=== PATIENT | male | born 1970 | race Caucasian/White ===

== ENCOUNTER → 2018-10-16 16:37 | Outpatient (CLI) | payer BC, SELFPAY ==
--- NOTE | 2018-10-16 16:47 | XR_ITS ---
PROCEDURE: XR FOOT WT BEARING LT 3V CLINICAL INDICATION: pain COMPARISON: No exams were available for comparison FINDINGS: No fracture or dislocation. No lytic or blastic change. There is normal mineralization. There is mild pes planus. Mild degenerative changes are present involving the talonavicular joint with bony hypertrophic change of the dorsal aspect of the navicular. There is a prominent os trigonum. There is a prominent calcaneal spur with a separate area of calcification along the anterior aspect of the spur and some calcification along the plantar surface of the calcaneus raising the question of plantar fasciitis. Other findings:None. IMPRESSION: Pes planus with degenerative change of the midfoot Prominent os trigonum Nonspecific calcifications along the the calcaneal spur and plantar surface of the calcaneus Dictated by: Lemuel Faustin MD 10/16/2018 18:43 Signed by: <Electronically signed by Lemuel Faustin MD in [place]> 10/16/2018 18:43
--- NOTE | 2018-10-16 16:47 | XR_ITS ---
PROCEDURE: XR FOOT WT BEARING RT 3V CLINICAL INDICATION: pain COMPARISON: No exams were available for comparison FINDINGS: No fracture or dislocation. No lytic or blastic change. There is normal mineralization. Osteoarthritic changes involve the 1st metatarsophalangeal joint. Mild osteoarthritic changes involve the tarsal bones. There is pes planus. There is a prominent calcaneal spur. No fracture or dislocation. Other findings:None. IMPRESSION: Pes planus with mild osteoarthritic change Dictated by: Lemuel Faustin MD 10/16/2018 18:41 Signed by: <Electronically signed by Lemuel Faustin MD in [place]> 10/16/2018 18:41
== END ==
PROVIDERS: PCP Nurse Practitioner; Visit Provider Podiatrist
DX: M21.6X1 Other acquired deformities of right foot (principal); M21.6X2 Other acquired deformities of left foot; M72.2 Plantar fascial fibromatosis
CPT/HCPCS: 73630

== ENCOUNTER 2020-03-04 12:19 | Emergency (ER) | payer BC, SELFPAY ==
[2020-03-04 12:20] VITALS: BP 134/75; PULSE 80; RESP 14; TEMP 36.6; O2SAT 97; BMI 35.9
--- NOTE | 2020-03-04 12:45 | HMH.EDUTC ---
[facility] Disposition Clinical Impression: Exposure to COVID-19 virus Disposition: Home, Self-Care Condition on Discharge: Good Instructions: Preventing the Spread of Coronavirus Discharge Instructions Additional Instructions: Drink plenty of fluids. Take tylenol for pain or fever. Return if you begin to have difficulty breathing. Follow up with your regular doctor. GO TO THE ER FOR ANY WORSENING SYMPTOMS Referrals: Alisson Cho APRN [Primary Care Provider] - Forms: Work/School Release Time of Disposition: 12:49 Medical Decision Making - Medical Records Medical records reviewed: No: I reviewed the patient's medical records. - Damon Inquiry Pt receiving controlled substance: No Vital Signs: 03/04/20 12:20 03/04/20 12:51 Temperature 97.9 F 97.9 F Temperature Source Oral Oral Pulse Rate 80 Pulse Rate [Right] 80 Respiratory Rate 14 14 Blood Pressure 134/75 Blood Pressure [Right Arm] 134/75 Blood Pressure Mean [Right Arm] 94 02 Sat by Pulse Oximetry 97 Orders (Tests/Meds): ORDERS Category Date Time Status Covid-19 Nasal PCR Sendout P&C Routine Lab 03/04/20 12:38 Received [facility] [place] HPI - General Stated complaint: covid exposure,symtoms Time Seen by Provider: 03/04/20 12:45 Mode of Arrival: Ambulatory Description of Symptoms (Recalled from Triage Doc. by RN): pt request covid test pt c/o sore throat, KRAUSE, and tired HEENT Symptoms (Recalled from RN notes): No Resp Symptoms (Recalled from RN notes): Yes Skin Symptoms (Recalled from RN notes): No MS Symptoms (Recalled from RN notes): No Functional Status (Recalled from RN notes): wnl - History of Present Illness Provider Complaint: He states that he has been exposed to covid-19 by his son having it. He denies any symptoms at this time other than he has had fatigue for the past couple of days. - Related Data Home Medications Medication Instructions Recorded Confirmed pantoprazole 20 mg tablet,delayed 20 mg PO DAILY 10/16/18 10/16/18 release Previous Rx's Medication Instructions Recorded Bisoprolol Fumarate [Bisoprolol 5 mg PO DAILY #30 tab 10/12/18 5mg Tablet] Allergies Allergy/AdvReac Type Severity Reaction Status Date / Time No Known Allergies Allergy Verified 10/16/18 14:58 - Worker's Comp Is this a Worker's Comp case?: No Is this an H Worker's Comp?: No Is this a Rosalva Worker's Comp?: No H History - Hepatitis A Screen Drug use history?: No High risk sexual behaviors?: No History of sexually transmitted infection?: No Currently employed?: No Childcare worker?: No Do you have indoor plumbing?: Yes Do you have electricity?: Yes Attestation statement:: This patient has been screened for Hepatitis A risk factors. I have reviewed the patient's past medical history: Yes Medical History: Reports:: Gastroesophageal Reflux Disease(GERD), Hypertension Other Surgeries: Yes: Hernia Repair Amputation: No Fractures: Yes (2nd finger on the right hand ) Comment: Gastric Sleeve- 2013. Spermatocele removed - Social History Smoking Status: Never smoker Alcohol Intake: never Alcohol Intake Frequency:: other Occupational Status: other Family Hx:: Diabetes ROS Obtained: Yes All systems reviewed & no additional complaints - Constitutional Constitutional: Reports system reviewed and no additional complaints, except as docu - Eyes Eyes: Reports system reviewed and no additional complaints, except as docu - ENT Ears, Nose, Mouth, and Throat: Reports system reviewed and no additional complaints, except as docu - Cardiovascular Cardiovascular: Reports system reviewed and no additional complaints, except as docu - Respiratory Respiratory: Reports system reviewed and no additional complaints, except as docu Physical Exam - General General appearance: alert, in no apparent distress - Head Head exam: atraumatic, normocephalic, normal inspection - Eye Eye exam: Present: normal ap
[2020-03-04 12:51] VITALS: BP 134/75; PULSE 80; RESP 14; TEMP 36.6
[2020-03-05 09:20] LABS: Covid-19 Nasal PCR Sendout P&C NEGATIVE
== END 2020-03-04 12:54 | disposition home or self-care (01) ==
PROVIDERS: Emergency Provider Nurse Practitioner Family; PCP Nurse Practitioner
DX: Z20.822 Contact with and (suspected) exposure to COVID-19 (principal); I10 Essential (primary) hypertension; K21.9 Gastro-esophageal reflux disease without esophagitis; Z79.899 Other long term (current) drug therapy
CPT/HCPCS: 99202; G0463; U0004

== ENCOUNTER → 2020-03-27 14:31 | Outpatient (CLI) | payer BC, SELFPAY ==
[2020-03-27 14:42] LABS: Basophils % 0.8 % (0.1-2.0); Eosinophils # 0.1 K/mm3 (0.0-0.4); Eosinophils % 1.2 % (0.1-12.0); Hematocrit 45.5 % (42.0-52.0); Hemoglobin 14.4 g/dL (14.1-18.0); Lymphocytes # 2.1 K/mm3 (0.7-4.5); Lymphocytes % 46.7 % (10-50); Mean Corpuscular HGB Conc 31.7 g/dL (31.8-35.4); Mean Corpuscular Hemoglobin 27.6 pg (27.0-31.2); Mean Corpuscular Volume 87.1 fl (80-94); Mean Platelet Volume 7.6 fl (7.4-10.4); Monocytes # 0.3 K/mm3 (0.1-1.0); Monocytes % 7.4 % (1.7-9.3); Neutrophils % 43.9 % (37.0-80.0); Platelet Count 273 K/mm3 (142-424); Red Blood Count 5.23 M/mm3 (4.60-6.20); White Blood Count 4.6 K/mm3 (4.8-10.8)
[2020-03-27 14:51] LABS: Chloride 107 mmol/L (98-107); Potassium 4.1 mmoL/L (3.5-5.1); Sodium 142 mmol/L (136-145)
[2020-03-27 14:54] LABS: Alanine Aminotransferase 26 U/L (12-78); Albumin Level 4.2 g/dl (3.5-5.0); Albumin/Globulin Ratio 1.4 (1.1-1.8); Alkaline Phosphatase 71 U/L (38-126); Anion Gap 10.1 mEq/L (5-15); Aspartate Amino Transferase 27 U/L (17-59); Bilirubin,Total 0.7 mg/dl (0.2-1.3); Blood Urea Nitrogen 15 mg/dl (9-20); Carbon Dioxide 29 mmol/L (22.0-30.0); Cholesterol 181 mg/dl (140-200); Estimated Glomerular Filt Rate 71 ml/min (>60); GFR (African American) 86 ML/MIN (>60); Globulin 3.1 g/dL (1.3-3.2); Total Protein,Serum 7.3 g/dl (6.3-8.2); Triglycerides 153 mg/dl (30-150); VLDL Cholesterol 31 mg/dL (0-40)
[2020-03-27 14:55] LABS: Calcium 9.7 mg/dl (8.4-10.2); Chol/HDL Ratio 3.6 (1-3.5); Glucose 95 mg/dl (74-100); HDL Cholesterol 50 mg/dl (40-60)
[2020-03-27 15:07] LABS: Direct LDL Cholesterol 96.84 mg/dL (100-129)
[2020-03-27 15:13] LABS: T4 (Thyroxine) 8.3 ug/dl (5.53-11.0)
[2020-03-27 18:44] LABS: 25-OH Vitamin D, Total 34.7 ng/mL (30-100)
[2020-03-27 18:58] LABS: Prostate Specific Ag Screen 0.3 ng/ml (0.0-4.0)
== END ==
PROVIDERS: Visit Provider Nurse Practitioner Family
DX: Z00.00 Encounter for general adult medical examination without abnormal findings (principal); Z12.5 Encounter for screening for malignant neoplasm of prostate
CPT/HCPCS: 80053; 80061; 82306; 84436; 84443; 85025; G0103

== ENCOUNTER → 2020-05-14 12:31 | Outpatient (CLI) | payer BC, SELFPAY ==
[2020-05-14 15:10] LABS: Coronavirus 19 IgG Antibody Negative (Negative); Coronavirus 19 IgM Antibody Negative (Negative)
== END ==
PROVIDERS: Visit Provider Internal Medicine Gastroenterology
DX: Z01.818 Encounter for other preprocedural examination (principal); Z20.822 Contact with and (suspected) exposure to COVID-19; Z13.810 Encounter for screening for upper gastrointestinal disorder; Z12.11 Encounter for screening for malignant neoplasm of colon
CPT/HCPCS: 36415; 86328

== ENCOUNTER 2020-05-16 07:32 | Day surgery (SDC) | payer BC, SELFPAY ==
[2020-05-13 11:37] VITALS: BMI 46.5
[2020-05-16] VITALS (9 sets, daily range): BP systolic 88–122; BP diastolic 54–82; PULSE 70–84; RESP 16–18; TEMP 36.3–36.8; O2SAT 95–100
--- NOTE | 2020-05-16 08:30 | HMH.PROC ---
[facility] Procedure Note Procedure Note:: Upper Endoscopy Procedure Report: Esophagogastroduodenoscopy with cold biopsies and TTS balloon dilation Endoscopost: Rishi Andrew II, MD Referring Physician: BENJAMIN Mejia Date of Procedure: May 16, 2020 Equipment: Olympus GIF 190 standard upper endoscope Sedation: MAC sedation Indications: Mr. Enriquez is a 50-year-old gentleman with chronic heartburn and reflux. This occurs especially when lying down. He does report some regurgitation and belching. He reports some early satiety but no bloating. He did have a gastric sleeve (Dr. Shaggy San) 6 or 7 years ago). The patient reports intermittent dysphagia. He reports no weight loss or melena. He reports no abdominal pain, indigestion or dyspepsia. Procedure: Prior to the procedure, a history and physical exam was performed, and patient's medications and allergies were reviewed. The risks, benefits and alternatives of the sedation and procedure were discussed with the patient. All questions were answered and informed consent was obtained. The patient was brought to the procedure room. Patient identification and proposed procedure were verified by the physician and the nurse. The patient was placed in a left lateral decubitus position and the scope was passed under direct vision. Throughout the procedure, the patient's blood pressure, pulse, and oxygen saturations were monitored continuously. The upper GI endoscopy was accomplished without difficulty. The patient tolerated the procedure well. Findings: The scope was passed directly into the upper esophagus and advanced to the third portion of the duodenum. The post bulbar duodenum and duodenal bulb were normal with normal mucosa and conniventes. The scope was withdrawn through a normal duodenal bulb and pylorus into the stomach. There was evidence of linear reactive gastropathy of the antrum. There was evidence of prior gastric sleeve surgery with removal of most of the fundus. The remainder of the body and cardia of the stomach were normal. Upon retroflexion there was a small 2 cm hiatal hernia. 2 biopsies were taken in the antrum and along the lesser curvature for histology to rule out gastritis and/or H pylori. The scope was then withdrawn into the esophagus. There was a serrated Z-line. Cold biopsies were obtained at the squamocolumnar junction. There were strong tertiary contractions and evidence of mild to moderate esophageal dysmotility. The entire esophagus was dilated to 60 [place]/20 mm with a TTS hydrostatic balloon. There was some resistance at the cricopharyngeus. The remainder of the esophageal mucosa was normal. Impression: 1. Nonerosive GERD with moderate esophageal dysmotility and small 2 cm hiatal hernia 2. Mild linear reactive gastropathy of antrum 3. Prior gastric sleeve surgery Plan: I will follow-up the biopsies. I do feel the patient has some functional GERD driven by gas pressure gradients. We will discuss dietary measures and treatment options. I will proceed with screening colonoscopy.
--- NOTE | 2020-05-16 08:31 | HMH.ANESCL ---
[facility] Anesthesia Checklist - Patient Identification Patient Identification: Arm Band - Structural Data Admitted From: Home Planned Operative Procedure/s: EGD Consent for Planned Operative Procedure(s) Verified: Yes - NPO Status Verified Time NPO: 00:00 - Airway Assessment Dentition: Good Dentition - Neurological Assessment Level of Consciousness: Awake Hx Seizures: No Numbness or tingling in extremities: No - Anesthesia Plan Anesthesia Risk discussed: Yes Anesthesia Plan: Verified ASA Class: III Anesthesia Type: MAC [facility] History I have reviewed the patient's past medical history: Yes Medical History: Reports:: Gastroesophageal Reflux Disease(GERD), Hypertension Denies:: Cancer, Diabetes Mellitus Type 1, Diabetes Mellitus Type 2, Internal Pacemaker, MRSA, Seizures *Have you ever received a pneumonia vaccine?: No *Have you received a flu vaccine this season?: Yes Anesthesia experience/problems:: None Other Surgeries: Yes: Bariatric Surgery (Gastric Sleeve 2012), Hernia Repair (Umbilical ). No: Pacemaker Amputation: No Fractures: Yes (2nd finger on the right hand ) - *Social History Last grade of school completed: Advanced degree Smoking Status: Never smoker Alcohol Intake: never Alcohol Intake Frequency:: other Substance Use Type: denies use *Occupational Status:: employed Housing: house Household Members: spouse, family *Travel in the last 8 weeks: None Family Hx:: Diabetes
--- NOTE | 2020-05-16 08:57 | P.PCN_ITS ---
[facility] Procedure Note Procedure Note:: Colonoscopy Procedure Report: Colonoscopy with cold snare polypectomy Endoscopist: Rishi Andrew II, MD Referring physician: BENJAMIN Mejia Date of Procedure: May 16, 2020 Equipment: Olympus 190 variable stiffness pediatric colonoscope Sedation: MAC sedation Indication: Mr. Enriquez is a 50-year-old gentleman who is here for high risk screening colonoscopy. His mother had colon cancer in her early 70s (age 71 or 72) and his maternal first cousin had colon cancer at the age of 52. He reports some chronic constipation and has a bowel movement every 3 to 4 days. He reports no abdominal pain, weight loss, rectal bleeding or abdominal bloating. This is his first colonoscopy. Procedure: Prior to the procedure, a history and physical exam was performed, and patient's medications and allergies were reviewed. The risks, benefits and alternatives of the sedation and procedure were discussed with the patient. All questions were answered and informed consent was obtained. The patient was brought to the procedure room. Patient identification and proposed procedure were verified by the physician and the nurse. The patient was placed in a left lateral decubitus position and the scope was passed under direct vision. Throughout the procedure, the patient's blood pressure, pulse, and oxygen saturations were monitored continuously. The colonoscopy was accomplished without difficulty. The patient tolerated the procedure well. Findings: On digital rectal examination there was normal rectal tone. There were no external hemorrhoids. The prostate was 2+, smooth, soft, symmetric without nodules. The colonoscope was introduced through the anal canal to the rectum and advanced to the cecum. The ileocecal valve and appendiceal orifice were identified. The scope was advanced a short distance into the ileum which appeared grossly normal. The scope was then withdrawn into the colon. The cecum, ascending and transverse colon and mucosa were grossly normal. There were 2 colon polyps (transverse x1 (4 mm) and rectum x1 (3 mm)) which were both removed via cold snare polypectomy. There were scattered diverticuli throughout the descending and sigmoid colon (LEFT colon). The rectum itself was normal. Upon retroflexion within the rectum there were grade 1-2 internal hemorrhoids. The preparation was excellent throughout with [place] Preparation Score of 9. The cecal time was 12 minutes. Impression: 1. Diminutive colonic polyps x2 2. Left-sided diverticulosis 3. Grade 1-2 internal hemorrhoids Plan: Based upon the patient's family history, I would recommend repeat surveillance colonoscopy again in 5 years. I will follow up the polyp histology. I would encourage a fiber bowel regimen on a long-term daily maintenance basis.
--- NOTE | 2020-05-16 09:02 | HMH.ANESI ---
[facility] Anesthesia Record Part I Intake, IV Amount: 200 Estimated blood loss (mL): 0 Urine output (mL): 0 Blood Pressure: 88/54 SaO2: 95 Pulse Rate: 84 Respiratory Rate: 16 Temperature: 98.2 F Patient is:: Awake Stable to PACU at:: 08:59
--- NOTE | 2020-05-16 10:24 | P.PN_ITS ---
[facility] Anesthesia Record Part II Discharge Time: 09:50 Destination: Surgical Day Care (OP Surgery) PACU nurse assessment reviewed?: Yes Patient Condition:: Good Anesthesia Complications:: None Swallowing reflex intact?: Yes Cyanosis?: No Blood Pressure: 117/82 Pulse Rate: 79 Temperature: 98.2 F Mental Status: Alert & Oriented Pain level:: 0 Nausea and/or vomitting:: None Intake, IV Amount: 200
== END 2020-05-16 10:00 | disposition home or self-care (01) ==
LOC: OUTP 07:33
PROVIDERS: PCP Nurse Practitioner Family; Visit Provider Internal Medicine Gastroenterology
PROC: 0DJ08ZZ Inspection of Upper Intestinal Tract, Via Natural or Artificial Opening Endoscopic (ICD-10-PCS; CPT 43235; principal; 2020-05-16 09:00)
DX: Z12.11 Encounter for screening for malignant neoplasm of colon (principal); Z80.0 Family history of malignant neoplasm of digestive organs; K63.5 Polyp of colon; K57.30 Diverticulosis of large intestine without perforation or abscess without bleeding; K64.0 First degree hemorrhoids; K21.9 Gastro-esophageal reflux disease without esophagitis; K22.4 Dyskinesia of esophagus; K31.9 Disease of stomach and duodenum, unspecified; K44.9 Diaphragmatic hernia without obstruction or gangrene; Z98.84 Bariatric surgery status; Z79.899 Other long term (current) drug therapy
CPT/HCPCS: 45385; 43239; 43249; C1726

== ENCOUNTER 2020-06-17 14:55 | Emergency (ER) | payer BC, SELFPAY ==
[2020-06-17 15:38] VITALS: BP 126/98; PULSE 85; RESP 18; TEMP 36.8; O2SAT 98; BMI 31.3
--- NOTE | 2020-06-17 15:49 | HMH.EDUTC ---
[facility] [place] Disposition Clinical Impression: Encounter for laboratory testing for COVID-19 virus Disposition: Home, Self-Care Condition on Discharge: Good Instructions: Fluticasone Nasal [place], DI for COVID-19 (Suspected or Confirmed ), Coronavirus Disease 2019 Additional Instructions: *Monitor Temp, Over the counter Motrin or Tylenol as directed/as needed Tylenol every 4 hours and Motrin every 6 hours (as long as your family doctor has told you that you can take it) for fever or pain. and straight to ER if unable to lower temp less than 101.0 after medication given *Throat Lozenges *Warm fluids like tea with honey may help to soothe the throat and help with nasal congestion *Sleep elevated *Humidifier/Vaporizer *Flonase 2 sprays in each nostril daily but be aware that it may take 2-3 days before you notice improvement Follow up IMMEDIATELY for new or worsening symptoms or no Noticeable improvement over the next 48-72 hours. 911 for difficulty breathing or swallowing You were tested for today for COVID19 your test result should be back in the next 24-48 hours, you may call to the [facility] to see if your test results are back in the next 48 hours [phone] [facility] hours are 9am-9pm You was given a handout with instructions for Self Quarantine and Self isolation for while you wait on test results and what to do if they are positive If you are positive the Health Dept will be contacting you also Prescriptions: Fluticasone Propionate [Flonase 50mcg nasal spray 16gm] 1 spr NS DAILY #1 bottle Transmission Status: Received by [facility]/pharmacy #[id number] Referrals: Elisabet Mills APRN [Primary Care Provider] - As needed Forms: Work/School Release Time of Disposition: 15:58 Medical Decision Making - Damon Inquiry Pt receiving controlled substance: No Damon was queried for this patient: No Vital Signs: 06/17/20 15:38 Temperature 98.2 F Temperature Source Oral Pulse Rate [Right Brachial] 85 Respiratory Rate 18 Blood Pressure [Right Arm] 126/98 H Blood Pressure Mean [Right Arm] 107 Blood Pressure Source [Right Arm] Automatic Cuff Blood Pressure Position [Right Arm] Sitting 02 Sat by Pulse Oximetry 98 Oxygen Delivery Method Room Air Orders (Tests/Meds): ORDERS Category Date Time Status Covid-19 Nasal PCR ([facility]) Routine Lab 06/17/20 15:20 Received [facility] HPI - General Stated complaint: covid Test Time Seen by Provider: 06/17/20 15:49 Mode of Arrival: Ambulatory Source of Information: Patient Limitations: No Limitations Description of Symptoms (Recalled from Triage Doc. by RN): COVID TEST HEENT Symptoms (Recalled from RN notes): Yes Resp Symptoms (Recalled from RN notes): Yes Skin Symptoms (Recalled from RN notes): No MS Symptoms (Recalled from RN notes): No Functional Status (Recalled from RN notes): WNL - History of Present Illness Provider Complaint: Patient states that he has been having body aches, chills and feeling fatigued for the last couple of days States that he has not had any sore throat or sinus congestion States that he was concerned with COVID and wanted to get tested - Related Data Home Medications Medication Instructions Recorded Confirmed omeprazole 40 mg capsule,delayed 40 mg PO DAILY 03/27/20 05/22/20 release Previous Rx's Medication Instructions Recorded phentermine 37.5 mg tablet 37.5 mg PO DAILY #30 tab 05/22/20 Fluticasone Propionate [Flonase 1 spr NS DAILY #1 bottle 06/17/20 50mcg nasal spray 16gm] Allergies Allergy/AdvReac Type Severity Reaction Status Date / Time No Known Allergies Allergy Verified 05/22/20 13:02 - Worker's Comp Is this a Worker's Comp case?: No [facility] History - Hepatitis A Screen Drug use history?: No High risk sexual behaviors?: No History of sexually transmitted infection?: No Currently employed?: No Childcare worker?: No Do you have indoor plumbing?: Yes Do you have electricity?: Yes Attestation statement:: This patient has been
[2020-06-17 16:12] VITALS: BP 126/98; PULSE 85; RESP 18; TEMP 36.8
--- NOTE | 2020-06-18 10:19 | PC.NURSE ---
patient notified of positive covid results
== END 2020-06-17 16:12 | disposition home or self-care (01) ==
PROVIDERS: Emergency Provider Nurse Practitioner; PCP Nurse Practitioner Family
DX: U07.1 COVID-19 (principal); I10 Essential (primary) hypertension; K21.9 Gastro-esophageal reflux disease without esophagitis; Z79.899 Other long term (current) drug therapy
CPT/HCPCS: 99202; G0463; U0003

== ENCOUNTER → 2020-10-09 16:12 | Outpatient (CLI) | payer BC, SELFPAY ==
--- NOTE | 2020-10-09 16:13 | MR_ITS ---
PROCEDURE: MR SHOULDER RT WO CON CLINICAL INDICATION: fall shoulder pain COMPARISON: No exams were available for comparison TECHNIQUE: Routine multiplanar multi echo sequences are performed without gadolinium enhancement. FINDINGS: The infraspinatus tendon, and teres minor tendons have an unremarkable. Tendinopathy/tendinosis involves the subscapularis and supraspinatus tendon. There is a small area of discontinuity of the anterior aspect of the supraspinatus tendon distally consistent with a least a partial and possibly full-thickness tear. A complete tear is not present. There is mild acromioclavicular hypertrophy with subacromial narrowing. Small osteophyte is present along the inferior aspect of the distal clavicle causing some impingement upon the musculotendinous junction of the supraspinatus. There does appear to be a SLAP tear of the glenoid labrum best seen on the coronal images from the 2 to 10 o'clock position. The bicipital tendon is in place. No obvious fracture. There are mild osteoarthritic changes of the glenohumeral joint IMPRESSION: Acromioclavicular hypertrophy with subacromial stenosis and small spur along the inferior aspect of the distal clavicle at the musculotendinous junction of the supraspinatus with mild impingement. Tendinopathy/tendinosis of the supraspinatus tendon and subscapularis tendons with at least a partial and possibly full-thickness tear of the supraspinatus tendon distally and anteriorly. No evidence of complete tear or musculotendinous retraction. Slap tear of the glenoid labrum Mild osteoarthritic change of the glenohumeral joint Dictated by: Lemuel Faustin MD 10/10/2020 08:29 Lemuel Faustin MD in [place] 10/10/2020 08:29
== END ==
PROVIDERS: PCP Nurse Practitioner Family; Visit Provider Nurse Practitioner Family
DX: M25.511 Pain in right shoulder (principal)
CPT/HCPCS: 73221

== ENCOUNTER → 2020-11-05 08:40 | Outpatient (CLI) | payer BC, SELFPAY ==
--- NOTE | 2020-11-05 08:45 | XR_ITS ---
PROCEDURE: XR SHOULDER RT MIN 2V CLINICAL INDICATION: internal, external and y views Pain COMPARISON: No exams were available for comparison FINDINGS: No fracture or dislocation. No lytic or blastic change. There is normal mineralization. There are osteoarthritic changes at the acromioclavicular joint and glenohumeral joint. There is a small linear calcific density along the neck of the humerus medially etiology indeterminate. Other findings:There is mild subacromial stenosis. IMPRESSION: Mild osteoarthritic change. Dictated by: Lemuel Faustin MD 11/05/2020 09:36 Lemuel Faustin MD in [place] 11/05/2020 09:36
== END ==
PROVIDERS: PCP Nurse Practitioner Family; Visit Provider Orthopaedic Surgery
DX: M25.511 Pain in right shoulder (principal)
CPT/HCPCS: 73030

== ENCOUNTER 2021-03-25 15:53 | Emergency (ER) | payer BC, SELFPAY ==
[2021-03-25 16:20] VITALS: BP 130/98; PULSE 97; RESP 18; TEMP 36.9; O2SAT 97; BMI 43.6
--- NOTE | 2021-03-25 16:20 | HMH.EDUTC ---
[facility] Disposition Clinical Impression: Encounter for laboratory testing for COVID-19 virus Disposition: Home, Self-Care Condition on Discharge: Good Instructions: Preventing the Spread of Coronavirus Discharge Instructions, DI for COVID-19 (Suspected or Confirmed ) Additional Instructions: Drink plenty of fluids. Follow up with your regular doctor. GO TO THE ER FOR ANY WORSENING SYMPTOMS Quarantine until you know the results of your covid-19 test. Notify your school or workplace of your results and follow their instructions regarding return to work/school. Referrals: Elisabet Mills APRN [Primary Care Provider] - Time of Disposition: 16:22 Medical Decision Making - Medical Records Medical records reviewed: No: I reviewed the patient's medical records. - Damon Inquiry Pt receiving controlled substance: No Orders (Tests/Meds): ORDERS Category Date Time Status Covid-19 Nasal PCR ([facility]) Routine Lab 03/25/21 16:19 Ordered [facility] HPI - General Stated complaint: covid tests Time Seen by Provider: 03/25/21 16:20 - History of Present Illness Provider Complaint: He is here to have a covid-19 test in preparation for shoulder surgery that he is scheduled to have done at early next week. He denies any symptoms or complaints. - Related Data Previous Rx's Medication Instructions Recorded omeprazole 40 mg capsule,delayed 40 mg PO DAILY #90 cap 12/23/20 release phentermine 37.5 mg tablet 37.5 mg PO DAILY #30 tab 03/25/21 tramadol 50 mg tablet 50 mg PO BID PRN #60 tab 03/25/21 Allergies Allergy/AdvReac Type Severity Reaction Status Date / Time No Known Allergies Allergy Verified 03/25/21 15:07 [facility] History - Hepatitis A Screen Attestation statement:: This patient has been screened for Hepatitis A risk factors. I have reviewed the patient's past medical history: Yes Medical History: Reports:: Gastroesophageal Reflux Disease(GERD), Hypertension, MRSA Denies:: Cancer, Diabetes Mellitus Type 1, Diabetes Mellitus Type 2, Internal Pacemaker, Seizures Other Medical History: Reports: Arthritis Other Surgeries: Yes: Bariatric Surgery, Colonoscopy, Hernia Repair (Umbilical ), Other (Back surgery late 2020 and shoulder surgery mar 2021). No: Pacemaker Amputation: No Fractures: Yes (2nd finger on the right hand ) Comment: Gastric Sleeve- 2014. Spermatocele removed - Social History Smoking Status: Never smoker Alcohol Intake: never Alcohol Intake Frequency:: other Substance Use Type: denies use Occupational Status: employed Housing: house Household Members: spouse, family Family Hx:: Diabetes ROS Obtained: Yes All systems reviewed & no additional complaints - Constitutional Constitutional: Reports system reviewed and no additional complaints, except as docu - Eyes Eyes: Reports system reviewed and no additional complaints, except as docu - ENT Ears, Nose, Mouth, and Throat: Reports system reviewed and no additional complaints, except as docu - Cardiovascular Cardiovascular: Reports system reviewed and no additional complaints, except as docu - Respiratory Respiratory: Reports system reviewed and no additional complaints, except as docu - Gastrointestinal Gastrointestingal: Reports: system reviewed and no additional complaints, except as docu - Musculoskeletal Musculoskeletal: Reports system reviewed and no additional complaints, except as docu - Integumentary/Breasts Skin/Breast: Reports system reviewed and no additional complaints, except as docu - Neurologic Neurologic: Reports system reviewed and no additional complaints, except as docu Physical Exam - General General appearance: alert, in no apparent distress - Head Head exam: atraumatic, normocephalic, normal inspection - Eye Eye exam: Present: normal appearance, PERRL, EOMI - ENT ENT exam: Present: normal exam, normal oropharynx, mucous membranes moist, TM's normal bilaterally, normal external
[2021-03-25 16:25] VITALS: BP 130/98; PULSE 97; RESP 18; TEMP 36.9
== END 2021-03-25 16:26 | disposition home or self-care (01) ==
PROVIDERS: Emergency Provider Nurse Practitioner Family; PCP Nurse Practitioner Family
DX: U07.1 COVID-19 (principal)
CPT/HCPCS: 99202; C9803; G0463; U0003; U0005

== ENCOUNTER → 2021-12-15 14:33 | Outpatient (CLI) | payer BC, SELFPAY ==
--- NOTE | 2021-12-15 14:37 | MR_ITS ---
FINAL REPORT CLINICAL HISTORY: PAIN OF RIGHT KNEE right knee pain pain since [place] pain when walking FINDINGS: Multiplanar MR imaging of the right knee was performed without contrast. There is motion on many of the images which decreases sensitivity of the exam. There is a tear of the posterior horn extending to the posterior root of the medial meniscus. There is possible small tear of the anterior horn of the lateral meniscus. The anterior and posterior cruciate ligaments are intact. The medial collateral ligament and lateral ligamentous complex are intact. There is a foci of patellar tendinitis. The quadriceps tendon is intact. There are mild degenerative changes. There is a nondisplaced fracture of the medial tibial plateau and 10 mm osteochondral lesion versus osteochondral fracture at the medial tibial plateau with bone marrow edema in this region. There is moderate chondromalacia. A large joint effusion is seen. The musculature is intact. No soft tissue mass or cyst is identified. IMPRESSION: Tear of the posterior horn of the medial meniscus extending to the posterior root. Possible small tear of the anterior horn of the lateral meniscus. Nondisplaced fracture of the medial tibial plateau and a 10 mm osteochondral lesion versus osteochondral fracture at the medial tibial plateau with bone marrow edema. Large joint effusion. Reviewed, Interpreted and Dictated by Kenny Cha III, MD Transcribed by Wen Barrett Authenticated and [facility]
== END ==
PROVIDERS: PCP Nurse Practitioner Family; Visit Provider Nurse Practitioner Family
DX: M25.561 Pain in right knee (principal)
CPT/HCPCS: 73721

== ENCOUNTER 2023-05-18 13:39 | Outpatient (CLI) | payer BC, SELFPAY ==
--- NOTE | 2023-05-18 13:49 | US_ITS ---
FINAL REPORT CLINICAL HISTORY: history of thyroid nodules COMPARISON: None FINDINGS: THYROID ULTRASOUND: The right lobe of the thyroid gland measures 6.1 x 3.4 x 4.4 cm in size. The left lobe of the thyroid gland measures 6.5 x 3.7 x 2.7 cm in size. The isthmus of the thyroid gland measures 5.4 mm in thickness. The entire thyroid gland is enlarged, with numerous heterogeneous predominantly hypoechoic solid nodules, measuring up to 3.3 cm on the right side and up to 4.2 cm on the left side. These nodules are TI-RADS category 4 nodules, and which suggest sampling of the dominant nodule in each lobe. IMPRESSION: Enlarged thyroid gland with numerous heterogeneous TI-RADS category 4 nodules as described. Would suggest sampling of the dominant nodule in each lobe of the thyroid gland. Reviewed, Interpreted and Dictated by Chilo Arias MD Transcribed by Janet Bazzi Authenticated and [facility]
[2023-05-18 14:45] LABS: Free T4 (Free Thyroxine) 1.16 ng/dl (0.78-2.19)
[2023-05-18 14:59] LABS: Thyroid Stimulating Hormone 0.66 uIU/mL (0.465-4.68)
== END 2023-05-18 23:59 ==
LOC: RAD 13:39
PROVIDERS: PCP Nurse Practitioner Family; Visit Provider Nurse Practitioner
DX: E03.9 Hypothyroidism, unspecified (principal); Z86.39 Personal history of other endocrine, nutritional and metabolic disease
CPT/HCPCS: 36415; 76536; 84439; 84443

== ENCOUNTER 2023-05-27 07:59 | Outpatient (CLI) | payer BC, SELFPAY ==
--- NOTE | 2023-05-27 08:00 | US_ITS ---
FINAL REPORT CLINICAL HISTORY: .GILMAR [place] -- RT AND LT LOBE NODULES - [facility] FINDINGS: Ultrasound guided thyroid biopsy. HISTORY: Nodules within the right and left lobe of the thyroid. Attending radiologist: Dr. 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 Utilizing local anesthesia and sterile technique with a 25-gauge needle, access to nodule within the right lobe of the thyroid was obtained. A total of 5 passes were performed with a 25-gauge needle under direct ultrasound guidance. In addition, access to nodule within the left lobe of the thyroid was obtained. A total of 5 passes were performed with a 25-gauge needle under direct ultrasound guidance. The patient received no conscious sedation. The patient tolerated procedure well and left the department in good condition. IMPRESSION: Status post ultrasound guided biopsy of the right and left lobe of the thyroid without immediate complication. Films reviewed , interpreted and dictated by Dr. Cha. Transcribed by Gilmar Ambrose PA-C. Reviewed, Interpreted and Dictated by Kenny Cha III, MD Transcribed by ELIN Harding Authenticated and [facility]
== END 2023-05-27 23:59 ==
LOC: RAD 08:00
PROVIDERS: PCP Nurse Practitioner Family; Visit Provider Nurse Practitioner
DX: Z86.39 Personal history of other endocrine, nutritional and metabolic disease (principal); E04.1 Nontoxic single thyroid nodule
CPT/HCPCS: 10005; 76536

== ENCOUNTER 2023-08-14 13:36 | Outpatient (CLI) | payer BC, SELFPAY ==
--- NOTE | 2023-08-14 13:49 | ECG_ITS ---
APPROVED REPORT Exam: Resting ECG HR:90 bpm ECG Measurements Heart Rate 90 AXES SD 177 P 18 QRSd 97 QRS -1 QT 347 T 64 QTc 394 Conclusion SINUS RHYTHM POSSIBLE LEFT ATRIAL ENLARGEMENT [-0.1mV P-WAVE IN V1/V2] POSSIBLE LEFT VENTRICULAR HYPERTROPHY [VOLTAGE CRITERIA PLUS LAE OR QRS WIDENING] POSSIBLE SEPTAL MYOCARDIAL INFARCTION , PROBABLY OLD [30 ms Q WAVE IN V1/V2] ABNORMAL ECG Electronically signed by : BRANDIE SANTIAGO, 08/14/2023 15:39:29
== END 2023-08-14 23:59 | disposition home or self-care (01) ==
PROVIDERS: PCP Nurse Practitioner Family; Visit Provider Student in an Organized Health Care Education/Training Program
DX: E89.0 Postprocedural hypothyroidism (principal)
CPT/HCPCS: 93005

== ENCOUNTER 2023-08-16 11:26 | Observation (INO) | payer BC, SELFPAY ==
[2023-08-14 14:10] LABS: Basophils # 0.1 K/mm3 (0-0.2); Basophils % 1.2 % (0.1-2.0); Eosinophils # 0.1 K/mm3 (0.0-0.4); Eosinophils % 1.7 % (0.1-12.0); Hematocrit 47.5 % (42.0-52.0); Hemoglobin 15.5 g/dL (14.1-18.0); Lymphocytes # 1.8 K/mm3 (0.7-4.5); Lymphocytes % 32.5 % (10-50); Mean Corpuscular HGB Conc 32.6 g/dL (31.8-35.4); Mean Corpuscular Hemoglobin 29.2 pg (27.0-31.2); Mean Corpuscular Volume 89.7 fl (80-94); Mean Platelet Volume 7.7 fl (7.4-10.4); Monocytes # 0.4 K/mm3 (0.1-1.0); Monocytes % 7.7 % (1.7-9.3); Neutrophils # 3.2 K/mm3 (1.8-7.8); Neutrophils % 56.9 % (37.0-80.0); Platelet Count 266 K/mm3 (142-424); White Blood Count 5.6 K/mm3 (4.8-10.8)
[2023-08-14 14:31] LABS: Chloride 110 mmol/L (98-107)
[2023-08-14 14:32] LABS: Potassium 3.8 mmoL/L (3.5-5.1); Sodium 141 mmol/L (136-145)
[2023-08-14 14:34] LABS: Alanine Aminotransferase 28 U/L (12-78); Albumin Level 4.3 g/dl (3.5-5.0); Alkaline Phosphatase 76 U/L (38-126); Aspartate Amino Transferase 26 U/L (17-59); Bilirubin,Total 0.5 mg/dl (0.2-1.3); Blood Urea Nitrogen 19 mg/dl (9-20); Estimated Glomerular Filt Rate 70 ml/min (>60); GFR (African American) 85 ML/MIN (>60)
[2023-08-14 14:35] LABS: Albumin/Globulin Ratio 1.5 (1.1-1.8); Anion Gap 10.8 mEq/L (5-15); Calcium 9.6 mg/dl (8.4-10.2); Carbon Dioxide 24 mmol/L (22.0-30.0); Globulin 2.9 g/dL (1.3-3.2); Glucose 104 mg/dl (74-100); Total Protein,Serum 7.2 g/dl (6.3-8.2)
[2023-08-15 10:30] VITALS: BMI 43.6
[2023-08-16] VITALS (20 sets, daily range): BP systolic 113–152; BP diastolic 58–88; PULSE 75–106; RESP 14–18; TEMP 35.9–36.8; O2SAT 90–100; BMI 43.6
[2023-08-16] MEDS: LACTATED RINGERS 1000ML 1,000 ML 25 ML IV (09:49)
--- NOTE | 2023-08-16 10:28 | EXP.ANES.CKL ---
[facility] Disclaimer: The information contained in this section may have been updated after the patient was seen, as this information can be updated by other users. Medical History Hydrocele Kidney stone Sleep apnea History of COVID-19 History of gastroesophageal reflux (GERD) Multinodular goiter History of thyroid nodule Hypothyroidism Tinnitus of both ears Fracture of lumbar spine Cervical spine fracture Thyroid nodule Obesity Surgical History H/O gastric sleeve Hx of rotator cuff surgery History of hernia surgery Family History Mother Colon cancer Sister Diabetes Social History Smoking Status: Never smoker alcohol intake: never substance use type: denies use current occupational status: employed Travel in the last 8 weeks: Inside the [place] household members: spouse and family housing: house 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 [facility] Anesthesia Checklist Patient Identification Patient Identification: Arm Band and Verbal (Name & ) Structural Data Admitted From: Home Planned Operative Procedure/s: Total thyroidectomy Consent for Planned Operative Procedure(s) Verified: Yes Verified Documents: Surgical Consent and History and Physical NPO Status Verified Time NPO: 00:00 Chart Verification Results Verified: CBC, BMP and ECG Additional verifications Anesthesia Reactions: No Hx Blood Transfusions: No Blood Transfusion Reaction: No Airway Assessment Mallampati Score:: Class III C-Spine Mobility Assessed: Yes TMJ Mobility Assessed: Yes Dentition: Good Dentition Neurological Assessment Level of Consciousness: Awake Hx Seizures: No Numbness or tingling in extremities: No Anesthesia Plan Anesthesia Risk discussed: Yes Anesthesia Plan: Verified ASA Class: III Anesthesia Type: General
[2023-08-16] MEDS: CEFAZOLIN SODIUM 3 GM in 0.9 % SODIUM CHLORIDE 100 ML IV (12:00)
--- NOTE | 2023-08-16 12:05 | HMH.PHAINT1 ---
Pharmacy Intervention Comments: MEDICATION RECONCILIATION COMPLETED ON PATIENT USING EXTERNAL FILL HISTORY FROM PHARMACY. -JUAN MIGUEL HENRY, MALCOLMD
[2023-08-16] MEDS: LIDOCAINE 1% W/EPI 1:100,000 20ML VIAL 20 ML (12:13)
--- NOTE | 2023-08-16 15:04 | EXP.OP.NOTE ---
Date of procedure: 08/16/23 Pre-op Diagnosis:: thyroid goiter Post-op Diagnosis:: same Procedure performed:: total thyroidectomy Surgeon:: Ac Venegas MD Anesthesia: GETA Estimated blood loss (mL): 25 Operative findings:: enlarged multinodular goiter Operative note:: The patient was brought to the OR, laid in supine position, and general anesthesia was induced. The Nims nerve monitoring endotracheal tube was utilized and set up and confirmed to be working appropriately. Patient was prepped and draped in the usual fashion. Lidocaine with epinephrine 1-100,000 was injected into a transverse neck incision. I dissected through the skin, subcutaneous tissue, and platysma. Identified the midline raphae of the strap muscles. The strap muscles were divided. This revealed an enlarged multinodular goiter. First starting on the left I dissected the strap muscles off the lateral edge of the thyroid. I then isolated the superior pedicle from the surrounding tissue and it was taken down with the harmonic. I then began to roll the thyroid lobe in a lateral to medial fashion up onto the patient's trachea. I was readily able to identify the recurrent laryngeal nerve and it was protected. I then dissected the remainder of the tissue off of Dumont's ligament and brought the left lobe of the thyroid up onto the trachea. I was able to identify both a superior and inferior parathyroid gland on the side which were preserved. I then went to the right where again I dissected the strap muscles off the lateral lobe of the thyroid. The superior pedicle was identified and taken down with the harmonic. I again rolled the right lobe in a lateral to medial fashion up onto the trachea. I was again able to readily identify the recurrent laryngeal nerve and it was protected. I dissected the remainder of the thyroid off Dumont's ligament and then ultimately off the trachea and it was sent for permanent pathology. I was able to identify at least a superior parathyroid gland on the right during this process. Patient's neck was then irrigated and suctioned out. Hemostasis was achieved with bipolar cautery. Both recurrent laryngeal nerves stimulated appropriately at the end of the case. 2x 15 [place] drains were inserted into his neck, one on each side. The strap muscles were reapproximated and then the platysma layer and skin were closed. He was then turned over to anesthesia to be awoken and extubated. Condition: stable Disposition: PACU Complications:: none
--- NOTE | 2023-08-16 15:14 | P.PNANES_ITS ---
[facility] Anesthesia Record Part I Anesthesia Record I Intake, IV Amount: 850 Hydration: Adequate Estimated blood loss (mL): 75 Urine output (mL): 0 Blood Products used (#): none Blood Pressure: 137/88 SaO2: 93 Pulse Rate: 87 Airway Patency: Patent Respiratory Rate: 16 Temperature: 96.6 F Patient is:: Drowsy, Nasal O2 (4L/min) and Stable Stable to PACU at:: 15:10
[2023-08-16] MEDS: MORPHINE 2MG/ML SYRINGE 2 MG IV (16:51)
[2023-08-16] MEDS: 0.9 % SODIUM CHLORIDE 1000ML 1,000 ML 50 ML IV (16:51)
[2023-08-16] MEDS: HEPARIN SODIUM 5,000 UNIT/ML VIAL 5000 UNIT SQ (16:51)
[2023-08-16] MEDS: ONDANSETRON 4MG/2ML VIAL 4 MG IV (16:53)
--- NOTE | 2023-08-16 18:09 | EXP.HP ---
History of Present Illness *Admission Date: 08/16/23 *Reason for visit:: thyroid surgery *History of present illness: Patient is a 59-year-old male who presented to hospital for elective goiter surgery. Patient underwent thyroidectomy by ENT, patient was admitted to the hospital for observation post surgery. At time of my evaluation patient denied chest pain shortness of breath nausea vomiting fever patient complains of stabbing at the site. [facility] Disclaimer: The information contained in this section may have been updated after the patient was seen, as this information can be updated by other users. Medical History Hydrocele Kidney stone Sleep apnea History of COVID-19 History of gastroesophageal reflux (GERD) Multinodular goiter History of thyroid nodule Hypothyroidism Tinnitus of both ears Fracture of lumbar spine Cervical spine fracture Thyroid nodule Obesity Surgical History H/O gastric sleeve Hx of rotator cuff surgery History of hernia surgery Family History Mother Colon cancer Sister Diabetes Social History Smoking Status: Never smoker alcohol intake: never substance use type: denies use current occupational status: employed Travel in the last 8 weeks: Inside the [place] household members: spouse and family housing: house 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 Review of Systems Review of Systems Review of systems:: pertinent systems reviewed and negative unless documented below Meds Home Medications and Allergies Home Medications Medication Instructions Recorded Confirmed Type semaglutide 2 mg/dose (8 mg/3 mL) 2 mg SQ WEEKLY 05/18/23 08/16/23 History subcutaneous pen injector (Ozempic) hydroxyzine pamoate 25 mg capsule 25 mg PO HS 08/16/23 08/16/23 History omeprazole 40 mg capsule,delayed 40 mg PO DAILY 08/16/23 08/16/23 History release New Prescriptions to Start Prescriptions: Allergies Allergy/AdvReac Type Severity Reaction Status Date / Time No Known Allergies Allergy Verified 08/16/23 09:16 Exam Data for Last 24 hours Vital signs and Labs for Last 24 Hours: Temp Pulse Resp BP Pulse Ox O2 Del Method O2 Flow Rate 97.9 F 90 16 133/69 91 L Room Air 4 08/16/23 16:25 08/16/23 16:40 08/16/23 16:40 08/16/23 16:40 08/16/23 16:40 08/16/23 16:40 08/16/23 15:05 I & O for Last 24 hours: Intake & Output 08/13/23 08/14/23 08/15/23 08/16/23 23:59 23:59 23:59 23:59 Intake Total 850 / 850 Output Total 0 / 0 Balance 850 / 850 Weight 154.221 kg 154.221 kg Constitutional Constitutional: no acute distress *Routine HEENT Exam Head: Present normocephalic Eye: Present EOMI and PERRL ENT: Present mucous membranes moist Comments: anterior neck is covered with dressing and has drain *Routine Neck Exam Neck: Present supple; Absent lymphadenopathy *Routine Respiratory Exam Respiratory: Present CTA bilaterally *Routine Cardiovascular Exam Cardiovascular: Present RRR *Routine Abdominal Exam Abdominal: Present soft and normoactive bowel sounds; Absent tenderness *Routine Rectal Exam Rectal:: deferred *Routine Genitalia Exam Genitalia:: deferred *Routine Extremities Exam Extremities: Absent cyanosis, clubbing or edema *Routine Skin Exam Skin: Present warm; Absent rash *Routine Neurological Exam Neurological: Present alert and oriented X3 Assessment and Plan *Assessment and plan (1) Multinodular goiter: Status: Acute Category: Medical Code(s): E04.2 - Nontoxic multinodular goiter (2) Thyroid nodule: Status: Chronic Category: Medical Code(s): E04.1 - Nontoxic single thyroid nodule Plan Patient is a 59-year-old male who presented to hospital for elective goiter surgery. Patient underwent thyroidectomy by ENT, patient was admitted to the hospital for observation post surgery. At time of my evaluation patient denied chest pain shortness of breath nausea vomiting fever patient complains of stabbing at the site. Assessment and plan Goiter Status post thyroidectomy ENT following Pain control start levothyroxine 150 mg daily Avoid NSAIDs due to bleeding risks check CBC, BMP DVT prophylaxis-heparin
--- NOTE | 2023-08-16 19:01 | PC.NURSE ---
Patient new admit this shift from PACU s/p Thyroidectomy. Patient being monitored for pain control and bleeding.
[2023-08-16] MEDS: PANTOPRAZOLE 40MG TABLET 40 MG PO (20:53)
[2023-08-16] MEDS: hydrOXYzine pamoate 25MG CAPSULE 25 MG PO (20:53)
[2023-08-16] MEDS: HYDROMORPHONE 2MG/ML SYRINGE 1 MG IV (20:53)
[2023-08-17] VITALS: BP 141/77; PULSE 104; RESP 16; TEMP 37; O2SAT 95
[2023-08-17] MEDS: HYDROMORPHONE 2MG/ML SYRINGE 1 MG IV (00:06)
[2023-08-17] MEDS: HEPARIN SODIUM 5,000 UNIT/ML VIAL 5000 UNIT SQ ×2 (00:07→08:27)
[2023-08-17 04:00] VITALS: BP 124/72; PULSE 91; RESP 16; TEMP 36.8; O2SAT 95; BMI 45.1
--- NOTE | 2023-08-17 05:33 | PC.NURSE ---
20 ml of bloody draiange from leah garcia, hr 100-104, a.febrile, pain treated per mar
[2023-08-17 06:43] LABS: Basophils % 0.1 % (0.1-2.0); Hematocrit 42.8 % (42.0-52.0); Lymphocytes # 0.9 K/mm3 (0.7-4.5); Lymphocytes % 8.4 % (10-50); Mean Corpuscular HGB Conc 32.7 g/dL (31.8-35.4); Mean Corpuscular Hemoglobin 29.4 pg (27.0-31.2); Mean Corpuscular Volume 89.9 fl (80-94); Mean Platelet Volume 7.5 fl (7.4-10.4); Monocytes # 0.7 K/mm3 (0.1-1.0); Monocytes % 6.4 % (1.7-9.3); Neutrophils # 8.8 K/mm3 (1.8-7.8); Neutrophils % 85.1 % (37.0-80.0); Platelet Count 281 K/mm3 (142-424); Red Blood Count 4.75 M/mm3 (4.60-6.20); Red Cell Distribution Width 14.8 % (11.5-17.5); White Blood Count 10.4 K/mm3 (4.8-10.8)
[2023-08-17] MEDS: ACETAMINOPHEN 325MG TAB 650 MG PO (06:46)
[2023-08-17] MEDS: LEVOTHYROXINE 50MCG (0.05MG) TAB 150 MCG PO (06:46)
[2023-08-17 06:49] LABS: Chloride 108 mmol/L (98-107); Potassium 4.3 mmoL/L (3.5-5.1); Sodium 139 mmol/L (136-145)
[2023-08-17 06:52] LABS: Blood Urea Nitrogen 22 mg/dl (9-20); Creatinine Clearance Estimated 99 mL/min (50-200); Estimated Glomerular Filt Rate 78 ml/min (>60); GFR (African American) 95 ML/MIN (>60)
[2023-08-17 06:53] LABS: Anion Gap 11.3 mEq/L (5-15); Calcium 8.3 mg/dl (8.4-10.2); Carbon Dioxide 24 mmol/L (22.0-30.0); Glucose 116 mg/dl (74-100)
[2023-08-17 07:03] LABS: POC Glucose,Bedside 90 (70-110)
[2023-08-17 07:05] LABS: MANUAL DIFFERENTIAL MANUAL DIFFERENTIAL (MANUAL DIFF)
[2023-08-17 07:15] VITALS: BP 130/66; PULSE 81; RESP 18; TEMP 37.1; O2SAT 98
[2023-08-17] MEDS: LEVOTHYROXINE 150MCG (0.15MG)TAB 150 MCG PO (08:27)
--- NOTE | 2023-08-17 11:02 | EXP.DC.SUM ---
General Admission date:: 08/16/23 Discharge date: 08/17/23 HPI HPI HPI: Patient is a 59-year-old male who presented to hospital for elective goiter surgery. Patient underwent thyroidectomy by ENT, patient was admitted to the hospital for observation post surgery. At time of my evaluation patient denied chest pain shortness of breath nausea vomiting fever patient complains of stabbing at the site. Hospital Course Hospital Course Hospital Course: Patient is a 59-year-old male who presented to hospital for elective goiter surgery. Patient underwent thyroidectomy by ENT, patient was admitted to the hospital for observation post surgery. At time of my evaluation patient denied chest pain shortness of breath nausea vomiting fever patient complains of stabbing at the site. Goiter - Status post thyroidectomy start levothyroxine 150 mg daily, continue patient was evaluated by ENT and stable for discharge On the date of discharge, the patient reported feeling stable. The patient was found not to be in any acute distress, and no new abnormalities on physical examination. Further, the patient expressed appropriate understanding of, and agreement with, the discharge recommendations, medications, and plan. Time spent 37 mins Exam Data for Last 24 hours Vital signs and Labs for Last 24 Hours: Temp Pulse Resp BP Pulse Ox O2 Del Method O2 Flow Rate 98.7 F 81 18 130/66 98 Room Air 4 08/17/23 07:15 08/17/23 07:15 08/17/23 07:15 08/17/23 07:15 08/17/23 07:15 08/17/23 09:00 08/16/23 15:05 Laboratory Results - last 24 hr 08/16/23 09:46: POC Glucose 90 08/17/23 06:07: WBC 10.4 D, RBC 4.75, Hgb 14.0 L, Hct 42.8, MCV 89.9, MCH 29.4, MCHC 32.7, RDW 14.8, Plt Count 281, MPV 7.5, Neut % (Auto) 85.1 H, Lymph % (Auto) 8.4 L, [place] % (Auto) 6.4, Eos % (Auto) 0.0 L, Baso % (Auto) 0.1, Neut # (Auto) 8.8 H, Lymph # (Auto) 0.9, [place] # (Auto) 0.7, Eos # (Auto) 0.0, Baso # (Auto) 0.0, Sodium 139, Potassium 4.3, Chloride 108 H, Carbon Dioxide 24, Anion Gap 11.3, BUN 22 H, Creatinine 1.00, Estimated Creat Clear 99, Estimated GFR 78, Est GFR ( Amer) 95, Glucose 116 H, Calcium 8.3 L, PTH Intact 66.0 H I & O for Last 24 hours: Intake & Output 08/14/23 08/15/23 08/16/23 08/17/23 23:59 23:59 23:59 23:59 Intake Total 850 / 850 1019 / 1019 Output Total 0 / 0 70 / 70 Balance 850 / 850 949 / 949 Weight 154.221 kg 154.221 kg 159.268 kg Constitutional Constitutional: no acute distress *Routine HEENT Exam Head: Present normocephalic Eye: Present EOMI and PERRL ENT: Present mucous membranes moist *Routine Neck Exam Neck: Present supple; Absent lymphadenopathy *Routine Respiratory Exam Respiratory: Present CTA bilaterally *Routine Cardiovascular Exam Cardiovascular: Present RRR *Routine Abdominal Exam Abdominal: Present soft and normoactive bowel sounds; Absent tenderness *Routine Extremities Exam Extremities: Absent cyanosis, clubbing or edema *Routine Skin Exam Skin: Present warm; Absent rash *Routine Neurological Exam Neurological: Present alert and oriented X3 Results Data Completed and Pending Labs on day of discharge: Labs from last 24 hours 08/17/23 08/16/23 06:07 09:46 WBC 10.4 D RBC 4.75 Hgb 14.0 L Hct 42.8 MCV 89.9 MCH 29.4 MCHC 32.7 RDW 14.8 Plt Count 281 MPV 7.5 Neut % (Auto) 85.1 H Lymph % (Auto) 8.4 L [place] % (Auto) 6.4 Eos % (Auto) 0.0 L Baso % (Auto) 0.1 Neut # (Auto) 8.8 H Lymph # (Auto) 0.9 [place] # (Auto) 0.7 Eos # (Auto) 0.0 Baso # (Auto) 0.0 Sodium 139 Potassium 4.3 Chloride 108 H Carbon Dioxide 24 Anion Gap 11.3 BUN 22 H Creatinine 1.00 Estimated Creat Clear 99 Estimated GFR 78 Est GFR ( Amer) 95 Glucose 116 H POC Glucose 90 Calcium 8.3 L PTH Intact 66.0 H DS: Diagnosis Discharge Diagnosis (1) Multinodular goiter: Status: Acute Code(s): E04.2 - Nontoxic multinodular goiter (2) Thyroid nodule: Status: Chronic Code(s): E04.1 - Nontoxic single thyroid nodule Meds Home Medications and Allergies Home Medications Medication Instructions Recorded Confirmed Type semaglutide 2 mg/dose (8 mg/3 mL) 2 mg SQ WEEKLY 05/18/23 08/16/23 History subcutaneous pen injector (Ozempic) hydroxyzine pamoate 25 mg capsule 25 mg PO HS 08/16/23 08/16/23 History omeprazole 40 mg capsule,delayed 40 mg PO DAILY 08/16/23 08/16/23 History release calcium carbonate 500 mg PO BID #60 tabs 08/17/23 Rx hydrocodone 5 mg-acetaminophen 325 1 tab PO Q8H PRN pain 3 days #9 08/17/23 Rx mg tablet tabs levothyroxine 150 mcg tablet 150 mcg PO DAILYDM 21 days #21 tabs 08/17/23 Rx (Synthroid) New Prescriptions to Start Prescriptions: calcium carbonate Wojciech,Irfan hydrocodone-acetaminophen Wojciech,Irfan levothyroxine [Synthroid] Wojciech,Irfan Allergies Allergy/AdvReac Type Severity Reaction Status Date / Time No Known Allergies Allergy Verified 08/16/23 09:16 Discharge Plan Disposition Patient Disposition: Home, Self-Care Condition: Good Follow up Plan Follow up with: Hugo Davies MD [Physician] - 08/23/23 4:00 pm Ac Venegas MD [Physician] - 09/07/23 2:20 pm Elisabet Mills APRN [Primary Care Provider] - 08/26/23 3:00 pm Prescriptions/Medication Reconciliation: New levothyroxine [Synthroid] 150 mcg Tablet 150 mcg PO DAILYDM 21 Days Qty: 21 0RF hydrocodone-acetaminophen 5-325 mg tablet 1 tab PO Q8H PRN (Reason: pain) 3 Days Qty: 9 0RF calcium carbonate 500 mg calcium (1,250 mg) tablet,chewable 500 mg PO BID Qty: 60 0RF Continued Ozempic 2 mg/dose (8 mg/3 mL) pen injector 2 mg SQ WEEKLY Patient Comments: INJECT 2 MG UNDER THE SKIN ONCE A WEEK omeprazole 40 mg capsule,delayed release(DR/EC) 40 mg PO DAILY hydroxyzine pamoate 25 mg capsule 25 mg PO HS Problem Reconciliation Problems Reviewed?: Yes Patient Discharge Instructions ACTIVITY: Ambulate as tolerated DIET: continue same diet Patient Instructions: DI for Thyroidectomy, DI for Surgical Site Infection Providers Primary Care Provider: Elisabet Mills Admit Provider: Ramila Jeffrey Attending Provider: Ramila Jeffrey
--- NOTE | 2023-08-17 11:05 | EXP.ENTCONS ---
History of Present Illness *Admission Date: 08/16/23 *History of present illness: Patient is a 59-year-old male who presented to hospital for elective goiter surgery. Patient underwent thyroidectomy by ENT, patient was admitted to the hospital for observation post surgery. At time of my evaluation patient denied chest pain shortness of breath nausea vomiting fever patient complains of stabbing at the site. He is doing well 1 day status post total thyroidectomy and has no complaints of pain, hoarseness, dysphagia, or airway difficulties. [facility] Disclaimer: The information contained in this section may have been updated after the patient was seen, as this information can be updated by other users. Medical History Hydrocele Kidney stone Sleep apnea History of COVID-19 History of gastroesophageal reflux (GERD) Multinodular goiter History of thyroid nodule Hypothyroidism Tinnitus of both ears Fracture of lumbar spine Cervical spine fracture Thyroid nodule Obesity Surgical History (Updated 08/23/23 @ 13:56 by Vivi Escobar CMA) H/O thyroidectomy H/O gastric sleeve Hx of rotator cuff surgery History of hernia surgery Family History Mother Colon cancer Sister Diabetes Social History Smoking Status: Never smoker alcohol intake: never substance use type: denies use current occupational status: employed Travel in the last 8 weeks: Inside the [place] household members: spouse and family housing: house 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 Meds Home Medications and Allergies Home Medications Medication Instructions Recorded Confirmed Type semaglutide 2 mg/dose (8 mg/3 mL) 2 mg SQ WEEKLY 05/18/23 08/23/23 History subcutaneous pen injector (Ozempic) hydroxyzine pamoate 25 mg capsule 25 mg PO HS 08/16/23 08/23/23 History omeprazole 40 mg capsule,delayed 40 mg PO DAILY 08/16/23 08/23/23 History release calcium carbonate 500 mg PO BID #60 tabs 08/17/23 08/23/23 Rx levothyroxine 150 mcg tablet 150 mcg PO DAILYDM 21 days #21 tabs 08/17/23 08/23/23 Rx (Synthroid) New Prescriptions to Start Prescriptions: calcium carbonate Ramila Jeffrey levothyroxine [Synthroid] Ramila Jeffrey Allergies Allergy/AdvReac Type Severity Reaction Status Date / Time No Known Allergies Allergy Verified 08/23/23 13:55 Results Labs 08/17/23 06:07 08/17/23 06:07 Labs: Abnormal lab results 08/17/23 Range/Units 06:07 Hgb 14.0 L (14.1-18.0) g/dL Neut % (Auto) 85.1 H (37.0-80.0) % Lymph % (Auto) 8.4 L (10-50) % Eos % (Auto) 0.0 L (0.1-12.0) % Neut # (Auto) 8.8 H (1.8-7.8) K/mm3 Chloride 108 H (98-107) mmol/L BUN 22 H (9-20) mg/dl Glucose 116 H (74-100) mg/dl Calcium 8.3 L (8.4-10.2) mg/dl PTH Intact 66.0 H (7.5-53.5) pg/mL H & H 08/14/23 08/17/23 Range/Units 13:56 06:07 Hgb 15.5 14.0 L (14.1-18.0) g/dL Hct 47.5 42.8 (42.0-52.0) % All other labs normal. Assessment and Plan *Assessment and plan (1) Multinodular goiter: Status: Acute Category: Medical Code(s): E04.2 - Nontoxic multinodular goiter Plan He is doing well after total thyroidectomy. He is mildly hypocalcemic but his PTH is 66 and his hypocalcemia should recover. His wound is healing nicely and he has no evidence of hematoma or seroma. He can be discharged and we will see him in 1 week for suture removal. He can continue his current Synthroid and in a few weeks, we will check his TSH and adjust his dosing accordingly.
[2023-08-17 12:49] LABS: Eosinophils % 1 % (0-3); Lymphocytes % 10 % (10-50); Monocytes % 4 % (2-9); Neutrophils % 85 % (42-76); Total Cells Counted 100
[2023-08-17 12:50] LABS: Platelet Estimate Normal; RBC Morphology Normal
--- NOTE | 2023-08-17 15:09 | EXP.ANES.II ---
[facility] Anesthesia Record Part II Anesthesia Record Part II Discharge Time: 15:35 Destination: Medical Surgical Department PACU nurse assessment reviewed?: Yes Patient Condition:: Good Anesthesia Complications:: None Swallowing reflex intact?: Yes Airway Patency: Patent Cyanosis?: No Blood Pressure: 129/59 SaO2: 93 Respiratory Rate: 18 Pulse Rate: 82 Temperature: 97.0 F Mental Status: Alert & Oriented Pain level:: 0 Nausea and/or vomitting:: None Intake, IV Amount: 850 Hydration: Adequate
[2023-08-17 15:11] VITALS: BP 129/59; PULSE 82; RESP 18; TEMP 36.1; O2SAT 93
--- NOTE | 2023-08-18 13:22 | CARE MANAGER ---
Contacted patient related to hospital discharge. He states he is doing well. He is aware of follow up appointments and is taking new medications. Denies questions or concerns. STEPHANIE Raymond
== END 2023-08-17 11:38 | disposition home or self-care (01) ==
LOC: 2ND 11:26
PROVIDERS: Nurse Practitioner; Student in an Organized Health Care Education/Training Program; Admitting Provider Internal Medicine; PCP Nurse Practitioner Family; Visit Provider Internal Medicine
PROC: (CPT 60240; principal; 2023-08-16 10:30)
DX: Z79.899 Other long term (current) drug therapy; Z79.85 Long-term (current) use of injectable non-insulin antidiabetic drugs; E04.2 Nontoxic multinodular goiter; Z68.42 Body mass index [BMI] 45.0-49.9, adult; E66.8 Other obesity; Z86.16 Personal history of COVID-19
CPT/HCPCS: 60240; 36415; 80048; 80053; 82962; 83970; 85007; 85025; 85027; G0378; J0690; J1100; J1170; J1644; J1885; J2250; J2270; J2405; J3010; J7120

== ENCOUNTER 2023-09-07 14:58 | Outpatient (CLI) | payer BC, SELFPAY ==
[2023-09-07 15:59] LABS: Thyroid Stimulating Hormone 3.28 uIU/mL (0.465-4.68)
[2023-09-07 16:06] LABS: Free T4 (Free Thyroxine) 1.02 ng/dl (0.78-2.19)
== END 2023-09-07 23:59 | disposition home or self-care (01) ==
LOC: LAB 14:58
PROVIDERS: PCP Nurse Practitioner Family; Visit Provider Student in an Organized Health Care Education/Training Program
DX: E89.0 Postprocedural hypothyroidism (principal)
CPT/HCPCS: 36415; 84439; 84443

== ENCOUNTER 2023-09-09 09:36 | Outpatient (CLI) | payer BC, SELFPAY ==
--- NOTE | 2023-09-09 | CA_ITS ---
APPROVED REPORT EXAM: Comprehensive 2D, Doppler, and color-flow Echocardiogram Temporary Office Assistant: Elena Mancuso RVT Ht: 6 ft 2 in Wt: 353lbs BSA: 2.77 BP: 124/68 mmHg Indications: ABN EKG,S/P THYROIDECTOMY,OBESITY,HX GASTRIC SLEEVE VERY TDS-PT BODY HABITUS 2D Dimensions IVSd 1.70 cm M: 0.6-1.2 LVEF (Visual) 58.50 % PWd 0.81 cm M: 0.6 - 1.2 LA Volume 67.50 mL LVDd 4.70 cm M: 4.2 - 5.9 LA Volume Index 24.37 mL/m2 (M/F) 16-34 LVDs 3.25 cm M: 2.5 - 4.0 M-Mode Dimensions LA Diam 4.19 cm (1.9-4.0) TAPSE 2.26 (<1.7) LV Diastology E Decel Time 150 (160-240 msec) E/A Ratio 1.1 Aortic Valve KENYETTA Index 1.46 cm2/m2 AoV Peak Dwight. 100.0 (50-130 cm/s) AO Peak GR. 4.00 mmHg AO Mean GR. 2.30 (<5 mmHg) AO VTI 21.9 (18-25 cm) KENYETTA (VTI) 4.13 (2.5-4.5 cm2) Mitral Valve MV E Max Dwight. 79.0 (40-130 cm/s) MV A Velocity 70.0 (40-130 cm/s) E/A Ratio 1.14 MV PHT 44.0 ms Pulmonary Valve PV Peak Velocity 82.0 (50-150 cm/s) Tricuspid Valve TR P. Velocity 235.00 cm/s RAP Estimate 10.00 mmHg RVSP 32.00 mmHg Left Ventricle The left ventricle is normal size. The left ventricular systolic function is normal. The left ventricular ejection fraction is within the normal range. There is normal left ventricular wall thickness. There is normal LV segmental wall motion. The left ventricular diastolic function is normal. LVEF is 55%. Right Ventricle Right ventricle is mildly dilated. The right ventricular systolic function is normal. Atria The left atrium size is normal. The right atrium size is normal. There is no Doppler evidence of interatrial shunt. Aortic Valve The aortic valve opens well. There is no aortic valvular stenosis. No aortic regurgitation is present. Mitral Valve The mitral valve is normal in structure. No evidence of mitral valve stenosis. There is no mitral valve regurgitation noted. Tricuspid Valve The tricuspid valve leaflets are thin and pliable. Trace tricuspid regurgitation. There is insufficient TR jet to estimate RVSP. Pulmonic Valve The pulmonary valve is normal in structure. Trace pulmonic regurgitation. Great Vessels The aortic root is normal in size. The ascending aorta is not well-visualized. IVC is normal in size and collapses >50% with inspiration. Pericardium There is no pericardial effusion. Other Information Study Quality: Technically Difficult Conclusion Technically difficult study due to poor acoustic windows. Normal biventricular systolic function. Mild RV dilation. No significant valvular stenosis or regurgitation. Electronically signed by : Gayle Belle MD 09/12/2023 14:28:37
== END 2023-09-09 23:59 | disposition home or self-care (01) ==
LOC: RT 09:36
PROVIDERS: PCP Nurse Practitioner Family; Visit Provider Nurse Practitioner Family
DX: R94.31 Abnormal electrocardiogram [ECG] [EKG] (principal)
CPT/HCPCS: 93306

== ENCOUNTER 2024-03-06 17:18 | Outpatient (CLI) | payer BC, SELFPAY ==
[2024-03-06 19:16] LABS: Free T4 (Free Thyroxine) 1.53 ng/dl (0.78-2.19)
[2024-03-06 19:24] LABS: Thyroid Stimulating Hormone 1.34 uIU/mL (0.465-4.68)
== END 2024-03-06 23:59 | disposition home or self-care (01) ==
LOC: LAB 17:19
PROVIDERS: PCP Nurse Practitioner Family; Visit Provider Nurse Practitioner
DX: E89.0 Postprocedural hypothyroidism (principal)
CPT/HCPCS: 36415; 84439; 84443

== ENCOUNTER 2024-05-08 16:23 | Outpatient (CLI) | payer BC, SELFPAY ==
--- NOTE | 2024-05-08 17:23 | XR_ITS ---
PROCEDURE INFORMATION: Exam: XR Cervical Spine Exam date and time: 05/08/2024 5:25 PM Age: 54 years old Clinical indication: Neck pain TECHNIQUE: Imaging protocol: Radiologic exam of the cervical spine. Views: 2 or 3 views. COMPARISON: CR XR CHEST 2V 10/12/2018 4:03 PM FINDINGS: Bones/joints: Osteopenia. Craniocervical alignment normal. Cervical alignment is normal. No fractures are evident radiographically. Minor anterior spurring C4-C5. Thoracic spinal fusion hardware partially visualized without gross complication. Soft tissues: Prevertebral soft tissues are unremarkable. IMPRESSION: 1. No acute findings. 2. Minor osteoarthritic changes.
--- NOTE | 2024-05-08 17:23 | XR_ITS ---
PROCEDURE INFORMATION: Exam: XR Lumbosacral Spine Exam date and time: 05/08/2024 5:25 PM Age: 54 years old Clinical indication: Low back pain TECHNIQUE: Imaging protocol: Radiologic exam of the lumbosacral spine. Views: 2 or 3 views. COMPARISON: COMPARISON MORE: CR XR CHEST 2V 10/12/2018 4:03 PM FINDINGS: Bones/joints: Slight leftward convexity mid lumbar scoliotic curvature. Lumbar alignment otherwise unremarkable. No acute fractures are evident. Moderate chronic appearing anterior wedge compression deformity of T12 with moderate anterior marginal spurring. Slight chronic appearing superior endplate compression of L1 with mild anterior spurring. These are new since 10/12/2018 but appear chronic at this point radiographically. Mild-moderate osteoarthritic facet hypertrophy L2-L3 through L5-S1. Mild disc space narrowing L5-S1 and slight posterior disc space narrowing L3-L4 and L2-L3. Soft tissues: Unremarkable. Vasculature: Mild calcific atherosclerosis. IMPRESSION: 1. No radiographic evidence of acute fracture or traumatic subluxation. 2. Osteoarthritic changes detailed above. 3. Chronic appearing superior endplate compression deformities of T12 and L1.
== END 2024-05-08 23:59 | disposition home or self-care (01) ==
LOC: RAD 16:26
PROVIDERS: PCP Nurse Practitioner Family; Visit Provider Nurse Practitioner Family
DX: M54.2 Cervicalgia (principal); M54.50 Low back pain, unspecified
CPT/HCPCS: 72040; 72100

== ENCOUNTER 2024-05-18 14:07 | Outpatient (POV) | payer BC, SELFPAY ==
[2024-05-18 14:50] VITALS: BP 136/83; PULSE 74; RESP 18; O2SAT 98; BMI 46.8
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
== END 2024-05-18 23:59 | disposition home or self-care (01) ==
LOC: SC.PAIN 14:08
PROVIDERS: PCP Nurse Practitioner Family; Visit Provider Nurse Practitioner Family
DX: M47.816 Spondylosis without myelopathy or radiculopathy, lumbar region (principal); Z98.1 Arthrodesis status
CPT/HCPCS: 99202; G0463

== ENCOUNTER 2024-06-19 11:26 | Day surgery (SDC) | payer BC, SELFPAY ==
[2024-06-19 11:42] VITALS: BP 150/96; PULSE 66; RESP 18; O2SAT 96
[2024-06-19] MEDS: DEXAMETHASONE 10MG/ML 1ML VIAL 10 MG (11:43)
[2024-06-19] MEDS: LIDOCAINE 1% 5ML PF VIAL 5 ML (11:43)
[2024-06-19] MEDS: BUPIVACAINE 0.25% 10ML INJ 25 MG IJ (11:43)
[2024-06-19 11:52] VITALS: BP 148/80; PULSE 68; RESP 18; O2SAT 99; BMI 47.1
[2024-06-19 11:55] VITALS: BP 134/81; PULSE 70; RESP 16; O2SAT 99
--- NOTE | 2024-06-19 12:18 | P.PCN_ITS ---
Procedure Date: 06/19/24 Time: 11:45 Anesthesiologist:: Graham Pickering CRNA Complications:: None Pre-procedure Diagnosis:: Degenerative disc lumbar spine multilevels. Lumbar radiculopathy. Lumbar spondylosis. Multilevel lumbar facet arthropathy. Post-procedure Diagnosis:: Same Indications for Procedure:: Patient is a pleasant 54-year-old male who comes our clinic today for ROUND ONE of lumbar medial branch blocks/facet injections at the bilateral L4-5, L5-S1 level. Patient describes low lumbar back pain is constant, dull, aching. Patient reports pain intensifies with standing. He reports having difficulty with lumbar flexion, extension, left and right rotation. He rates his pain 7/10. Procedure Details:: Informed consent was obtained and the risk and benefits of the procedure was explained to the patient. Patient was taken to the procedure room where noninvasive monitors were placed, including noninvasive blood pressure cuff as well as pulse oximeter. The area over the lumbar spine was cleansed using chlorhexidine as a cleansing solution. I anesthetized the skin and subcutaneous tissues with 1% Lidocaine. I placed 22-gauge spinal needles into the facet joint/ medial branches of L4-L5, and L5-S1] bilaterally. Needle placement was confirmed with fluoroscopy. After confirmation of needle placement, each site was injected with 1 mL of 1% lidocaine and 0.25 % Marcaine and 10 mg of Depo- Medrol. A total of 80 mg of depo medrol was used for bilateral medial branch blocks of L4-L5, and L5-S1] bilaterally. Patient tolerated the procedure without difficulty. There were no complications. Plan and Disposition:: Patient was discharged without incident.
== END 2024-06-19 11:55 | disposition home or self-care (01) ==
LOC: SC.PAINP 11:27
PROVIDERS: PCP Nurse Practitioner Family; Visit Provider Nurse Anesthetist, Certified Registered
DX: M47.816 Spondylosis without myelopathy or radiculopathy, lumbar region (principal); M51.369 Other intervertebral disc degeneration, lumbar region without mention of lumbar back pain or lower extremity pain
CPT/HCPCS: 64493; 64494; J1100

== ENCOUNTER 2024-06-26 17:12 | Outpatient (CLI) | payer BC, SELFPAY ==
--- NOTE | 2024-06-26 | XR_ITS ---
PROCEDURE INFORMATION: Exam: XR Left Knee Exam date and time: 06/26/2024 5:21 PM Age: 54 years old Clinical indication: Pain; Knee; Left; Additional info: Pain in left knee TECHNIQUE: Imaging protocol: Radiologic exam of the left knee. Views: 3 views. COMPARISON: CR XR FOOT WT BEARING LT 3V 10/16/2018 4:51 PM FINDINGS: Bones/joints: No acute fracture or malalignment. Corticated ossicle versus bony excrescence at the lateral femoral condyle, which may related to remote trauma. Osteoarthritis. No significant joint effusion. Soft tissues: Unremarkable. IMPRESSION: No acute osseous findings.
--- OUTSIDE RECORDS SUMMARY | 2024-06-26 17:15 | XMS_ITS | Continuity of Care Document ---
Author Organization [facility] Adv Surg Address [address] [place] [address] Care Team Providers Care Emergency Care Attendant Name Role Phone DELMIS ROLAND Primary Care Provider Assessment No assessment recorded. Plan of Treatment Reminders Order Date Submit Date Provider Last Modified By Organization Details Last Modified Time Details Appointments OV EST 20 2024 11:20A M ELIN Maria Not available Not available Not available Lab None recorded. Referral None recorded. Procedures None recorded. Surgeries None recorded. Imaging None recorded. Medication Orders Wegovy 0.5 mg/0.5 mL subcutane ous pen injector 2024 025 [id number], [address] [place], [address], 04/27/2024 12:03:01 Patient TargetsNo targets recorded. Patient InstructionsNo instructions recorded. Reason for Referral None Reported. Problems Name Problem SNOMED Code Status Onset Date Resolution Date Notes Provider Name and Address Organization Details Recorded Time Gastroesophag eal reflux disease without esophagitis 049229971 Active 2023 ELIN Maria [address], [place], [address] , [facility] & [place] 13:33:47 Chronic low back pain 619147039 Active 2023 ELIN Maria [address], [place], [address] , [facility] & [place] 4 13:34:02 Intentional weight loss 375038319 Active 2023 ELIN Maria [address], [place], [address] , [place] [facility] - [place] & [place] 4 13:34:18 Obesity 736678085 Active 2023 ELIN Maria [address], [place], [address] , [place] [facility] [place] & [place] 4 13:46:35 Problem Notes None recorded. Procedures Surgical History Date Name Laterality Status Provider Name and Address Organization Details Recorded Time 2020 Back Surgery completed Layla KOO - [facility] & [place] 3 12:17:39 2015 Colonoscopy completed Laylajuan Hilton HAYES - [facility] & [place] 3 14:14:11 Back Surgery completed Layla KOO - [facility] & [place] 3 14:14:11 laparoscopic sleeve gastrectomy completed Marleni Guerra HAYES - [facility] & [place] 4 13:13:26 repair of hydrocele completed Rebmirela ca Guerra HAYES [facility] & [place] 4 13:13:39 procedure on shoulder completed Ade ecca Guerra HAYES - [facility] & [place] 4 13:13:54 esophagogastroduodenoscopy completed Marleni Guerra HAYES - [facility] & [place] 4 13:14:27 thyroidectomy completed Marleni Guerra HAYES - [facility] & [place] 4 13:14:42 Imaging Results None recorded. Procedure Notes None recorded. Medical Equipment None Reported. Allergies No known drug allergies Medications Name Sig Start Date Stop Date Status Note LastModified by Organization Details LastModified Time cyclobenzap rine 10 mg tablet TAKE 1 TABLET BY MOUTH TWICE A DAY 04/19 completed Not Available Not Available Not Available amoxicillin 500 mg capsule TAKE 1 CAPSULE BY MOUTH TWICE A DAY FOR 10 DAYS 12/22 completed Not Available Not Available Not Available metformin 500 mg tablet TAKE 1 TABLET BY MOUTH EVERY DAY 12/22 completed Not Available Not Available Not Available levothyroxi ne 175 mcg tablet TAKE ONE TABLET BY MOUTH EVERY DAY active Not Available Not Available No t Available doxycycline hyclate 100 mg capsule TAKE 1 CAPSULE BY MOUTH TWICE A DAY 12/22 completed Not Available Not Available Not Available azithromyci n 250 mg tablet TAKE 2 TABLETS BY MOUTH TODAY, THEN TAKE 1 TABLET DAILY FOR 4 DAYS 04/19 completed Not Available Not Available Not Available ibuprofen 800 mg tablet TAKE 1 TABLET BY MOUTH EVERY 8 HOURS NEEDED 01/11 completed Not Available Not Available Not Available hydrocodone 5 mg-acetamin ophen 325 mg tablet TAKE ONE TABLET BY MOUTH EVERY 8 HOURS NEEDED FOR PAIN MAY CAUSE DROWSINES S 12/22 completed Not Available Not Available Not Available Oracio-Gest Antacid 200 mg (as calcium carbonate 500 mg) chewable tablet chew 1 tablet BY MOUTH TWICE DAILY active Not Available Not Available No t Available prednisone 20 mg tablet TAKE 1 TABLET TWICE DAILY 12/22 completed Not Available Not Available Not Available phentermine 37.5 mg tablet TAKE 1 TABLET BY MOUTH EVERY DAY 04/27 completed Not Available Not Available Not Available ciprofloxac in 500 mg tablet TAKE 1 TABLET BY MOUTH EVERY 12 HOURS FOR 10 DAYS 04/19 completed Not Available Not Available Not Available sulfamethox azole 800 mg-trimetho prim 160 mg tablet TAKE 1 TABLET BY MOUTH TWICE A DAY FOR 14 DAYS 04/19 completed Not Available Not Available Not Available omeprazole 40 mg capsule,del ayed release TAKE 1 CAPSULE BY MOUTH EVERY DAY active Not Available Not Available No t Available tramadol 50 mg tablet 05/30 completed Not Available Not Available Not Available oxycodone-a cetaminophe n 5 mg-325 mg tablet TAKE 1 TABLET BY MOUTH EVERY 4 HOURS NEEDED FOR PAIN 12/22 completed Not Available Not Available Not Available amoxicillin 875 mg tablet TAKE ONE TABLET BY MOUTH TWICE DAILY FOR FOURTEEN DAYS -- FINISH ALL MEDICINE -- 12/22 completed Not Available Not Available Not Available levothyroxi ne 150 mcg tablet TAKE ONE TABLET BY MOUTH EVERY DAY AT 700am FOR hypothyro id 04/27 completed Not Available Not Available Not Available mupirocin 2 % topical ointment APPLY TO AFFECTED AREA EVERY 8 HOURS FOR 14 DAYS 12/22 completed Not Available Not Available Not Available cefdinir 300 mg capsule TAKE 1 CAPSULE 3 TIMES A DAY 04/27 completed Not Available Not Available Not Available hydroxyzine pamoate 25 mg capsule TAKE 1 CAPSULE BY MOUTH EVERYDAY AT BEDTIME active Not Available Not Available No t Available B Complex active Not Available Not Pat ilable Not Available NyQuil active Not Available Not Availa ble Not Available multivitami n active Not Available Not Available Not Available Ozempic 0.25 mg or 0.5 mg (2 mg/1.5 mL) subcutaneou s pen injector 04/16 completed Not Available Not Available Not Available Ozempic 1 mg/dose (4 mg/3 mL) subcutaneou s pen injector INJECT 1 MG SUBCUTANE OUSLY EVERY WEEK 12/22 completed Not Available Not Available Not Available Wegovy 0.5 mg/0.5 mL subcutaneou s pen injector Inject 0.5 mL every week by subcutane ous route. 2024 active Not Available Not Available Not Avai lable Ozempic 2 mg/dose (8 mg/3 mL) subcutaneou s pen injector INJECT 2 MG EVERY WEEK BY SUBCUTANE OUS ROUTE 12/22 completed Not Available Not Available Not Available Ozempic 0.25 mg or 0.5 mg (2 mg/3 mL) subcutaneou s pen injector INJECT 1 MG SUBCUTANE OUSLY EVERY WEEK 12/22 completed Not Available Not Available Not Available Vitals Date Recorded Body height Body temperature Heart rate Body mass index (BMI) Body weight Systolic blood pressure Diastolic blood pressure Provider Name and Address Organization Details Last Updated DateTime 5 187.96 cm 97.3 [degF] 96 /min 48 kg/m2 172833. 11 g 148 mm[Hg] 88 mm[Hg] Marleni Roman AIMEE [facility] & [place] 11:26:48 Social History Question Answer Notes LastModified by Organizat ion Details LastModified Time Tobacco Smoking Status Never Smoker HAYES Dobbins [facility] & [place] 04/19/2022 15:05:10 Do You Have An Advance Directive? No Information not available 06/16/2022 What Is Your Level Of Alcohol Consumption? None Information not available 04/19/2022 Are You Blind Or Do You Have Difficulty Seeing? No Information not available 06/16/2022 What Is Your Level Of Caffeine Consumption? 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 Yes Information not available 06/16/2022 Do You Feel Stressed (tense, Restless, Nervous, Or Anxious, Or Unable To Sleep At Night)? [id number] Information not available 06/16/2022 Do You Use Any Illicit Or Recreational Drugs? No Information not available 04/19/2022 Sex: Male Functional Status Question Answer Note LastModified by Organization D etails LastModified Time What is your exercise level? Moderate Information not available 06/16/2022 Mental Status None recorded. Family History Nothing Reported Notes:Mother- colon cancer Medical History Condition Response Kidney Stones Y Kidney or Bladder Problems Y GI Problems Y Hypothyroidism Y Spine Problems Y Deep Vein Thrombosis N Obstructive Sleep Apnea Y Bleeding Disorder N Obesity Y Arthritis Y Back Problems Y Reflux/GERD Y Sleep Apnea Y Pulmonary Embolism N Kidney Disease N Immunizations Vaccine Type Date Status Note Provider Nam e and Address Organization Details Recorded Time influenza, unspecified formulation 11/08/2023 completed HAYES Cummings - [facility] - [place] & [place] 01/12/2024 13:16:21 Past Encounters Encounter ID Performer Location Encounter Start Date Encounter Closed Date Diagnosis/Indication Diagnosis SNOMED-CT Code Diagnosis ICD10 Code Diagnosis Note [id number] ELIN Maria [facility] s and Adv Surg [address] [place] [address] 04/27/2024 11:12:39 04/27/2024 12:01:54 Gastroesophageal reflux disease without esophagitis 373421094 K21.9 Upper GI and upper endoscopy results were reviewed with patient again today.Taty ent is to continue daily omeprazole 40mg daily. He is to report any worsening reflux symptoms.D iscussed possible EGD Gómez if reflux disease is worsening. Ultimately patient may need revision to Warren-en-Y gastric bypass in order to resolve reflux disease. We discussed this at length today. Insurance is currently working to obtain approval for revisional surgery. Chronic low back pain 27 [id number] M54.50 Patient reports worsening back pain with weight gain. He has been advised to focus on additional weight loss Obesity 051383739 E66.9 Discussed medical weight loss options with patient. We will start patient on GLP 1 agonist Wegovy Discussed medication mechanism of action to include decreased hunger and increased satiety. Discussed ramping schedule this medication . Discussed side effect profile of this medication . Patient was given samples of 0.25 mg Wegovy today. He was instructed on single dose pending use in office today Dietary changes discussed at length today. Encouraged patient track carbs calories and protein Advised patient focus on 1600 calories less than 100carbs and 90 g of protein daily. Patient is to see dietitian todayPatie nt is to follow up in 2 months for weight loss medication management . We have discussed revisional surgery options. I do feel like this is the best course of action for patient given his history of reflux and struggles to continue to manage obesity. He would ultimately benefit best with revision to Warren-en-Y gastric bypass. This is currently being pursued with our insurance department . Body mass index 40+ - severely obese 808538115 Z68.42 Current BMI is 47.9. Patient has seen a 10.3 lb gain since December 2023 History of gastrectomy 738203554 Z90.3 Patient is to continue bariatric vitamin supplement ation. December labs were reviewed with patient again today. Recommend repeat vitamin panel at next office visit 2 months. Health Concerns Section Related Observation LastModified by Organization Detai ls LastModified Time None Recorded Concern Status LastModified by Organization Details LastModified Time None Recorded Payers Encounter Date Sequence Insurance Name Policy Number Policy Tovar Covered Member ID Tovar Member ID Guarantor Name 04/27/2024 1 [id number]: SERGIO SCHULZ [facility] BLUE ACCESS (PPO) [id number] Asif Enriquez [id number] Asif Enriquez Notes Date Note Type Note Provider Name and Address Organization Details Recorded Time 5 text/html Patient returns to clinic today to discuss continued reflux disease status post sleeve gastrectomy. Patient is still having significant issues with heartburn despite omeprazole 40 mg daily. He is concerned regarding chronic reflux disease and risk to develop Barretts esophagus. He is in pursuit to have revisional surgery in order to correct reflux disease.He is also seeing ongoing weight gain. Since last office visit patient has gained. Review of in body shows Current BMI is 47.9 47.4% body fat. Patient is trying to focus on a healthy high protein diet. He would like to start medical weight loss options if possible in order to see additional weight loss as he is having significant worsening of back pain with weight gain.Patient has had previous back fusion and weight gain is exacerbating chronic back pain issues. He is currently seeing increased mobility issues with weight gain and increased back pain.Patient continues to take vitamin supplementation. December labs reviewed with again patient today. Recommend repeat labs in 2-3 months. 01/05/24 EGD Findings: Moderate amount of retained gastric fundus. Mild irritation of the gastric mucosa in the pre antral space. H pylori biopsies neg 01/03/24 UGI FINDINGSScout: Preliminary dairy farmer view of the abdomen demonstrates a nonobstructivebowel gas pattern. The visualized lung bases are clear.Esophagus: Normally distensible, without stricture. No definite mucosalabnormalities. No persistent intraluminal filling defects. No areas ofabnormal extrinsic mass effect. No definite diverticulum. Normal motility.Gastroesophagea l junction: No evidence of hiatal hernia. No significant refluxduring the examination.Stomach Duodenum: Reduced volume of the gastric lumen, consistent withsurgical history. Contrast visualized to flow freely through the postsurgicalstomach without difficulty. No definite abnormality of the duodenal bulb andsweep. Visualized proximal small bowel normal.IMPRESSION:No acute findings. No significant gastroesophageal reflux visualized. @01/12/24 OVPatient returns to clinic today to discuss recent upper GI and upper endoscopy findings.Patient does report reflux symptoms. He is taking omeprazole 40 mg daily. He states this controls symptoms well but if he misses a dose he would have heartburn. He voices that he requires anti-inflammatories and steroids for chronic back pain and is concerned about revision to Warren-en-Y gastric bypass. He would prefer to pursue revision to BPD/duodenal switch.Recent labs show elevated TSH. Patient states he has discussed this with his PCP and adjustment to his thyroid medication have been made.Patient has already gotten cardiac clearance for revisional surgery. @12/23/23 OV - 53-year-old male presents today as a transfer of care patient. His is a patient of [facility]. He is new to our practice status post sleeve gastrectomy [address] San. He states preoperative weight was 478 lb. Patient lost to 280 lb after surgery but has seen weight recurrence. Current weight 363. With weight recurrence he is having worsening back pain. He wishes to discuss revisional surgery. He specifically would like to discuss BPD/duodenal switch but he does have history of reflux issues. He is currently taking omeprazole daily.Patient does take vitamin supplementation. Reports no previous vitamin deficiencies.Patient admits he does not track carbs calories or protein. He does not do any type of protein supplementation at this time.In body today shows BMI 46.6 with 46.1% body fat basal metabolic rate [id number] ELIN Maria [address], [place], [address], [facility] - [facility] - [place] & [place] 04/27/2024 12:17:33
--- OUTSIDE RECORDS SUMMARY | 2024-06-26 17:16 | XMS_ITS | Data Portability ---
Author Organization [place] - [facility] [place] [facility] ADMIN Address [address] [place] [id number] Care Team Providers Care Economics Analyst Name Role Phone DELMIS JOSE Primary Care Provider Assessment Encounter Date Assessment Date Assessment LastModified by Organization Details LastModified Time 12/23/2023 12/23/2023 RD Recommendation s: 1. Follow 2-4 hr rule for meal timing 2. 64 oz noncarbonated, noncaffeinated , sugar-free fluids/day - recommended cutting back on diet soda 3. Increase physical activity to 30+ minutes 3-4x/week 4. Begin using tracking nazario to assess avg diet intake, track daily intake 4+ times/week - recommended baritastic A total of 15 minutes was spent with the pt today. [email or web address] Not available 12/23/2023 14:31:27 Plan of Treatment Reminders Order Date Submit Date Provider Last Modified By Organization Details Last Modified Time Details Appointments OV EST 20 2024 11:20A M ELIN Maria Not available Not available Not available Lab CBC w/ auto diff 2023 024 ROMAIN [facility], [address], [address], [place], [address], 01/01/2024 03:35:43 folate, serum 2023 024 ROMAIN [facility], [address], [address], [place], [address], 01/01/2024 03:35:46 prealbumi n, serum 2023 024 ROMAIN [facility], [address], [address], [place], [address], 01/01/2024 03:35:51 thiamine, QN, blood 2023 024 ROMAIN [facility], [address], [address], [place], [address], 01/01/2024 03:35:49 methylmal lashay, QN, serum or plasma 2023 024 ROMAIN [facility], [address], [address], [place], [address], 01/01/2024 03:35:50 CMP, serum or plasma 2023 024 ROMAIN [facility], [address], [address], [place], [address], 01/01/2024 03:35:44 iron + TIBC + ferritin, serum 2023 024 ROMAIN [facility], [address], [address], [place], [address], 01/01/2024 03:35:41 vitamin D, 25-hydrox y, total, serum 2023 024 ROMAIN [facility], [address], [address], [place], [address], 01/01/2024 03:35:48 vitamin E, serum 2023 024 ROMAIN [facility], [address], [address], [place], [address], 01/01/2024 03:35:45 vitamin A (retinol) , serum 2023 024 ROMAIN [facility], [address], [address], [place], [address], 01/01/2024 03:35:47 TSH + free T4, serum 2023 024 G[facility]TT [facility], [address], [address], [place], [address], 01/01/2024 03:35:43 Referral None recorded. Procedures None recorded. Surgeries esophagog astroduod enoscopy (SURG) 2023 024 [email or web address] Cyndi Dunn MD, [address], [address], [place], [address], 02/10/2024 14:47:10 Imaging RF, upper gastroint estinal tract, w/ contrast PO 2023 024 [email or web address] [facility] (Centralized Scheduling), [address], [place], [address], 02/10/2024 14:47:53 US, thyroid 2022 024 [email or web address] Not available 08/11/2023 07:55:42 Medication Orders Wegovy 0.5 mg/0.5 mL subcutane ous pen injector 2024 025 GARRETT [id number], [address] [facility], [place], [address], 04/27/2024 12:03:01 Patient TargetsNo targets recorded. Patient InstructionsNo instructions recorded. Reason for Referral None Reported. Results Created Date Observation Date Name Description Value Unit Range Abnormal Flag Note LastModifiedBy Organization Detail LastModifiedTime 12/23/19 24 12/24/2023 FE+TI BC+FE R iron bind.cap.(TI BC) 269 ug/dL 250-45 0 normal Not Available [facility] ([facility]) [address] [facility], [place], [address], 01/01/2024 03:35:41 12/23/19 24 12/24/2023 FE+TI BC+FE R UIBC 143 ug/dL 111-34 3 normal Not Available [facility] ([facility]) [address] [place], [address], 01/01/2024 03:35:41 12/23/19 24 12/24/2023 FE+TI BC+FE R iron 126 ug/dL 38-169 normal Not Available [facility] ([facility]) [address] [place], [address], 01/01/2024 03:35:41 12/23/19 24 12/24/2023 FE+TI BC+FE R iron saturation 47 % 15-55 normal Not Available [facility] ([facility]) [address] [place], [address], 01/01/2024 03:35:41 12/23/19 24 12/24/2023 FE+TI BC+FE R ferritin 61 NG/mL 30-400 normal Not Available [facility] ([facility]) [address] [place], [address], 01/01/2024 03:35:41 12/23/19 24 12/24/2023 TSH+F REE T4 TSH 12.900 uIU/m L 0.450- 4.500 above high normal Not Available [facility] ([facility]) [address] [place], [address], 01/01/2024 03:35:42 12/23/19 24 12/24/2023 TSH+F REE T4 T4,free(dire ct) 1.40 NG/dL 0.82-1 .77 normal Not Available [facility] ([facility]) [address] [place], [address], 01/01/2024 03:35:42 12/23/19 24 12/24/2023 CBC WITH DIFFE RENTI AL/PL ATELE T WBC 4.7 x10e3 /uL 3.4-10 .8 normal Not Available [facility] ([facility]) [address] [place], [address], 01/01/2024 03:35:43 12/23/19 24 12/24/2023 CBC WITH DIFFE RENTI AL/PL ATELE T RBC 5.47 x10e6 /uL 4.14-5 .80 normal Not Available [facility] ([facility]) [address] [place], [address], 01/01/2024 03:35:43 12/23/19 24 12/24/2023 CBC WITH DIFFE RENTI AL/PL ATELE T hemoglobin 15.5 g/dL 13.0-1 7.7 normal Not Available [facility] ([facility]) [address] [place], [address], 01/01/2024 03:35:43 12/23/19 24 12/24/2023 CBC WITH DIFFE RENTI AL/PL ATELE T hematocrit 48.3 % 37.5-5 1.0 normal Not Available [facility] ([facility]) [address] [place], [address], 01/01/2024 03:35:43 12/23/19 24 12/24/2023 CBC WITH DIFFE RENTI AL/PL ATELE T MCV 88 fL 79-97 normal Not Available [facility] ([facility]) [address] [place], [address], 01/01/2024 03:35:43 12/23/19 24 12/24/2023 CBC WITH DIFFE RENTI AL/PL ATELE T MCH 28.3 pg 26.6-3 3.0 normal Not Available [facility] ([facility]) [address] [place], [address], 01/01/2024 03:35:43 12/23/19 24 12/24/2023 CBC WITH DIFFE RENTI AL/PL ATELE T MCHC 32.1 g/dL 31.5-3 5.7 normal Not Available [facility] ([facility]) [address] [place], [address], 01/01/2024 03:35:43 12/23/19 24 12/24/2023 CBC WITH DIFFE RENTI AL/PL ATELE T RDW 13.4 % 11.6-1 5.4 Not Available [facility] ([facility]) [address] [facility], [place], [address], 01/01/2024 03:35:43 12/23/19 24 12/24/2023 CBC WITH DIFFE RENTI AL/PL ATELE T platelets 291 x10e3 /uL 150-45 0 normal Not Available [facility] ([facility]) [address] [facility], [place], [address], 01/01/2024 03:35:43 12/23/19 24 12/24/2023 CBC WITH DIFFE RENTI AL/PL ATELE T neutrophils 54 % not estab. normal Not Available [facility] ([facility]) [address] [facility], [place], [address], 01/01/2024 03:35:43 12/23/19 24 12/24/2023 CBC WITH DIFFE RENTI AL/PL ATELE T lymphs 33 % not estab. normal Not Available [facility] ([facility]) [address] [facility], [place], [address], 01/01/2024 03:35:43 12/23/19 24 12/24/2023 CBC WITH DIFFE RENTI AL/PL ATELE T monocytes 10 % not estab. normal Not Available [facility] ([facility]) [address] [facility], [place], [address], 01/01/2024 03:35:43 12/23/19 24 12/24/2023 CBC WITH DIFFE RENTI AL/PL ATELE T eos 2 % not estab. normal Not Available [facility] ([facility]) [address] [facility], [place], [address], 01/01/2024 03:35:43 12/23/19 24 12/24/2023 CBC WITH DIFFE RENTI AL/PL ATELE T basos 1 % not estab. normal Not Available [facility] ([facility]) [address] [place], [address], 01/01/2024 03:35:43 12/23/19 24 12/24/2023 CBC WITH DIFFE RENTI AL/PL ATELE T immature cells ON CAR SUPERVISOR Not Available [facility] ([facility]) [address] [place], [address], 01/01/2024 03:35:43 12/23/19 24 12/24/2023 CBC WITH DIFFE RENTI AL/PL ATELE T neutrophils (absolute) 2.6 x10e3 /uL 1.4-7. 0 normal Not Available [facility] ([facility]) [address] [place], [address], 01/01/2024 03:35:43 12/23/19 24 12/24/2023 CBC WITH DIFFE RENTI AL/PL ATELE T lymphs (absolute) 1.5 x10e3 /uL 0.7-3. 1 normal Not Available [facility] ([facility]) [address] [place], [address], 01/01/2024 03:35:43 12/23/19 24 12/24/2023 CBC WITH DIFFE RENTI AL/PL ATELE T monocytes(ab solute) 0.5 x10e3 /uL 0.1-0. 9 normal Not Available [facility] ([facility]) [address] [place], [address], 01/01/2024 03:35:43 12/23/19 24 12/24/2023 CBC WITH DIFFE RENTI AL/PL ATELE T eos (absolute) 0.1 x10e3 /uL 0.0-0. 4 normal Not Available [facility] ([facility]) [address] [place], [address], 01/01/2024 03:35:43 12/23/19 24 12/24/2023 CBC WITH DIFFE RENTI AL/PL ATELE T baso (absolute) 0.0 x10e3 /uL 0.0-0. 2 normal Not Available [facility] ([facility]) [address] [facility], [place], [address], 01/01/2024 03:35:43 12/23/19 24 12/24/2023 CBC WITH DIFFE RENTI AL/PL ATELE T immature granulocytes 0 % not estab. Not Available [facility] ([facility]) [address] [facility], [place], [address], 01/01/2024 03:35:43 12/23/19 24 12/24/2023 CBC WITH DIFFE RENTI AL/PL ATELE T immature grans (abs) 0.0 x10e3 /uL 0.0-0. 1 Not Available [facility] ([facility]) [address] [facility], [place], [address], 01/01/2024 03:35:43 12/23/19 24 12/24/2023 CBC WITH DIFFE RENTI AL/PL ATELE T NRBC ON CAR SUPERVISOR Not Available [facility] ([facility]) [address] [facility], [place], [address], 01/01/2024 03:35:43 12/23/19 24 12/24/2023 CBC WITH DIFFE RENTI AL/PL ATELE T hematology comments: ON CAR SUPERVISOR Not Available [facility] ([facility]) [address] [facility], [place], [address], 01/01/2024 03:35:43 12/23/19 24 12/24/2023 COMP. METAB OLIC PANEL (14) glucose 94 mg/dL 70-99 normal Not Available [facility] ([facility]) [address] [facility], [place], [address], 01/01/2024 03:35:44 12/23/19 24 12/24/2023 COMP. METAB OLIC PANEL (14) BUN 17 mg/dL 6-24 normal Not Available [facility] ([facility]) [address] [facility], [place], [address], 01/01/2024 03:35:44 12/23/19 24 12/24/2023 COMP. METAB OLIC PANEL (14) creatinine 1.20 mg/dL 0.76-1 .27 normal Not Available [facility] ([facility]) [address] [facility], [place], [address], 01/01/2024 03:35:44 12/23/19 24 12/24/2023 COMP. METAB OLIC PANEL (14) eGFR 72 mL/mi n/1.7 3 >59 normal Not Available [facility] ([facility]) [address] [facility], [place], [address], 01/01/2024 03:35:44 12/23/19 24 12/24/2023 COMP. METAB OLIC PANEL (14) BUN/creatini ne ratio 14 9-20 normal Not Available [facility] ([facility]) [address] [facility], [place], [address], 01/01/2024 03:35:44 12/23/19 24 12/24/2023 COMP. METAB OLIC PANEL (14) sodium 139 mmol/ L 134-14 4 normal Not Available [facility] ([facility]) [address] [facility], [place], [address], 01/01/2024 03:35:44 12/23/19 24 12/24/2023 COMP. METAB OLIC PANEL (14) potassium 4.9 mmol/ L 3.5-5. 2 normal Not Available [facility] ([facility]) [address] [facility], [place], [address], 01/01/2024 03:35:44 12/23/19 24 12/24/2023 COMP. METAB OLIC PANEL (14) chloride 102 mmol/ L 96-106 normal Not Available [facility] ([facility]) [address] [facility] [place], [address], 01/01/2024 03:35:44 12/23/19 24 12/24/2023 COMP. METAB OLIC PANEL (14) carbon dioxide, total 24 mmol/ L 20-29 normal Not Available [facility] ([facility]) [address] [facility], [place], [address], 01/01/2024 03:35:44 12/23/19 24 12/24/2023 COMP. METAB OLIC PANEL (14) calcium 9.8 mg/dL 8.7-10 .2 normal Not Available [facility] ([facility]) [address] [facility] [place], [address], 01/01/2024 03:35:44 12/23/19 24 12/24/2023 COMP. METAB OLIC PANEL (14) protein, total 6.8 g/dL 6.0-8. 5 normal Not Available [facility] ([facility]) [address] [facility] [place], [address], 01/01/2024 03:35:44 12/23/19 24 12/24/2023 COMP. METAB OLIC PANEL (14) albumin 4.3 g/dL 3.8-4. 9 normal Not Available [facility] ([facility]) [address] [facility] [place], [address], 01/01/2024 03:35:44 12/23/19 24 12/24/2023 COMP. METAB OLIC PANEL (14) globulin, total 2.5 g/dL 1.5-4. 5 Not Available [facility] ([facility]) [address] [facility] [place], [address], 01/01/2024 03:35:44 12/23/19 24 12/24/2023 COMP. METAB OLIC PANEL (14) bilirubin, total 0.6 mg/dL 0.0-1. 2 normal Not Available [facility] ([facility]) [address] [facility] [place], [address], 01/01/2024 03:35:44 12/23/19 24 12/24/2023 COMP. METAB OLIC PANEL (14) alkaline phosphatase 73 IU/L 44-121 normal Not Available [facility]) [address] [facility] [place], [address], 01/01/2024 03:35:44 12/23/19 24 12/24/2023 COMP. METAB OLIC PANEL (14) AST (SGOT) 19 IU/L 0-40 normal Not Available [facility] ([facility]) [address] [facility] [place], [address], 01/01/2024 03:35:44 12/23/19 24 12/24/2023 COMP. METAB OLIC PANEL (14) ALT (SGPT) 20 IU/L 0-44 normal Not Available [facility] ([facility]) [address] [facility], [place], [address], 01/01/2024 03:35:44 12/23/19 24 12/31/2023 VITAM IN E vitamin E(alpha tocopherol) 11.9 mg/L 7.0-25 .1 Not Available [facility] ([facility]) [address] [facility] [place], [address], 01/01/2024 03:35:45 12/23/19 24 12/31/2023 VITAM IN E vitamin E(gamma tocopherol) 2.0 mg/L 0.5-5. 5 Refer ence inter vals for alpha and gamma -toco phero l deter mined from [facility] and Nutri tion Exami natio n Surve y, 2004- 2005. Indiv idual s with alpha -toco phero l level s less than 5.0 mg/L are consi dered vitam in E defic ient. Not Available [facility] ([facility]) [address] [place], [address], 01/01/2024 03:35:45 12/23/19 24 12/24/2023 FOLAT E (FOLI C ACID) , SERUM folate (folic acid), serum >20.0 NG/mL >3.0 A serum folat e jose ntrat ion of less than 3.1 ng/mL is consi dered to repre sent clini kirsten defic iency . Not Available [facility] ([facility]) [address] [facility], [place], [address], 01/01/2024 03:35:46 12/23/19 24 12/31/2023 VITAM IN A, SERUM vitamin A 53.8 ug/dL 20.1-6 2.0 Refer ence inter vals for vitam in A deter mined from [facility] inter nal studi es. Indiv idual s with vitam in A less than 20 ug/dL are consi dered vitam in A defic ient and those with serum jose ntrat ions less than 10 ug/dL are consi dered sever jennifer defic ient. This test was devel oped and its perfo rmanc e francesca cteri stics deter mined by [facility]. It has not been clear ed or appro rocky by the Food and Drug Admin istra tion. Not Available [facility] ([facility]) [address] [facility], [place], [address], 01/01/2024 03:35:47 12/23/19 24 12/24/2023 VITAM IN D, 25-HY DROXY vitamin D, 25-hydroxy 35.0 NG/mL 30.0-1 00.0 Vitam in D defic iency has been defin ed by the Insti tute of Medic ine and an Endoc rine Socie ty pract ice guide line as a level of serum 25-OH vitam in D less than 20 ng/mL (1,2) . The Endoc rine Socie ty went on to fur er defin e vitam in D insuf ficie ncy as a level betwe en 21 and 29 ng/mL (2). 1. IOM (Inst itute of Medic ine). 2010. Dieta ry refer ence intak es for calci um and D. Lesa bobby DC: The [facility] . 2. Noreen jorgensen MF, Gypsy tovar NC, Tosin off-F errar i KRAUSE, et al. Evalu ation , treat ment, and preve ntion of vitam in D defic iency : an Endoc rine Socie ty clini kirsten pract ice guide line. JCEM. 2010; 96(7) :1911 -30. Not Available [facility] ([facility]) [address] [facility], [place], [address], 01/01/2024 03:35:48 12/23/19 24 12/27/2023 VITAM IN B1 (THIA MINE) , BLOOD vit. B1, whole blood 143.2 nmol/ L 66.5-2 00.0 Not Available [facility] ([facility]) [address] [place], [address], 01/01/2024 03:35:49 12/23/19 24 12/28/2023 METHY LMALO MAG ACID, SERUM methylmaloni c acid, serum 201 nmol/ L 0-378 Not Available [facility] ([facility]) [address] [place], [address], 01/01/2024 03:35:50 12/23/19 24 12/24/2023 PREAL BUMIN prealbumin 26 mg/dL 10- Not Available [facility] ([facility]) [address] [place], [address], 01/01/2024 03:35:51 01/05/2001/06/[address] (H PYLOR I AB QUAL) tracy test 20 min NEGATI VE negati ve Not Available [facility] ([facility]) [address], [place], [address], 01/06/2024 11:20:36 01/05/2001/06/[address] (H PYLOR I AB QUAL) tracy test 1HR NEGATI VE negati ve Not Available [facility] ([facility]) [address], [place], [address], 01/06/2024 11:20:36 01/05/20 24 01/06/[address] (H PYLOR I AB QUAL) tracy test 3 HR NEGATI VE negati ve Not Available [facility] ([facility]) [address] [facility], [place], [address], 01/06/2024 11:20:36 01/05/2001/06/[address] (H PYLOR I AB QUAL) tracy test 24 HR NEGATI VE negati ve Not Available [facility] ([facility]) [address] [facility], [place], [address], 01/06/2024 11:20:36 01/05/2001/06/[address] (H PYLOR I AB QUAL) trayc test kit lot# [id number] 0 Not Available [facility] ([facility]) [address] [facility], [place], [address], 01/06/2024 11:20:36 01/05/20 24 01/06/[address] (H PYLOR I AB QUAL) tracy test kit exp date Not Available [facility] ([facility]) [address] [facility], [place], [address], 01/06/2024 11:20:36 05/29/19 23 05/28/2022 US, thyro id No observ ation record ed. [facility] [address] [place], [address], 05/28/2022 13:14:50 06/17/19 23 US, thyro id No observ ation record ed. [email or web address] Not Available 2022 12:15:22 06/17/19 23 fine needl e aspir ation , thyro id (PROC ) No observ ation record ed. [email or web address] Not Available 2022 12:16:51 01/03/20 24 01/03/2024 ugi with KUB [facility] [address] [place] [address] Phone: Fax: Name: LARISSA ENRIQUEZ Exam Date: 2023 : 971 Age 53 years Gender : M Access ion: [id number] Physic payton: JOSE DEAL R Facili ty: [place] Facili ty HSV: Outpat ient Exam: UGI WITH KUB PROCED URE: FL UPPER GI SINGLE CONTRA ST CLINIC AL INDICA TION:G ERD. COMPAR SCOT: CT from 023 and prior upper GI from 07/26/19 23. TECHNI QUE: A prelim inary body artist radiog raph of the abdome n was obtain ed. The esopha anabela, stomac h, and proxim al small bowel are evalua haven with single contra st techni que using real-t pablo fluoro scopy and acquis ition of multip le spot digita l radiog raphs. FINDIN GS: Central Office Frame Wirer: Prelim inary body artist view of the abdome n demons trates a nonobs tructi ve bowel gas patter n. The visual ized lung bases are clear. Esopha anabela: Normal ly disten sible, withou t strict ure. No defini te mucosa l abnorm alitie s. No persis tent intral uminal fillin g defect s. No areas of abnorm al extrin sic mass effect . No defini te divert iculum . Normal motili ty. Gastro esopha geal juncti on: No eviden ce of hiatal hernia . No signif icant reflux during the examin ation. Stomac h ^ Duoden um: Reduce d volume of the gastri c lumen, consis tent with surgic al histor y. Contra st visual ized to flow freely throug h the postsu rgical stomac h withou t diffic ulty. No defini te abnorm ality of the duoden al bulb and sweep. Visual ized proxim al small bowel normal . IMPRES ERWIN: No acute findin gs. No signif icant gastro esopha geal reflux visual ized. Fluoro scopy radiat ion dose/D AP: 135.72 mGy Fluoro scopy time: 1.5 minute s Electr onical ly signed by:Clarence Weller i, MD12/22 11:25 AM EST RP Workst ation: [id number] Dictat ed By: Will Weller i Transc ribed By: Transc ribed On: 2023 8:19 AM Electr onical ly signed by: Will Weller i 2023 Thank you for referr LARISSA Maynard to [facility]. Legall y authen ticate d by NINA HARMON 2023-02 08:19: 09 CC'ed Logic: Orderi ng Provid er: PILE HEATHE R Attend ing Provid er: PILE HEATHE R Referr ing Provid er: PILE HEATHE R Admitt ing Provid er: PILE HEATHE R hpile [facility] [address] , [place], [address], 01/12/2024 13:24:07 Result Notes None recorded. Problems Name Problem SNOMED Code Status Onset Date Resolution Date Notes Provider Name and Address Organization Details Recorded Time Gastroesophag eal reflux disease without esophagitis 190379629 Active 2023 ELIN Maria [address] , [place], [address] , [facility] & [place] 4 13:33:47 Chronic low back pain 505587512 Active 2023 ELIN Maria [address], [place], [address] , [facility] & [place] 4 13:34:02 Intentional weight loss 406282298 Active 2023 ELIN Maria [address], [place], [address] , [facility] & [place] 4 13:34:18 Obesity 335996503 Active 2023 ELIN Maria [address], [place], [address] , [place] - [facility] [place] & [place] 4 13:46:35 Problem Notes None recorded. Procedures Surgical History Date Name Laterality Status Provider Name and Address Organization Details Recorded Time 2020 Back Surgery completed Laylajuan KOO - [facility] - [place] & [place] 3 12:17:39 2015 Colonoscopy completed Laylajuan KOO - [facility] - [place] [facility] [place] 3 14:14:11 Back Surgery completed Layla KOO - [facility] - [place] & [place] 3 14:14:11 laparoscopic sleeve gastrectomy completed Marleni Guerra HAYES - [facility] - [place] & [place] 4 13:13:26 repair of hydrocele completed Rebec ca Guerra HAYES - [facility] - [place] & [place] 4 13:13:39 procedure on shoulder completed Ade ecca Guerra HAYES - [facility] - [place] & [place] 4 13:13:54 esophagogastroduodenoscopy completed Marleni Guerra HAYES - [facility] - [place] & [place] 4 13:14:27 thyroidectomy completed Marleni Guerra HAYES - [facility] - [place] & [place] 4 13:14:42 Imaging Results Imaging Date Name Status LastModified by Organiz ation Details LastModified Time 05/28/2022 US, thyroid completed [email or web address] [address] [place], [address], 05/28/2022 13:14:50 06/16/2022 US, thyroid completed Information n ot available 06/16/2022 12:15:22 06/16/2022 fine needle aspiration, thyroid (PROC) completed Information not available 06/16/2022 12:16:51 01/03/2024 ugi with KUB completed [facility] - [facility] Therapy [address], [place], [address], 01/12/2024 13:24:07 Procedure Notes None recorded. Medical Equipment None [...] completed Not Available Not Available Not Available Kirsten-Gest Antacid 200 mg (as calcium carbonate 500 [...] Available Vitals Date Recorded Body height Body mass index (BMI) Body weight Body temperature Systolic blood pressure Diastolic blood pressure Provider Name and Address Organization Details Last Updated DateTime 3 182.88 cm 49.6 kg/m2 740783. 09 g 98.2 [degF] 158 mm[Hg] 85 mm[Hg] Layla Hilton [facility] & [place] 3 14:13:24 Date Recorded Body height Body mass index (BMI) Body weight Heart rate Body temperature Heart rate Systolic blood pressure Diastolic blood pressure Provider Name and Address Organization Details Last Updated DateTime 4 187.96 cm 46.6 kg/m2 275228. 11 g 90 /min 97.1 [degF] 90 /min 127 mm[Hg] 81 mm[Hg] Marleni Guerra [facility] & [place] 4 13:20:49 Date Recorded Body height Body mass index (BMI) Body weight Provider Name and Address Organization Details Last Updated DateTime 01/12/2024 187.96 cm 46.1 kg/m2 590534.66 g Yisel Rudolph [facility] & [place] 01/12/2024 13:15:02 Date Recorded Body height Body temperature Heart rate Body mass index (BMI) Body weight Systolic blood pressure Diastolic blood pressure Provider Name and Address Organization Details Last Updated DateTime 5 187.96 cm 97.3 [degF] 96 /min 48 kg/m2 977380. 11 g 148 mm[Hg] 88 mm[Hg] Marleni Guerra [facility] & [place] 5 11:26:48 Social History Question Answer Notes LastModified by Organizat ion Details LastModified Time Tobacco Smoking Status Never Smoker [facility] [place] 04/19/2022 15:05:10 Do You Have An Advance Directive? No Information not available 06/16/2022 What Is Your Level Of Alcohol Consumption? None Information not available 04/19/2022 Are You Blind Or Do You Have Difficulty Seeing? No Information not available 06/16/2022 What Is Your Level Of Caffeine Consumption? 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 Yes Information not available 06/16/2022 Do You Feel Stressed (tense, Restless, Nervous, Or Anxious, Or Unable To Sleep At Night)? [id number] Information not available 06/16/2022 Do You Use Any Illicit Or Recreational Drugs? No Information not available 04/19/2022 Sex: Male Functional Status Question Answer Note LastModified by Organization D etails LastModified Time What is your exercise level? Moderate Information not available 06/16/2022 Mental Status None recorded. Family History Nothing Reported Notes:Mother- colon cancer Medical History Condition Response Kidney Stones Y Spine Problems Y Obstructive Sleep Apnea Y Obesity Y Arthritis Y Kidney Disease N Kidney or Bladder Problems Y Bleeding Disorder N Back Problems Y Pulmonary Embolism N Hypothyroidism Y Deep Vein Thrombosis N GI Problems Y Reflux/GERD Y Sleep Apnea Y Immunizations Vaccine Type Date Status Note Provider Nam e and Address Organization Details Recorded Time influenza, unspecified formulation 11/08/[address] [facility] & [place] 01/12/2024 13:16:21 Past Encounters Encounter ID Performer Location Encounter Start Date Encounter Closed Date Diagnosis/Indication Diagnosis SNOMED-CT Code Diagnosis ICD10 Code Diagnosis Note [id number] Abebe Pratt MD [facility] [address] [place] [address],[facility] [address] [place] [address] 04/19/2022 14:48:38 04/19/2022 15:41:26 History of calculus of kidney 002853016 Z87.442 History of urinary tract infection 0065468653 107 Z87.440 Microscopic hematuria 19 6991329 R31.29 [id number] Elena Ferguson NP, [facility] [address] [place] [address],[facility] [address] [place] [address] 06/01/2022 15:16:24 06/01/2022 15:33:47 History of calculus of kidney 156420218 Z87.442 Cyst of kidney 449286021 N28.1 Microscopic hematuria [address] scan results reviewed and discussed with patient clinic today. Will schedule follow-up renal ultrasound in 6 months related to renal cyst. Return to clinic in 6 months for follow-up of renal ultrasound results. [id number] Aleyda Soler MD [facility] [address] [place] [address] 06/18/2022 13:58:27 06/18/2022 14:31:04 Thyroid nodule 093064045 E04.1 Went over the patients most recent thyroid ultrasound and several of his previous ultrasound s. Compared them. Went over them in detail with the patient. Explained there hasn't been much growth in the larger nodules. Would not recommend repeat FNA at this time. We will continue to monitor with repeat ultrasound in 12 months. He would like to have this done at [facility] in [place] as this is drasticall y less expensive for him. [id number] ELIN Maria [facility] [address] [facility] [address] [place] [address] 12/23/2023 13:06:13 12/23/2023 14:12:02 Gastroesophageal reflux disease without esophagitis 359362120 K21.9 We discussed concerns of worsening gastroesop hageal reflux status post sleeve gastrectom y. Discussed Warren-en-Y gastric bypass may be advised over BPD/DS.We will check upper GI as well as upper endoscopy to further evaluate reflux disease.Fu rther advisement pending EGD results.Di scussed Warren-en-Y gastric bypass in depth including postoperat reva vitamin concerns. The importance of daily vitamin supplement ation was discussed specifical ly common deficienci es with Warren-en-Y of iron B12 and B1/thiamin . We discussed lifelong contraindi cated medication including NSAIDs and steroids and specifical ly the risk for poor healing/le ak/anastom otic ulcer. Also discussed lifelong contraindi cation to tobacco/ni cotine use Chronic low back pain 27 3441572 M54.50 History of gastrectomy 726401432 Z90.3 Advised qid intake 50% protein 16-1700 calories/d y less than 100 carbs/dyLo ng discussion today of [employer] results including PBF(percen t body fat) SMM (skeletal muscle mass) Visceral fat level level BMR Segmental Fat Analysis and Segmental Lean Analysis.E ncouraged pt to take minimal calories as per BMR and to anticipate changes in SMM and PBF values not just total weight.Fol low-up with Repeat DELMAR in 3mth suggested Patient is status post bariatric surgery and at increased risk for vitamin deficienci es and malnutriti on. Bariatric vitamin panel ordered today. Patient will be contacted to correct any vitamin deficienci es. At [facility] risk of nutritional deficit 266832658 Z91.89 Obesity 387750916 E66.9 Discuss revisional surgery with patient today. Optimal procedure to be determined after upper GI and upper endoscopy. Patient advised he will need cardiac clearance prior to revisional surgery. [id number] GRIFFIN RAMOS RD [facility] [address] [facility] [address] [place] [address] 12/23/2023 13:44:43 12/23/2023 14:37:19 Dietary management surveillance 359938323 Z71.3 [id number] ELIN [facility] [address] [facility] [address] [place] [address] 01/12/2024 13:08:29 01/13/2024 11:38:08 Gastroesophageal reflux disease without esophagitis 647247215 K21.9 Upper GI and upper endoscopy results were reviewed with patient today. Obesity 758090043 E66.9 Discussed BPD/duoden al switch versus Warren-en-Y gastric bypass. Patient wishes to pursue BPD/duoden al switch as he may need NSAIDs and steroids in the future for chronic back pain. We will have our insurance department reach out to patient to discuss insurance approval for revisional surgery. History of gastrectomy 431346910 Z90.3 Advised patient continue focus on healthy high-prote in low-fat diet. [id number] ELIN [facility] [address] [place] [address] 04/27/2024 11:12:39 04/27/2024 12:01:54 Gastroesophageal reflux disease without esophagitis 104792710 K21.9 Upper GI and upper endoscopy results [...] revisional surgery. Chronic low back pain 27 7370128 M54.50 Patient reports worsening back pain with weight gain. He has been advised to focus on additional weight loss Obesity 127271999 E66.9 Discussed medical weight loss options with [...] Body mass index 40+ - severely obese 654493934 Z68.42 Current BMI is 47.9. Patient has seen a 10.3 lb gain since December 2023 History of gastrectomy 678684827 Z90.3 Patient is to continue bariatric vitamin supplement ation. December labs were reviewed with patient again today. Recommend repeat vitamin panel at next office visit 2 months. Health Concerns Section Related Observation LastModified by Organization Detai ls LastModified Time None Recorded Concern Status LastModified by Organization Details LastModified Time None Recorded Advance Directives Directive N: Payers Encounter Date Sequence Insurance Name Policy Number Policy Tovar Covered Member ID Tovar Member ID Guarantor Name 06/18/2022 1 [place] [id number] Larissa Enriquez [id number] Larissa Enriquez 12/23/2023 1 [place] [id number] Larissa Enriquez [id number] Larissa Enriquez 12/23/2023 1 [place] [id number] Larissa Enriquez [id number] Larissa Cooke 01/12/2024 1 [place] [id number] Larissa Enriquez [id number] Larissa Cooke 04/27/2024 1 [place] [id number] Larissa Enriquez [id number] Larissa Enriquez Notes Date Note Type Note Provider Name and Address Organization Details Recorded Time 3 text/html 52yo male in the office today to discuss thyroid concerns. Has had a few thyroid ultrasounds in the past. He had an FNA in 2019 that was benign. His pcp had him repeat recently and he was told there were some new nodules. Has had thyroid labs recently and those were within normal range. Aleyda Soler MD [address], [place], [address], [facility] 06/18/2022 16:17:21 4 text/html 53-year-old male presents today as a transfer of care patient. His is a patient of [facility]. He is new to our practice status post sleeve gastrectomy [address] San. He states preoperative weight was 478 lb. Patient lost to 280 lb after surgery but has seen weight recurrence. For weight 363. With weight recurrence he is [...] any type of protein supplementation at this time. In body today shows BMI 46.6 with 46.1% body fat basal metabolic rate [id number] ELIN Maria [address], [place], [address], [facility] 12/23/2023 13:48:03 4 text/html RDN met with patient for transfer of care and to complete initial nutrition assessment. He is new to our practice status post sleeve gastrectomy [address] San. 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 Height = 74 Weight =363.3#BMI = 46.6preop wt = 478# Weight hx: Has seen some weight recurrence. Did get down to 290# and weight gain since 220. Was taking ozempic and insurance stopped it. Now taking phentermine In body today shows BMI 46.6 with 46.1% body fat basal metabolic rate 2289???PMHX and meds list reviewed. See full encounter summary.Additional vitamins/supplements: b-complex, MVI with iron, calcium?Food Allergies: NKFA Meal pattern: 3 meals per day, 1-2 snacks in between, sometimes will snack after dinner in the evening???B - piece of sausage, 2 pieces of toast, hash brown - diet sodaS -L -PB and honey sandwich on wheat bread - diet sodaS - oatmeal cream pieD - [facility] - chicken critters, 2 baked potatoes, 2 rolls - diet sodaS - Beverages: diet soda (16 oz bottles 5-6), water 4-5 glasses???Frequency of eating out: 4-5 days per week History tracking meals with an nazario or journal: does not track - not consistent Calories: UnsureProtein: UnsureFluids: 64+???Social Hx reviewed.Tobacco use/smoking: deniesAlcohol use: deniesRecreational drug use: denies Current physical activity: Broke back in 2019. Walking around 8-10K steps a day Additional notes/comments: GRIFFIN RAMOS, RD [address] [facility], [place], [address], [facility] - [place] - [place] & [place] 12/23/2023 14:31:42 4 text/html Patient returns to clinic today to discuss recent upper GI and upper endoscopy findings. 01/05/24 EGD Findings: Moderate amount of retained gastric fundus. Mild irritation of the gastric mucosa in the pre antral space. H pylori biopsies neg 01/03/24 UGI FINDINGSScout: Preliminary body artist view of the abdomen demonstrates a nonobstructivebowel [...] acute findings. No significant gastroesophageal reflux visualized. Patient does report reflux symptoms. He is taking [...] already gotten cardiac clearance for revisional surgery. 12/23/23 OV - 53-year-old male presents today as a transfer of care patient. His is a patient of [facility]. He is new to our practice status [...] with 46.1% body fat basal metabolic rate [id number] ELIN Maria [address] , [place], [address], [place] [facility] [place] 01/12/2024 13:32:30 5 text/html Patient returns to clinic today [...] pylori biopsies neg 01/03/24 UGI FINDINGSScout: Preliminary body artist view of the abdomen demonstrates a nonobstructivebowel [...] with 46.1% body fat basal metabolic rate 4208 ELIN Maria [address], [place], [address], [facility] - [facility] - [place] 04/27/2024 12:17:33
== END 2024-06-26 23:59 | disposition home or self-care (01) ==
LOC: RAD 17:14
PROVIDERS: PCP Nurse Practitioner Family; Visit Provider Nurse Practitioner Family
DX: M25.562 Pain in left knee (principal)
CPT/HCPCS: 73562

== ENCOUNTER 2024-07-04 14:24 | Outpatient (POV) | payer BC, SELFPAY ==
--- OUTSIDE RECORDS SUMMARY | 2024-07-04 14:27 | XMS_ITS | Data Portability ---
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 [email or web address] Not available 12/23/2023 14:31:27 Plan of Treatment Reminders Order Date Submit Date Provider Last Modified By Organization Details Last Modified Time Details Appointments OV EST 20 2024 11:20A M ELIN Maria Not available Not available Not available Lab CBC w/ auto diff 2023 024 ROMAIN [facility], [address], [address], [place], [address], 01/01/2024 03:35:43 folate, serum 2023 024 ROMAIN [facility], [address], [address], [place], [address], 01/01/2024 03:35:46 prealbumi n, serum 2023 024 ROMAIN [facility], [address], [address], [place], [address], 01/01/2024 03:35:51 thiamine, QN, blood 2023 024 ROMAIN [facility], [address], [address], [place], [address], 01/01/2024 03:35:49 methylmal lashay, QN, serum or plasma 2023 024 ROMAIN [facility], [address], [address], [place], [address], 01/01/2024 03:35:50 CMP, serum or plasma 2023 024 ROMAIN [facility], [address], [address], [place], [address], 01/01/2024 03:35:44 iron + TIBC + ferritin, serum 2023 024 ROMAIN [facility], [address], [address], [place], [address], 01/01/2024 03:35:41 vitamin D, 25-hydrox y, total, serum 2023 024 ROMAIN [facility], [address], [address], [place], [address], 01/01/2024 03:35:48 vitamin E, serum 2023 024 ROMAIN [facility], [address], [address], [place], [address], 01/01/2024 03:35:45 vitamin A (retinol) , serum 2023 024 ROMAIN [facility], [address], [address], [place], [address], 01/01/2024 03:35:47 TSH + free T4, serum 2023 024 PAGUATE [facility], [address], [address], [place], [address], 01/01/2024 03:35:43 Referral None recorded. Procedures None recorded. Surgeries esophagog astroduod enoscopy (SURG) 2023 024 Cyndi Dunn MD, [address], [address], [place], [address], 02/10/2024 14:47:10 Imaging RF, upper gastroint estinal tract, w/ contrast PO 2023 024 [email or web address] [facility] (Centralized Scheduling), [address], [place], [address], 02/10/2024 14:47:53 US, thyroid 2022 024 [email or web address] Not available 08/11/2023 07:55:42 Medication Orders Wegovy 0.5 mg/0.5 mL subcutane ous pen injector 2024 025 PAGUATE [id number], [address] [facility], [place], [address], 04/27/2024 12:03:01 Patient TargetsNo targets recorded. Patient InstructionsNo instructions recorded. Reason for Referral None Reported. Results Created Date Observation Date Name Description Value Unit Range Abnormal Flag Note LastModifiedBy Organization Detail LastModifiedTime 12/23/19 24 12/24/2023 FE+TI BC+FE R iron bind.cap.(TI BC) 269 ug/dL 250-45 0 normal Not Available [facility] ([facility]) [address] [facility], [place], [address], 01/01/2024 03:35:41 12/23/19 24 12/24/2023 FE+TI BC+FE R UIBC 143 ug/dL 111-34 3 normal Not Available [facility] ([facility]) [address] [place], [address], 01/01/2024 03:35:41 12/23/19 24 12/24/2023 FE+TI BC+FE R iron 126 ug/dL 38-169 normal Not Available [facility] ([facility]) [address] [place], [address], 01/01/2024 03:35:41 12/23/19 24 12/24/2023 FE+TI BC+FE R iron saturation 47 % 15-55 normal Not Available [facility] ([facility]) [address] [place], [address], 01/01/2024 03:35:41 12/23/19 24 12/24/2023 FE+TI BC+FE R ferritin 61 NG/mL 30-400 normal Not Available [facility] ([facility]) [address] [place], [address], 01/01/2024 03:35:41 12/23/19 24 12/24/2023 TSH+F REE T4 TSH 12.900 uIU/m L 0.450- 4.500 above high normal Not Available [facility] ([facility]) [address] [place], [address], 01/01/2024 03:35:42 12/23/19 24 12/24/2023 TSH+F REE T4 T4,free(dire ct) 1.40 NG/dL 0.82-1 .77 normal Not Available [facility] ([facility]) [address] [place], [address], 01/01/2024 03:35:42 12/23/19 24 12/24/2023 CBC WITH DIFFE RENTI AL/PL ATELE T WBC 4.7 x10e3 /uL 3.4-10 .8 normal Not Available [facility] ([facility]) [address] [place], [address], 01/01/2024 03:35:43 12/23/19 24 12/24/2023 CBC WITH DIFFE RENTI AL/PL ATELE T RBC 5.47 x10e6 /uL 4.14-5 .80 normal Not Available [facility] ([facility]) [address] [place], [address], 01/01/2024 03:35:43 12/23/19 24 12/24/2023 CBC WITH DIFFE RENTI AL/PL ATELE T hemoglobin 15.5 g/dL 13.0-1 7.7 normal Not Available [facility] ([facility]) [address] [place], [address], 01/01/2024 03:35:43 12/23/19 24 12/24/2023 CBC WITH DIFFE RENTI AL/PL ATELE T hematocrit 48.3 % 37.5-5 1.0 normal Not Available [facility] ([facility]) [address] [place], [address], 01/01/2024 03:35:43 12/23/19 24 12/24/2023 CBC WITH DIFFE RENTI AL/PL ATELE T MCV 88 fL 79-97 normal Not Available [facility] ([facility]) [address] [place], [address], 01/01/2024 03:35:43 12/23/19 24 12/24/2023 CBC WITH DIFFE RENTI AL/PL ATELE T MCH 28.3 pg 26.6-3 3.0 normal Not Available [facility] ([facility]) [address] [place], [address], 01/01/2024 03:35:43 12/23/19 24 12/24/2023 CBC WITH DIFFE RENTI AL/PL ATELE T MCHC 32.1 g/dL 31.5-3 5.7 normal Not Available [facility] ([facility]) [address] [facility] [place], [address], 01/01/2024 03:35:43 12/23/19 24 12/24/2023 CBC WITH DIFFE RENTI AL/PL ATELE T RDW 13.4 % 11.6-1 5.4 Not Available [facility] ([facility]) [address] [facility], [place], [address], 01/01/2024 03:35:43 12/23/19 24 12/24/2023 CBC WITH DIFFE RENTI AL/PL ATELE T platelets 291 x10e3 /uL 150-45 0 normal Not Available [facility] ([facility]) [address] [facility], [place], [address], 01/01/2024 03:35:43 12/23/19 24 12/24/2023 CBC WITH DIFFE RENTI AL/PL ATELE T neutrophils 54 % not estab. normal Not Available [facility] ([facility]) [address] [facility], [place], [address], 01/01/2024 03:35:43 12/23/19 24 12/24/2023 CBC WITH DIFFE RENTI AL/PL ATELE T lymphs 33 % not estab. normal Not Available [facility] ([facility]) [address] [facility], [place], [address], 01/01/2024 03:35:43 12/23/19 24 12/24/2023 CBC WITH DIFFE RENTI AL/PL ATELE T monocytes 10 % not estab. normal Not Available [facility] ([facility]) [address] [facility], [place], [address], 01/01/2024 03:35:43 12/23/19 24 12/24/2023 CBC WITH DIFFE RENTI AL/PL ATELE T eos 2 % not estab. normal Not Available [facility] ([facility]) [address] [facility], [place], [address], 01/01/2024 03:35:43 12/23/19 24 12/24/2023 CBC WITH DIFFE RENTI AL/PL ATELE T basos 1 % not estab. normal Not Available [facility] ([facility]) [address] [place], [address], 01/01/2024 03:35:43 12/23/19 24 12/24/2023 CBC WITH DIFFE RENTI AL/PL ATELE T immature cells ENDOSCOPY REGISTERED NURSE Not Available [facility] ([facility]) [address] [place], [address], 01/01/2024 03:35:43 12/23/19 24 12/24/2023 CBC WITH DIFFE RENTI AL/PL ATELE T neutrophils (absolute) 2.6 x10e3 /uL 1.4-7. 0 normal Not Available [facility] ([facility]) [address] [place], [address], 01/01/2024 03:35:43 12/23/19 24 12/24/2023 CBC WITH DIFFE RENTI AL/PL ATELE T lymphs (absolute) 1.5 x10e3 /uL 0.7-3. 1 normal Not Available [facility] ([facility]) [address] [place], [address], 01/01/2024 03:35:43 12/23/19 24 12/24/2023 CBC WITH DIFFE RENTI AL/PL ATELE T monocytes(ab solute) 0.5 x10e3 /uL 0.1-0. 9 normal Not Available [facility] ([facility]) [address] [place], [address], 01/01/2024 03:35:43 12/23/19 24 12/24/2023 CBC WITH DIFFE RENTI AL/PL ATELE T eos (absolute) 0.1 x10e3 /uL 0.0-0. 4 normal Not Available [facility] ([facility]) [address] [place], [address], 01/01/2024 03:35:43 12/23/19 24 12/24/2023 CBC WITH DIFFE RENTI AL/PL ATELE T baso (absolute) 0.0 x10e3 /uL 0.0-0. 2 normal Not Available [facility] ([facility]) [address] [facility], [place], [address], 01/01/2024 03:35:43 12/23/19 24 12/24/2023 CBC WITH DIFFE RENTI AL/PL ATELE T immature granulocytes 0 % not estab. Not Available [facility] ([facility]) [address] [facility], [place], [address], 01/01/2024 03:35:43 12/23/19 24 12/24/2023 CBC WITH DIFFE RENTI AL/PL ATELE T immature grans (abs) 0.0 x10e3 /uL 0.0-0. 1 Not Available [facility] ([facility]) [address] [facility], [place], [address], 01/01/2024 03:35:43 12/23/19 24 12/24/2023 CBC WITH DIFFE RENTI AL/PL ATELE T NRBC ENDOSCOPY REGISTERED NURSE Not Available [facility] ([facility]) [address] [facility], [place], [address], 01/01/2024 03:35:43 12/23/19 24 12/24/2023 CBC WITH DIFFE RENTI AL/PL ATELE T hematology comments: ENDOSCOPY REGISTERED NURSE Not Available [facility] ([facility]) [address] [facility], [place], [address], 01/01/2024 03:35:43 12/23/19 24 12/24/2023 COMP. METAB OLIC PANEL (14) glucose 94 mg/dL 70-99 normal Not Available [facility] ([facility]) [address] [facility], [place], [address], 01/01/2024 03:35:44 12/23/19 24 12/24/2023 COMP. METAB OLIC PANEL (14) BUN 17 mg/dL 6-24 normal Not Available [facility] ([facility]) [address] [facility], [place], [address], 01/01/2024 03:35:44 12/23/19 24 12/24/2023 COMP. METAB OLIC PANEL (14) creatinine 1.20 mg/dL 0.76-1 .27 normal Not Available [facility] ([facility]) [address] [facility], [place], [address], 01/01/2024 03:35:44 12/23/19 24 12/24/2023 COMP. METAB OLIC PANEL (14) eGFR 72 mL/mi n/1.7 3 >59 normal Not Available [facility] ([facility]) [address] [facility], [place], [address], 01/01/2024 03:35:44 12/23/19 24 12/24/2023 COMP. METAB OLIC PANEL (14) BUN/creatini ne ratio 14 9-20 normal Not Available [facility] ([facility]) [address] [facility], [place], [address], 01/01/2024 03:35:44 12/23/19 24 12/24/2023 COMP. METAB OLIC PANEL (14) sodium 139 mmol/ L 134-14 4 normal Not Available [facility] ([facility]) [address] [facility], [place], [address], 01/01/2024 03:35:44 12/23/19 24 12/24/2023 COMP. METAB OLIC PANEL (14) potassium 4.9 mmol/ L 3.5-5. 2 normal Not Available [facility] ([facility]) [address] [facility], [place], [address], 01/01/2024 03:35:44 12/23/19 24 12/24/2023 COMP. METAB OLIC PANEL (14) chloride 102 mmol/ L 96-106 normal Not Available [facility] ([facility]) [address] [facility] [place], [address], 01/01/2024 03:35:44 12/23/19 24 12/24/2023 COMP. METAB OLIC PANEL (14) carbon dioxide, total 24 mmol/ L 20-29 normal Not Available [facility] ([facility]) [address] [facility], [place], [address], 01/01/2024 03:35:44 12/23/19 24 12/24/2023 COMP. METAB OLIC PANEL (14) calcium 9.8 mg/dL 8.7-10 .2 normal Not Available [facility] ([facility]) [address] [place] [place], [address], 01/01/2024 03:35:44 12/23/19 24 12/24/2023 COMP. METAB OLIC PANEL (14) protein, total 6.8 g/dL 6.0-8. 5 normal Not Available [facility] ([facility]) [address] [place] [place], [address], 01/01/2024 03:35:44 12/23/19 24 12/24/2023 COMP. METAB OLIC PANEL (14) albumin 4.3 g/dL 3.8-4. 9 normal Not Available [facility] ([facility]) [address] [place], [address], 01/01/2024 03:35:44 12/23/19 24 12/24/2023 COMP. METAB OLIC PANEL (14) globulin, total 2.5 g/dL 1.5-4. 5 Not Available [facility] ([facility]) [address] [place] [place], [address], 01/01/2024 03:35:44 12/23/19 24 12/24/2023 COMP. METAB OLIC PANEL (14) bilirubin, total 0.6 mg/dL 0.0-1. 2 normal Not Available [facility] ([facility]) [address] [place] [place], [address], 01/01/2024 03:35:44 12/23/19 24 12/24/2023 COMP. METAB OLIC PANEL (14) alkaline phosphatase 73 IU/L 44-121 normal Not Available [facility]) [address] [place] [place], [address], 01/01/2024 03:35:44 12/23/19 24 12/24/2023 COMP. METAB OLIC PANEL (14) AST (SGOT) 19 IU/L 0-40 normal Not Available [facility] ([facility]) [address] [place], [address], 01/01/2024 03:35:44 12/23/19 24 12/24/2023 COMP. METAB OLIC PANEL (14) ALT (SGPT) 20 IU/L 0-44 normal Not Available [facility] ([facility]) [address] [facility], [place], [address], 01/01/2024 03:35:44 12/23/19 24 12/31/2023 VITAM IN E vitamin E(alpha tocopherol) 11.9 mg/L 7.0-25 .1 Not Available [facility] ([facility]) [address] [place] [place], [address], 01/01/2024 03:35:45 12/23/19 24 12/31/2023 VITAM IN [...] in E defic ient. Not Available [facility] ([facility]) [address] [place], [address], 01/01/2024 03:35:45 12/23/19 24 12/24/2023 FOLAT E (FOLI C ACID) , SERUM folate (folic acid), serum >20.0 NG/mL >3.0 A serum folat e jose ntrat ion of less than 3.1 ng/mL is consi dered to repre sent clini kirsten defic iency . Not Available [facility] ([facility]) [address] [facility], [place], [address], 01/01/2024 03:35:46 12/23/19 24 12/31/2023 VITAM IN [...] Drug Admin istra tion. Not Available [facility] ([facility]) [address] [facility], [place], [address], 01/01/2024 03:35:47 12/23/19 24 12/24/2023 VITAM IN [...] um and D. Lesa bobby [place]: [facility] . 2. Noreen jorgensen MF, Gypsy tovar [place], Tosin off-F errar i KRAUSE, et al. Evalu ation , treat ment, and preve ntion of vitam in D defic iency : an Endoc rine Socie ty clini kirsten pract ice guide line. JCEM. 2010; 96(7) :1911 -30. Not Available [facility] ([facility]) [address] [facility], [place], [address], 01/01/2024 03:35:48 12/23/19 24 12/27/2023 VITAM IN B1 (THIA MINE) , BLOOD vit. B1, whole blood 143.2 nmol/ L 66.5-2 00.0 Not Available [facility] ([facility]) [address] [place], [address], 01/01/2024 03:35:49 12/23/19 24 12/28/2023 METHY LMALO MAG ACID, SERUM methylmaloni c acid, serum 201 nmol/ L 0-378 Not Available [facility] ([facility]) [address] [place], [address], 01/01/2024 03:35:50 12/23/19 24 12/24/2023 PREAL BUMIN prealbumin 26 mg/dL 10- Not Available [facility] ([facility]) [address] [place], [address], 01/01/2024 03:35:51 01/05/2001/06/[address] (H PYLOR I AB QUAL) tracy test 20 min NEGATI VE negati ve Not Available [facility] ([facility]) [address], [place], [address], 01/06/2024 11:20:36 01/05/2001/06/[address] (H PYLOR I AB QUAL) tracy test 1HR NEGATI VE negati ve Not Available [facility] ([facility]) [address], [place], [address], 01/06/2024 11:20:36 01/05/20 24 01/06/[address] (H PYLOR I AB QUAL) tracy test 3 HR NEGATI VE negati ve Not Available [facility] ([facility]) [address] [facility], [place], [address], 01/06/2024 11:20:36 01/05/2001/06/[address] (H PYLOR I AB QUAL) tracy test 24 HR NEGATI VE negati ve Not Available [facility] ([facility]) [address] [facility], [place], [address], 01/06/2024 11:20:36 01/05/2001/06/[address] (H PYLOR I AB QUAL) tracy test kit lot# [id number] Not Available [facility] ([facility]) [address] [facility], [place], [address], 01/06/2024 11:20:36 01/05/20 24 01/06/[address] (H PYLOR I AB QUAL) tracy test kit exp date Not Available [facility] ([facility]) [address] [facility], [place], [address], 01/06/2024 11:20:36 05/29/19 23 05/28/2022 US, thyro id No observ ation record ed. [facility] [address] [place], [address], 05/28/2022 13:14:50 06/17/19 23 US, thyro id No observ ation record ed. [email or web address] Not Available 2022 12:15:22 06/17/19 23 fine needl e aspir ation , thyro id (PROC ) No observ ation record ed. [email or web address] Not Available 2022 12:16:51 01/03/20 24 01/03/2024 ugi with KUB [facility] [address] [place] [address] Phone: Fax: Name: LARISSA ENRIQUEZ Exam Date: 2023 : 971 Age 53 years Gender : M Access ion: [id number] Physic payton: JOSE DEAL R Facili ty: [place] Facili ty HSV: Outpat ient Exam: UGI WITH KUB PROCED URE: [place] UPPER GI SINGLE CONTRA ST CLINIC AL INDICA TION:G ERD. COMPAR SCOT: CT from 023 and prior upper GI from 07/26/19 23. TECHNI QUE: A prelim inary insurance collector radiog raph of the abdome n was obtain ed. The esopha anabela, stomac h, and proxim al small bowel are evalua haven with single contra st techni que using real-t pablo fluoro scopy and acquis ition of multip le spot digita l radiog raphs. FINDIN GS: Agency Appointments Supervisor: Prelim inary insurance collector view of the abdome n demons trates [...] Thank you for referr LARISSA Maynard to [facility]. Legall y authen ticate d by NINA HARMON 2023-02 08:19: 09 CC'ed Logic: Orderi ng Provid er: PILE HEATHE R Attend ing Provid er: PILE HEATHE R Referr ing Provid er: PILE HEATHE R Admitt ing Provid er: PILE HEATHE R hpile [facility] [address] , [place], [address], 01/12/2024 13:24:07 Result Notes None recorded. Problems Name Problem SNOMED Code Status Onset Date Resolution Date Notes Provider Name and Address Organization Details Recorded Time Gastroesophag eal reflux disease without esophagitis 487139399 Active 2023 ELIN Maria [address] , [place], [address] , [facility] [place] 4 13:33:47 Chronic low back pain 638690450 Active 2023 ELIN Maria [address], [place], [address] , [facility] & [place] 4 13:34:02 Intentional weight loss 900540060 Active 2023 ELIN Maria [address], [place], [address] , [facility] & [place] 4 13:34:18 Obesity 732684813 Active 2023 ELIN Maria [address], [place], [address] , [place] - [facility] [place] & [place] 4 13:46:35 Problem Notes None recorded. Procedures Surgical History Date Name Laterality Status Provider Name and Address Organization Details Recorded Time 2020 Back Surgery completed Laylajuan KOO - [facility] - [place] & [place] 3 12:17:39 2015 Colonoscopy completed Laylajuan KOO - [facility] - [place] [facility] [place] 3 14:14:11 Back Surgery completed Layla KOO - [facility] - [place] & [place] 3 14:14:11 laparoscopic sleeve gastrectomy completed Marleni Guerra HAYES - [facility] - [place] & [place] 4 13:13:26 repair of hydrocele completed Rebec ca Guerra HAYES - [facility] - [place] & [place] 4 13:13:39 procedure on shoulder completed Ade ecca Guerra HAYES - [facility] - [place] & [place] 4 13:13:54 esophagogastroduodenoscopy completed Marleni Guerra HAYES - [facility] - [place] & [place] 4 13:14:27 thyroidectomy completed Marleni Guerra HAYES - [facility] - [place] & [place] 4 13:14:42 Imaging Results Imaging Date Name Status LastModified by Organiz ation Details LastModified Time 05/28/2022 US, thyroid completed [email or web address] [address] [place], [address], 05/28/2022 13:14:50 06/16/2022 US, thyroid completed Information n ot available 06/16/2022 12:15:22 06/16/2022 fine needle aspiration, thyroid (PROC) completed Information not available 06/16/2022 12:16:51 01/03/2024 ugi with KUB completed [facility] [address], [place], [address], 01/12/2024 13:24:07 Procedure Notes None recorded. Medical [...] Updated DateTime 3 182.88 cm 49.6 kg/m2 240793. 09 g 98.2 [degF] 158 mm[Hg] 85 mm[Hg] Layla Hilton [facility] & [place] 3 14:13:24 Date Recorded Body height Body mass index (BMI) Body weight Heart rate Body temperature Heart rate Systolic blood pressure Diastolic blood pressure Provider Name and Address Organization Details Last Updated DateTime 4 187.96 cm 46.6 kg/m2 758793. 11 g 90 /min 97.1 [degF] 90 /min 127 mm[Hg] 81 mm[Hg] Marleni Guerra [facility] & [place] 4 13:20:49 Date Recorded Body height Body mass index (BMI) Body weight Provider Name and Address Organization Details Last Updated DateTime 01/12/2024 187.96 cm 46.1 kg/m2 031729.66 g Yisel Rudolph [facility] & [place] 01/12/2024 13:15:02 Date Recorded Body height Body temperature Heart rate Body mass index (BMI) Body weight Systolic blood pressure Diastolic blood pressure Provider Name and Address Organization Details Last Updated DateTime 5 187.96 cm 97.3 [degF] 96 /min 48 kg/m2 400294. 11 g 148 mm[Hg] 88 mm[Hg] Marleni Guerra [facility] & [place] 5 11:26:48 Social History Question Answer Notes LastModified by [employer] Details LastModified Time Tobacco Smoking Status Never Smoker [facility] [place] 04/19/2022 15:05:10 Do You Have An Advance Directive? No Information not available 06/16/2022 Are You Blind Or Do You Have Difficulty Seeing? No Information not available 06/16/2022 What Is Your Level Of Caffeine Consumption? Moderate [email or web address] Information not available 01/12/2024 Are You Passively Exposed To Smoke? Yes Information not available 06/16/2022 Sex: Male Functional Status Question Answer Note LastModified by Mochila ion Details LastModified Time Do you use any illicit or recreational drugs? No Information not available 04/19/2022 What is your level of alcohol consumption? 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 Moderate Information not available 06/16/2022 Mental Status Question Answer Note LastModified by Organization D etails LastModified Time Do you feel stressed (tense, restless, nervous, or anxious, or unable to sleep at night)? [id number] Information not available 06/16/2022 Family History Nothing Reported Notes:Mother- colon cancer Medical History Condition Response Bleeding Disorder N Obesity Y Arthritis Y Kidney Stones Y Back Problems Y Kidney or Bladder Problems Y Hypothyroidism Y GI Problems Y Reflux/GERD Y Sleep Apnea Y Spine Problems Y Pulmonary Embolism N Deep Vein Thrombosis N Obstructive Sleep Apnea Y Kidney Disease N Immunizations Vaccine Type Date Status Note Provider Nam e and Address Organization Details Recorded Time influenza, unspecified formulation 11/08/2023 completed Yisel [facility] 01/12/2024 13:16:21 Past Encounters Encounter ID Performer Location Encounter Start Date Encounter Closed Date Diagnosis/Indication Diagnosis SNOMED-CT Code Diagnosis ICD10 Code Diagnosis Note [id number] Abebe Pratt MD [facility] [address] [place] [address],[facility] [address] [place] [address] 04/19/2022 14:48:38 04/19/2022 15:41:26 History of calculus of kidney 805674941 Z87.442 History of urinary tract infection [id number] 107 Z87.440 Microscopic hematuria 19 9506484 R31.29 [id number] Elena Ferguson NP, S [facility] [address] [place] [address],[facility] [address] [place] [address] 06/01/2022 15:16:24 06/01/2022 15:33:47 History of calculus of kidney [id number] Z87.442 Cyst of kidney 287661060 N28.1 Microscopic hematuria [address] scan results reviewed and discussed with patient clinic today. Will schedule follow-up renal ultrasound in 6 months related to renal cyst. Return to clinic in 6 months for follow-up of renal ultrasound results. [id number] Aleyda Soler MD [facility] G [phone] [place] [address] 06/18/2022 13:58:27 06/18/2022 14:31:04 Thyroid nodule 666400331 E04.1 Went over the patients most recent thyroid ultrasound and several of his previous ultrasound s. Compared them. Went over them in detail with the patient. Explained there hasn't been much growth in the larger nodules. Would not recommend repeat FNA at this time. We will continue to monitor with repeat ultrasound in 12 months. He would like to have this done at [facility] in [place] as this is drasticall y less expensive for him. [id number] ELIN Maria [facility] [address] [facility] [address] [place] [address] 12/23/2023 13:06:13 12/23/2023 14:12:02 Gastroesophageal reflux disease without esophagitis 627524302 K21.9 We discussed concerns of worsening gastroesop [...] cotine use Chronic low back pain 27 7540180 M54.50 History of gastrectomy 702536698 Z90.3 Advised qid intake 50% protein 16-1700 [...] to correct any vitamin deficienci es. At [facility] risk of nutritional deficit 869922229 Z91.89 Obesity 597930573 E66.9 Discuss revisional surgery with patient today. Optimal procedure to be determined after upper GI and upper endoscopy. Patient advised he will need cardiac clearance prior to revisional surgery. [id number] GRIFFIN RAMOS RD [facility] [address] [place] [facility] [address] 12/23/2023 13:44:43 12/23/2023 14:37:19 Dietary management surveillance 937284664 Z71.3 [id number] ELIN [facility] [address] [place] [address] 01/12/2024 13:08:29 01/13/2024 11:38:08 Gastroesophageal reflux disease without esophagitis 532291634 K21.9 Upper GI and upper endoscopy results were reviewed with patient today. Obesity 088365342 E66.9 Discussed BPD/duoden al switch versus Warren-en-Y gastric bypass. Patient wishes to pursue BPD/duoden al switch as he may need NSAIDs and steroids in the future for chronic back pain. We will have our insurance department reach out to patient to discuss insurance approval for revisional surgery. History of gastrectomy 088517344 Z90.3 Advised patient continue focus on healthy high-prote in low-fat diet. [id number] ELIN Maria [facility] [address] [place] [address] 04/27/2024 11:12:39 04/27/2024 12:01:54 Gastroesophageal reflux disease without esophagitis 463302034 K21.9 Upper GI and upper endoscopy results [...] revisional surgery. Chronic low back pain 27 1059658 M54.50 Patient reports worsening back pain with weight gain. He has been advised to focus on additional weight loss Obesity 468329281 E66.9 Discussed medical weight loss options with [...] Body mass index 40+ - severely obese 876718303 Z68.42 Current BMI is 47.9. Patient has seen a 10.3 lb gain since December 2023 History of gastrectomy 436178220 Z90.3 Patient is to continue bariatric vitamin supplement ation. December labs were reviewed with patient again today. Recommend repeat vitamin panel at next office visit 2 months. Health Concerns Section Related Observation LastModified by Organization Detai ls LastModified Time None Recorded Concern Status LastModified by Organization Details LastModified Time None Recorded Advance Directives Directive N: Payers Insurance Date Sequence Insurance Name Policy Number Policy Tovar Covered Member ID Tovar Member ID Guarantor Name 04/25/2024 1 ZEUS-HAYES: SERGIO SCHULZ OF [place] (PPO) [id number] Larissa Enriquez [id number] Larissa Enriquez Notes Date Note Type Note [...] range. Aleyda Soler MD [address], [place], [address], [facility] 06/18/2022 16:17:21 4 text/html 53-year-old male presents today as a transfer of care patient. His is a patient of [facility]. He is new to our practice status post sleeve gastrectomy [address] San. He states preoperative weight [...] rate 2289 ELIN Maria [address], [place], [address], [facility] & [place] 12/23/2023 13:48:03 4 text/html RDN met with patient for transfer of care and to complete initial nutrition assessment. He is new to our practice status post sleeve gastrectomy [address] San. 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 Interested in a revision but depends on [...] diet sodaS - oatmeal cream pieD - [facility] - chicken critters, 2 baked potatoes, 2 [...] day Additional notes/comments: GRIFFIN RAMOS, RD [address] [facility], [place], [address], [facility] - [place] & [place] 12/23/2023 14:31:42 4 text/html Patient returns to clinic today to discuss recent upper GI and upper endoscopy findings. 01/05/24 EGD Findings: Moderate amount of retained gastric fundus. Mild irritation of the gastric mucosa in the pre antral space. H pylori biopsies neg 01/03/24 UGI FINDINGSScout: Preliminary insurance collector view of the abdomen demonstrates a nonobstructivebowel [...] care patient. His is a patient of [facility]. He is new to our practice status [...] metabolic rate 2289 ELIN Maria [address] , [place], [address], [facility] - [place] & [place] 01/12/2024 13:32:30 5 text/html Patient returns to [...] pylori biopsies neg 01/03/24 UGI FINDINGSScout: Preliminary insurance collector view of the abdomen demonstrates a nonobstructivebowel [...] care patient. His is a patient of [employer]. He is new to our practice status [...] with 46.1% body fat basal metabolic rate [id number] ELIN Maria [address], [place], [address], [facility] - [place] & [place] 04/27/2024 12:17:33
--- NOTE | 2024-07-04 15:11 | EXP.PAIN.SOA ---
[facility] Disclaimer: The information contained in this section may have been updated after the patient was seen, as this information can be updated by other users. Medical History Lumbar compression fracture Hydrocele Kidney stone Sleep apnea History of COVID-19 History of gastroesophageal reflux (GERD) Multinodular goiter History of thyroid nodule Hypothyroidism Tinnitus of both ears Fracture of lumbar spine Cervical spine fracture Thyroid nodule Obesity Surgical History History of total thyroidectomy H/O thyroidectomy H/O gastric sleeve Hx of rotator cuff surgery right History of hernia surgery Family History Mother Colon cancer Sister Diabetes Social History Smoking Status: Never smoker alcohol intake: never substance use type: denies use current occupational status: employed Travel in the last 8 weeks?: None household members: spouse and family housing: house 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 Patient rates his pain today a 2 out of 10. He denies any new falls or injuries. He does state that he has had at least 85% improvement following this injection and feels like it is still working well. Patient does state that overall it did seem that it kicked in fairly immediately and that the pain is definitely been not as severe. He states even getting in and out of his truck has been a huge difference. Patient was prescribed compounded cream at our last visit and states this did help as well. Patient is still having some right knee pain and is scheduled for an MRI coming up to rule out possible tears. Patient is also scheduled to start physical therapy on Tuesday. His Damon has been reviewed and is appropriate. Review of Systems: General: No recent weight changes, no fever, no sleep disturbances Respiratory: No cough, no shortness of air, no recurring pulmonary infections Cardiovascular/peripheral vascular: No chest pain, no palpitations, no edema, no shortness of breath Gastrointestinal: No new onset incontinence, normal bowel movements reported Genitourinary: No new onset incontinence Musculoskeletal: Low back pain Psychiatric: [Normal mood/affect] Neurological: [Denies weakness in extremities], [denies balance issues] Pain at rest (0-10 scale): 2 Objective Objective:: Physical Exam: General: Alert and oriented x3, no acute distress, pleasant and cooperative Lungs: Respirations even and unlabored, symmetrical chest expansion Eyes: PERRL Musculoskeletal: Flexion and extension of lumbar [spine] within normal limits Neurological: Speech clear, no gross sensory deficit Has patient had previous pain injection?: Yes Percent improvement in pain since last injection: Percent 85% Conservative treatment options previously tried: Home exercise plan Length of treatment: Longer than 12 weeks Meds Home Medications and Allergies Home Medications ?Medication ?Instructions ?Recorded ?Confirmed ?Type hydroxyzine pamoate 25 mg capsule 25 mg PO HS 08/16/23 06/28/24 History omeprazole 40 mg capsule,delayed 40 mg PO DAILY 08/16/23 06/28/24 History release calcium carbonate 500 mg PO BID #60 tabs 08/17/23 06/28/24 Rx phentermine 37.5 mg tablet 37.5 mg PO DAILY Weight loss 09/15/23 06/28/24 History levothyroxine 175 mcg tablet 175 mcg PO DAILY #60 tabs 01/09/24 06/28/24 Rx (Synthroid) methylprednisolone 4 mg tablets in See Rx Instructions PO PER PKG DIR 06/28/24 06/28/24 Rx a dose pack (Medrol (Balaji)) #21 tabs New Prescriptions to Start Prescriptions: Allergies Allergy/AdvReac Type Severity Reaction Status Date / Time No Known Allergies Allergy Verified 06/28/24 13:23 Assessment and Plan *Assessment and plan (1) Lumbar facet arthropathy: Status: Acute Category: Medical Code(s): M47.816 - Spondylosis without myelopathy or radiculopathy, lumbar region (2) Degenerative disc disease: Status: Acute Category: Medical Plan Patient has had significant improvement following his first lumbar medial branch block and does not require any additional injection therapy at this time. Patient will return to clinic in 1 month for reevaluation of symptoms and plan of care. I did discuss with the patient in future when his pain does return and that we will plan on repeating his prior injection with the plan to proceed forward with a lumbar RFA at a later date. Patient agrees with this plan of care. Patient has been instructed to contact the clinic with any concerns before the next appointment. Dr. Miranda has reviewed this note and agrees with this plan of care. This note was dictated using voice recognition software and make contain errors or omissions. All injections are used with Lidocaine, Bupivacaine and dexamethasone. Occasionally urine drug screen is needed to verify patient's compliance with our office pain contract. This is ordered based off specific treatments related to chronic pain with the potential to abuse certain medications.
[2024-07-04 15:32] VITALS: BP 125/84; PULSE 84; RESP 18; O2SAT 96; BMI 47.0
== END 2024-07-04 23:59 | disposition home or self-care (01) ==
LOC: SC.PAIN 14:25
PROVIDERS: PCP Nurse Practitioner Family; Visit Provider Nurse Practitioner Family
DX: M47.816 Spondylosis without myelopathy or radiculopathy, lumbar region (principal)
CPT/HCPCS: 99212; G0463

== ENCOUNTER 2024-07-09 14:52 | Outpatient (RCR) | payer BC, SELFPAY | END 2024-07-18 23:59 | disposition home or self-care (01) | LOC: PT 14:52 | PROVIDERS: PCP Nurse Practitioner Family; Visit Provider Physician Assistant Medical | DX: M54.50 Low back pain, unspecified (principal); M41.30 Thoracogenic scoliosis, site unspecified; Z98.1 Arthrodesis status | CPT/HCPCS: 97014; 97110; 97163; G0283 ==

== ENCOUNTER 2024-07-10 15:47 | Outpatient (CLI) | payer BC, SELFPAY ==
--- OUTSIDE RECORDS SUMMARY | 2024-07-10 15:49 | XMS_ITS | Data Portability ---
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 [email or web address] Not available 12/23/2023 14:31:27 Plan of Treatment Reminders Order Date Submit Date Provider Last Modified By Organization Details Last Modified Time Details Appointments OV EST 20 2024 11:20A M ELIN Maria Not available Not available Not available Lab CBC w/ auto diff 2023 024 ROMAIN [facility], [address], [address], [place], [address], 01/01/2024 03:35:43 folate, serum 2023 024 ROMAIN [facility], [address], [address], [place], [address], 01/01/2024 03:35:46 prealbumi n, serum 2023 024 ROMAIN [facility], [address], [address], [place], [address], 01/01/2024 03:35:51 thiamine, QN, blood 2023 024 ROMAIN [facility], [address], [address], [place], [address], 01/01/2024 03:35:49 methylmal lashay, QN, serum or plasma 2023 024 ROMAIN [facility], [address], [address], [place], [address], 01/01/2024 03:35:50 CMP, serum or plasma 2023 024 ROMAIN [facility], [address], [address], [place], [address], 01/01/2024 03:35:44 iron + TIBC + ferritin, serum 2023 024 ROMAIN [facility], [address], [address], [place], [address], 01/01/2024 03:35:41 vitamin D, 25-hydrox y, total, serum 2023 024 ROMAIN [facility], [address], [address], [place], [address], 01/01/2024 03:35:48 vitamin E, serum 2023 024 ROMAIN [facility], [address], [address], [place], [address], 01/01/2024 03:35:45 vitamin A (retinol) , serum 2023 024 ROMAIN [facility], [address], [address], [place], [address], 01/01/2024 03:35:47 TSH + free T4, serum 2023 024 BRANDON [facility], [address], [address], [place], [address], 01/01/2024 03:35:43 Referral None recorded. Procedures None recorded. Surgeries esophagog astroduod enoscopy (SURG) 2023 024 [email or web address] Cyndi Dunn MD, [address], [address], [place], [address], 02/10/2024 14:47:10 Imaging RF, upper gastroint estinal tract, w/ contrast PO 2023 024 [email or web address] [facility] (Centralized Scheduling), [address], [place], [address], 02/10/2024 14:47:53 US, thyroid 2022 024 [email or web address] Not available 08/11/2023 07:55:42 Medication Orders Wegovy 0.5 mg/0.5 mL subcutane ous pen injector 2024 025 BRANDON [id number], [address] [facility], [place], [address], 04/27/2024 12:03:01 Patient TargetsNo targets recorded. Patient InstructionsNo instructions recorded. Reason for Referral None Reported. Results Created Date Observation Date Name Description Value Unit Range Abnormal Flag Note LastModifiedBy Organization Detail LastModifiedTime 12/23/19 24 12/24/2023 FE+TI BC+FE R iron bind.cap.(TI BC) 269 ug/dL 250-45 0 normal Not Available [facility] ([place] [facility]) [address] [facility], [place], [address], 01/01/2024 03:35:41 12/23/19 24 12/24/2023 FE+TI BC+FE R UIBC 143 ug/dL 111-34 3 normal Not Available [facility] ([place] [facility]) [address] [place], [address], 01/01/2024 03:35:41 12/23/19 24 12/24/2023 FE+TI BC+FE R iron 126 ug/dL 38-169 normal Not Available [facility] ([place]) [address] [place], [address], 01/01/2024 03:35:41 12/23/19 24 12/24/2023 FE+TI BC+FE R iron saturation 47 % 15-55 normal Not Available [facility] ([place]) [address] [place], [address], 01/01/2024 03:35:41 12/23/19 24 12/24/2023 FE+TI BC+FE R ferritin 61 NG/mL 30-400 normal Not Available [facility] ([place]) [address] [place], [address], 01/01/2024 03:35:41 12/23/19 24 12/24/2023 TSH+F REE T4 TSH 12.900 uIU/m L 0.450- 4.500 above high normal Not Available [facility] ([facility]) [address] [place], [address], 01/01/2024 03:35:42 12/23/19 24 12/24/2023 TSH+F REE T4 T4,free(dire ct) 1.40 NG/dL 0.82-1 .77 normal Not Available [facility] ([facility]) [address] [place], [address], 01/01/2024 03:35:42 12/23/19 24 12/24/2023 CBC WITH DIFFE RENTI AL/PL ATELE T WBC 4.7 x10e3 /uL 3.4-10 .8 normal Not Available [facility] ([facility]) [address] [place], [address], 01/01/2024 03:35:43 12/23/19 24 12/24/2023 CBC WITH DIFFE RENTI AL/PL ATELE T RBC 5.47 x10e6 /uL 4.14-5 .80 normal Not Available [facility] ([facility]) [address] [place], [address], 01/01/2024 03:35:43 12/23/19 24 12/24/2023 CBC WITH DIFFE RENTI AL/PL ATELE T hemoglobin 15.5 g/dL 13.0-1 7.7 normal Not Available [facility] ([facility]) [address] [place], [address], 01/01/2024 03:35:43 12/23/19 24 12/24/2023 CBC WITH DIFFE RENTI AL/PL ATELE T hematocrit 48.3 % 37.5-5 1.0 normal Not Available [facility] ([facility]) [address] [place], [address], 01/01/2024 03:35:43 12/23/19 24 12/24/2023 CBC WITH DIFFE RENTI AL/PL ATELE T MCV 88 fL 79-97 normal Not Available [facility] ([facility]) [address] [place], [address], 01/01/2024 03:35:43 12/23/19 24 12/24/2023 CBC WITH DIFFE RENTI AL/PL ATELE T MCH 28.3 pg 26.6-3 3.0 normal Not Available [facility] ([facility]) [address] [place], [address], 01/01/2024 03:35:43 12/23/19 24 12/24/2023 CBC WITH DIFFE RENTI AL/PL ATELE T MCHC 32.1 g/dL 31.5-3 5.7 normal Not Available [facility] ([facility]) [address] [place], [address], 01/01/2024 03:35:43 12/23/19 24 12/24/2023 CBC WITH DIFFE RENTI AL/PL ATELE T RDW 13.4 % 11.6-1 5.4 Not Available [facility] ([facility]) [address] [facility], [place], [address], 01/01/2024 03:35:43 12/23/19 24 12/24/2023 CBC WITH DIFFE RENTI AL/PL ATELE T platelets 291 x10e3 /uL 150-45 0 normal Not Available [facility] ([facility]) [address] [facility], [place], [address], 01/01/2024 03:35:43 12/23/19 24 12/24/2023 CBC WITH DIFFE RENTI AL/PL ATELE T neutrophils 54 % not estab. normal Not Available [facility] ([facility]) [address] [facility], [place], [address], 01/01/2024 03:35:43 12/23/19 24 12/24/2023 CBC WITH DIFFE RENTI AL/PL ATELE T lymphs 33 % not estab. normal Not Available [facility] ([facility]) [address] [facility], [place], [address], 01/01/2024 03:35:43 12/23/19 24 12/24/2023 CBC WITH DIFFE RENTI AL/PL ATELE T monocytes 10 % not estab. normal Not Available [facility] ([facility]) [address] [facility], [place], [address], 01/01/2024 03:35:43 12/23/19 24 12/24/2023 CBC WITH DIFFE RENTI AL/PL ATELE T eos 2 % not estab. normal Not Available [facility] ([facility]) [address] [facility], [place], [address], 01/01/2024 03:35:43 12/23/19 24 12/24/2023 CBC WITH DIFFE RENTI AL/PL ATELE T basos 1 % not estab. normal Not Available [facility] ([facility]) [address] [place], [address], 01/01/2024 03:35:43 12/23/19 24 12/24/2023 CBC WITH DIFFE RENTI AL/PL ATELE T immature cells JANITOR Not Available [facility] ([facility]) [address] [place], [address], 01/01/2024 03:35:43 12/23/19 24 12/24/2023 CBC WITH DIFFE RENTI AL/PL ATELE T neutrophils (absolute) 2.6 x10e3 /uL 1.4-7. 0 normal Not Available [facility] ([facility]) [address] [place], [address], 01/01/2024 03:35:43 12/23/19 24 12/24/2023 CBC WITH DIFFE RENTI AL/PL ATELE T lymphs (absolute) 1.5 x10e3 /uL 0.7-3. 1 normal Not Available [facility] ([facility]) [address] [place], [address], 01/01/2024 03:35:43 12/23/19 24 12/24/2023 CBC WITH DIFFE RENTI AL/PL ATELE T monocytes(ab solute) 0.5 x10e3 /uL 0.1-0. 9 normal Not Available [facility] ([facility]) [address] [place], [address], 01/01/2024 03:35:43 12/23/19 24 12/24/2023 CBC WITH DIFFE RENTI AL/PL ATELE T eos (absolute) 0.1 x10e3 /uL 0.0-0. 4 normal Not Available [facility] ([facility]) [address] [place], [address], 01/01/2024 03:35:43 12/23/19 24 12/24/2023 CBC WITH DIFFE RENTI AL/PL ATELE T baso (absolute) 0.0 x10e3 /uL 0.0-0. 2 normal Not Available [facility] ([facility]) [address] [facility], [place], [address], 01/01/2024 03:35:43 12/23/19 24 12/24/2023 CBC WITH DIFFE RENTI AL/PL ATELE T immature granulocytes 0 % not estab. Not Available [facility] ([facility]) [address] [facility], [place], [address], 01/01/2024 03:35:43 12/23/19 24 12/24/2023 CBC WITH DIFFE RENTI AL/PL ATELE T immature grans (abs) 0.0 x10e3 /uL 0.0-0. 1 Not Available [facility] ([facility]) [address] [facility], [place], [address], 01/01/2024 03:35:43 12/23/19 24 12/24/2023 CBC WITH DIFFE RENTI AL/PL ATELE T NRBC JANITOR Not Available [facility] ([facility]) [address] [facility], [place], [address], 01/01/2024 03:35:43 12/23/19 24 12/24/2023 CBC WITH DIFFE RENTI AL/PL ATELE T hematology comments: JANITOR Not Available [facility] ([facility]) [address] [facility], [place], [address], 01/01/2024 03:35:43 12/23/19 24 12/24/2023 COMP. METAB OLIC PANEL (14) glucose 94 mg/dL 70-99 normal Not Available [facility] ([facility]) [address] [facility], [place], [address], 01/01/2024 03:35:44 12/23/19 24 12/24/2023 COMP. METAB OLIC PANEL (14) BUN 17 mg/dL 6-24 normal Not Available [facility] ([facility]) [address] [facility], [place], [address], 01/01/2024 03:35:44 12/23/19 24 12/24/2023 COMP. METAB OLIC PANEL (14) creatinine 1.20 mg/dL 0.76-1 .27 normal Not Available [facility] ([facility]) [address] [facility], [place], [address], 01/01/2024 03:35:44 12/23/19 24 12/24/2023 COMP. METAB OLIC PANEL (14) eGFR 72 mL/mi n/1.7 3 >59 normal Not Available [facility] ([facility]) [address] [facility], [place], [address], 01/01/2024 03:35:44 12/23/19 24 12/24/2023 COMP. METAB OLIC PANEL (14) BUN/creatini ne ratio 14 9-20 normal Not Available [facility] ([facility]) [address] [facility], [place], [address], 01/01/2024 03:35:44 12/23/19 24 12/24/2023 COMP. METAB OLIC PANEL (14) sodium 139 mmol/ L 134-14 4 normal Not Available [facility] ([facility]) [address] [facility], [place], [address], 01/01/2024 03:35:44 12/23/19 24 12/24/2023 COMP. METAB OLIC PANEL (14) potassium 4.9 mmol/ L 3.5-5. 2 normal Not Available [facility] ([facility]) [address] [facility], [place], [address], 01/01/2024 03:35:44 12/23/19 24 12/24/2023 COMP. METAB OLIC PANEL (14) chloride 102 mmol/ L 96-106 normal Not Available [facility] ([facility]) [address] [facility] [place], [address], 01/01/2024 03:35:44 12/23/19 24 12/24/2023 COMP. METAB OLIC PANEL (14) carbon dioxide, total 24 mmol/ L 20-29 normal Not Available [facility] ([facility]) [address] [facility], [place], [address], 01/01/2024 03:35:44 12/23/19 24 12/24/2023 COMP. METAB OLIC PANEL (14) calcium 9.8 mg/dL 8.7-10 .2 normal Not Available [facility] ([facility]) [address] [facility] [place], [address], 01/01/2024 03:35:44 12/23/19 24 12/24/2023 COMP. METAB OLIC PANEL (14) protein, total 6.8 g/dL 6.0-8. 5 normal Not Available [facility] ([facility]) [address] [facility] [place], [address], 01/01/2024 03:35:44 12/23/19 24 12/24/2023 COMP. METAB OLIC PANEL (14) albumin 4.3 g/dL 3.8-4. 9 normal Not Available [facility] ([facility]) [address] [facility] [place], [address], 01/01/2024 03:35:44 12/23/19 24 12/24/2023 COMP. METAB OLIC PANEL (14) globulin, total 2.5 g/dL 1.5-4. 5 Not Available [facility] ([facility]) [address] [facility] [place], [address], 01/01/2024 03:35:44 12/23/19 24 12/24/2023 COMP. METAB OLIC PANEL (14) bilirubin, total 0.6 mg/dL 0.0-1. 2 normal Not Available [facility] ([facility]) [address] [facility] [place], [address], 01/01/2024 03:35:44 12/23/19 24 12/24/2023 COMP. METAB OLIC PANEL (14) alkaline phosphatase 73 IU/L 44-121 normal Not Available [facility] ([facility]) [address] [facility] [place], [address], 01/01/2024 03:35:44 12/23/19 24 12/24/2023 COMP. METAB OLIC PANEL (14) AST (SGOT) 19 IU/L 0-40 normal Not Available [facility] ([facility]) [address] [facility] [place], [address], 01/01/2024 03:35:44 12/23/19 24 12/24/2023 COMP. METAB OLIC PANEL (14) ALT (SGPT) 20 IU/L 0-44 normal Not Available [facility] ([facility]) [address] [facility], [place], [address], 01/01/2024 03:35:44 12/23/19 24 12/31/2023 VITAM IN E vitamin E(alpha tocopherol) 11.9 mg/L 7.0-25 .1 Not Available [facility] ([facility]) [address] [facility] [place], [address], 01/01/2024 03:35:45 12/23/19 24 12/31/2023 VITAM IN [...] in E defic ient. Not Available [facility] ([facility]) [address] [place], [address], 01/01/2024 03:35:45 12/23/19 24 12/24/2023 FOLAT E (FOLI C ACID) , SERUM folate (folic acid), serum >20.0 NG/mL >3.0 A serum folat e jose ntrat ion of less than 3.1 ng/mL is consi dered to repre sent clini kirsten defic iency . Not Available [facility] ([facility]) [address] [facility], [place], [address], 01/01/2024 03:35:46 12/23/19 24 12/31/2023 VITAM IN [...] Drug Admin istra tion. Not Available [facility] ([facility]) [address] [facility], [place], [address], 01/01/2024 03:35:47 12/23/19 24 12/24/2023 VITAM IN [...] um and D. Lesa bobby DC: The [facility] . 2. Noreen jorgensen MF, Gypsy tovar [place], Tosin off-F errar i KRAUSE, et al. Evalu ation , treat ment, and preve ntion of vitam in D defic iency : an Endoc rine Socie ty clini kirsten pract ice guide line. JCEM. 2010; 96(7) :1911 -30. Not Available [facility] ([facility]) [address] [facility], [place], [address], 01/01/2024 03:35:48 12/23/19 24 12/27/2023 VITAM IN B1 (THIA MINE) , BLOOD vit. B1, whole blood 143.2 nmol/ L 66.5-2 00.0 Not Available [facility] ([facility]) [address] [place], [address], 01/01/2024 03:35:49 12/23/19 24 12/28/2023 METHY LMALO MAG ACID, SERUM methylmaloni c acid, serum 201 nmol/ L 0-378 Not Available [facility] ([facility]) [address] [place], [address], 01/01/2024 03:35:50 12/23/19 24 12/24/2023 PREAL BUMIN prealbumin 26 mg/dL 10- Not Available [facility] ([facility]) [address] [place], [address], 01/01/2024 03:35:51 01/05/2001/06/[address] (H PYLOR I AB QUAL) tracy test 20 min NEGATI VE negati ve Not Available [facility]) [address], [place], [address], 01/06/2024 11:20:36 01/05/2001/06/[address] (H PYLOR I AB QUAL) tracy test 1HR NEGATI VE negati ve Not Available [facility] ([facility]) [address], [place], [address], 01/06/2024 11:20:36 01/05/20 24 01/06/[address] (H PYLOR I AB QUAL) tracy test 3 HR NEGATI VE negati ve Not Available [facility] ([facility]) [address] [facility], [place], [address], 01/06/2024 11:20:36 01/05/2001/06/[address] (H PYLOR I AB QUAL) tracy test 24 HR NEGATI VE negati ve Not Available [facility] ([facility]) [address] [facility], [place], [address], 01/06/2024 11:20:36 01/05/2001/06/[address] (H PYLOR I AB QUAL) tracy test kit lot# [id number] Not Available [facility] ([facility]) [address] [facility], [place], [address], 01/06/2024 11:20:36 01/05/20 24 01/06/[address] (H PYLOR I AB QUAL) tracy test kit exp date Not Available [facility] ([facility]) [address] [facility], [place], [address], 01/06/2024 11:20:36 05/29/19 23 05/28/2022 US, thyro id No observ ation record ed. [facility] [address] [place], [address], 05/28/2022 13:14:50 06/17/19 23 US, thyro id No observ ation record ed. [email or web address] Not Available 2022 12:15:22 06/17/19 23 fine needl e aspir ation , thyro id (PROC ) No observ ation record ed. [email or web address] Not Available 2022 12:16:51 01/03/20 24 01/03/2024 ugi with KUB [facility] [address] [place] [address] Phone: Fax: Name: LARISSA ENRIQUEZ Exam Date: 2023 : 971 Age 53 years Gender : M Access ion: [id number] Physic payton: JOSE DEAL R Facili ty: [facility] Facili ty HSV: Outpat ient Exam: UGI WITH KUB PROCED URE: FL UPPER GI SINGLE CONTRA ST CLINIC AL INDICA TION:G ERD. COMPAR SCOT: CT from 023 and prior upper GI from 07/26/19 23. TECHNI QUE: A prelim inary internet network specialist radiog raph of the abdome n was obtain ed. The esopha anabela, stomac h, and proxim al small bowel are evalua haven with single contra st techni que using real-t pablo fluoro scopy and acquis ition of multip le spot digita l radiog raphs. FINDIN GS: Manager Vehicle: Prelim inary internet network specialist view of the abdome n demons trates [...] Thank you for referr LARISSA Maynard to [facility]. Legall y authen ticate d by NINA HARMON 2023-02 08:19: 09 CC'ed Logic: Orderi ng Provid er: PILE HEATHE R Attend ing Provid er: PILE HEATHE R Referr ing Provid er: PILE HEATHE R Admitt ing Provid er: PILE HEATHE R hpile [facility] [address] , [place], [address], 01/12/2024 13:24:07 Result Notes None recorded. Problems Name Problem SNOMED Code Status Onset Date Resolution Date Notes Provider Name and Address Organization Details Recorded Time Gastroesophag eal reflux disease without esophagitis 157679183 Active 2023 ELIN Maria [address] , [place], [address] , [facility] & [place] 4 13:33:47 Chronic low back pain 257392923 Active 2023 ELIN Maria [address], [place], [address] , [facility] & [place] 4 13:34:02 Intentional weight loss 377402835 Active 2023 ELIN Maria [address], [place], [address] , [facility] & [place] 4 13:34:18 Obesity 135459601 Active 2023 ELIN Maria [address], [place], [address] , [place] - [facility] [place] & [place] 4 13:46:35 Problem Notes None recorded. Procedures Surgical History Date Name Laterality Status Provider Name and Address Organization Details Recorded Time 2020 Back Surgery completed Laylajuan KOO - [facility] - [place] [facility] [place] 3 12:17:39 2015 Colonoscopy completed Laylajuan KOO - [facility] - [place] [facility] [place] 3 14:14:11 Back Surgery completed Layla KOO - [facility] - [place] [facility] [place] 3 14:14:11 laparoscopic sleeve gastrectomy completed Marleni Guerra HAYES - [facility] - [place] [facility] [place] 4 13:13:26 repair of hydrocele completed Rebec ca Guerra HAYES - [facility] - [place] [facility] [place] 4 13:13:39 procedure on shoulder completed Ade ecca Guerra HAYES - [facility] - [place] [facility] [place] 4 13:13:54 esophagogastroduodenoscopy completed Marleni Guerra HAYES - [facility] - [place] [facility] [place] 4 13:14:27 thyroidectomy completed Marleni Guerra HAYES - [facility] - [place] [facility] [place] 4 13:14:42 Imaging Results Imaging Date Name Status LastModified by Organiz ation Details LastModified Time 05/28/2022 US, thyroid completed [email or web address] [address] [place], [address], 05/28/2022 13:14:50 06/16/2022 US, thyroid completed Information n ot available 06/16/2022 12:15:22 06/16/2022 fine needle aspiration, thyroid (PROC) completed Information not available 06/16/2022 12:16:51 01/03/2024 ugi with KUB completed [facility] [address], [place], [address], 01/12/2024 13:24:07 Procedure Notes None recorded. Medical [...] Updated DateTime 3 182.88 cm 49.6 kg/m2 623538. 09 g 98.2 [degF] 158 mm[Hg] 85 mm[Hg] Layla Hilton [facility] & [place] 3 14:13:24 Date Recorded Body height Body mass index (BMI) Body weight Heart rate Body temperature Heart rate Systolic blood pressure Diastolic blood pressure Provider Name and Address Organization Details Last Updated DateTime 4 187.96 cm 46.6 kg/m2 982454. 11 g 90 /min 97.1 [degF] 90 /min 127 mm[Hg] 81 mm[Hg] Marleni Guerra [facility] & [place] 4 13:20:49 Date Recorded Body height Body mass index (BMI) Body weight Provider Name and Address Organization Details Last Updated DateTime 01/12/2024 187.96 cm 46.1 kg/m2 749011.66 g Yisel Rudolph [facility] & [place] 01/12/2024 13:15:02 Date Recorded Body height Body temperature Heart rate Body mass index (BMI) Body weight Systolic blood pressure Diastolic blood pressure Provider Name and Address Organization Details Last Updated DateTime 5 187.96 cm 97.3 [degF] 96 /min 48 kg/m2 142281. 11 g 148 mm[Hg] 88 mm[Hg] Marleni Guerra [facility] & [place] 5 11:26:48 Social History Question Answer Notes LastModified by [employer] Details LastModified Time Tobacco Smoking Status Never Smoker [email or web address] [place] 04/19/2022 15:05:10 Do You Have An Advance Directive? No Information not available 06/16/2022 Are You Blind Or Do You Have Difficulty Seeing? No Information not available 06/16/2022 What Is Your Level Of Caffeine Consumption? Moderate [email or web address] Information not available 01/12/2024 Are You Passively Exposed To Smoke? Yes Information not available 06/16/2022 Sex: Male Functional Status Question Answer Note LastModified by [employer] ion Details LastModified Time Do you use [...] anxious, or unable to sleep at night)? [id number] Information not available 06/16/2022 Family History Nothing Reported Notes:Mother- colon cancer Medical History Condition Response Kidney Stones Y Hypothyroidism Y Spine Problems Y Deep Vein Thrombosis N Obstructive Sleep Apnea Y Obesity Y Arthritis Y Kidney Disease N Kidney or Bladder Problems Y GI Problems Y Bleeding Disorder N Back Problems Y Reflux/GERD Y Sleep Apnea Y Pulmonary Embolism N Immunizations Vaccine Type Date Status Note Provider Nam e and Address Organization Details Recorded Time influenza, unspecified formulation 11/08/2023 completed Yisel Rudolph [facility] 01/12/2024 13:16:21 Past Encounters Encounter ID Performer Location Encounter Start Date Encounter Closed Date Diagnosis/Indication Diagnosis SNOMED-CT Code Diagnosis ICD10 Code Diagnosis Note [id number] Abebe Pratt MD [facility] [address] [place] [address],[facility] [address] [place] [address] 04/19/2022 14:48:38 04/19/2022 15:41:26 History of calculus of kidney 489011933 Z87.442 History of urinary tract infection 9329556737 107 Z87.440 Microscopic hematuria 19 6661953 R31.29 [id number] Elena Ferguson NP, S [facility] [address] [place] [address],[facility] [address] [place] [address] 06/01/2022 15:16:24 06/01/2022 15:33:47 History of calculus of kidney 512707625 Z87.442 Cyst of kidney 614574150 N28.1 Microscopic hematuria [address] scan results reviewed and discussed with patient clinic today. Will schedule follow-up renal ultrasound in 6 months related to renal cyst. Return to clinic in 6 months for follow-up of renal ultrasound results. [id number] Aleyda Soler MD [facility] G [address] [place] [address] 06/18/2022 13:58:27 06/18/2022 14:31:04 Thyroid nodule [id number] E04.1 Went over the patients most recent thyroid ultrasound and several of his previous ultrasound s. Compared them. Went over them in detail with the patient. Explained there hasn't been much growth in the larger nodules. Would not recommend repeat FNA at this time. We will continue to monitor with repeat ultrasound in 12 months. He would like to have this done at [facility] in [place] as this is drasticall y less expensive for him. [id number] ELIN Maria [facility] [address] [facility] [address] [place] [address] 12/23/2023 13:06:13 12/23/2023 14:12:02 Gastroesophageal reflux disease without esophagitis 152994171 K21.9 We discussed concerns of worsening gastroesop [...] cotine use Chronic low back pain 27 0200478 M54.50 History of gastrectomy 786788308 Z90.3 Advised qid intake 50% protein 16-1700 [...] to correct any vitamin deficienci es. At [facility] risk of nutritional deficit 935017662 Z91.89 Obesity 400128580 E66.9 Discuss revisional surgery with patient today. Optimal procedure to be determined after upper GI and upper endoscopy. Patient advised he will need cardiac clearance prior to revisional surgery. [id number] GRIFFIN RAMOS RD [facility] [address] [place] [address] 12/23/2023 13:44:43 12/23/2023 14:37:19 Dietary management surveillance [id number] Z71.3 [id number] ELIN [facility] [address] [place] [address] 01/12/2024 13:08:29 01/13/2024 11:38:08 Gastroesophageal reflux disease without esophagitis [id number] K21.9 Upper GI and upper endoscopy results were reviewed with patient today. Obesity 850054390 E66.9 Discussed BPD/duoden al switch versus Warren-en-Y gastric bypass. Patient wishes to pursue BPD/duoden al switch as he may need NSAIDs and steroids in the future for chronic back pain. We will have our insurance department reach out to patient to discuss insurance approval for revisional surgery. History of gastrectomy 616446198 Z90.3 Advised patient continue focus on healthy high-prote in low-fat diet. [id number] ELIN Maria [facility] [address] [place] [address] 04/27/2024 11:12:39 04/27/2024 12:01:54 Gastroesophageal reflux disease without esophagitis 681575828 K21.9 Upper GI and upper endoscopy results [...] revisional surgery. Chronic low back pain 27 2658329 M54.50 Patient reports worsening back pain with weight gain. He has been advised to focus on additional weight loss Obesity 009362035 E66.9 Discussed medical weight loss options with [...] Body mass index 40+ - severely obese 157896706 Z68.42 Current BMI is 47.9. Patient has seen a 10.3 lb gain since December 2023 History of gastrectomy 069958479 Z90.3 Patient is to continue bariatric vitamin [...] Name 04/25/2024 1 ZEUS-HAYES: SERGIO SCHULZ OF [place] [employer] (PPO) [id number] Larissa Enriquez [id number] Larissa Enriquez Notes Date Note Type Note [...] range. Aleyda Soler MD [address], [place], [address], [facility] 06/18/2022 16:17:21 4 text/html 53-year-old male [...] rate 2289 ELIN Maria [address], [place], [address], [facility] & [place] 12/23/2023 13:48:03 4 text/html RDN met with patient for transfer of care and to complete initial nutrition assessment. He is new to our practice status post sleeve gastrectomy [address] San. 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 Interested in a revision but depends on [...] diet sodaS - oatmeal cream pieD - [facility] - chicken critters, 2 baked potatoes, [...] day Additional notes/comments: GRIFFIN RAMOS, RD [address] [facility], [place], [address], [facility] - [place] & [place] 12/23/2023 14:31:42 4 text/html Patient returns to clinic today to discuss recent upper GI and upper endoscopy findings. 01/05/24 EGD Findings: Moderate amount of retained gastric fundus. Mild irritation of the gastric mucosa in the pre antral space. H pylori biopsies neg 01/03/24 UGI FINDINGSScout: Preliminary internet network specialist view of the abdomen demonstrates a nonobstructivebowel [...] care patient. His is a patient of [facility]. He is new to our practice status [...] rate 2289 ELIN Maria [address] , [place], [address], [facility] - [place] & [place] 01/12/2024 13:32:30 5 text/html Patient returns to [...] pylori biopsies neg 01/03/24 UGI FINDINGSScout: Preliminary internet network specialist view of the abdomen demonstrates a nonobstructivebowel [...] care patient. His is a patient of [facility]. He is new to our practice status [...] with 46.1% body fat basal metabolic rate 9269 ELIN Maria [address], [place], [address], [facility] - [place] & [place] 04/27/2024 12:17:33
--- NOTE | 2024-07-10 16:15 | MR_ITS ---
PROCEDURE INFORMATION: Exam: MR Left Lower Extremity Joint Without Contrast, Knee Exam date and time: 07/10/2024 4:01 PM Age: 54 years old Clinical indication: Pain; Knee; Left; Additional info: Lt knee pain TECHNIQUE: Imaging protocol: Magnetic resonance imaging of the left lower extremity joint without contrast. Exam focused on the knee. COMPARISON: CR XR KNEE LT 3V 06/26/2024 5:21 PM FINDINGS: Bones/joints: Acute subchondral fracture through the peripheral aspect of the medial tibial plateau region. There is a an additional transverse fracture line extending into the epiphyseal area and slightly more into the mid and lateral aspects of the medial tibial plateau. There is no significant impaction. Reactive bone marrow edema throughout the medial tibial plateau region. Grade 4 articular cartilage loss throughout the lateral patellar facet. Grade 3 articular cartilage loss throughout the femoral trochlea. Medial meniscus: Peripheral migration of the medial meniscal body without extrusion. Focal radial tear involving the red zone and red zone white zone junction posterior horn medial meniscus located approximately 16 mm from the meniscal root. There is also a superimposed small oblique longitudinal tear through the more peripheral aspect of the posterior horn medial meniscus with contact of the inferior articular surface. The anterior horn medial meniscus is intact. Lateral meniscus: Unremarkable. No tear. Anterior cruciate ligament: Unremarkable. No tear. Posterior cruciate ligament: Unremarkable. No tear. Medial capsule and supporting structures: Grade 1 sprain of the inferior 1/2 of the medial collateral ligament. Lateral capsule and supporting structures: Unremarkable. No tear. Extensor mechanism of knee: Unremarkable. No tear. Soft tissues: Unremarkable. IMPRESSION: 1. Acute subchondral fracture through the peripheral aspect of the medial tibial plateau region. There is a an additional transverse fracture line extending into the epiphyseal area and slightly more into the mid and lateral aspects of the medial tibial plateau. There is no significant impaction. 2. Reactive bone marrow edema throughout the medial tibial plateau region. 3. Peripheral migration of the medial meniscal body without extrusion. Focal radial tear involving the red zone and red zone white zone junction posterior horn medial meniscus located approximately 16 mm from the meniscal root. There is also a superimposed small oblique longitudinal tear through the more peripheral aspect of the posterior horn medial meniscus with contact of the inferior articular surface. The anterior horn medial meniscus is intact. 4. Grade 1 sprain of the inferior 1/2 of the medial collateral ligament. 5. Grade 4 articular cartilage loss throughout the lateral patellar facet. Grade 3 articular cartilage loss throughout the femoral trochlea.
== END 2024-07-10 23:59 | disposition home or self-care (01) ==
PROVIDERS: PCP Nurse Practitioner Family; Visit Provider Orthopaedic Surgery
DX: S82.142A Displaced bicondylar fracture of left tibia, initial encounter for closed fracture (principal); S83.222A Peripheral tear of medial meniscus, current injury, left knee, initial encounter; S83.412A Sprain of medial collateral ligament of left knee, initial encounter; M23.92 Unspecified internal derangement of left knee
CPT/HCPCS: 73721

== ENCOUNTER 2024-08-02 15:03 | Outpatient (POV) | payer BC, SELFPAY ==
--- OUTSIDE RECORDS SUMMARY | 2024-06-07 13:30 | XMS_ITS | Encounter Summary ---
Author Organization [facility] Address [address] [place] [address] Care Team Providers Care Amusement Or Recreation Card Checker Name Role Phone Elisabet Mills COMMISSIONS COORDINATOR Primary Care Provider [phone]- [phone] Reason for Visit * Reason Comments Consult Consult Consult * Consultation (Routine) - Closed Specialty Diagnoses / Procedures Referred By Contac t Referred To Contact Neurosurgery Diagnoses Low back pain Elisabet Mills APRN [address] [place] [address] Phone: tel: fax: [facility] [address] [place] [address] Phone: tel: fax: Referral ID Status Reason Start Date Expiration Date V isits Requested Visits Authorized [id number] Closed Specialty Services Required 05/10/2024 11/09/2025 1 1 Encounter Details Date Type Department Care Team (Late st Contact Info) Description 06/07/2024 1:30 PM EDT Office Visit Medical Office Building [facility] [address] [facility], [address] [place] [address] John Gomez PA [address] [place] [address] Lumbar pain (Primary Dx); History of thoracic spinal fusion; Neck pain; Numbness and tingling in left hand Social History Tobacco Use Types Packs/Day Years Used Date Smoking Tobacco: Never Smokeless Tobacco: Never Tobacco Cessation:Counseling Given: Not Answered Alcohol Use Standard Drinks/Week Comments Not Currently 0 (1 standard drink = 0.6 oz pur e alcohol) Sex and Gender Information Value Date Recorded Sex Assigned at Male 02/05/2021 8:22 PM EST Legal Sex Male 6:21 PM EDT Gender Identity Male 02/05/2021 8:22 PM EST Sexual Orientation Straight 02/05/2021 8: 22 PM EST documented as of this encounter Last Filed Vital Signs Vital Sign Reading Time Taken Comments Blood Pressure 142/84 06/07/2024 1:51 PM EDT Pulse 84 06/07/2024 1:51 PM EDT Temperature - - Respiratory Rate - - Oxygen Saturation 99% 06/07/2024 1:51 PM EDT Inhaled Oxygen Concentration - - Weight 170 kg (373 lb 14.4 oz) 06/07/2024 1:51 P M EDT Height 188 cm (6' 2 ) 06/07/2024 1:51 PM EDT Body Mass Index 48.01 06/07/2024 1:51 PM EDT documented in this encounter Miscellaneous Notes * Progress Notes - John Gomez PA - 06/07/2024 1:30 PM EDT Images from the original note were not included. [facility] Note CHIEF COMPLAINT: neck pain, arm pain/numbness/tingling, low back pain, left leg pain/numbness/tingling Subjective: History of Present Illness: Asif Enriquez is a 54 y.o. male with history of T3-7 PSIF (2020, [facility]), T11/12 extension fx, C6 facetfx (2020), who presents today for evaluation of above symptoms. Since last visit, patient has progressively worsened pain and stiffness in neck with associated numbness affecting left hand including thumb, index and middle digits. This primarily occurs when driving or with increased activity. He also endorses low back pain with radiation to left buttock and posterior right without extension past the knee that occurs when driving, walking, or when he first stands. Pain worsened throughout the work day. Managed with ibuprofen and tylenol. Denies saddle anesthesia, bowel/bladder dysfunction, diminished hand dexterity, gait instability. Of note, weight increase of roughly 40lb since last visit likely impacting symptoms. Patient has history of gastric sleeve and is currently pursuing a gastric bypass operation. Prior Treatments: Injections: LESI scheduled for next week PT/Chiro: none Medications: advil, tylenol Surgery: T3-7 PSIF (2020) Prior Surgeries: Surgical History[1] PAST MEDICAL HISTORY Medical History[2] MEDICATIONS Current Medications[3] ALLERGIES Allergies[4] PAST SURGICAL HISTORY Surgical History[5] FAMILY HISTORY Family History[6] SOCIAL HISTORY Current work status: Tobacco use: No Alchohol use: N/A Drug use: N/A REVIEW OF SYSTEMS: Please see above. A complete 14 point review of systems was performed and is otherwise negative. Objective: Visit Vitals BP (!) 142/84 Pulse 84 Ht 1.88 m (6' 2 ) Wt 170 kg (373 lb 14.4 oz) SpO2 99% BMI 48.01 kg/m?? Smoking Status Never BSA 2.98 m?? PHYSICAL EXAMINATION: GENERAL: The patient is a pleasant male in no acute distress. General Physical Exam Constitutional Appears well-developed and well-nourished. Eyes Pupils are equal, round, and reactive to light. Neck No tracheal deviation or JVD noted. No previous surgical scars Cardiovascular Minimal to no peripheral edema, intact distal pulses Pulmonary/Chest Effort normal, no shortness of breath Neurological Alert and oriented to person, place, and time Skin Skin is warm and dry Psychiatric Normal mood and affect, behavior and judgment FOCUSED MUSCULOSKELETAL/NEUROLOGIC EXAM: Prior Surgical Incisions: None Motor Strength Right Left C5: Shoulder abduction (Deltoid) 5/5 5/5 C5: Elbow flexion (Biceps, Brachialis) 5/5 5/5 C6: Wrist extension (ECRB, ECRL) 5/5 5/5 C7: Elbow extension (Triceps) 5/5 5/5 C8: Finger flexion (Power Line Lineman Strength) 5/5 5/5 T1: Finger abduction 5/5 5/5 Sensation Right Left Neck normal normal C5: Shoulder normal normal C6: Thumb, radial aspect hand/forearm (Radial Nerve) normal diminished C7: Long finger (Median Nerve) normal diminished C8: Little finger, ulnar aspect of hand/forearm (Ulnar n.) normal normal T1: Medial forearm/arm normal normal Reflexes Right Left C5: Biceps 2/4 2/4 C6: Brachioradialus 2/4 2/4 C7: Triceps 2/4 2/4 Hoffmans absent absent Motor Strength Right Left L2: Hip flexion (Iliopsoas) 06/25 5 L3: Knee extension (Quad) 06/25 5 L4: Ankle DF (TA) 06/25 5/ L5: Great Toe DF (EHL) 06/25 5 S1: Ankle Pf, Foot Eversion (Peroneal longus/brevis) 06/25 5/ Sensation Right Left L2: Proximal anterior thigh normal normal L3: Mid anterior thigh normal normal L4: Medial leg/foot, great toe (Saphenous n.) normal normal L5: Dorsum of mid foot normal normal S1: Lateral leg/foot, little toe, Back of leg (Sural n.) normal normal Reflexes Right Left L4: Patellar 2/ 2/4 S1: Achilles 2/4 2/4 Babinski Absent Absent Clonus <3 beats <3 beats Straight leg raise is Negative Tandem gait is Normal Gait is normal IMAGING: Plain Radiographs: 2 view scoliosis films were obtained in clinic and independently reviewed today showing: Unchanged findings of posterior fusion from T3 to T7. No hardware complication. No chronic radiographic changes related to previously demonstrated nondisplaced fracture at T5 Assessment and Plan: Asif Enriquez is a 54 y.o. male history of T3-7 PSIF (2020, [place]), T11/12 extension fx, C6 facet fx (2020), who, after review of history, physical exam findings and imaging, is diagnosed with chronic neck and low back pain, lumbar radiculitis, hand numbness. Patient experiencing new neck pain with hand numbness on left affecting thumb, index and middle digits in addition to low back pain with radiation to left posterior leg. Patient experiences symptoms daily although they do not impact ADLs or work function. 5/5 strength C5-T1, L2- S1 with paresthesias to left hand. Negative Torres's. No hyperreflexia. No signs or symptoms of myelopathy. XR demonstrates stable hardware without evidence of loosening or failure, stable T11-T12 fractures. We have discussed conservative treatments which include nsaids or topical pain relievers, physical therapy, epidural injections, and/or massage. Patient has LESI scheduled for next week and has had discussions with IVP provider about MBB/RFA and SCS place ment. I feel it is reasonable to treat his symptoms nonoperatively at this time with formal physical therapy. I will provide him with referral today. Flexeril script sent to pharmacy. FU 8 weeks to discuss response to injections, PT, medications. Consider MRI should symptoms fail to improve. After further discussion, the patient wishes to proceed with above plan. All questions answered to his satisfaction. John Gomez PA-C [1] Past Surgical History: Procedure Laterality Date BARIATRIC SURGERY gastric sleeve COLONOSCOPY Not 100% sure of exact date. HERNIA REPAIR umbilical HYDROCELE REPAIR SPINAL FUSION T2 - 7 [2] Past Medical History: Diagnosis Date Arthritis Fractures 12-25-2021 GERD (gastroesophageal reflux disease) Joint pain Morbid obesity ([facility]) 1991 Obesity 1979 Osteoarthritis 2019 Sleep apnea CPAP [3] Current Outpatient Medications: acetaminophen (Tylenol) 500 MG tablet, Take 1,000 mg by mouth every 6 (six) hours if needed for mild pain., Disp: , Rfl: ASCORBIC ACID PO, Take 1 tablet by mouth 1 (one) time each day., Disp: , Rfl: Oracio-Gest Antacid 500 MG chewable tablet, chew 1 tablet BY MOUTH TWICE DAILY, Disp: , Rfl: docusate sodium (Colace) 100 MG capsule, Take 100 mg by mouth 1 (one) time each day., Disp: , Rfl: FIBER PO, Take 1 tablet by mouth 1 (one) time each day., Disp: , Rfl: HYDROcodone-acetaminophen ([place]) 5-325 MG tablet, TAKE ONE TABLET BY MOUTH EVERY 8 HOURS NEEDEDFOR PAIN MAY CAUSE DROWSINESS, Disp: , Rfl: levothyroxine (Synthroid, Levoxyl) 175 MCG tablet, Take 1 tablet by mouth daily., Disp: , Rfl: Multiple Vitamins-Minerals (MULTIVITAMIN & MINERAL PO), Take 1 tablet by mouth 1 (one) time each day., Disp: , Rfl: omeprazole (PriLOSEC) [address] capsule, Take 40 mg by mouth 1 (one) time each day. Do not crush or chew., Disp: , Rfl: cyclobenzaprine (Flexeril) 10 MG tablet, Take 0.5 tablets by mouth 3 (three) times a day., Disp: 60tablet, Rfl: 1 phentermine (Adipex-P) 37.5 MG tablet, Take one tablet by mouth daily (30 minutes before or 1-2 hour(s) after breakfast). (Patient not taking: Reported on 06/07/2024), Disp: , Rfl: traMADol (Ultram) 50 MG tablet, TAKE ONE TABLET BY MOUTH THREE TIMES DAILY NEEDED FOR PAIN MAY CAUSE DROWSINESS (Patient not taking: Reported on 06/07/2024), Disp: , Rfl: [4] No Known Allergies [5] Past Surgical History: Procedure Laterality Date BARIATRIC SURGERY gastric sleeve COLONOSCOPY Not 100% sure of exact date. HERNIA REPAIR umbilical HYDROCELE REPAIR SPINAL FUSION T2 - 7 [6] Family History Problem Relation Name Age of Onset Diabetes Sister Colleen Montenegro Diabetes Paternal Grandmother Shai Enriquez Cancer Mother Gabbie Cancer Mother's Brother Sathya Garrett documented in this encounter Plan of Treatment Upcoming Encounters Date Type Department Care Team (Late st Contact Info) Description 08/03/2024 2:10 PM EDT Office Visit Medical Office Building [facility] [address], [address] [place] [address] Taz Rios MD [address] [place] [address] documented as of this encounter Results * XR Scoliosis Entire Spine 2 or 3 Views (06/07/2024 1:53 PM EDT) Anatomical Region Laterality Modality Spine Digital Radiogra phy Impressions 06/07/2024 2:37 PM EDT Unchanged findings of posterior fusion from T3 to T7. No hardware complication. No chronic radiographic changes related to previously demonstrated nondisplaced fracture at T5 CRITICAL RESULT: No. COMMUNICATION: Per this written report. Drafted by Chandler Block MD on 06/07/2024 2:34 PM Final report signed by Chandler Block MD on 06/07/2024 2:37 PM Narrative 06/07/2024 2:37 PM EDT CLINICAL INDICATION: pain TECHNIQUE: XR SCOLIOSIS ENTIRE SPINE 2 OR 3 VIEWS COMPARISON: March 26, 2021 FINDINGS: 2 views of the spine show posterior fusion from T3 to T7. Sequelae of diffuse idiopathic skeletal hyperostosis. No hardware complication. No perceptible fracture. No bone destruction or paraspinal mass. Suboptimal evaluation of the thoracolumbar junction due to body habitus. Coronal balance is neutral. Sagittal balance is neutral. Procedure Note Chandler Block MD - 06/07/2024 CLINICAL INDICATION: pain TECHNIQUE: XR SCOLIOSIS ENTIRE SPINE 2 OR 3 VIEWS COMPARISON: March 26, 2021 FINDINGS: 2 views of the spine show posterior fusion from T3 to T7. Sequelae ofdiffuse idiopathic skeletal hyperostosis. No hardware complication. Noperceptible fracture. No bone destruction or paraspinal mass. Suboptimalevaluation of the thoracolumbar junction due to body habitus. Coronalbalance is neutral. Sagittal balance is neutral. IMPRESSION: Unchanged findings of posterior fusion from T3 to T7. No hardwarecomplication. No chronic radiographic changes related to previouslydemonstrated nondisplaced fracture at T5 CRITICAL RESULT: No. COMMUNICATION: Per this written report. Drafted by Chandler Block MD on 06/07/2024 2:34 PM Final report signed by Chandler Block MD on 06/07/2024 2:37 PM [facility] XR PROCEDURES Final Resul t documented in this encounter Visit Diagnoses Diagnosis Lumbar pain- Primary Lumbago History of thoracic spinal fusion Neck pain Cervicalgia Numbness and tingling in left hand Disturbance of skin sensation Lumbar pain Lumbago Thoracogenic scoliosis, unspecified spinal region documented in this encounter Additional Health Concerns Assessment Noted Time A fall risk assessment has been complete d for the patient 06/07/2024 1:50 PM EDT A Body Mass Index follow-up plan has been documented for the patient 06/07/2024 2:47 PM EDT documented as of this encounter Care Teams Amusement Or Recreation Card Checker Relationship Specialty Start Date End Date Elisabet Mills APRN [address] [place] [address] PCP - General 12/26/20 documented as of this encounter
--- OUTSIDE RECORDS SUMMARY | 2024-06-07 13:33 | XMS_ITS | Encounter Summary ---
Author Organization Healthcare Address [address] [place] [address] Care Team Providers Care Head Of Maintenance Name Role Phone Elisabet Mills YOSHI Primary Care Provider [phone]- [phone] Encounter Details Date Type Department Care Team (Latest Contact Info) Description 06/07/2024 1:33 PM EDT - 06/07/2024 11:59 PM EDT Hospital Encounter Medical Office Building Radiology [facility] [place] [address] Lumbar pain; Thoracogenic scoliosis, unspecified spinal region Discharge Disposition: Home or Self Care Social History Tobacco Use Types Packs/Day Years Used Date Smoking Tobacco: Never Smokeless Tobacco: Never Alcohol Use Standard Drinks/Week Comments Not Currently 0 (1 standard drink = 0.6 oz pur e alcohol) Sex and Gender Information Value Date Recorded Sex Assigned at Male 02/05/2021 8:22 PM EST Legal Sex Male 6:21 PM EDT Gender Identity Male 02/05/2021 8:22 PM EST Sexual Orientation Straight 02/05/2021 8: 22 PM EST documented as of this encounter Medications at Time of Discharge acetaminophen (Tylenol) 500 MG tablet Take 1,000 mg by mouth every 6 (six) hours if needed for mild pain. ASCORBIC ACID PO Take 1 tablet by mouth 1 (one) time each day. Oracio-Gest Antacid 500 MG chewable tablet chew 1 tablet BY MOUTH TWICE DAILY 08/17/2023 cyclobenzaprine (Flexeril) 10 MG tablet Take 0.5 tablets by mouth 3 (three) times a day. 60 tablet 1 06/07/2024 docusate sodium (Colace) 100 MG capsule Take 100 mg by mouth 1 (one) time each day. FIBER PO Take 1 tablet by mouth 1 (one) time each day. HYDROcodone-acet aminophen ([place]) 5-325 MG tablet TAKE ONE TABLET BY MOUTH EVERY 8 HOURS NEEDED FOR PAIN MAY CAUSE DROWSINESS 08/17/2023 levothyroxine (Synthroid, Levoxyl) 175 MCG tablet Take 1 tablet by mouth daily. 05/09/2024 Multiple Vitamins-Mineral s (MULTIVITAMIN & MINERAL PO) Take 1 tablet by mouth 1 (one) time each day. omeprazole (PriLOSEC) [address] capsule Take 40 mg by mouth 1 (one) time each day. Do not crush or chew. phentermine (Adipex-P) 37.5 MG tablet Take one tablet by mouth daily (30 minutes before or 1-2 hour(s) after breakfast). 03/25/2021 traMADol (Ultram) 50 MG tablet TAKE ONE TABLET BY MOUTH THREE TIMES DAILY NEEDED FOR PAIN MAY CAUSE DROWSINESS 01/17/2021 documented as of this encounter Plan of Treatment Upcoming Encounters Date Type Department Care Team (Late st Contact Info) Description 08/03/2024 2:10 PM EDT Office Visit Medical Office Building [facility] [address] [facility], [address] [place] [address] Taz Rios MD [address] [facility] [address] [place] [address] documented as of this encounter Procedures Procedure Name Priority Date/Time Associated Diagnosis Comments XR SCOLIOSIS ENTIRE SPINE 2 OR 3 VIEWS Routine 06/07/2024 1:53 PM EDT Thoracogenic scoliosis, unspecified spinal region documented in this encounter Results * XR Scoliosis Entire [...] Per this written report. Drafted by Chandler Blcok MD on 06/07/2024 2:34 PM Final report [...] in this encounter Visit Diagnoses Diagnosis Lumbar pain Lumbago Thoracogenic scoliosis, unspecified spinal region documented in this encounter Additional Health Concerns Assessment Noted Time A fall risk assessment has been complete d for the patient 06/07/2024 1:50 PM EDT A Body Mass Index follow-up plan has been documented for the patient 06/07/2024 2:47 PM EDT documented as of this encounter Care Teams Head Of Maintenance Relationship Specialty Start Date End Date Elisabet Mills APRN [address] [place] [address] [phone] PCP - General 12/26/20 documented as of this encounter
--- OUTSIDE RECORDS SUMMARY | 2024-08-02 15:19 | XMS_ITS | Encounter Summary ---
Author Organization [facility] Address [address] [place] [address] Care Team Providers Care Hot Metal Car Operator Name Role Phone Elisabet Mills APRN Primary Care Provider [phone] Encounter Details Date Type Department Care Team (Late Contact Info) Description 05/08/2024 Orders Only External Location [address] [place] [address] Provider, External Social History Tobacco Use Types Packs/Day Years [...] PM EST documented as of this encounter Plan of Treatment Upcoming Encounters Date Type Department Care Team (Late st Contact Info) Description 08/03/2024 2:10 PM EDT Office Visit Medical Office Building [facility] [address], [address] [place] [address] Taz Rios MD [address] [place] [address] documented as of this encounter Procedures Procedure Name Priority Date/Time Associated Diagnosis Comments XR OUTSIDE IMAGES 05/08/2024 5:25 PM EDT documented in this encounter Results * XR OUTSIDE IMAGES (05/08/2024 5:25 PM EDT) Anatomical Region Laterality Modality Radiographic Samara ging 05/08/2024 5:25 PM EDT us External Provider IMG XR PROCEDURES Final Result documented in this encounter Visit Diagnoses Not on filedocumented in this encounter Additional Health Concerns Assessment Noted Time A fall risk assessment has been complete d for the patient 08/04/2021 11:14 AM EDT documented as of this encounter Care Teams Hot Metal Car Operator Relationship Specialty Start Date End Date Elisabet Mills, YOSHI [address] [place] [address] PCP - General 12/26/20 documented as of this encounter
--- OUTSIDE RECORDS SUMMARY | 2024-08-02 15:19 | XMS_ITS | Continuity of Care Document ---
[facility] Organization [facility] Address [address] [place] [address] Care Team Providers Care Electrical Systems Engineer Name Role Phone DELMIS MILLS Primary Care Provider [phone] Assessment No assessment recorded. Plan of Treatment Reminders Order Date Submit Date Provider Last Modified By Organization Details Last Modified Time Details Appointments Follow Up 2024 04:00P Mina Mills APRN Not available Not available Not available Lab None recorded. Referral None recorded. Procedures None recorded. Surgeries None recorded. Imaging None recorded. Medication Orders phentermi ne 37.[address] [facility] Niwa [facility], [address] [place] [address] E [place], [id number], 07/23/2024 17:21:54 Wegovy 0.5 mg/0.5 mL subcutane ous pen injector [address] [facility] Niwa [facility], [address] [place] [address] [address] [place], [id number], 07/23/2024 17:55:52 Patient TargetsNo targets recorded. Patient InstructionsNo instructions recorded. Reason for Referral None Reported. Results Created Date Observation Date Name Description Value Unit Range Abnormal Flag Note LastModifiedBy Organization Detail LastModifiedTime 06/27/1906/26/2024 XR, knee, 3 view No observ ation record ed. [address], [place], [address], 07/02/2024 10:31:56 07/11/19 25 07/10/2024 MRI, knee, w/o contr ast No observ ation record ed. [facility] [address], [place], [address], 07/10/2024 18:24:51 Result Notes None recorded. Problems Name Problem SNOMED Code Status Onset Date Resolution Date Notes Provider Name and Address Organization Details Recorded Time Insomnia 360454698 Active 2021 Angelamj Mills, CONFERENCE CENTER MANAGER [address], [place], [address], [place] - [facility] 17:21:07 Gastroesophage al reflux disease 269191471 Active 2021 Delmis Mills, CONFERENCE CENTER MANAGER [address], [place], [address], [place] - [facility] 17:21:14 Low back pain 287558679 Active 2021 Delmis Mills, CONFERENCE CENTER MANAGER [address], [place], [address], [place] - [facility] 2 16:38:56 Obesity 249447744 Active 2021 Angelamj joaquin, CONFERENCE CENTER MANAGER [address], [place], [address], [place] - [facility] 16:39:11 Thyroid nodule 865124752 Active 2022 Delmis Mills, CONFERENCE CENTER MANAGER [address], [place], [address], [place] - [facility] 16:21:10 Prediabetes 124836034 Active 2022 Angleamj Mills, CONFERENCE CENTER MANAGER [address], [place], [address], [place] - [facility] 3 16:58:01 Problem Notes None recorded. Procedures Surgical History Date Name Laterality Status Provider Name and Address Organization Details Recorded Time 08/26/19 Medication Reconcilliation completed Asia Peguero [place] - [facility] 08/26/2023 15:25:10 08/16/19 24 thyroidectomy completed Asia KOO - [facility] 08/26/2023 15:34:00 12/27/19 21 Back Surgery completed Asia KOO - [facility] 10/06/2021 16:56:27 laparoscopic sleeve gastrectomy completed Asia KOO - [facility] 10/06/2021 16:58:42 Unlisted procedure shoulder completed Asia KOO [facility] 10/06/2021 16:58:58 Hernia Repair completed Asia KOO [facility] 10/06/2021 16:59:10 Imaging Results None recorded. Procedure Notes None recorded. Medical Equipment None Reported. Allergies No known drug allergies Medications Name Sig Start Date Stop Date Status Note LastModified by Organization Details LastModified Time cyclobenzap rine 10 mg tablet TAKE 1/2 TABLET BY MOUTH THREE TIMES DAILY MAY CAUSE DROWSINES S active Not Available Not Available No t Available amoxicillin 500 mg capsule TAKE 1 CAPSULE BY MOUTH TWICE A DAY FOR 10 DAYS 08/25 completed Not Available Not Available Not Available metformin 500 mg tablet TAKE 1 TABLET BY MOUTH EVERY DAY 08/25 completed Not Available Not Available Not Available levothyroxi ne 175 mcg tablet TAKE ONE TABLET BY MOUTH EVERY DAY active Not Available Not Available No t Available doxycycline hyclate 100 mg capsule TAKE 1 CAPSULE BY MOUTH TWICE A DAY 08/25 completed Not Available Not Available Not Available azithromyci n 250 mg tablet TAKE 2 TABLETS BY MOUTH TODAY, THEN TAKE 1 TABLET DAILY FOR 4 DAYS 10/06 completed Not Available Not Available Not Available ibuprofen 800 mg tablet TAKE 1 TABLET BY MOUTH EVERY 8 HOURS NEEDED 08/25 completed Not Available Not Available Not Available hydrocodone 5 mg-acetamin ophen 325 mg tablet TAKE ONE TABLET BY MOUTH EVERY 8 HOURS NEEDED FOR PAIN MAY CAUSE DROWSINES S 08/25 completed Not Available Not Available Not Available Oracio-Gest Antacid 200 mg (as calcium carbonate 500 mg) chewable tablet chew 1 tablet BY MOUTH TWICE DAILY active Not Available Not Available No t Available prednisone 20 mg tablet TAKE 1 TABLET TWICE DAILY 02/17 completed Not Available Not Available Not Available phentermine 37.5 mg tablet Take one tablet by mouth daily (30 minutes before or 1-2 hour(s) after breakfast ). 2024 active Not Available Not Available Not Avai lable ciprofloxac in 500 mg tablet TAKE 1 TABLET BY MOUTH EVERY 12 HOURS FOR 10 DAYS 10/06 completed Not Available Not Available Not Available sulfamethox azole 800 mg-trimetho prim 160 mg tablet TAKE 1 TABLET BY MOUTH TWICE A DAY FOR 14 DAYS 03/23 completed Not Available Not Available Not Available omeprazole 40 mg capsule,del ayed release TAKE 1 CAPSULE BY MOUTH EVERY DAY active Not Available Not Available No t Available tramadol 50 mg tablet TAKE ONE TABLET BY MOUTH TWICE DAILY NEEDED FOR PAIN MAY CAUSE DROWSINES S 10/06 completed Not Available Not Available Not Available meloxicam 7.5 mg tablet TAKE ONE TABLET BY MOUTH EVERY DAY NEEDED active Not Available Not Available No t Available oxycodone-a cetaminophe n 5 mg-325 mg tablet TAKE 1 TABLET BY MOUTH EVERY 4 HOURS NEEDED FOR PAIN 08/25 completed Not Available Not Available Not Available amoxicillin 875 mg tablet TAKE ONE TABLET BY MOUTH TWICE DAILY FOR FOURTEEN DAYS -- FINISH ALL MEDICINE -- 12/01 completed Not Available Not Available Not Available methocarbam ol 750 mg tablet TAKE ONE TABLET BY MOUTH FOUR TIMES DAILY FOR 10 DAYS 10/06 completed Not Available Not Available Not Available levothyroxi ne 150 mcg tablet TAKE ONE TABLET BY MOUTH EVERY DAY AT 700am FOR hypothyro id 06/22 completed Not Available Not Available Not Available mupirocin 2 % topical ointment APPLY TO AFFECTED AREA EVERY 8 HOURS FOR 14 DAYS 08/25 completed Not Available Not Available Not Available methylpredn isolone 4 mg tablets in a dose pack TAKE ACCORDING TO PACKAGE INSTRUCTI ONS --TAKE WITH FOOD-- -- FINISH ALL MEDICINE -- 07/23 completed Not Available Not Available Not Available cefdinir 300 mg capsule TAKE 1 CAPSULE 3 TIMES A DAY 06/22 completed Not Available Not Available Not Available hydroxyzine pamoate 25 mg capsule TAKE ONE CAPSULE BY MOUTH EVERY DAY AT BEDTIME MAY CAUSE DROWSINES S active Not Available Not Available No t Available Ozempic 0.25 mg or 0.5 mg (2 mg/1.5 mL) subcutaneou s pen injector Inject 0.5 mg every week by subcutane ous route. 08/05 completed Not Available Not Available Not Available Ozempic 1 mg/dose (4 mg/3 mL) subcutaneou s pen injector INJECT 1 MG SUBCUTANE OUSLY EVERY WEEK 06/22 completed Not Available Not Available Not Available Wegovy 0.5 mg/0.5 mL subcutaneou s pen injector Inject 0.5 mg every week by subcutane ous route. 2024 active Not Available Not Available Not Avai lable Ozempic 2 mg/dose (8 mg/3 mL) subcutaneou s pen injector INJECT 2 MG EVERY WEEK BY SUBCUTANE OUS ROUTE active Not Available Not Available No t Available Ozempic 0.25 mg or 0.5 mg (2 mg/3 mL) subcutaneou s pen injector INJECT 1 MG SUBCUTANE OUSLY EVERY WEEK 09/24 completed Not Available Not Available Not Available Zepbound 2.5 mg/0.5 mL subcutaneou s pen injector Inject 0.25 mg every week by subcutane ous route for 30 days. 01/09 completed Not Available Not Available Not Available Vitals Date Recorded Body height Respiratory rate Body mass index (BMI) Body weight Heart rate Oxygen saturation Oxygen saturation in Arterial blood by Pulse oximetry Body temperature Systolic blood pressure Diastolic blood pressure Provider Name and Address Organization Details Last Updated DateTime 5 182.88 cm 18 /min 49.6 kg/m2 234891. 81 g 78 /min 97 % 97 % 97.9 [degF] 120 mm[Hg] 74 mm[Hg] Jennifer Miranda [place] - [facility] 16:52:21 Social History Question Answer Notes LastModified by Organizat ion Details LastModified Time Tobacco Smoking Status Never Smoker Asia brown, [place] - [facility] 10/06/2021 16:56:26 Do You Have An Advance Directive? No Information not available 10/06/2021 Are You Blind Or Do You Have Difficulty Seeing? No Information not available 12/03/2021 Is Blood Transfusion Acceptable In An Emergency? Yes Information not available 10/06/2021 What Is Your Level Of Caffeine Consumption? Moderate Information not available 10/06/2021 How Much Tobacco Do You Chew? None Information not available 10/06/2021 Are You Deaf Or Do You Have Serious Difficulty Hearing? No Information not available 10/06/2021 What Type Of Diet Are You Following? REGULAR Information not available 12/03/2021 Which Illicit Or Recreational Drugs Have You Used? None Information not available 10/06/2021 What Is The Highest Grade Or Level Of School You Have Completed Or The Highest Degree You Have Received? [id number] Information not available 10/06/2021 Have There Been Any Changes To Your Family Or Social Situation? No Information no t available 12/03/2021 What Is The Fluoride Status Of Your Home? Unknown Information not available 12/03/2021 How Many Years Have You Used Illicit Or Recreational Drugs? 0 Information not available 10/06/2021 Do You Have A Medical Power Of Chief [facility]? No Information not available 12/03/2021 What Was The Date Of Your Most Recent Tobacco Screening? 06/22/2024 Information not available 06/22/2024 Do You Use Protection During Sex? No Information not available 10/06/2021 Do You Use Protection Against STDs? No Information not available 10/06/2021 What Is Your Relationship Status? Information not available 10/06/2021 Do You Use Your Seat Belt Or Car Seat Routinely? Yes Information not available 10/06/2021 Are You Sexually Active? Yes Information not available 10/06/2021 Do You Have Smoke And Carbon Monoxide Detectors In Your Home? Yes Information not available 10/06/2021 Are You Passively Exposed To Smoke? No Information no t available 10/06/2021 Do You Use Sunscreen Routinely? No Information not available 10/06/2021 Has Tobacco Cessation Counseling Been Provided? No Information not available 06/29/2022 Do You Have Difficulty Walking Or Climbing Stairs? No Information not available 12/03/2021 Sex: Male Functional Status Question Answer Note LastModified by Organizat ion Details LastModified Time Do you or have you ever used smokeless tobacco? Never used smokeless tobacco Information not available 10/06/2021 Are you currently employed? Yes Information not available 10/06/2021 Do you have transportation difficulties? No Information not available 12/03/2021 Are you able to care for yourself? Yes Information n ot available 10/06/2021 Do you have difficulty dressing or bathing? No Information not available 12/03/2021 Do you or have you ever used e-cigarettes or vape? Never used electronic cigarettes Information not available 10/06/2021 What is your exercise level? Occasional Information not available 10/06/2021 Do you use any illicit or recreational drugs? No Information not available 12/03/2021 Do you or have you ever used any other forms of tobacco or nicotine? No Information not available 05/21/2022 What is your level of alcohol consumption? None Information not available 10/06/2021 Are you able to walk? YESWOREST Information not available 12/03/2021 Do you have difficulty doing errands alone? No Information not available 12/03/2021 What is your occupation? [employer] Information not available 10/06/2021 Mental Status Question Answer Note LastModified by Organizat ion Details LastModified Time Do you feel stressed (tense, restless, nervous, or anxious, or unable to sleep at night)? [id number] Information not available 10/06/2021 Do you have difficulty concentrating, remembering or making decisions? No Information no t available 12/03/2021 Family History Relationship Description Onset Age of this Age Resolved Age Notes LastModified by Organization Details LastModified Time Mother Malignant tumor of colon cbuckler Not available 2021 16:56:25 Medical History Condition Response Obesity Y Fracture Y Thyroid Problems Y Kidney Stones Y Muscle, Joint, or Bone Problems Y Arthritis Y Kidney or Bladder Problems Y Hernia Y Insomnia Y Sleep Apnea Y Immunizations Vaccine Type Date Status Note Provider Nam e and Address Organization Details Recorded Time COVID-19, mRNA, LNP-S, PF, 100 mcg/0.5mL dose or 50 mcg/0.25mL dose 1 completed Jennifer Stears null, [place] - [facility] 05/21/2022 14:06:04 COVID-19, mRNA, LNP-S, PF, 100 mcg/0.5mL dose or 50 mcg/0.25mL dose 1 completed Jennifer Stears null, [place] - [facility] 05/21/2022 14:06:04 Td (adult), 2 Lf tetanus toxoid, preservative free, adsorbed 7 completed Jennifer Stears null, [place] - [facility] 05/21/2022 14:06:05 Past Encounters Encounter ID Performer Location Encounter Start Date Encounter Closed Date Diagnosis/Indication Diagnosis SNOMED-CT Code Diagnosis ICD10 Code Diagnosis Note [id number] Dwaynetrey Mills [address] [address] 06/22/2024 14:09:02 06/22/2024 15:03:07 Obesity 874064049 E66.9 Pt compliant with plan of careKasper reviewedme dication compliance discussedL ast uds:06/22/24 Control substance agreement on filediscus sed diet and exercise Long-term current use of drug therapy 529988974 Z79.899 Pain of le ft knee joint 3032967234 40825 M25.562 xray-mrior tho consult if needed [id number] Dwaynetrey Mills [address] [address] 07/23/2024 16:38:01 07/23/2024 17:20:13 Obesity 431051702 E66.9 Pt compliant with plan of careKasper reviewedme dication compliance discussedL ast uds:06/22/24 Control substance agreement on filediscus sed diet and exercise Health Concerns Section Related Observation LastModified by Organization Detai ls LastModified Time None Recorded Concern Status LastModified by Organization Details LastModified Time None Recorded Payers Encounter Date Sequence Insurance Name Policy Number Policy Tovar Covered Member ID Tovar Member ID Guarantor Name 07/23/2024 1 [place] [id number] Asif Enriquez [id number] Asif Enriquez Notes Date Note Type Note Provider Name and Address Organization Details Recorded Time 07/23/2024 text/html 54 year old male who presents to the office today for a follow up onweight lossat his last appt on 06-22-24 he weighed 383 lbstoday pt weighs 366 lbs. pt states doing well on meds Delmis Mills, CONFERENCE CENTER MANAGER [address], [place], [address], [place] - [facility] 07/23/2024 17:18:52
--- OUTSIDE RECORDS SUMMARY | 2024-08-02 15:19 | XMS_ITS | Encounter Summary ---
Author Organization [facility] Address [address] [place] [address] Care Team Providers Care Ceramic Saw Tender Name Role Phone Elisabet Mills APRN Primary Care Provider [phone] Encounter Details Date Type Department Care Team (Late Contact Info) Description 05/08/2024 Orders Only External Location [address] [place] [id number] Provider, External Social History Tobacco Use Types [...] Joint [address], [address] [place] [address] Taz Rios MD [address] [place] [address] documented as of this encounter [...] documented as of this encounter Care Teams Ceramic Saw Tender Relationship Specialty Start Date End Date Elisabet Mills, YOSHI [address] [place] [address] PCP - General 12/26/20 documented as of this encounter
--- OUTSIDE RECORDS SUMMARY | 2024-08-02 15:19 | XMS_ITS | Data Portability ---
Author Organization [place] [facility] & [place] [facility] ADMIN Address [address] [place] [id number] Care Team Providers Care Processing Technician Name Role Phone DELMIS JOSE Primary Care [...] minutes was spent with the pt today. Not available 12/23/2023 14:31:27 Plan of Treatment Reminders Order Date Submit Date Provider Last Modified By Organization Details Last Modified Time Details Appointments OV EST 20 2024 11:20A M ELIN Maria Not available Not available Not available Lab CBC w/ auto diff 2023 024 ROMAIN [facility], [address], [address], [place], [address], 01/01/2024 03:35:43 folate, serum 2023 024 ROMAIN [facility], [address], [address], [place], [address], 01/01/2024 03:35:46 prealbumi n, serum 2023 024 ROMAIN [facility], [address], [address], [place], [address], 01/01/2024 03:35:51 thiamine, QN, blood 2023 024 ROMAIN [facility], [address], [address], [place], [address], 01/01/2024 03:35:49 methylmal lashay, QN, serum or plasma 2023 024 ROMAIN [facility], [address], [address], [place], [address], 01/01/2024 03:35:50 CMP, serum or plasma 2023 024 ROMAIN [facility], [address], [address], [place], [address], 01/01/2024 03:35:44 iron + TIBC + ferritin, serum 2023 024 ROMAIN [facility], [address], [address], [place], [address], 01/01/2024 03:35:41 vitamin D, 25-hydrox y, total, serum 2023 024 ROMAIN [facility], [address], [address], [place], [address], 01/01/2024 03:35:48 vitamin E, serum 2023 024 ROMAIN [facility], [address], [address], [place], [address], 01/01/2024 03:35:45 vitamin A (retinol) , serum 2023 024 ROMAIN [facility], [address], [address], [place], [address], 01/01/2024 03:35:47 TSH + free T4, serum 2023 024 MCKENZIE [facility], [address], [address], [place], [address], 01/01/2024 03:35:43 Referral None recorded. Procedures None recorded. Surgeries esophagog astroduod enoscopy (SURG) 2023 024 Cyndi Dunn MD, [address], [address], [place], [address], 02/10/2024 14:47:10 Imaging RF, upper gastroint estinal tract, w/ contrast PO 2023 024 [email or web address] [facility] (Centralized Scheduling), [address], [place], [address], 02/10/2024 14:47:53 US, thyroid 2022 024 [email or web address] Not available 08/11/2023 07:55:42 Medication Orders Wegovy 0.5 mg/0.5 mL subcutane ous pen injector 2024 025 MCKENZIE [id number], [address] [facility], [place], [address], 04/27/2024 12:03:01 Patient TargetsNo targets recorded. Patient InstructionsNo instructions recorded. Reason for Referral None Reported. Results Created Date Observation Date Name Description Value Unit Range Abnormal Flag Note LastModifiedBy Organization Detail LastModifiedTime 12/23/19 24 12/24/2023 FE+TI BC+FE R iron bind.cap.(TI BC) 269 ug/dL 250-45 0 normal Not Available [facility] ([facility]) [address] [facility], [place], [address], 01/01/2024 03:35:41 12/23/19 24 12/24/2023 FE+TI BC+FE R UIBC 143 ug/dL 111-34 3 normal Not Available [facility] ([facility]) [address] [place], [address], 01/01/2024 03:35:41 12/23/19 24 12/24/2023 FE+TI BC+FE R iron 126 ug/dL 38-169 normal Not Available [facility] ([facility]) [address] [place], [address], 01/01/2024 03:35:41 12/23/19 24 12/24/2023 FE+TI BC+FE R iron saturation 47 % 15-55 normal Not Available [facility] ([facility]) [address] [place], [address], 01/01/2024 03:35:41 12/23/19 24 12/24/2023 FE+TI BC+FE R ferritin 61 NG/mL 30-400 normal Not Available [facility] ([facility]) [address] [place], [address], 01/01/2024 03:35:41 12/23/19 24 12/24/2023 TSH+F REE T4 TSH 12.900 uIU/m L 0.450- 4.500 above high normal Not Available [facility] ([facility]) [address] [place], [address], 01/01/2024 03:35:42 12/23/19 24 12/24/2023 TSH+F REE T4 T4,free(dire ct) 1.40 NG/dL 0.82-1 .77 normal Not Available [facility] ([facility]) [address] [place], [address], 01/01/2024 03:35:42 12/23/19 24 12/24/2023 CBC WITH DIFFE RENTI AL/PL ATELE T WBC 4.7 x10e3 /uL 3.4-10 .8 normal Not Available [facility] ([facility]) [address] [place], [address], 01/01/2024 03:35:43 12/23/19 24 12/24/2023 CBC WITH DIFFE RENTI AL/PL ATELE T RBC 5.47 x10e6 /uL 4.14-5 .80 normal Not Available [facility] ([facility]) [address] [place], [address], 01/01/2024 03:35:43 12/23/19 24 12/24/2023 CBC WITH DIFFE RENTI AL/PL ATELE T hemoglobin 15.5 g/dL 13.0-1 7.7 normal Not Available [facility] ([facility]) [address] [place], [address], 01/01/2024 03:35:43 12/23/19 24 12/24/2023 CBC WITH DIFFE RENTI AL/PL ATELE T hematocrit 48.3 % 37.5-5 1.0 normal Not Available [facility] ([facility]) [address] [place], [address], 01/01/2024 03:35:43 12/23/19 24 12/24/2023 CBC WITH DIFFE RENTI AL/PL ATELE T MCV 88 fL 79-97 normal Not Available [facility] ([facility]) [address] [place], [address], 01/01/2024 03:35:43 12/23/19 24 12/24/2023 CBC WITH DIFFE RENTI AL/PL ATELE T MCH 28.3 pg 26.6-3 3.0 normal Not Available [facility] ([facility]) [address] [place], [address], 01/01/2024 03:35:43 12/23/19 24 12/24/2023 CBC WITH DIFFE RENTI AL/PL ATELE T MCHC 32.1 g/dL 31.5-3 5.7 normal Not Available [facility] ([facility]) [address] [place], [address], 01/01/2024 03:35:43 12/23/19 24 12/24/2023 CBC WITH DIFFE RENTI AL/PL ATELE T RDW 13.4 % 11.6-1 5.4 Not Available [facility] ([facility]) [address] [facility], [place], [address], 01/01/2024 03:35:43 12/23/19 24 12/24/2023 CBC WITH DIFFE RENTI AL/PL ATELE T platelets 291 x10e3 /uL 150-45 0 normal Not Available [facility] ([facility]) [address] [facility], [place], [address], 01/01/2024 03:35:43 12/23/19 24 12/24/2023 CBC WITH DIFFE RENTI AL/PL ATELE T neutrophils 54 % not estab. normal Not Available [facility] ([facility]) [address] [facility], [place], [address], 01/01/2024 03:35:43 12/23/19 24 12/24/2023 CBC WITH DIFFE RENTI AL/PL ATELE T lymphs 33 % not estab. normal Not Available [facility] ([facility]) [address] [facility], [place], [address], 01/01/2024 03:35:43 12/23/19 24 12/24/2023 CBC WITH DIFFE RENTI AL/PL ATELE T monocytes 10 % not estab. normal Not Available [facility] ([facility]) [address] [facility], [place], [address], 01/01/2024 03:35:43 12/23/19 24 12/24/2023 CBC WITH DIFFE RENTI AL/PL ATELE T eos 2 % not estab. normal Not Available [facility] ([facility]) [address] [facility], [place], [address], 01/01/2024 03:35:43 12/23/19 24 12/24/2023 CBC WITH DIFFE RENTI AL/PL ATELE T basos 1 % not estab. normal Not Available [facility] ([facility]) [address] [place], [address], 01/01/2024 03:35:43 12/23/19 24 12/24/2023 CBC WITH DIFFE RENTI AL/PL ATELE T immature cells INSPECTOR RETURNED MATERIALS Not Available [facility] ([facility]) [address] [place], [address], 01/01/2024 03:35:43 12/23/19 24 12/24/2023 CBC WITH DIFFE RENTI AL/PL ATELE T neutrophils (absolute) 2.6 x10e3 /uL 1.4-7. 0 normal Not Available [facility] ([facility]) [address] [place], [address], 01/01/2024 03:35:43 12/23/19 24 12/24/2023 CBC WITH DIFFE RENTI AL/PL ATELE T lymphs (absolute) 1.5 x10e3 /uL 0.7-3. 1 normal Not Available [facility] ([facility]) [address] [place], [address], 01/01/2024 03:35:43 12/23/19 24 12/24/2023 CBC WITH DIFFE RENTI AL/PL ATELE T monocytes(ab solute) 0.5 x10e3 /uL 0.1-0. 9 normal Not Available [facility] ([facility]) [address] [place], [address], 01/01/2024 03:35:43 12/23/19 24 12/24/2023 CBC WITH DIFFE RENTI AL/PL ATELE T eos (absolute) 0.1 x10e3 /uL 0.0-0. 4 normal Not Available [facility] ([facility]) [address] [place], [address], 01/01/2024 03:35:43 12/23/19 24 12/24/2023 CBC WITH DIFFE RENTI AL/PL ATELE T baso (absolute) 0.0 x10e3 /uL 0.0-0. 2 normal Not Available [facility] ([facility]) [address] [facility], [place], [address], 01/01/2024 03:35:43 12/23/19 24 12/24/2023 CBC WITH DIFFE RENTI AL/PL ATELE T immature granulocytes 0 % not estab. Not Available [facility] ([facility]) [address] [facility], [place], [address], 01/01/2024 03:35:43 12/23/19 24 12/24/2023 CBC WITH DIFFE RENTI AL/PL ATELE T immature grans (abs) 0.0 x10e3 /uL 0.0-0. 1 Not Available [facility] ([facility]) [address] [facility], [place], [address], 01/01/2024 03:35:43 12/23/19 24 12/24/2023 CBC WITH DIFFE RENTI AL/PL ATELE T NRBC INSPECTOR RETURNED MATERIALS Not Available [facility] ([facility]) [address] [facility], [place], [address], 01/01/2024 03:35:43 12/23/19 24 12/24/2023 CBC WITH DIFFE RENTI AL/PL ATELE T hematology comments: INSPECTOR RETURNED MATERIALS Not Available [facility] ([facility]) [address] [facility], [place], [address], 01/01/2024 03:35:43 12/23/19 24 12/24/2023 COMP. METAB OLIC PANEL (14) glucose 94 mg/dL 70-99 normal Not Available [facility] ([facility]) [address] [facility], [place], [address], 01/01/2024 03:35:44 12/23/19 24 12/24/2023 COMP. METAB OLIC PANEL (14) BUN 17 mg/dL 6-24 normal Not Available [facility] ([facility]) [address] [facility], [place], [address], 01/01/2024 03:35:44 12/23/19 24 12/24/2023 COMP. METAB OLIC PANEL (14) creatinine 1.20 mg/dL 0.76-1 .27 normal Not Available [facility] ([facility]) [address] [facility], [place], [address], 01/01/2024 03:35:44 12/23/19 24 12/24/2023 COMP. METAB OLIC PANEL (14) eGFR 72 mL/mi n/1.7 3 >59 normal Not Available [facility] ([facility]) [address] [facility], [place], [address], 01/01/2024 03:35:44 12/23/19 24 12/24/2023 COMP. METAB OLIC PANEL (14) BUN/creatini ne ratio 14 9-20 normal Not Available [facility] ([facility]) [address] [facility], [place], [address], 01/01/2024 03:35:44 12/23/19 24 12/24/2023 COMP. METAB OLIC PANEL (14) sodium 139 mmol/ L 134-14 4 normal Not Available [facility] ([facility]) [address] [facility], [place], [address], 01/01/2024 03:35:44 12/23/19 24 12/24/2023 COMP. METAB OLIC PANEL (14) potassium 4.9 mmol/ L 3.5-5. 2 normal Not Available [facility] ([facility]) [address] [facility], [place], [address], 01/01/2024 03:35:44 12/23/19 24 12/24/2023 COMP. METAB OLIC PANEL (14) chloride 102 mmol/ L 96-106 normal Not Available [facility] ([facility]) [address] [place] [place], [address], 01/01/2024 03:35:44 12/23/19 24 12/24/2023 COMP. METAB OLIC PANEL (14) carbon dioxide, total 24 mmol/ L 20-29 normal Not Available [facility] ([facility]) [address] [facility], [place], [address], 01/01/2024 03:35:44 12/23/19 24 12/24/2023 COMP. METAB OLIC PANEL (14) calcium 9.8 mg/dL 8.7-10 .2 normal Not Available [facility] ([facility]) [address] [place], [address], 01/01/2024 03:35:44 12/23/19 24 12/24/2023 COMP. METAB OLIC PANEL (14) protein, total 6.8 g/dL 6.0-8. 5 normal Not Available [facility] ([facility]) [address] [place], [address], 01/01/2024 03:35:44 12/23/19 24 12/24/2023 COMP. METAB OLIC PANEL (14) albumin 4.3 g/dL 3.8-4. 9 normal Not Available [facility] ([facility]) [address] [place] [place], [address], 01/01/2024 03:35:44 12/23/19 24 12/24/2023 COMP. METAB OLIC PANEL (14) globulin, total 2.5 g/dL 1.5-4. 5 Not Available [facility] ([facility]) [address] [place], [address], 01/01/2024 03:35:44 12/23/19 24 12/24/2023 COMP. METAB OLIC PANEL (14) bilirubin, total 0.6 mg/dL 0.0-1. 2 normal Not Available [facility] ([facility]) [address] [place], [address], 01/01/2024 03:35:44 12/23/19 24 12/24/2023 COMP. METAB OLIC PANEL (14) alkaline phosphatase 73 IU/L 44-121 normal Not Available [facility] ([facility]) [address] [place], [address], 01/01/2024 03:35:44 12/23/19 24 12/24/2023 COMP. METAB OLIC PANEL (14) AST (SGOT) 19 IU/L 0-40 normal Not Available [facility] ([facility]) [address] [place], [address], 01/01/2024 03:35:44 12/23/19 24 12/24/2023 COMP. METAB OLIC PANEL (14) ALT (SGPT) 20 IU/L 0-44 normal Not Available [facility] ([facility]) [address] [facility], [place], [address], 01/01/2024 03:35:44 12/23/19 24 12/31/2023 VITAM IN E vitamin E(alpha tocopherol) 11.9 mg/L 7.0-25 .1 Not Available [facility] ([facility]) [address] [place], [address], 01/01/2024 03:35:45 12/23/19 24 12/31/2023 VITAM IN [...] Available [facility] ([facility]) [address] [place], [address], 01/01/2024 03:35:45 12/23/19 24 12/24/2023 FOLAT E (FOLI C ACID) , SERUM folate (folic acid), serum >20.0 NG/mL >3.0 A serum folat e jose ntrat ion of less than 3.1 ng/mL is consi dered to repre sent clini kirsten defic iency . Not Available [facility] ([facility]) [address] [facility], [place], [address], 01/01/2024 03:35:46 12/23/19 24 12/31/2023 VITAM IN [...] Available [facility] ([facility]) [address] [facility], [place], [address], 01/01/2024 03:35:47 12/23/19 24 12/24/2023 VITAM IN [...] um and D. Lesa bobby DC: [facility] [employer] . 2. Noreen jorgensen MF, Gypsy tovar [place], Tosin off-F errar i KRAUSE, et al. Evalu ation , treat ment, and preve ntion of vitam in D defic iency : an Endoc rine Socie ty clini kirsten pract ice guide line. JCEM. 2010; 96(7) :1911 -30. Not Available [facility] ([facility]) [address] [facility], [place], [address], 01/01/2024 03:35:48 12/23/19 24 12/27/2023 VITAM IN B1 (THIA MINE) , BLOOD vit. B1, whole blood 143.2 nmol/ L 66.5-2 00.0 Not Available [facility] ([facility]) [address] [place], [address], 01/01/2024 03:35:49 12/23/19 24 12/28/2023 METHY LMALO MAG ACID, SERUM methylmaloni c acid, serum 201 nmol/ L 0-378 Not Available [facility] ([facility]) [address] [place], [address], 01/01/2024 03:35:50 12/23/19 24 12/24/2023 PREAL BUMIN prealbumin 26 mg/dL 10- Not Available [facility] ([facility]) [address] [place], [address], 01/01/2024 03:35:51 01/05/2001/06/[address] (H PYLOR I AB QUAL) tracy test 20 min NEGATI VE negati ve Not Available [facility] ([facility]) [address], [place], [address], 01/06/2024 11:20:36 01/05/2001/06/[address] (H PYLOR I AB QUAL) tracy test 1HR NEGATI VE negati ve Not Available [facility] ([facility]) [address], [place], [address], 01/06/2024 11:20:36 01/05/20 24 01/06/[address] (H PYLOR I AB QUAL) tracy test 3 HR NEGATI VE negati ve Not Available [facility] ([facility]) [address] [facility], [place], [address], 01/06/2024 11:20:36 01/05/2001/06/[address] (H PYLOR I AB QUAL) tracy test 24 HR NEGATI VE negati ve Not Available [facility] ([facility]) [address] [facility], [place], [address], 01/06/2024 11:20:36 01/05/2001/06/[address] (H PYLOR I AB QUAL) tracy test kit lot# [id number] 0 Not Available [facility] ([facility]) [address] [facility], [place], [address], 01/06/2024 11:20:36 01/05/20 24 01/06/[address] (H PYLOR I AB QUAL) tracy test kit exp date Not Available [facility] ([facility]) [address] [facility], [place], [address], 01/06/2024 11:20:36 05/29/19 23 05/28/2022 US, thyro id No observ ation record ed. [facility] [address] [place], [address], 05/28/2022 13:14:50 06/17/19 23 US, thyro id No observ ation record ed. [email or web address] Not Available 2022 12:15:22 06/17/19 23 fine needl e aspir ation , thyro id (PROC ) No observ ation record ed. [email or web address] Not Available 2022 12:16:51 01/03/20 24 01/03/2024 ugi with KUB [facility] [address] [place] [address] Phone: Fax: Name: LARISSA ENRIQUEZ Exam Date: 2023 : 971 Age 53 years Gender : M Access ion: [id number] Physic payton: JOSE DEAL R Facili ty: [facility] Facili ty HSV: Outpat ient Exam: UGI WITH KUB PROCED URE: FL UPPER GI SINGLE CONTRA ST CLINIC AL INDICA TION:G ERD. COMPAR SCOT: CT from 023 and prior upper GI from 07/26/19 23. TECHNI QUE: A prelim inary superintendent fish hatchery radiog raph of the abdome n was obtain ed. The esopha anabela, stomac h, and proxim al small bowel are evalua haven with single contra st techni que using real-t pablo fluoro scopy and acquis ition of multip le spot digita l radiog raphs. FINDIN GS: Certified Fire Investigator: Prelim inary superintendent fish hatchery view of the abdome n demons trates [...] Thank you for referr LARISSA Maynard to [facility]. Legall y authen ticate d by NINA HARMON 2023-02 08:19: 09 CC'ed Logic: Orderi ng Provid er: PILE HEATHE R Attend ing Provid er: PILE HEATHE R Referr ing Provid er: PILE HEATHE R Admitt ing Provid er: PILE HEATHE R hpile [facility] [address] , [place], [address], 01/12/2024 13:24:07 Result Notes None recorded. Problems Name Problem SNOMED Code Status Onset Date Resolution Date Notes Provider Name and Address Organization Details Recorded Time Gastroesophag eal reflux disease without esophagitis 235908722 Active 2023 ELIN Maria [address] , [place], [address] , [facility] & [place] 4 13:33:47 Chronic low back pain 610672436 Active 2023 ELIN Maria [address], [place], [address] , [facility] & [place] 4 13:34:02 Intentional weight loss 531947705 Active 2023 ELIN Maria [address], [place], [address] , [facility] & [place] 4 13:34:18 Obesity 428001603 Active 2023 ELIN Maria [address] , [place], [address] , [facility] - [facility] [place] 4 13:46:35 Problem Notes None recorded. Procedures Surgical History Date Name Laterality Status Provider Name and Address Organization Details Recorded Time 2020 Back Surgery completed Layla KOO - [facility] [place] 3 12:17:39 2015 Colonoscopy completed Layla Lida [facility] - [facility] [place] 3 14:14:11 Back Surgery completed Layla Lida [place] - [facility] [place] 3 14:14:11 laparoscopic sleeve gastrectomy completed Marleni Guerra [facility] - [facility] & [place] 4 13:13:26 repair of hydrocele completed Rebec ca Guerra [facility] - [facility] & [place] 4 13:13:39 procedure on shoulder completed Ade ecca Guerra [facility] - [facility] [place] 4 13:13:54 esophagogastroduodenoscopy completed Marleni Guerra [facility] - [facility] & [place] 4 13:14:27 thyroidectomy completed Marleni Guerra [facility] - [facility] [place] 4 13:14:42 Imaging Results None recorded. Procedure [...] Not Available phentermine 37.5 mg tablet TAKE ONE TABLET BY MOUTH EVERY DAY 30 MINUTES BEFORE OR 1-2 HOURS AFTER BREAKFAST active Not Available Not Available No t Available ciprofloxac in 500 mg tablet TAKE [...] WITH FOOD-- -- FINISH ALL MEDICINE -- active Not Available Not Available No t Available cefdinir 300 mg capsule TAKE 1 [...] 0.5 mg/0.5 mL subcutaneou s pen injector INJECT THE CONTENTS OF 1 PEN (0.5 MG / 0.5ML) SUBCUTANE OUSLY ONCE A WEEK active Not Available Not Available No t Available Ozempic 2 mg/dose (8 mg/3 mL) subcutaneou [...] cm 97.3 [degF] 96 /min 48 kg/m2 804811. 11 g 148 mm[Hg] 88 mm[Hg] Marleni Guerra [place] - [facility] [place] 5 11:26:48 Date Recorded Body height Body mass index (BMI) Body weight Body temperature Systolic blood pressure Diastolic blood pressure Provider Name and Address Organization Details Last Updated DateTime 3 182.88 cm 49.6 kg/m2 688843. 09 g 98.2 [degF] 158 mm[Hg] 85 mm[Hg] Layla Hilton [facility] & [place] 3 14:13:24 Date Recorded Body height Body mass index (BMI) Body weight Heart rate Body temperature Heart rate Systolic blood pressure Diastolic blood pressure Provider Name and Address Organization Details Last Updated DateTime 4 187.96 cm 46.6 kg/m2 711881. 11 g 90 /min 97.1 [degF] 90 /min 127 mm[Hg] 81 mm[Hg] Marleni Guerra [facility] & [place] 4 13:20:49 Date Recorded Body height Body mass index (BMI) Body weight Provider Name and Address Organization Details Last Updated DateTime 01/12/2024 187.96 cm 46.1 kg/m2 580153.66 g Yisel Rudolph [facility] & [place] 01/12/2024 13:15:02 Social History Question Answer Notes LastModified by [employer] Mobile ion Details LastModified Time Tobacco Smoking Status Never [facility]oker [facility] [place] 04/19/2022 15:05:10 Do You Have An Advance Directive? No Information not available 06/16/2022 Are You Blind Or Do You Have Difficulty Seeing? No Information not available 06/16/2022 What Is Your Level Of Caffeine Consumption? Moderate [email or web address] Information not available 01/12/2024 Are You Passively Exposed To Smoke? Yes Information not available 06/16/2022 Sex: Male Functional Status Question Answer Note LastModified by Organizat ion Details LastModified Time Do you use [...] anxious, or unable to sleep at night)? [id number] Information not available 06/16/2022 Family History Nothing [...] Recorded Time influenza, unspecified formulation 11/08/2023 completed Yiesl Rudolph [facility] & [place] 01/12/2024 13:16:21 Past Encounters Encounter ID Performer Location Encounter Start Date Encounter Closed Date Diagnosis/Indication Diagnosis SNOMED-CT Code Diagnosis ICD10 Code Diagnosis Note [id number] Abebe Pratt MD [facility] [address] [place] [address] [address] [place] [id number] 04/19/2022 14:48:38 04/19/2022 15:41:26 History of calculus of kidney 268914024 Z87.442 History of urinary tract infection 6550733963 107 Z87.440 Microscopic hematuria 19 4368803 R31.29 [id number] Elena Ferguson NP, S [facility] [address] [place] [address],[facility] e [address] [place] [id number] 4 06/01/2022 15:16:24 06/01/2022 15:33:47 History of calculus of kidney 585434714 Z87.442 Cyst of kidney 968332929 N28.1 Microscopic hematuria [address] scan results reviewed and discussed with patient clinic today. Will schedule follow-up renal ultrasound in 6 months related to renal cyst. Return to clinic in 6 months for follow-up of renal ultrasound results. [id number] Aleyda Soler MD [facility] G -[phone] [facility] [address] [place] [address] 06/18/2022 13:58:27 06/18/2022 14:31:04 Thyroid nodule 484799069 E04.1 Went over the patients most recent thyroid ultrasound and several of his previous ultrasound s. Compared them. Went over them in detail with the patient. Explained there hasn't been much growth in the larger nodules. Would not recommend repeat FNA at this time. We will continue to monitor with repeat ultrasound in 12 months. He would like to have this done at [facility] in [place] as this is drasticall y less expensive for him. [id number] EILN Maria [facility] [address] [place] [place] [address] 12/23/2023 13:06:13 12/23/2023 14:12:02 Gastroesophageal reflux disease without esophagitis 894137786 K21.9 We discussed concerns of worsening gastroesop [...] cotine use Chronic low back pain 27 [id number] M54.50 History of gastrectomy [id number] Z90.3 Advised qid intake 50% protein 16-1700 [...] to correct any vitamin deficienci es. At [facility] ed risk of nutritional deficit [id number] Z91.89 Obesity [id number] E66.9 Discuss revisional surgery with patient today. Optimal procedure to be determined after upper GI and upper endoscopy. Patient advised he will need cardiac clearance prior to revisional surgery. [id number] GRIFFIN RAMOS RD [facility] Bariatric s and Adv Surg [address] [facility] [address] [place] [address] 12/23/2023 13:44:43 12/23/2023 14:37:19 Dietary management surveillance [id number] Z71.3 [id number] ELIN Maria [facility] Bariatric s and Adv Surg [address] [facility] [address] [place] [address] 01/12/2024 13:08:29 01/13/2024 11:38:08 Gastroesophageal reflux disease without esophagitis [id number] K21.9 Upper GI and upper endoscopy results were reviewed with patient today. Obesity 777802203 E66.9 Discussed BPD/duoden al switch versus Warren-en-Y gastric bypass. Patient wishes to pursue BPD/duoden al switch as he may need NSAIDs and steroids in the future for chronic back pain. We will have our insurance department reach out to patient to discuss insurance approval for revisional surgery. History of gastrectomy [id number] Z90.3 Advised patient continue focus on healthy high-prote in low-fat diet. [id number] ELIN Maria [facility] Bariatric s and Adv Surg [address] [facility] [address] [place] [address] 04/27/2024 11:12:39 04/27/2024 12:01:54 Gastroesophageal reflux disease without esophagitis [id number] K21.9 Upper GI and upper endoscopy results [...] revisional surgery. Chronic low back pain 27 [id number] M54.50 Patient reports worsening back pain with weight gain. He has been advised to focus on additional weight loss Obesity [id number] E66.9 Discussed medical weight loss options with [...] Body mass index 40+ - severely obese [id number] Z68.42 Current BMI is 47.9. Patient has seen a 10.3 lb gain since December 2023 History of gastrectomy [id number] Z90.3 Patient is to continue bariatric vitamin [...] Member ID Tovar Member ID Guarantor Name 07/27/2024 1 [id number] [id number] Larissa Enriquez [id number] Larissa Enriquez Notes Date Note Type Note [...] and those were within normal range. Aleyda oSler MD [address], [place], [address], [facility] [place] 06/18/2022 16:17:21 4 text/html 53-year-old male presents today as a transfer of care patient. His is a patient of [facility]. He is new to our practice status [...] rate 2289 ELIN Maria [address], [place], [address], [facility] & [place] 12/23/2023 13:48:03 4 text/html RDN met with patient for transfer of care and to complete initial nutrition assessment. He is new to our practice status post sleeve gastrectomy [address] 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 Interested in a revision but depends on scope. Height = 74 Weight =363.3#BMI = 46.6preop wt = 478# Weight hx: Has seen some weight recurrence. Did get down to 290# and weight gain since 220. Was taking ozempic and insurance stopped it. Now taking phentermine In body today shows BMI 46.6 with 46.1% body fat basal metabolic rate 2289 PMHX and meds list reviewed. See full encounter summary.Additional vitamins/supplements: b-complex, MVI with iron, calcium Food Allergies: NKFA Meal pattern: 3 meals per day, 1-2 snacks in between, sometimes will snack after dinner in the evening B - piece of sausage, 2 pieces of toast, hash brown - diet sodaS -L -PB and honey sandwich on wheat bread - diet sodaS - oatmeal cream pieD - [facility] - chicken critters, 2 baked potatoes, 2 rolls - diet sodaS - Beverages: diet soda (16 oz bottles 5-6), water 4-5 glasses Frequency of eating out: 4-5 days per week History tracking meals with an nazario or journal: does not track - not consistent Calories: UnsureProtein: UnsureFluids: 64+ Social Hx reviewed.Tobacco use/smoking: deniesAlcohol use: deniesRecreational drug use: denies Current physical activity: Broke back in 2019. Walking around 8-10K steps a day Additional notes/comments: GRIFFIN RAMOS, RD [address] [facility], [place], [address], [facility] - [facility] [place] 12/23/2023 14:31:42 4 text/html Patient returns to clinic today to discuss recent upper GI and upper endoscopy findings. 01/05/24 EGD Findings: Moderate amount of retained gastric fundus. Mild irritation of the gastric mucosa in the pre antral space. H pylori biopsies neg 01/03/24 UGI FINDINGSScout: Preliminary superintendent fish hatchery view of the abdomen demonstrates a nonobstructivebowel [...] care patient. His is a patient of [facility]. He is new to our practice [...] basal metabolic rate 2289 ELIN Maria [address] [facility], [place], [address], [facility] [place] 01/12/2024 13:32:30 5 text/html Patient returns to [...] pylori biopsies neg 01/03/24 UGI FINDINGSScout: Preliminary superintendent fish hatchery view of the abdomen demonstrates a nonobstructivebowel [...] care patient. His is a patient of [facility]. He is new to our practice status [...] with 46.1% body fat basal metabolic rate 2284 ELIN Maria [address], [place], [address], [place] [facility] [place] 04/27/2024 12:17:33
--- OUTSIDE RECORDS SUMMARY | 2024-08-02 15:19 | XMS_ITS | Data Portability ---
Author Organization [facility] Address [address] [place] [address] Care Team Providers Care Web Production Artist Name Role Phone DELMIS MILLS Primary Care Provider [phone] Assessment Encounter Date Assessment Date Assessment LastModified by Organization Details LastModified Time 08/26/2023 08/26/2023 -Medications were reviewed and any necessary updates and renewals were made, patient instructed to complete as prescribed. Discussed importance of taking thyroid medication now that he doesnt have a thyroid. -The potential side effects of medications were discussed. -Counseling was done on care goals and ways to prevent future hospitalizatio ns. -Further treatment per orders listed below. [email or web address] Not available 08/26/2023 15:58:11 Plan of Treatment Reminders Order Date Submit Date Provider Last Modified By Organization Details Last Modified Time Details Appointments Follow Up 20 2024 04:00P M Delmis Mills APRN Not available Not available Not available Lab drug screen, 14 drugs (detectim ed), urine 2024 025 ROMAIN [facility], [address], [place] F, [place], [address], 07/01/2024 18:06:59 drug screen, urine 2023 024 [facility], [address] [place] [address], [address], 12/02/2023 11:55:12 HbA1c (hemoglob in A1c), blood 2023 024 [facility], [address], [place], [address], 12/02/2023 11:55:13 Referral cardiolog ist referral 2023 024 ROMAIN Belle MD, [address] [place] [address] [address], [place], [address], 09/15/2023 14:25:09 Procedures None recorded. Surgeries None recorded. Imaging XR, knee, 3 view 2024 025 [facility] (X-Ray), [address] [place], [place] [address], [place], [address], 06/26/2024 18:05:03 US, echocardi ogram 2023 024 [facility] (Scheduling), [address] [place], [place] [address]y [address], [place], [address], 09/12/2023 14:31:41 Medication Orders phentermi ne 37.5 mg tablet 2024 025 [facility], [address] [place] [address] [address] [place], [id number], 07/23/2024 17:21:54 Wegovy 0.5 mg/0.5 mL subcutane ous pen injector 2024 025 [facility], [address] [place] [address] [address] [place], [id number], 07/23/2024 17:55:52 meloxicam 7.5 mg tablet 2024 025 [facility], [address] [place] [address] [address] [place], [id number], 06/25/2024 17:46:57 phentermi ne 37.5 mg tablet 2024 025 [facility], [address] [place] [address], [id number], 06/25/2024 17:46:57 phentermi ne 37.5 mg tablet 2023 024 [facility], [address] [place], [address], 01/10/2024 17:38:07 Zepbound 2.5 mg/0.5 mL subcutane ous pen injector 2023 024 [facility], [address] [place] [address], [address], 01/10/2024 17:04:08 Adipex-P 37.5 mg tablet 2023 024 [facility], [address] [place] [address], [address], 12/02/2023 11:55:13 phentermi ne 37.5 mg tablet 2023 024 [facility], [address] [place] [address], [address], 12/02/2023 11:16:12 Patient TargetsNo targets recorded. Patient Instructions Encounter Date Encounter Id Patient Instructions Last Modified By Organization Details Last Modified Time 08/26/2023 [id number] body mass index: care instructions efryman Not available 08/26/2023 16:23:10 learning about healthy weight efryman Not available 08/26/2023 16:23:10 01/10/2024 [id number] body mass index: care instructions efryman Not available 01/10/2024 17:38:05 learning about healthy weight efryman Not available 01/10/2024 17:38:05 Reason for Referral Private Chef Referral for El ectrocardiogram abnormal Referring Physician: Delmis Mills, Family Medicine, Encounter Date: 08/26/2023 Results Created Date Observation Date Name Description Value Unit Range Abnormal Flag Note LastModifiedBy Organization Detail LastModifiedTime 12/02/19 24 12/02/2023 HbA1c (hemo globi n A1c), blood HbA1C 5.5 % Not Available [address], [address], 12/02/2023 11:49:47 12/02/1912/02/2023 drug scree n, urine THC negati ve Not Available [address], [address], 12/02/2023 11:44:20 12/02/1912/02/2023 drug scree n, urine TCA positi ve Not Available [address], [address], 12/02/2023 11:44:20 12/02/1912/02/2023 drug scree n, urine BAR negati ve Not Available [address], [address], 12/02/2023 11:44:20 12/02/19 24 12/02/2023 drug scree n, urine BZO negati ve Not Available [address], [address], 12/02/2023 11:44:20 12/02/1912/02/2023 drug scree n, urine MTD negati ve Not Available [address], [address], 12/02/2023 11:44:20 12/02/1912/02/2023 drug scree n, urine AMP negati ve Not Available [address], [address], 12/02/2023 11:44:20 12/02/19 24 12/02/2023 drug scree n, urine MOP negati ve Not Available [address], [address], 12/02/2023 11:44:20 12/02/19 24 12/02/2023 drug scree n, urine OXY negati ve Not Available [address], [address], 12/02/2023 11:44:20 12/02/1912/02/2023 drug scree n, urine MDMA negati ve Not Available [address], [address], 12/02/2023 11:44:20 12/02/19 24 12/02/2023 drug scree n, urine LATRELL negati ve Not Available [address], [address], 12/02/2023 11:44:20 12/02/1912/02/2023 drug scree n, urine PCP negati ve Not Available [address], [address], 12/02/2023 11:44:20 12/02/19 24 12/02/2023 drug scree n, urine MET negati ve Not Available [address], [address], 12/02/2023 11:44:20 06/23/19 25 07/01/2024 COMPL IANCE DRUG AUSTEN SIS, UR summary report (summary) FINAL ===== ===== ===== ===== ===== ===== ===== ===== ===== ===== ===== ===== ===== === TOXAS SURE COMP DRUG AUSTEN SIS,U R ===== ===== ===== ===== ===== ===== ===== ===== ===== ===== ===== ===== ===== === Test Resul t Flag Units Drug Prese nt Cyclo benza rd PRESE NT Aceta minop hen PRESE NT Ibupr ofen PRESE NT Diphe nhydr amine PRESE NT ===== ===== ===== ===== ===== ===== ===== ===== ===== ===== ===== ===== ===== === Test Resul t Flag Units Ref Range Creat inine 50 mg/dL >=20 ===== ===== ===== ===== ===== ===== ===== ===== ===== ===== ===== ===== ===== === Decla red Medic ation s: Medic ation list was not provi ded. ===== ===== ===== ===== ===== ===== ===== ===== ===== ===== ===== ===== ===== === For clini kirsten consu ltati on, pleas e call . ===== ===== ===== ===== ===== ===== ===== ===== ===== ===== ===== ===== ===== === Not Available [facility] ([facility]) [address], [place], [address], 07/01/2024 18:06:59 06/23/19 25 07/01/2024 COMPL IANCE DRUG AUSTEN SIS, UR pdf . Not Available [facility] ([facility]) [address] [facility], [place], [address], 07/01/2024 18:06:59 08/14/19 24 08/14/2023 elect sonal haque am No observ ation record ed. [facility] [address], [place], [place], [address], 08/16/2023 08:21:08 09/12/19 24 09/09/2023 , [facility] ardio gram No observ ation record ed. [facility] [address], [place], [address], 09/12/2023 14:57:41 05/09/19 25 05/08/2024 XR, lumba r spine No observ ation record ed. [facility] [address], [place], [address], 05/10/2024 15:52:30 05/09/19 25 05/08/2024 XR, cervi kirsten spine , 2 or 3 view No observ ation record ed. [facility] [address], [place], [address], 05/10/2024 15:25:06 06/27/19 25 06/26/2024 XR, knee, 3 view No observ ation record ed. [facility] [address], [place], [address], 07/02/2024 10:31:56 07/11/19 25 07/10/2024 MRI, knee, w/o contr ast No observ ation record ed. [facility] [address], [place], [address], 07/10/2024 18:24:51 Result Notes None recorded. Problems Name Problem SNOMED Code Status Onset Date Resolution Date Notes Provider Name and Address Organization Details Recorded Time Insomnia 531775989 Active 2021 Delmis Mills APRN [address], [place], [address], [place] - [facility] 17:21:07 Gastroesophage al reflux disease 383140025 Active 2021 Delmis Mills APRN [address], [place], [address], [place] [facility] 2 17:21:14 Low back pain 853924882 Active 2021 Delmis Mills APRN [address], [place], [address], [place] [facility] 2 16:38:56 Obesity 578713456 Active 2021 Delmis Mills APRN [address], [place], [address], [place] [facility] 2 16:39:11 Thyroid nodule 687283097 Active 2022 Delmis Mills APRN [address], [place], [address], [place] [facility] 3 16:21:10 Prediabetes 059719483 Active 2022 Delmis Mills APRN [address], [place], [address], [place] [facility] 3 16:58:01 Problem Notes None recorded. Procedures Surgical History Date Name Laterality Status Provider Name and Address Organization Details Recorded Time 08/26/19 24 Medication Reconcilliation completed Asia Peguero [place] - [facility] 08/26/2023 15:25:10 08/16/19 24 thyroidectomy completed Asia Peguero [place] - [facility] 08/26/2023 15:34:00 12/27/19 21 Back Surgery completed Asia KOO - [facility] 10/06/2021 16:56:27 laparoscopic sleeve gastrectomy completed Asia Peguero [place] - [facility] 10/06/2021 16:58:42 Unlisted procedure shoulder completed Asia Peguero [place] - [facility] 10/06/2021 16:58:58 Hernia Repair completed Asia KOO - [facility] 10/06/2021 16:59:10 Imaging Results None recorded. Procedure [...] saturation in Arterial blood by Pulse oximetry Systolic blood pressure Diastolic blood pressure Provider Name and Address Organization Details Last Updated DateTime 5 182.88 cm 18 /min 51.9 kg/m2 257144. 88 g 89 /min 97 % 97 % 118 mm[Hg] 70 mm[Hg] Asia Peguero [place] - [facility] 5 14:30:35 Date Recorded Body height Respiratory rate Body mass index (BMI) Body weight Heart rate Oxygen saturation Oxygen saturation in Arterial blood by Pulse oximetry Body temperature Systolic blood pressure Diastolic blood pressure Provider Name and Address Organization Details Last Updated DateTime 5 182.88 cm 18 /min 49.6 kg/m2 711134. 81 g 78 /min 97 % 97 % 97.9 [degF] 120 mm[Hg] 74 mm[Hg] Jennifer Miranda [place] - [facility] 5 16:52:21 Date Recorded Body height Body mass index (BMI) Body weight Body temperature Heart rate Oxygen saturation Oxygen saturation in Arterial blood by Pulse oximetry Respiratory rate Systolic blood pressure Diastolic blood pressure Provider Name and Address Organization Details Last Updated DateTime 4 182.88 cm 47.1 kg/m2 558356. 55 g 97.1 [degF] 73 /min 97 % 97 % 20 /min 118 mm[Hg] 72 mm[Hg] Asia Peguero [place] - [facility] 4 15:31:34 Date Recorded Body height Respiratory rate Body mass index (BMI) Body weight Heart rate Oxygen saturation Oxygen saturation in Arterial blood by Pulse oximetry Systolic blood pressure Diastolic blood pressure Provider Name and Address Organization Details Last Updated DateTime 4 182.88 cm 18 /min 49.9 kg/m2 418085. 99 g 70 /min 96 % 96 % 140 mm[Hg] 82 mm[Hg] Jennifer Grahamabdi [place] - [facility] 4 11:15:38 Date Recorded Body height Body mass index (BMI) Body weight Body temperature Heart rate Oxygen saturation Oxygen saturation in Arterial blood by Pulse oximetry Respiratory rate Systolic blood pressure Diastolic blood pressure Provider Name and Address Organization Details Last Updated DateTime 4 182.88 cm 49 kg/m2 308128. 85 g 98.7 [degF] 87 /min 97 % 97 % 20 /min 128 mm[Hg] 86 mm[Hg] Asia [place]ero [place] [facility] 17:03:11 Social History Question Answer Notes LastModified by Organizat ion Details LastModified Time Tobacco Smoking Status Never Smoker sAia Peguero [facility] 10/06/2021 16:56:26 Do You Have An Advance [...] Or The Highest Degree You Have Received? [id number] Information not available 10/06/2021 Have There Been Any Changes To Your Family Or Social Situation? No Information no t available 12/03/2021 What Is The Fluoride Status Of Your Home? Unknown Information not available 12/03/2021 How Many Years Have You Used Illicit Or Recreational Drugs? 0 Information not available 10/06/2021 Do You Have A Medical Power Of Offbearer Sewer Pipe? No Information not available 12/03/2021 What Was [...] anxious, or unable to sleep at night)? [id number] Information not available 10/06/2021 Do you have difficulty concentrating, remembering or making decisions? No Information no t available 12/03/2021 Family History Relationship Description Onset Age of this Age Resolved Age Notes LastModified by Organization Details LastModified Time Mother Malignant tumor of colon cbuckler Not available 2021 16:56:25 Medical History Condition Response Muscle, Joint, or Bone Problems Y Obesity Y Arthritis Y Fracture Y Kidney Stones Y Sleep Apnea Y Hernia Y Insomnia Y Thyroid Problems Y Kidney or Bladder Problems Y Immunizations Vaccine Type Date Status Note [...] SNOMED-CT Code Diagnosis ICD10 Code Diagnosis Note [id number] Delmis Mills [address] [address] 10/06/2021 16:41:45 10/06/2021 17:59:03 Morbid obesity 532833414 E66.01 Pt compliant with plan of careKasper reviewedme dication compliance discussedL ast uds: 10/06/21Con trol substance agreement on file Insomnia 082706138 G47.0 0 Gastroesop hageal reflux disease 901320941 K21.9 Low back pain 794071094 M54.50 fmla paperwork filled out [id number] Delmis Mills [address] [address] 12/03/2021 16:00:26 12/03/2021 16:32:25 Pain of right knee joint 7531047271 83682 M25.561 Obesity 602013484 E66.9 Pt compliant with plan of careKasper reviewedme dication compliance discussedL ast uds: 2Control substance agreement on file [id number] Delmis Mills [address] [address] 03/23/2022 15:42:22 03/23/2022 16:40:24 Increased frequency of urination 038304854 R35.0 Delay when starting to pass urine 4759823 R39.11 Obesity 703447090 E66.9 Pt compliant with plan of careKasper reviewedme dication compliance discussedL ast uds: 2Control substance agreement on file Thyroid nodule 450322283 E04.1 Edema of l ower extremity 040864174 R60.0 wait for labs if labs ok will send for echo [id number] Delmis Mills[address] [address] 05/21/2022 14:01:19 05/21/2022 16:01:35 Obesity 536067477 E66.9 Pt compliant with plan of careKasper reviewedme dication compliance discussedL ast uds: 2Control substance agreement on file Thyroid nodule 369804176 E04.1 Prediabetes 915682559 R7 3.03 talked with pt metformin is causing gi issues, nausea,carlie rrhea and he is unable to tolerated it. [id number] Angelanardatrey Gene [facility] [address] [address] 06/29/2022 16:37:14 06/29/2022 17:01:59 Obesity 978538408 E66.9 Pt compliant with plan of careKasper reviewedme dication compliance discussedL ast uds: 2Control substance agreement on file Body mass index 40+ - severely obese 437255097 Z68.42 Morbid obesity 922720087 E66.01 Pt compliant with plan of careKasper reviewedme dication compliance discussedL ast uds: 10/06/21Con trol substance agreement on file Prediabetes 127441857 R7 3.03 talked with pt metformin is causing gi issues, nausea,carlie rrhea and he is unable to tolerated it. [id number] Angelanardatrey Gene [employer] [facility] [address] [address] 08/05/2022 16:00:03 08/05/2022 16:59:15 Obesity 778600581 E66.9 Pt compliant with plan of careKasper reviewedme dication compliance discussedL ast uds: 2Control substance agreement on file Prediabetes 237738426 R7 3.03 talked with pt metformin is caused gi issues, nausea,carlie rrhea and he is unable to tolerated it. Body mass index 40+ - severely obese 273927125 Z68.42 Morbid obesity 238144142 E66.01 Pt compliant with plan of careKasper reviewedme dication compliance discussedL ast uds: 10/06/21Con trol substance agreement on file [id number] Delmis Paradajoaquin [address] [address] 09/24/2022 16:03:07 09/24/2022 17:02:07 Obesity 828807650 E66.9 Pt compliant with plan of careKasper reviewedme dication compliance discussedL ast uds: 2Control substance agreement on file Prediabetes 914803893 R7 3.03 talked with pt metformin is caused gi issues, nausea,carlie rrhea and he is unable to tolerated it. Body mass index 40+ - severely obese 974306930 Z68.42 Morbid obesity 582783036 E66.01 Pt compliant with plan of careKasper reviewedme dication compliance discussedL ast uds: 10/06/21Con trol substance agreement on file [id number] Delmis Mills [address] [address] 11/26/2022 09:22:47 11/26/2022 10:10:52 Obesity 023377302 E66.9 Pt compliant with plan of careKasper reviewedme dication compliance discussedL ast uds: 2Control substance agreement on file Prediabetes 731755258 R7 3.03 Body mass index 40+ - severely obese 842680077 Z68.42 46.2 Morbid obesity 711945184 E66.01 Pt compliant with plan of careKasper reviewedme dication compliance discussedL ast uds: 10/06/21Con trol substance agreement on file [id number] Delmis Mills [address] [address] 01/04/2023 18:12:41 01/11/2023 08:01:31 Obesity 273968428 E66.9 Pt compliant with plan of careKasper reviewedme dication compliance discussedL ast uds: 2Control substance agreement on file Prediabetes 292081789 R7 3.03 pt called unable to get ozempic 2 mg wants 1 mg sent Insomnia 718470269 G47.0 0 Gastroesop hageal reflux disease 842591003 K21.9 [id number] Delmis Mills [address] [address] 02/17/2023 15:47:13 02/17/2023 16:18:11 Obesity 152726127 E66.9 Pt compliant with plan of careKasper reviewedme dication compliance discussedL ast uds: 2Control substance agreement on file Prediabetes 083270648 R7 3.03 pt called unable to get ozempic 2 mg wants 1 mg sent [id number] Delmis Mills [employer] [employer] [address] [address] 04/01/2023 13:45:36 04/01/2023 14:35:45 Obesity 269591075 E66.9 Pt compliant with plan of careKasper reviewedme dication compliance discussedL ast uds: 2Control substance agreement on file [id number] Delmis Paradajoaquin [address] [address] 08/26/2023 15:09:27 08/26/2023 16:15:35 History of total thyroidectomy 5240619671 37019 Z90.89 Patient presents with surgical incision cdi. Patient states no new issues, told to follow up if any swelling, redness, or unusual symptoms occur. Electrocar diogram abnormal 629354827 R94.31 Per last ekg patient has left ventricula r hypertroph y and some atrial enlargemen t. Patient referred to have a echocardio gram done. Morbid obesity 965190954 E66.01 Pt compliant with plan of careKasper reviewedme dication compliance discussedL ast uds: 10/06/21Con trol substance agreement on file Obesity 324418255 E66.9 47.1 [id number] Delmis Mills APRN [address] [address] 12/02/2023 10:55:19 12/02/2023 11:55:17 Body mass index 40+ - severely obese 527410799 Z68.42 49.9med discussed with pt Prediabetes 328738375 R7 3.03 [id number] Delmis Mills [employer] [employer] [address] [address] 01/10/2024 16:42:24 01/10/2024 17:33:00 Obesity 177261857 E66.9 Pt compliant with plan of careKasper reviewedme dication compliance discussedL ast uds:Control substance agreement on file Body mass index 40+ - severely obese 033824226 Z68.42 49med discussed with pt Morbid obesity 418731193 E66.01 Pt compliant with plan of careKasper reviewedme dication compliance discussedL ast uds: 10/06/21Con trol substance agreement on file [id number] Delmis Mills APRN [address] [address] 06/22/2024 14:09:02 06/22/2024 15:03:07 Obesity 614073878 E66.9 Pt compliant with plan of careKasper reviewedme dication compliance discussedL ast uds:06/22/24 Control substance agreement on filediscus sed diet and exercise Long-term current use of drug therapy 371767413 Z79.899 Pain of le ft knee joint 3601310052 95677 M25.562 xray-mrior tho consult if needed [id number] Delmis Mills APRN [address] [address] 07/23/2024 16:38:01 07/23/2024 17:20:13 Obesity 678537705 E66.9 Pt compliant with plan of careKasper [...] ID Guarantor Name 07/23/2024 1 [employer] [id number] Asif Enriquez [id number] Asif Enriquez Notes Date Note Type Note Provider Name and Address Organization Details Recorded Time 08/26/2023 text/html 53 yr old male presents for a post surgical thyroid removal. He had an abnormal ekg prior to surgery and would like a further work up. pt states he is not able to lose wt, would like to restart adipex Delmis Mills APRN [address], [place], [address], [place] - [facility] 08/26/2023 16:23:58 12/02/2023 text/html 53 year old male who presents to the office today for a follow up onweight loss. He wants to restart adipex and try another weight loss shot with it. He states hes gained a lot of weight back in a short time after hes had his thyroid removed. Delmis Mills, [facility] [address], [place], [address], [place] - [facility] 12/02/2023 13:10:25 01/10/2024 text/html 53 yr old male presents for a weight loss follow up. down 7 lbs. pt states he is doing well on adipex with diet and exercise. pt states he has plans to have gastric revision surgery when his insurance approves it. Delmis Paradarodavide, [facility] [address], [place], [address], [place] - [facility] 01/10/2024 17:39:58 06/22/2024 text/html 54 yr old male presents to follow up on weight loss. pt states he is on wegovy and diet and exercise without success. pt is in the process to get wt loss surgery revision but needs to be in wt loss plan. has taken adipex in past and tolerated well. He has left knee pain after popping it while carrying a mattress on stairs. Delmis Paradajoaquin, [facility] [address], [place], [address], [place] - [facility] 06/22/2024 17:06:25 07/23/2024 text/html 54 year old male who presents to the office today for a follow up onweight lossat his last appt on 06-22-24 he weighed 383 lbstoday pt weighs 366 lbs. pt states doing well on meds Delmis Mills, [facility] [employer] [address], [place], [address], [place] - [facility] 07/23/2024 17:18:52
--- OUTSIDE RECORDS SUMMARY | 2024-08-02 15:19 | XMS_ITS | Continuity of Care Document ---
[facility] Organization [facility] Address [address] [place] [address] Care Team Providers Care Mid Level Net Developer Name Role Phone DELMIS MILLS Primary Care Provider Assessment No assessment recorded. Plan of Treatment Reminders Order Date Submit Date Provider Last Modified By Organization Details Last Modified Time Details Appointments Follow Up 20 2024 04:00P Mina Mills APRN Not available Not available Not available Lab drug screen, 14 drugs (detectim ed), urine 2024 025 [place] [facility], [address], [address], [place], [address], 07/01/2024 18:06:59 Referral None recorded. Procedures None recorded. Surgeries None recorded. Imaging XR, knee, 3 view 2024 025 [facility] ([facility]), [address] [place] [address] [address], [place], [address], 06/26/2024 18:05:03 Medication Orders meloxicam 7.5 mg tablet 2024 025 [facility], [address] [place] [address] [address] [place], [id number], 06/25/2024 17:46:57 phentermi ne 37.5 mg tablet 2024 025 [facility], [address] [place] [address] [address] [place], [id number], 06/25/2024 17:46:57 Patient TargetsNo targets recorded. Patient InstructionsNo instructions recorded. Reason for Referral None Reported. Results Created Date Observation Date Name Description Value Unit Range Abnormal Flag Note LastModifiedBy Organization Detail LastModifiedTime 06/27/19 25 06/26/2024 XR, knee, 3 view No observ ation [facility] ed[facility] [address], [place], [address], 07/02/2024 10:31:56 07/11/19 25 07/10/2024 MRI, knee, w/o contr ast No observ ation [facility] ed. [facility] [address], [place], [address], 07/10/2024 18:24:51 Result Notes None recorded. Problems Name Problem SNOMED Code Status Onset Date Resolution Date Notes Provider Name and Address Organization Details Recorded Time Insomnia 507991100 Active 2021 Delmis Mills, TALENT ASSISTANT [address], [place], [address], [place] - [facility] 17:21:07 Gastroesophage al reflux disease 373120129 Active 2021 Delmis Mills, TALENT ASSISTANT [address], [place], [address], [place] [facility] 17:21:14 Low back pain 683151818 Active 2021 Delmis Mills, TALENT ASSISTANT [address], [place], [address], [place] [facility] 16:38:56 Obesity 997754715 Active 2021 Delmis Mills, TALENT ASSISTANT [address], [place], [address], [place] [facility] 16:39:11 Thyroid nodule 866572756 Active 2022 Delmis Mills APRN [address], [place], [address], [place] [facility] 16:21:10 Prediabetes 222764817 Active 2022 Delmis Mills, TALENT ASSISTANT [address], [place], [address], [place] - [facility] 16:58:01 Problem Notes None recorded. Procedures Surgical History Date Name Laterality Status Provider Name and Address Organization Details Recorded Time 08/26/19 24 Medication Reconcilliation completed Asiaharrison Peguero [place] - [facility] 08/26/2023 15:25:10 08/16/19 24 thyroidectomy completed Asiaharrison KOO - [facility] 08/26/2023 15:34:00 12/27/19 21 Back Surgery completed Asiaharrison KOO - [facility] 10/06/2021 16:56:27 laparoscopic sleeve gastrectomy completed Asiaharrison KOO - [facility] 10/06/2021 16:58:42 Unlisted procedure shoulder completed Asiaharrison KOO - [facility] 10/06/2021 16:58:58 Hernia Repair completed Asiaharrison KOO - [facility] 10/06/2021 16:59:10 Imaging Results [...] 5 182.88 cm 18 /min 51.9 kg/m2 196667. 88 g 89 /min 97 % 97 % 118 mm[Hg] 70 mm[Hg] Asia Peguero [place] - [facility] 14:30:35 Social History Question Answer Notes LastModified by Organizat ion Details LastModified Time Tobacco Smoking Status Never Smoker [place]AY[place] Almaraz - [facility] 10/06/2021 16:56:26 Do You Have [...] Or The Highest Degree You Have Received? [id number] Information not available 10/06/2021 Have There Been Any Changes To Your Family Or Social Situation? No Information no t available 12/03/2021 What Is The Fluoride Status Of Your Home? Unknown Information not available 12/03/2021 How Many Years Have You Used Illicit Or Recreational Drugs? 0 Information not available 10/06/2021 Do You Have A Medical Power Of Plating Machine Operator? No Information not available 12/03/2021 What Was [...] anxious, or unable to sleep at night)? [id number] Information not available 10/06/2021 Do you have difficulty concentrating, remembering or making decisions? No Information no t available 12/03/2021 Family History Relationship Description Onset Age of this Age Resolved Age Notes LastModified by Organization Details LastModified Time Mother Malignant tumor of colon cbuckler Not available 2021 16:56:25 Medical History Condition Response Muscle, Joint, or Bone Problems Y Obesity Y Fracture Y Arthritis Y Kidney Stones Y Sleep Apnea Y [...] SNOMED-CT Code Diagnosis ICD10 Code Diagnosis Note [id number] Delmis Mills APRN [address] [address] 06/22/2024 14:09:02 06/22/2024 15:03:07 Obesity 026741434 E66.9 Pt compliant with plan of careKasper reviewedme dication compliance discussedL ast uds:06/22/24 Control substance agreement on filediscus sed diet and exercise Long-term current use of drug therapy 598988865 Z79.899 Pain of le ft knee joint 4067088708 98769 M25.562 xray-mrior tho consult if needed Health Concerns Section Related Observation LastModified by Organization Detai ls LastModified Time None Recorded Concern Status LastModified by Organization Details LastModified Time None Recorded Payers Encounter Date Sequence Insurance Name Policy Number Policy Tovar Covered Member ID Tovar Member ID Guarantor Name 06/22/2024 1 [place] [id number] Asif Enriquez [id number] Asif Enriquez Notes Date Note Type Note Provider Name and Address Organization Details Recorded Time 06/22/2024 text/html 54 yr old male presents [...] while carrying a mattress on stairs. Delmis Mills, TALENT ASSISTANT [address], [place], [address], [place] - [facility] 06/22/2024 17:06:25
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
--- OUTSIDE RECORDS SUMMARY | 2024-08-02 15:19 | XMS_ITS | Encounter Summary ---
Author Organization [facility] Address [address] [place] [address] Care Team Providers Care Secretary Receptionist Name Role Phone Elisabet Mills AMUSEMENT PARK WORKER Primary Care Provider +1- [phone] Encounter Details Date Type Department Care Team (Latest Contact Info) Description 06/07/2024 Travel Social History Tobacco Use Types Packs/Day Years [...] Joint [address], [address] [place] [address] Taz Rios MD [address] [place] [address] documented as of this encounter Visit Diagnoses Not on filedocumented in this encounter Additional Health Concerns Assessment Noted Time A fall risk assessment has been complete d for the patient 06/07/2024 1:50 PM EDT A Body Mass Index follow-up plan has been documented for the patient 06/07/2024 2:47 PM EDT documented as of this encounter Care Teams Secretary Receptionist Relationship Specialty Start Date End Date Elisabet Mills APRN [address] [place] [address] PCP - General 12/26/20 documented as of this encounter
--- NOTE | 2024-08-02 15:21 | EXP.PAIN.SOA ---
[facility] Disclaimer: The information contained in this section may have been updated after the patient was seen, as this information can be updated by other users. Medical History Lumbar compression fracture Hydrocele Kidney stone Sleep apnea History of COVID-19 History of gastroesophageal reflux (GERD) Multinodular goiter History of thyroid nodule Hypothyroidism Tinnitus of both ears Fracture of lumbar spine Cervical spine fracture Thyroid nodule Obesity Surgical History History of total thyroidectomy H/O thyroidectomy H/O gastric sleeve Hx of rotator cuff surgery right History of hernia surgery Family History Mother Colon cancer Sister Diabetes Social History Smoking Status: Never smoker alcohol intake: never substance use type: denies use current occupational status: employed Travel in the last 8 weeks?: None household members: spouse and family housing: house 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 Today he does state that is not as bad that he has not done his meds where there was a health fair. Patient does state however that yesterday it was a 6 out of 10 and was really bothering him. Patient denies any new falls or injuries. He does state it is still the same pain that we have been treating there across to his low back. He still denies any radiating symptoms into his legs. He does state the pain is worse with certain movements such as bending, twisting or lifting. Patient would like to go ahead and get scheduled for the repeat injection as the pain is interfering with his ability perform activities of daily living now. Patient did get approximately 85% relief with his first lumbar block that lasted 6 weeks. Patient is prescribed compounded cream from our office and states this is still helping. Patient is also still continuing to try to lose additional weight and is on Wegovy. He states when he last checked in he had lost 17 pounds as of right now. Patient was still trying to get additional gastric surgery but he states today that he has gotten insurance denial the last 2 times. Patient does have a history of gastric sleeve. His Damon has been reviewed and is appropriate. Review of Systems: General: No recent weight changes, no fever, no sleep disturbances Respiratory: No cough, no shortness of air, no recurring pulmonary infections Cardiovascular/peripheral vascular: No chest pain, no palpitations, no edema, no shortness of breath Gastrointestinal: No new onset incontinence, normal bowel movements reported Genitourinary: No new onset incontinence Musculoskeletal: Low back pain Psychiatric: [Normal mood/affect] Neurological: [Denies weakness in extremities], [denies balance issues] Pain at rest (0-10 scale): 6 Objective Objective:: Physical Exam: General: Alert and oriented x3, no acute distress, pleasant and cooperative Lungs: Respirations even and unlabored, symmetrical chest expansion Eyes: PERRL Musculoskeletal: Flexion and extension of lumbar [spine] somewhat guarded secondary to pain, [antalgic gait noted] positive Kemps test Neurological: Speech clear, no gross sensory deficit Has patient had previous pain injection?: No Conservative treatment options previously tried: Home exercise plan Length of treatment: Longer than 12 weeks Meds Home Medications and Allergies Home Medications ?Medication ?Instructions ?Recorded ?Confirmed ?Type hydroxyzine pamoate 25 mg capsule 25 mg PO HS 08/16/23 07/23/24 History omeprazole 40 mg capsule,delayed 40 mg PO DAILY 08/16/23 07/23/24 History release calcium carbonate 500 mg PO BID #60 tabs 08/17/23 07/23/24 Rx phentermine 37.5 mg tablet 37.5 mg PO DAILY Weight loss 09/15/23 07/23/24 History levothyroxine 175 mcg tablet 175 mcg PO DAILY #60 tabs 01/09/24 07/23/24 Rx (Synthroid) New Prescriptions to Start Prescriptions: Allergies Allergy/AdvReac Type Severity Reaction Status Date / Time No Known Allergies Allergy Verified 07/23/24 13:45 Assessment and Plan *Assessment and plan (1) Lumbar facet arthropathy: Status: Acute Category: Medical Code(s): M47.816 - Spondylosis without myelopathy or radiculopathy, lumbar region (2) Degenerative disc disease: Status: Acute Category: Medical Plan Patient did have a successful first lumbar medial branch block and I did review with him regarding repeat lumbar block. Risk and benefits were discussed with patient and he would like to proceed forward with this plan of care. Patient did have limited range of motion of his lumbar spine during today's visit with a positive Kemps test. Patient was counseled if he does get significant improvement with this second lumbar block we will proceed forward with the lumbar RFA at a later date. Patient acknowledges understanding agrees with plan of care. Patient has continued at home stretching and exercise for longer than 12 weeks with no additional changes. Patient does have a longstanding history of chronic back pain for longer than 6 months. Patient has failed oral medications, heat and ice, topicals. Patient did have 85% improvement with his first lumbar medial branch blocks that did last 6 weeks. We will schedule him for the second lumbar medial branch block bilaterally L4-L5 and L5-S1 under fluoroscopy. Patient has been instructed to contact the clinic with any concerns before the next appointment. Dr. Miranda has reviewed this note and agrees with this plan of care. This note was dictated using voice recognition software and make contain errors or omissions. All injections are used with Lidocaine, Bupivacaine and dexamethasone unless diagnostic in which no steroids are used. Occasionally urine drug screen is needed to verify patient's compliance with our office pain contract. This is ordered based off specific treatments related to chronic pain with the potential to abuse certain medications.
[2024-08-02 15:25] VITALS: BP 127/82; PULSE 95; RESP 18; O2SAT 97; BMI 45.7
== END 2024-08-02 23:59 | disposition home or self-care (01) ==
PROVIDERS: PCP Nurse Practitioner Family; Visit Provider Nurse Practitioner Family
DX: M47.816 Spondylosis without myelopathy or radiculopathy, lumbar region (principal)
CPT/HCPCS: 99212; G0463

== ENCOUNTER 2024-08-15 17:00 | Outpatient (RCR) | payer BC, SELFPAY | END 2024-08-15 23:59 | disposition home or self-care (01) | LOC: PT 17:00 | PROVIDERS: PCP Nurse Practitioner Family; Visit Provider Physician Assistant Medical | DX: M54.50 Low back pain, unspecified (principal); M41.30 Thoracogenic scoliosis, site unspecified; Z98.1 Arthrodesis status | CPT/HCPCS: 97014; 97110; 97164; G0283 ==

== ENCOUNTER 2024-08-28 09:34 | Day surgery (SDC) | payer BC, SELFPAY ==
--- OUTSIDE RECORDS SUMMARY | 2024-08-28 09:39 | XMS_ITS | Continuity of Care Document ---
[facility] Address [address] [place] [address] Care Team Providers Care Installer Technician Name Role Phone SAUNCION ANGELACLOVERTrey Primary Care Provider Assessment No assessment recorded. Plan of Treatment Reminders Order Date Submit Date Provider Last Modified By Organization Details Last Modified Time Details Appointments None recorded. Lab None recorded. Referral None recorded. Procedures None recorded. Surgeries None recorded. Imaging None recorded. Medication Orders phentermine 37.5 mg tablet 2024 025 [facility], [address] [place] [address] [address] [place], [id number], 17:45:14 Wegovy 0.5 mg/0.5 mL subcutaneou s pen injector 2024 025 [facility], [address] [place] [address] [address] [place], [id number], 5 17:14:57 Patient TargetsNo targets recorded. Patient InstructionsNo instructions recorded. Reason for Referral None Reported. Results Created Date Observation Date Name Description Value Unit Range Abnormal Flag Note LastModifiedBy Organization Detail LastModifiedTime 06/27/1906/26/2024 XR, knee, 3 view No observ ation record ed. [address], [place], [address], 07/02/2024 10:31:56 07/11/1907/1007/10/2024 MRI, knee, w/o contr ast No observ ation record ed. [facility] [address], [place], [address], 07/10/2024 18:24:51 Result Notes None recorded. Problems Name Problem SNOMED Code Status Onset Date Resolution Date Notes Provider Name and Address Organization Details Recorded Time Insomnia 820797392 Active 2021 Elisabet Mills, PEDIGREE RESEARCHER [address], [place], [address], [place] - [facility] 17:21:07 Gastroesophage al reflux disease 573848462 Active 2021 Elisabet Mills APRN [address], [place], [address], [place] - [facility] 17:21:14 Low back pain 309902599 Active 2021 Elisabet Mills APRN [address], [place], [address], [place] [facility] 16:38:56 Obesity 957684784 Active 2021 Angelamj Mills, PEDIGREE RESEARCHER [address], [place], [address], [place] [facility] 16:39:11 Thyroid nodule 867638166 Active 2022 Elisabet Mills APRN [address], [place], [address], [place] [facility] 16:21:10 Prediabetes 785021097 Active 2022 Elisabet Mills, PEDIGREE RESEARCHER [address], [place], [address], [place] [facility] 16:58:01 Problem Notes None recorded. Procedures Surgical History Date Name Laterality Status Provider Name and Address Organization Details Recorded Time 08/26/19 24 Medication Reconcilliation completed Asia Peguero [place] - [facility] 08/26/2023 15:25:10 08/16/19 24 thyroidectomy completed Asia KOO - [facility] 08/26/2023 15:34:00 11/05/20 21 Back Surgery completed Asia KOO - [facility] 10/06/2021 16:56:27 laparoscopic sleeve gastrectomy completed Asia KOO - [facility] 10/06/2021 16:58:42 Unlisted procedure shoulder completed Asia KOO - [facility] 10/06/2021 16:58:58 Hernia Repair [...] MOUTH EVERY DAY 30 MINUTES BEFORE OR 1 TO 2 HOURS AFTER BREAKFAST active Not Available Not Available No t Available ciprofloxac in 500 mg tablet TAKE 1 TABLET BY MOUTH EVERY 12 HOURS FOR 10 DAYS 08/16 /2022 completed Not Available Not Available Not Available [...] pack TAKE ACCORDING TO PACKAGE INSTRUCTI ONS active Not Available Not Available No t Available cefdinir 300 mg capsule TAKE 1 CAPSULE 3 TIMES A DAY 06/22 completed Not Available Not Available Not Available amoxicillin 875 mg-potassiu m clavulanate 125 mg tablet TAKE ONE TABLET BY MOUTH TWICE DAILY FOR FOURTEEN DAYS active Not Available Not Available No t Available hydroxyzine pamoate 25 mg capsule TAKE [...] MG EVERY WEEK BY SUBCUTANE OUS ROUTE 12/01 completed Not Available Not Available Not [...] blood by Pulse oximetry Body temperature Systolic And Diastolic Provider Name and Address Organization Details Last Updated DateTime 5 182.88 cm 18 /min 49.6 kg/m2 853645. 81 g 78 /min 97 % 97 % 97.9 [degF] 120/74 mm[Hg] Jennifer Miranda [place] - [facility] 5 16:52:21 Social History Question Answer Notes LastModified [...] Or The Highest Degree You Have Received? GD92812-7 Information not available 10/06/2021 Have There Been Any Changes To Your Family Or Social Situation? No Information no t available 12/03/2021 What Is The Fluoride Status Of Your Home? Unknown Information not available 12/03/2021 How Many Years Have You Used Illicit Or Recreational Drugs? 0 Information not available 10/06/2021 Do You Have A Medical Power Of Accounts Adjustable Clerk? No Information not available 12/03/2021 What Was [...] anxious, or unable to sleep at night)? [id number] Information not available 10/06/2021 Do you have [...] Immunizations Vaccine Type Date Status Note Provider Esteban sarabia and Address Organization Details Recorded Time COVID-19, mRNA, LNP-S, PF, 100 mcg/0.5mL dose or 50 mcg/0.25mL dose completed Jennifer brown, [place] - [facility] 05/21/2022 14:06:04 COVID-19, mRNA, [...] SNOMED-CT Code Diagnosis ICD10 Code Diagnosis Note [id number] Dwaynetrey Mills[address] [address] 06/22/2024 14:09:02 06/22/2024 15:03:07 Obesity 972194804 E66.9 Pt compliant with plan of careKasper reviewedme dication compliance discussedL ast uds:06/22/24 Control substance agreement on filediscus sed diet and exercise Long-term current use of drug therapy 478894844 Z79.899 Pain of le ft knee joint 9361437490 93055 M25.562 xray-mrior tho consult if needed [id number] Dwaynetrey Mills [address] [address] 07/23/2024 16:38:01 07/23/2024 17:20:13 Obesity 206960706 E66.9 Pt compliant with plan of careKasper [...] ID Guarantor Name 07/23/2024 1 [place] [id number] Asif Enriquez [id number] Asif Enriquez Notes Date Note Type Note Provider Name and Address Organization Details Recorded Time 07/23/2024 text/html 54 year old male who presents to the office today for a follow up onweight lossat his last appt on 06-22-24 he weighed 383 lbstoday pt weighs 366 lbs. pt states doing well on meds Elisabet Mills, PEDIGREE RESEARCHER [address], [place], [address], [place] - [facility] 07/23/2024 17:18:52
--- OUTSIDE RECORDS SUMMARY | 2024-08-28 09:39 | XMS_ITS | Clinical Summary ---
Author Organization [facility] Address [address] [place] [address] Care Team Providers Care Juice Mixer Name Role Phone Elisabet Mills YOSHI Primary Care Provider +1- [phone] Allergies No known active allergies Medications omeprazole [...] MOUTH TWICE DAILY 4 Active HYDROcodone-lena taminophen ([place]) 5-325 MG tablet TAKE ONE TABLET BY [...] Encounter Medical Office Building Radiology [address] [place] [address] Lumbar pain; Thoracogenic scoliosis, unspecified spinal region Discharge Disposition: Home or Self Care 06/07/2024 1:30 PM EDT Office Visit Medical Office Building [facility] [address], [address] [place] [address] John Gomez PA Lumbar pain (Primary Dx); History of thoracic spinal fusion; Neck pain; Numbness and tingling in left hand 06/07/2024 Travel from Last 3 Months Family History Medical [...] 06/07/2024 1:51 PM EDT Plan of Treatment Health Maintenance Due Date Last Done Comments [...] 2020 [facility]-Zoster Vaccines (1 of 2) 2020 FYI-PZDRH-30 Vaccine (3 - Moderna risk series) 12/30/2020 12/02/2020, 11/03/2020 [facility]-Influenza Vaccine (#1) 2024 11/08/2023 [facility]-Diabetes: Hemoglobin A1C Discontinued 12/26/2020 [facility]-Obesity Intervention Completed 06/07/2024 HPV Vaccines Aged [...] this topic Medical Devices Implanted Type Area Education Faculty Member Device Identifier Shelf Expiration Date Model / Serial / Lot Collar Ti With Grooves - [id number] Implanted:Qty : 8 on 12/27/2020 by Saad Griggs MD at [facility] Cap N/A: Spine Lumbar DePuy Spine Perpetuall [id number] 498.011 / / Manjinder Hard Ti 6.0mm 200mm - [id number] Implanted:Qty : 2 on 12/27/2020 by Saad Griggs MD at [facility] Manjinder N/A: Spine Lumbar DePuy Spine Perpetuall [id number] 498.108 / / Screw Uss Ti Dual Core 6.0mm X 40mm - [id number] Implanted:Qty : 4 on 12/27/2020 by Saad Griggs MD at [facility] Screw N/A: Spine Lumbar DePuy Spine Sales [id number] 04.602.64 0 / / Screw Uss Ti Dual Core 6.0mm X 35mm - [id number] Implanted:Qty : 3 on 12/27/2020 by Saad Griggs MD at [facility] Screw N/A: Spine Lumbar DePuy Spine Sales [id number] 04.602.63 5 / / Nut Ti 11mm Width Across Flats - [id number] Implanted:Qty : 8 on 12/27/2020 by Saad Griggs MD at [facility] Washer N/A: Spine Lumbar DePuy Spine Sales [id number] 498.003 / / Putty Dbx 10cc - [id number] Implanted:Qty : 1 on 12/27/2020 by Saad Griggs MD at [facility] N/A: Spine Lumbar Musculoskeletal Transplant Foundati-[id number] 08/13/2022 [id number] / / [id number] Graft Vivigen 5cc - [id number] - [id number] Implanted:Qty : 1 on 12/27/2020 by Saad Griggs MD at [facility] N/A: Spine Lumbar [facility]-[id number] 12/17/2021 BL-1500-0 -8 073 / [id number] Graft Vivigen 5cc - [id number] - [id number] Implanted:Qty : 1 on 12/27/2020 by Saad Griggs MD at [facility] N/A: Spine Lumbar [facility]-[id number] 12/17/2021 BL-1500-0 02 / [id number] / [id number] Chip Bone 20cc - [id number] - [id number] Implanted:Qty : 1 on 12/27/2020 by Saad Griggs MD at [facility] N/A: Spine Lumbar [facility]-[id number] 08/21/2025 PCAN1/4 / [id number] / [id number] [employer] Yknot Pro Rc 2.8mm W/2 1.3mm Hifi Ribbon - [id number] Implanted:Qty : 1 on 04/16/2021 by Joe Mayfield MD at [facility] Right: [facility] [employer][id number] 10/30/2025 [id number] / / [id number] [place] Yknot Pro Rc 2.8mm W/2 1.3mm Hifi Ribbon - [id number] Implanted:Qty : 1 on 04/16/2021 by Joe Mayfield MD at [facility] Right: [facility] [employer].-[id number] 10/30/2025 [id number] / / [id number] [place] Yknot Pro Rc 2.8mm W/2 1.3mm Hifi Ribbon - [id number] Implanted:Qty : 1 on 04/16/2021 by Joe Mayfield MD at [facility] Right: [facility] [employer].-[id number] 10/30/2025 [id number] / / [id number] [place] Yknot Pro Rc 2.8mm W/2 1.3mm Hifi Ribbon - [id number] Implanted:Qty : 1 on 04/16/2021 by Joe Mayfield MD at [facility] Right: [facility] [employer].-[id number] 10/30/2025 [id number] / / [id number] Explanted Type Area Education Faculty Member Device Identifier Shelf Expiration Date Model / Serial / Lot Collar Ti With Grooves - [id number] Explanted:Qty: 2 on 12/27/2020 at [facility] Cap N/A: Spine Lumbar DePuy Spine Perpetuall [id number] 498.011 / / Screw Uss Ti Dual Core 6.0mm X 35mm - [id number] Explanted:Qty: 1 on 12/27/2020 at [facility] Screw N/A: Spine Lumbar DePuy Spine Perpetuall LP-[id number] 04.602.635 / / Procedures Procedure Name Priority Date/Time Associated Diagnosis Comments XR SCOLIOSIS ENTIRE SPINE 2 OR 3 VIEWS Routine 06/07/2024 1:53 PM EDT Thoracogenic scoliosis, unspecified spinal region HEMOGLOBIN A1C STAT Add-on 12/26/2020 7:11 AM [...] IMG XR PROCEDURES Final Resul t * (ABNORMAL) Hemoglobin A1c (12/26/2020 7:11 AM EDT) Hemoglobin A1c 5.7(H) <5.7 % 12/26/2020 6:09 PM EDT [facility] Blood Venous blood specimen / [...] Adults <6.0% Children and Adolescents <7.5% Source: [place] [employer]. Standards of medical care in diabetes,2017. Diabetes Care.2017:40 (suppl 1):S1-S135. HbA1c assay performed by an ion-exchange chromatography method that is certified traceable to the DCCT. us Ronald Jarquin MD LAB BLOOD ORDERABLES Final R esult [facility] [address] [place] [address] from Last 3 Months or Most Recently Relevant to Health Maintenance Insurance ANTH Advance Directives * Full Code (Latest Code Status on File) Date Activated Date Inactivated Comments 12/26/2020 8:01 AM 01/01/2021 8:40 PM Question Answer Comments Patient has decision-making capacity? Yes Care Teams Juice Mixer Relationship Specialty Start Date End Date Elisabet Mills APRN [address] [place] [address] PCP - General 12/26/20
--- OUTSIDE RECORDS SUMMARY | 2024-08-28 09:40 | XMS_ITS | Encounter Summary ---
Author Organization [facility] Address [address] [place] [address] Care Team Providers Care Cartographic Technician Name Role Phone Elisabet Mills YOSHI Primary Care Provider +1- [phone] Encounter Details Date Type Department Care Team ([facility] st Contact Info) Description 05/08/2024 Orders Only External Location [address] [place] [address] Provider, External Social History Tobacco Use Types [...] as of this encounter Plan of Treatment Not on file documented as of this encounter Procedures Procedure [...] documented as of this encounter Care Teams Cartographic Technician Relationship Specialty Start Date End Date Elisabet Mills APRN [address] [place] [address] PCP - General 12/26/20 documented as of this encounter
--- OUTSIDE RECORDS SUMMARY | 2024-08-28 09:40 | XMS_ITS | Encounter Summary ---
Author Organization [facility] Address [address] [place] [address] Care Team Providers Care Basket Patcher Name Role Phone Elisabet Mills YOSHI Primary Care Provider +1- [phone] Encounter Details Date Type Department Care Team ([facility] st Contact Info) Description 05/08/2024 Orders Only External Location [address] [place] [address] Provider, External Social History Tobacco Use Types [...] documented as of this encounter Care Teams Basket Patcher Relationship Specialty Start Date End Date Elisabet Mills APRN [address] [place] [address] PCP - General 12/26/20 documented as of this encounter
--- OUTSIDE RECORDS SUMMARY | 2024-08-28 09:40 | XMS_ITS | Data Portability ---
Author Organization [place] [facility] [place] [facility] AD[facility] Address [address] [place] [id number] Care Team Providers Care Core Assembly Supervisor Name Role Phone DELMIS JOSE Primary Care [...] minutes was spent with the pt today. [email or web address] Not available 12/23/2023 14:31:27 Plan of Treatment Reminders Order Date Submit Date Provider Last Modified By Organization Details Last Modified Time Details Appointments OV EST 20 2024 11:20A M ELIN Maria Not available Not available Not available Lab CBC w/ auto diff 2023 024 [place] [facility], [address], [address], [place], [address], 01/01/2024 03:35:43 folate, serum 2023 024 [place], [address], [address], [place], [address], 01/01/2024 03:35:46 prealbumi n, serum 2023 024 [facility], [address], [address], [place], [address], 01/01/2024 03:35:51 thiamine, QN, blood 2023 024 [facility], [address], [address], [place], [address], 01/01/2024 03:35:49 methylmal lashay, QN, serum or plasma 2023 024 [facility], [address], [address], [place], [address], 01/01/2024 03:35:50 CMP, serum or plasma 2023 024 [facility], [address], [address], [place], [address], 01/01/2024 03:35:44 iron + TIBC + ferritin, serum 2023 024 [facility], [address], [address], [place], [address], 01/01/2024 03:35:41 vitamin D, 25-hydrox y, total, serum 2023 024 [facility], [address], [address], [place], [address], 01/01/2024 03:35:48 vitamin E, serum 2023 024 [place] [facility], [address], [address], [place], [address], 01/01/2024 03:35:45 vitamin A (retinol) , serum 2023 024 [place] [facility], [address], [address], [place], [address], 01/01/2024 03:35:47 TSH + free T4, serum 2023 024 [place] [facility], [address], [address], [place], [address], 01/01/2024 03:35:43 Referral None recorded. Procedures None recorded. Surgeries esophagog astroduod enoscopy (SURG) 2023 024 [email or web address] Cyndi Dunn MD, [address], [address], [place], [address], 02/10/2024 14:47:10 Imaging RF, upper gastroint estinal tract, w/ contrast PO 2023 024 [email or web address] [facility] ([facility]), [address], [place], [address], 02/10/2024 14:47:53 US, thyroid 2022 024 [email or web address] Not available 08/11/2023 07:55:42 Medication Orders Wegovy 0.5 mg/0.5 mL subcutane ous pen injector 2024 025 [place] [id number], [address] [facility], [place], [address], 04/27/2024 12:03:01 Patient TargetsNo targets recorded. Patient InstructionsNo instructions recorded. Reason for Referral None Reported. Results Created Date Observation Date Name Description Value Unit Range Abnormal Flag Note LastModifiedBy Organization Detail LastModifiedTime 12/23/1912/24/2023 FE+TI BC+FE R iron bind.cap.(TI BC) 269 ug/dL 250-45 0 normal Not Available [facility] ([facility]) [address], [place], [address], 01/01/2024 03:35:41 12/23/19 24 12/24/2023 FE+TI BC+FE R UIBC 143 ug/dL 111-34 3 normal Not Available [facility] ([facility]) [address] [place], [address], 01/01/2024 03:35:41 12/23/19 24 12/24/2023 FE+TI BC+FE R iron 126 ug/dL 38-169 normal Not Available [facility] ([facility]) [address] [place], [address], 01/01/2024 03:35:41 12/23/19 24 12/24/2023 FE+TI BC+FE R iron saturation 47 % 15-55 normal Not Available [facility] ([facility]) [address] [place], [address], 01/01/2024 03:35:41 12/23/19 24 12/24/2023 FE+TI BC+FE R ferritin 61 NG/mL 30-400 normal Not Available [facility] ([facility]) [address] [place], [address], 01/01/2024 03:35:41 12/23/19 24 12/24/2023 TSH+F REE T4 TSH 12.900 uIU/m L 0.450- 4.500 above high normal Not Available [facility] ([facility]) [address] [place], [address], 01/01/2024 03:35:42 12/23/19 24 12/24/2023 TSH+F REE T4 T4,free(dire ct) 1.40 NG/dL 0.82-1 .77 normal Not Available [facility] ([facility]) [address] [place], [address], 01/01/2024 03:35:42 12/23/19 24 12/24/2023 CBC WITH DIFFE RENTI AL/PL ATELE T WBC 4.7 x10e3 /uL 3.4-10 .8 normal Not Available [facility] ([facility]) [address] [place], [address], 01/01/2024 03:35:43 12/23/19 24 12/24/2023 CBC WITH DIFFE RENTI AL/PL ATELE T RBC 5.47 x10e6 /uL 4.14-5 .80 normal Not Available [facility] ([facility]) [address] [facility], [place], [address], 01/01/2024 03:35:43 12/23/19 24 12/24/2023 CBC WITH DIFFE RENTI AL/PL ATELE T hemoglobin 15.5 g/dL 13.0-1 7.7 normal Not Available [facility] ([facility]) [address] [facility], [place], [address], 01/01/2024 03:35:43 12/23/19 24 12/24/2023 CBC WITH DIFFE RENTI AL/PL ATELE T hematocrit 48.3 % 37.5-5 1.0 normal Not Available [facility] ([facility]) [address] [facility], [place], [address], 01/01/2024 03:35:43 12/23/19 24 12/24/2023 CBC WITH DIFFE RENTI AL/PL ATELE T MCV 88 fL 79-97 normal Not Available [facility] ([facility]) [address] [facility], [place], [address], 01/01/2024 03:35:43 12/23/19 24 12/24/2023 CBC WITH DIFFE RENTI AL/PL ATELE T MCH 28.3 pg 26.6-3 3.0 normal Not Available [facility] ([facility]) [address] [place], [address], 01/01/2024 03:35:43 12/23/19 24 12/24/2023 CBC WITH DIFFE RENTI AL/PL ATELE T MCHC 32.1 g/dL 31.5-3 5.7 normal Not Available [facility] ([facility]) [address] [facility], [place], [address], 01/01/2024 03:35:43 12/23/19 24 12/24/2023 CBC WITH DIFFE RENTI AL/PL ATELE T RDW 13.4 % 11.6-1 5.4 Not Available [facility] ([facility]) [address] [facility], [place], [address], 01/01/2024 03:35:43 12/23/19 24 12/24/2023 CBC WITH DIFFE RENTI AL/PL ATELE T platelets 291 x10e3 /uL 150-45 0 normal Not Available [facility] ([facility]) [address] [facility], [place], [address], 01/01/2024 03:35:43 12/23/19 24 12/24/2023 CBC WITH DIFFE RENTI AL/PL ATELE T neutrophils 54 % not estab. normal Not Available [facility] ([facility]) [address] [facility], [place], [address], 01/01/2024 03:35:43 12/23/19 24 12/24/2023 CBC WITH DIFFE RENTI AL/PL ATELE T lymphs 33 % not estab. normal Not Available [facility] ([facility]) [address] [facility], [place], [address], 01/01/2024 03:35:43 12/23/19 24 12/24/2023 CBC WITH DIFFE RENTI AL/PL ATELE T monocytes 10 % not estab. normal Not Available [facility] ([facility]) [address] [facility], [place], [address], 01/01/2024 03:35:43 12/23/19 24 12/24/2023 CBC WITH DIFFE RENTI AL/PL ATELE T eos 2 % not estab. normal Not Available [facility] ([facility]) [address] [facility], [place], [address], 01/01/2024 03:35:43 12/23/19 24 12/24/2023 CBC WITH DIFFE RENTI AL/PL ATELE T basos 1 % not estab. normal Not Available [facility] ([facility]) [address] [facility], [place], [address], 01/01/2024 03:35:43 12/23/19 24 12/24/2023 CBC WITH DIFFE RENTI AL/PL ATELE T immature cells PERSONAL FINANCIAL REPRESENTATIVE Not Available [facility] ([facility]) [address] [place], [address], 01/01/2024 03:35:43 12/23/19 24 12/24/2023 CBC WITH DIFFE RENTI AL/PL ATELE T neutrophils (absolute) 2.6 x10e3 /uL 1.4-7. 0 normal Not Available [facility] ([facility]) [address] [place], [address], 01/01/2024 03:35:43 12/23/19 24 12/24/2023 CBC WITH DIFFE RENTI AL/PL ATELE T lymphs (absolute) 1.5 x10e3 /uL 0.7-3. 1 normal Not Available [facility] ([facility]) [address] [place], [address], 01/01/2024 03:35:43 12/23/19 24 12/24/2023 CBC WITH DIFFE RENTI AL/PL ATELE T monocytes(ab solute) 0.5 x10e3 /uL 0.1-0. 9 normal Not Available [facility] ([facility]) [address] [place], [address], 01/01/2024 03:35:43 12/23/19 24 12/24/2023 CBC WITH DIFFE RENTI AL/PL ATELE T eos (absolute) 0.1 x10e3 /uL 0.0-0. 4 normal Not Available [facility] ([facility]) [address] [place], [address], 01/01/2024 03:35:43 12/23/19 24 12/24/2023 CBC WITH DIFFE RENTI AL/PL ATELE T baso (absolute) 0.0 x10e3 /uL 0.0-0. 2 normal Not Available [facility] ([facility]) [address], [place], [address], 01/01/2024 03:35:43 12/23/19 24 12/24/2023 CBC WITH DIFFE RENTI AL/PL ATELE T immature granulocytes 0 % not estab. Not Available [facility] ([facility]) [address] [facility], [place], [address], 01/01/2024 03:35:43 12/23/19 24 12/24/2023 CBC WITH DIFFE RENTI AL/PL ATELE T immature grans (abs) 0.0 x10e3 /uL 0.0-0. 1 Not Available [facility] ([facility]) [address] [facility], [place], [address], 01/01/2024 03:35:43 12/23/19 24 12/24/2023 CBC WITH DIFFE RENTI AL/PL ATELE T NRBC PERSONAL FINANCIAL REPRESENTATIVE Not Available [facility] ([facility]) [address] [facility], [place], [address], 01/01/2024 03:35:43 12/23/19 24 12/24/2023 CBC WITH DIFFE RENTI AL/PL ATELE T hematology comments: PERSONAL FINANCIAL REPRESENTATIVE Not Available [facility] ([facility]) [address] [facility], [place], [address], 01/01/2024 03:35:43 12/23/19 24 12/24/2023 COMP. METAB OLIC PANEL (14) glucose 94 mg/dL 70-99 normal Not Available [facility] ([facility]) [address] [facility], [place], [address], 01/01/2024 03:35:44 12/23/19 24 12/24/2023 COMP. METAB OLIC PANEL (14) BUN 17 mg/dL 6-24 normal Not Available [facility] ([facility]) [address] [facility] [place], [address], 01/01/2024 03:35:44 12/23/19 24 12/24/2023 COMP. METAB OLIC PANEL (14) creatinine 1.20 mg/dL 0.76-1 .27 normal Not Available [facility] ([facility]) [address] [facility], [place], [address], 01/01/2024 03:35:44 12/23/19 24 12/24/2023 COMP. METAB OLIC PANEL (14) eGFR 72 mL/mi n/1.7 3 >59 normal Not Available [facility] ([facility]) [address] [facility] [place], [address], 01/01/2024 03:35:44 12/23/19 24 12/24/2023 COMP. METAB OLIC PANEL (14) BUN/creatini ne ratio 14 9-20 normal Not Available [facility] ([facility]) [address] [facility], [place], [address], 01/01/2024 03:35:44 12/23/19 24 12/24/2023 COMP. METAB OLIC PANEL (14) sodium 139 mmol/ L 134-14 4 normal Not Available [facility] ([facility]) [address] [facility] [place], [address], 01/01/2024 03:35:44 12/23/19 24 12/24/2023 COMP. METAB OLIC PANEL (14) potassium 4.9 mmol/ L 3.5-5. 2 normal Not Available [facility] ([facility]) [address] [facility], [place], [address], 01/01/2024 03:35:44 12/23/19 24 12/24/2023 COMP. METAB OLIC PANEL (14) chloride 102 mmol/ L 96-106 normal Not Available [facility] ([facility]) [address] [place], [address], 01/01/2024 03:35:44 12/23/19 24 12/24/2023 COMP. METAB OLIC PANEL (14) carbon dioxide, total 24 mmol/ L 20-29 normal Not Available [facility] ([facility]) [address] [place], [address], 01/01/2024 03:35:44 12/23/19 24 12/24/2023 COMP. METAB OLIC PANEL (14) calcium 9.8 mg/dL 8.7-10 .2 normal Not Available [facility] ([facility]) [address] [place], [address], 01/01/2024 03:35:44 12/23/19 24 12/24/2023 COMP. METAB OLIC PANEL (14) protein, total 6.8 g/dL 6.0-8. 5 normal Not Available [facility] ([facility]) [address] [place], [address], 01/01/2024 03:35:44 12/23/19 24 12/24/2023 COMP. METAB OLIC PANEL (14) albumin 4.3 g/dL 3.8-4. 9 normal Not Available [facility] ([facility]) [address] [facility] [place], [address], 01/01/2024 03:35:44 12/23/19 24 12/24/2023 COMP. METAB OLIC PANEL (14) globulin, total 2.5 g/dL 1.5-4. 5 Not Available [facility] ([facility]) [address] [facility] [place], [address], 01/01/2024 03:35:44 12/23/19 24 12/24/2023 COMP. METAB OLIC PANEL (14) bilirubin, total 0.6 mg/dL 0.0-1. 2 normal Not Available [facility] ([facility]) [address] [facility], [place], [address], 01/01/2024 03:35:44 12/23/19 24 12/24/2023 COMP. METAB OLIC PANEL (14) alkaline phosphatase 73 IU/L 44-121 normal Not Available [facility] ([facility]) [address] [facility], [place], [address], 01/01/2024 03:35:44 12/23/19 24 12/24/2023 COMP. METAB OLIC PANEL (14) AST (SGOT) 19 IU/L 0-40 normal Not Available [facility] ([facility]) [address] [facility], [place], [address], 01/01/2024 03:35:44 12/23/19 24 12/24/2023 COMP. METAB OLIC PANEL (14) ALT (SGPT) 20 IU/L 0-44 normal Not Available [facility] ([facility]) [address] [facility], [place], [address], 01/01/2024 03:35:44 12/23/19 24 12/31/2023 VITAM IN E vitamin E(alpha tocopherol) 11.9 mg/L 7.0-25 .1 Not Available [facility] ([facility]) [address] [place], [address], 01/01/2024 03:35:45 12/23/19 24 12/31/2023 VITAM IN [...] in E defic ient. Not Available [facility] ([facility]) [address] [facility], [place], [address], 01/01/2024 03:35:45 12/23/19 24 12/24/2023 FOLAT E (FOLI C ACID) , SERUM folate (folic acid), serum >20.0 NG/mL >3.0 A serum folat e jose ntrat ion of less than 3.1 ng/mL is consi dered to repre sent clini kirsten defic iency . Not Available [facility] ([facility]) [address] [facility], [place], [address], 01/01/2024 03:35:46 12/23/19 24 12/31/2023 VITAM IN [...] e francesca cteri stics deter mined by [employer]. It has not been clear ed or appro rocky by the Food and Drug Admin istra tion. Not Available [facility] ([facility]) [address] [facility], [place], [address], 01/01/2024 03:35:47 12/23/19 24 12/24/2023 VITAM IN [...] Endoc rine Socie ty went on to furth er defin e vitam in D insuf ficie ncy as a level betwe en 21 and 29 ng/mL (2). 1. IOM (Inst itute of Medic ine). 2010. Dieta ry refer ence karyna es for calci um and DMati bobby [place]: [facility] . 2. Noreen jorgensen MF, Gypsy tovar [place], Bisch off-F errar i KRAUSE, et al. Evalu ation , treat ment, and preve ntion of vitam in D defic iency : an Endoc rine Socie ty clini kirsten pract ice guide line. JCEM. 2010; 96(7) :1911 -30. Not Available [facility] ([facility]) [address] [facility], [place], [address], 01/01/2024 03:35:48 12/23/19 24 12/27/2023 VITAM IN B1 (THIA MINE) , BLOOD vit. B1, whole blood 143.2 nmol/ L 66.5-2 00.0 Not Available [facility] ([facility]) [address] [place], [address], 01/01/2024 03:35:49 12/23/19 24 12/28/2023 METHY LMALO MAG ACID, SERUM methylmaloni c acid, serum 201 nmol/ L 0-378 Not Available [facility] ([facility]) [address] [facility], [place], [address], 01/01/2024 03:35:50 12/23/19 24 12/24/2023 PREAL BUMIN prealbumin 26 mg/dL Not Available [facility] ([facility]) [address] [place], [address], 01/01/2024 03:35:51 01/05/20 24 01/06/[address] (H PYLOR I AB QUAL) tracy test 20 min NEGATI VE negati ve Not Available [facility] ([facility]) [address], [place], [address], 01/06/2024 11:20:36 01/05/20 24 01/06/[address] (H PYLOR I AB QUAL) tracy test 1HR NEGATI VE negati ve Not Available [facility] ([facility]) [address] [facility], [place], [address], 01/06/2024 11:20:36 01/05/20 24 01/06/[address] (H PYLOR I AB QUAL) tracy test 3 HR NEGATI VE negati ve Not Available [facility] ([facility]) [address] [facility], [place], [address], 01/06/2024 11:20:36 01/05/2001/06/[address] (H PYLOR I AB QUAL) tracy test 24 HR NEGATI VE negati ve Not Available [facility] ([facility]) [address] [facility], [place], [address], 01/06/2024 11:20:36 01/05/20 24 01/06/[address] (H PYLOR I AB QUAL) tracy test kit lot# [id number] Not Available [facility] ([facility]) [address] [facility], [place], [address], 01/06/2024 11:20:36 01/05/20 24 01/06/[address] (H PYLOR I AB QUAL) tracy test kit exp date Not Available [facility] ([facility]) [address] [facility], [place], [address], 01/06/2024 11:20:36 05/29/19 23 05/28/2022 US, thyro id No observ ation record ed. [email or web address] [address] [place], [address], 05/28/2022 13:14:50 06/17/19 23 US, thyro id No observ ation record ed. [email or web address] Not Available 2022 12:15:22 06/17/19 23 fine needl e aspir ation , thyro id (PROC ) No observ ation record ed. [email or web address] Not Available 2022 12:16:51 01/03/20 24 01/03/2024 ugi with KUB [facility] [address] [place] [address] Phone: Fax: Name: LARISSA ENRIQUEZ Exam Date: 2023 : 971 Age 53 years Gender : M Access ion: [id number] Physic payton: JOSE DEAL R Facili ty: [facility] Facili ty HSV: Outpat ient Exam: UGI WITH KUB PROCED URE: FL UPPER GI SINGLE CONTRA ST CLINIC AL INDICA TION:G ERD. COMPAR SCOT: CT from 023 and prior upper GI from 07/26/19 23. TECHNI QUE: A prelim inary access services representative radiog raph of the abdome n was obtain ed. The esopha anabela, stomac h, and proxim al small bowel are evalua haven with single contra st techni que using real-t pablo fluoro scopy and acquis ition of multip le spot digita l radiog raphs. FINDIN GS: Research Microbiologist: Prelim inary access services representative view of the abdome n demons trates [...] Admitt ing Provid er: PILE HEATHE R [facility] [address] [facility], [place], [address], 01/12/2024 13:24:07 Result Notes None recorded. Problems Name Problem SNOMED Code Status Onset Date Resolution Date Notes Provider Name and Address Organization Details Recorded Time Gastroesophag eal reflux disease without esophagitis 250938096 Active 2023 ELIN Maria [address] [place], [address] , [facility] [place] 4 13:33:47 Chronic low back pain 161250097 Active 2023 ELIN Maria [address] [place], [address] , [facility] [place] 4 13:34:02 Intentional weight loss 244376095 Active 2023 ELIN Maria [address], [place], [address] , [facility] [place] [facility] [place] 4 13:34:18 Obesity 474784731 Active 2023 ELIN Maria [address] , [place], [address] , [facility] [place] [facility] [place] 4 13:46:35 Problem Notes None recorded. Procedures Surgical History Date Name Laterality Status Provider Name and Address Organization Details Recorded Time 2020 Back Surgery completed Layla KOO - [facility] [place] [facility] [place] 3 12:17:39 2015 Colonoscopy completed Layla KOO - [facility] [place] 3 14:14:11 Back Surgery completed Layla KOO - [facility] - [place] [facility] [place] 3 14:14:11 laparoscopic sleeve gastrectomy completed Marleni Roman [facility] [place] 4 13:13:26 repair of hydrocele completed Rebec ca Guerra HAYES Roman [facility] [place] [facility] [place] 4 13:13:39 procedure on shoulder completed Ade ecca Guerra [facility] - [facility] [place] 4 13:13:54 esophagogastroduodenoscopy completed Marleni Roman [facility] [place] 4 13:14:27 thyroidectomy completed Marleni KOO - [facility] [place] [facility] [place] 4 13:14:42 Imaging Results None recorded. Procedure [...] Body mass index (BMI) Body weight Systolic And Diastolic Provider Name and Address Organization Details Last Updated DateTime 5 187.96 cm 97.3 [degF] 96 /min 48 kg/m2 983015. 11 g 148/88 mm[Hg] Marleni KOO - [facility] [place] [facility] [place] 5 11:26:48 Date Recorded Body height Body mass index (BMI) Body weight Body temperature Systolic And Diastolic Provider Name and Address Organization Details Last Updated DateTime 06/18/2022 182.88 cm 49.6 kg/m2 742717. 09 g 98.2 [degF] 158/85 mm[Hg] Layla Hilton [facility] & [place] 3 14:13:24 Date Recorded Body height Body mass index (BMI) Body weight Heart rate Body temperature Heart rate Systolic And Diastolic Provider Name and Address Organization Details Last Updated DateTime 4 187.96 cm 46.6 kg/m2 448181. 11 g 90 /min 97.1 [degF] 90 /min 127/81 mm[Hg] Marleni Guerra [facility] & [place] 4 13:20:49 Date Recorded Body height Body mass index (BMI) Body weight Provider Name and Address Organization Details Last Updated DateTime 01/12/2024 187.96 cm 46.1 kg/m2 069399.66 g Yisel Rudolph [facility] & [place] 01/12/2024 13:15:02 Social History Question Answer Notes LastModified by [employer] Details LastModified Time Tobacco Smoking Status Never Smoker [facility] [place] 04/19/2022 15:05:10 Do You Have An Advance Directive? No Information not available 06/16/2022 Are You Blind Or Do You Have Difficulty Seeing? No Information not available 06/16/2022 What Is Your Level Of Caffeine Consumption? Moderate [email or web address] Information not available 01/12/2024 Are You Passively Exposed To Smoke? Yes Information not available 06/16/2022 Sex: Male Functional Status Question Answer Note LastModified by [employer] Details LastModified Time Do you use any [...] anxious, or unable to sleep at night)? [id number] Information not available 06/16/2022 Family History Nothing [...] influenza, unspecified formulation 11/08/2023 completed [facility]isel Rudolph [facility] [place] [facility] [place] 01/12/2024 13:16:21 Past Encounters Encounter ID Performer Location Encounter Start Date Encounter Closed Date Diagnosis/Indication Diagnosis SNOMED-CT Code Diagnosis ICD10 Code Diagnosis Note [id number] Abebe Pratt MD [facility] [address] [place] [place] [address],[address] [place] [id number] 04/19/2022 14:48:38 04/19/2022 15:41:26 History of calculus of kidney 664000816 Z87.442 History of urinary tract infection 4856579212 107 Z87.440 Microscopic hematuria 19 4926348 R31.29 [id number] Elena Ferguson NP, S [facility] [address] [place] [address],[address] [place] [address] 06/01/2022 15:16:24 06/01/2022 15:33:47 History of calculus of kidney 392122740 Z87.442 Cyst of kidney 354507474 N28.1 Microscopic hematuria [address] scan results reviewed and discussed with patient clinic today. Will schedule follow-up renal ultrasound in 6 months related to renal cyst. Return to clinic in 6 months for follow-up of renal ultrasound results. [id number] Aleyda Soler MD [facility] G -2340 [address] [facility] [address] [place] [address] 06/18/2022 13:58:27 06/18/2022 14:31:04 Thyroid nodule 642730610 E04.1 Went over the patients most recent thyroid ultrasound and several of his previous ultrasound s. Compared them. Went over them in detail with the patient. Explained there hasn't been much growth in the larger nodules. Would not recommend repeat FNA at this time. We will continue to monitor with repeat ultrasound in 12 months. He would like to have this done at [facility] in [place] as this is drasticall y less expensive for him. [id number] ELIN Maria [facility] [facility] [address] [place] [address] [place] [address] 12/23/2023 13:06:13 12/23/2023 14:12:02 Gastroesophageal reflux disease without esophagitis [id number] K21.9 We discussed concerns of worsening gastroesop [...] cotine use Chronic low back pain 27 [id number] M54.50 History of gastrectomy [id number] Z90.3 Advised qid intake 50% protein 16-1700 [...] to correct any vitamin deficienci es. At [facility] ed risk of nutritional deficit [id number] Z91.89 Obesity 861044673 E66.9 Discuss revisional surgery with patient today. Optimal procedure to be determined after upper GI and upper endoscopy. Patient advised he will need cardiac clearance prior to revisional surgery. [id number] [facility] [address] [facility] [address] [place] [address] 12/23/2023 13:44:43 12/23/2023 14:37:19 Dietary management surveillance [id number] Z71.3 [id number] ELIN Maria [facility] [address] [facility] [address] [place] [address] 01/12/2024 13:08:29 01/13/2024 11:38:08 Gastroesophageal reflux disease without esophagitis [id number] K21.9 Upper GI and upper endoscopy results were reviewed with patient today. Obesity 322162263 E66.9 Discussed BPD/duoden al switch versus Warren-en-Y gastric bypass. Patient wishes to pursue BPD/duoden al switch as he may need NSAIDs and steroids in the future for chronic back pain. We will have our insurance department reach out to patient to discuss insurance approval for revisional surgery. History of gastrectomy [id number] Z90.3 Advised patient continue focus on healthy high-prote in low-fat diet. [id number] ELIN Maria [facility] [address] [facility] [address] [place] [address] 04/27/2024 11:12:39 04/27/2024 12:01:54 Gastroesophageal reflux disease without esophagitis [id number] K21.9 Upper GI and upper endoscopy results [...] revisional surgery. Chronic low back pain 27 [id number] M54.50 Patient reports worsening back pain with weight gain. He has been advised to focus on additional weight loss Obesity [id number] E66.9 Discussed medical weight loss options with [...] Body mass index 40+ - severely obese [id number] Z68.42 Current BMI is 47.9. Patient has seen a 10.3 lb gain since December 2023 History of gastrectomy [id number] Z90.3 Patient is to continue bariatric vitamin [...] Member ID Tovar Member ID Guarantor Name 08/28/2024 1 [id number] [id number] Larissa Enriquez [id number] Larissa Enriquez Notes Date Note Type Note [...] were within normal range. Aleyda Soler MD [address], [place], [address], [facility] [place] 06/18/2022 16:17:21 4 text/html 53-year-old male presents [...] rate 2289 ELIN Maria [address], [place], [address], [facility] [place] 12/23/2023 13:48:03 4 text/html RDN met with patient for transfer of care and to complete initial nutrition assessment. He is new to our practice status post sleeve gastrectomy [address] San. is a PT at [facility]. Interested in a revision but depends [...] diet sodaS - oatmeal cream pieD - [facility] - chicken critters, 2 baked potatoes, [...] day Additional notes/comments: GRIFFIN RAMOS, RD [address], [place], [address], [facility] [place] 12/23/2023 14:31:42 4 text/html Patient returns to clinic today to discuss recent upper GI and upper endoscopy findings. 01/05/24 EGD Findings: Moderate amount of retained gastric fundus. Mild irritation of the gastric mucosa in the pre antral space. H pylori biopsies neg 01/03/24 UGI FINDINGSScout: Preliminary access services representative view of the abdomen demonstrates a nonobstructivebowel [...] care patient. His is a patient of [facility]. He is new to our practice [...] rate 2289 ELIN Maria [address], [place], [address], [facility] [place] 01/12/2024 13:32:30 5 text/html Patient returns to [...] back pain.Patient continues to take vitamin supplementation. November labs reviewed with again patient today. Recommend repeat labs in 2-3 months. 01/05/24 EGD Findings: Moderate amount of retained gastric fundus. Mild irritation of the gastric mucosa in the pre antral space. H pylori biopsies neg 01/03/24 UGI FINDINGSScout: Preliminary access services representative view of the abdomen demonstrates a nonobstructivebowel [...] care patient. His is a patient of [facility] [employer]. He is new to our practice status [...] with 46.1% body fat basal metabolic rate [id number] ELIN Maria [address], [place], [address], [facility] [place] 04/27/2024 12:17:33
--- OUTSIDE RECORDS SUMMARY | 2024-08-28 09:40 | XMS_ITS | Data Portability ---
Author Organization [facility] Address [address] [place] [address] Care Team Providers Care Field Marketing Representative Name Role Phone DELMIS NUÑEZ Primary Care Provider Assessment Encounter Date Assessment [...] Modified Time Details Appointments None recorded. Lab drug screen, 14 drugs (detectimed ), urine 2024 025 [place] [facility], [address], [address], [place], [address], 5 18:06:59 drug screen, urine 2023 024 [facility], [address] [place] [address], [address], 4 11:55:12 HbA1c (hemoglobin A1c), blood 2023 024 [facility], [address] [place] [address], [address], 4 11:55:13 Referral cardiologis t referral 2023 024 ROMAIN Belle MD, [address] [place], [place] [address]y [address], [place], [address], 4 14:25:09 Procedures None recorded. Surgeries None recorded. Imaging XR, knee, 3 view 2024 025 [facility] (X-Ray), [address] [place], [place] [address]y [address], [place], [address], 5 18:05:03 US, echocardiog galen 2023 024 [facility] (Scheduling), [address] [place] [address] [address], [place], [address], 4 14:31:41 Medication Orders phentermine 37.5 mg tablet 2024 025 [facility], [address] [place] [address] [address], [id number], 5 17:45:14 Wegovy 0.5 mg/0.5 mL subcutaneou s pen injector 2024 025 [facility], [address] [place] [address] [address], [id number], 5 17:14:57 meloxicam 7.5 mg tablet 2024 025 [facility], [address] [place] [address] [address] [place] [address] [place], [id number], 5 17:46:57 phentermine 37.5 mg tablet 2024 025 [facility], [address] [place] [address] [address], [id number], 5 17:46:57 phentermine 37.5 mg tablet 2023 [id number] [address] [place], [address], 4 17:38:07 Zepbound 2.5 mg/0.5 mL subcutaneou s pen injector 2023 [facility], [address] [place] [address], [address], 4 17:04:08 Adipex-P 37.5 mg tablet 2023 [facility] [address] [place] [address], [address], 11:55:13 phentermine 37.5 mg tablet 2023 [facility] [address] [place] [address], [address], 11:16:12 Patient TargetsNo targets recorded. 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 Referral for El ectrocardiogram abnormal Referring Physician: Delmis Mills, Family Medicine, Encounter Date: 08/26/2023 Results Created Date Observation Date Name Description Value Unit Range Abnormal Flag Note LastModifiedBy Organization Detail LastModifiedTime 12/02/1912/02/2023 HbA1c (hemo globi n A1c), blood HbA1C 5.5 % Not Available [address], [address], 12/02/2023 11:49:47 12/02/1912/02/2023 drug scree n, urine THC negati ve Not Available [address], [address], 12/02/2023 11:44:20 12/02/1912/02/2023 drug scree n, urine TCA positi ve Not Available [address], [address], 12/02/2023 11:44:20 12/02/1912/02/2023 drug scree n, urine BAR negati ve Not Available [address], [address], 12/02/2023 11:44:20 12/02/1912/02/2023 drug scree n, urine BZO negati ve Not Available [address], [address], 12/02/2023 11:44:20 12/02/1912/02/2023 drug scree n, urine MTD negati ve Not Available [address], [address], 12/02/2023 11:44:20 12/02/1912/02/2023 drug scree n, urine AMP negati ve Not Available [address], [address], 12/02/2023 11:44:20 12/02/1912/02/2023 drug scree n, urine MOP negati ve Not Available [address], [address], 12/02/2023 11:44:20 12/02/19 24 12/02/2023 drug scree n, urine OXY negati ve Not Available [address], [address], 12/02/2023 11:44:20 12/02/19 24 12/02/2023 drug scree n, urine MDMA negati ve Not Available [address], [address], 12/02/2023 11:44:20 12/02/19 24 12/02/2023 drug scree n, urine LATRELL negati ve Not Available [address], [address], 12/02/2023 11:44:20 12/02/19 24 12/02/2023 drug scree n, urine PCP negati ve Not Available [address], [address], 12/02/2023 11:44:20 12/02/19 24 12/02/2023 drug scree n, urine MET negati ve Not Available [address], [address], 12/02/2023 11:44:20 06/23/19 25 07/01/2024 COMPL IANCE [...] ===== ===== ===== === Not Available [facility] ([facility]) [address], [place], [address], 07/01/2024 18:06:59 06/23/19 25 07/01/2024 COMPL IANCE DRUG AUSTEN SIS, UR pdf . Not Available [facility] ([facility]) [address], [place], [address], 07/01/2024 18:06:59 08/14/19 24 08/14/2023 elect sonal haque am No observ ation record ed. [place] [id number], [place], [address], 08/16/2023 08:21:08 09/12/19 24 09/09/2023 , [facility] ardio gram No observ ation record ed. [facility] [address], [place], [address], 09/12/2023 14:57:41 05/09/19 25 05/08/2024 XR, lumba r spine No observ ation record ed. [facility] [address], [place], [address], 05/10/2024 15:52:30 05/09/19 25 05/08/2024 XR, cervi kirsten spine , 2 or 3 view No observ ation record ed. [facility] [address], [place], [address], 05/10/2024 15:25:06 06/27/19 25 06/26/2024 XR, knee, 3 view No observ [facility]ion [facility] ed. [facility] [address], [place], [address], 07/02/2024 10:31:56 07/11/19 25 07/10/2024 MRI, knee, w/o contr ast No observ ation record ed. [facility] [address], [place], [address], 07/10/2024 18:24:51 Result Notes None recorded. Problems Name Problem SNOMED Code Status Onset Date Resolution Date Notes Provider Name and Address Organization Details Recorded Time Insomnia 141500822 Active 2021 Delmis Mills, [employer] [address], [place], [address], [place] - [facility] 2 17:21:07 Gastroesophage al reflux disease 479451957 Active 2021 Delmis Mills, [employer] [address], [place], [address], [place] - [facility] 2 17:21:14 Low back pain 587511268 Active 2021 Delmis Mills, [employer] [address], [place], [address], [place] [facility] 2 16:38:56 Obesity 933871167 Active 2021 Delmis Mills, [employer] [address], [place], [address], [place] [facility] 2 16:39:11 Thyroid nodule 769673544 Active 2022 Delmis Mills, [employer] [address], [place], [address], [place] [facility] 3 16:21:10 Prediabetes 366618610 Active 2022 Delmis Mills, [employer] [address], [place], [address], [place] - [facility] 3 16:58:01 Problem Notes None recorded. Procedures Surgical History Date Name Laterality Status Provider Name and Address Organization Details Recorded Time 08/26/19 24 Medication Reconcilliation completed Asia Peguero [place] - [facility] 08/26/2023 15:25:10 08/16/19 24 thyroidectomy completed Asia Peguero [place] - [facility] 08/26/2023 15:34:00 12/27/19 21 Back Surgery completed Asia Peguero [place] - [facility] 10/06/2021 16:56:27 laparoscopic sleeve gastrectomy completed Asia Peguero [place] - [facility] 10/06/2021 16:58:42 Unlisted procedure shoulder completed Asia Peguero [place] - [facility] 10/06/2021 16:58:58 Hernia Repair completed Asia Peguero [place] - [facility] 10/06/2021 16:59:10 Imaging Results None [...] in Arterial blood by Pulse oximetry Systolic And Diastolic Provider Name and Address Organization Details Last Updated DateTime 5 182.88 cm 18 /min 51.9 kg/m2 813269. 88 g 89 /min 97 % 97 % 118/70 mm[Hg[facility] 5 14:30:35 Date Recorded Body height Respiratory rate Body mass index (BMI) Body weight Heart rate Oxygen saturation Oxygen saturation in Arterial blood by Pulse oximetry Body temperature Systolic And Diastolic Provider Name and Address Organization Details Last Updated DateTime 5 182.88 cm 18 /min 49.6 kg/m2 791220. 81 g 78 /min 97 % 97 % 97.9 [degF] 120/74 mm[Hg] Jennifer Miranda [place] - [facility] 5 16:52:21 Date Recorded Body height Body mass index (BMI) Body weight Body temperature Heart rate Oxygen saturation Oxygen saturation in Arterial blood by Pulse oximetry Respiratory rate Systolic And Diastolic Provider Name and Address Organization Details Last Updated DateTime 4 182.88 cm 47.1 kg/m2 096783. 55 g 97.1 [degF] 73 /min 97 % 97 % 20 /min 118/72 mm[Hg] Asia Peguero [place] - [facility] 4 15:31:34 Date Recorded Body height Respiratory rate Body mass index (BMI) Body weight Heart rate Oxygen saturation Oxygen saturation in Arterial blood by Pulse oximetry Systolic And Diastolic Provider Name and Address Organization Details Last Updated DateTime 4 182.88 cm 18 /min 49.9 kg/m2 540923. 99 g 70 /min 96 % 96 % 140/82 mm[Hg] Jennifer Grahamabdi [place] - [facility] 4 11:15:38 Date Recorded Body height Body mass index (BMI) Body weight Body temperature Heart rate Oxygen saturation Oxygen saturation in Arterial blood by Pulse oximetry Respiratory rate Systolic And Diastolic Provider Name and Address Organization Details Last Updated DateTime 4 182.88 cm 49 kg/m2 907827. 85 g 98.7 [degF] 87 /min 97 % 97 % 20 /min 128/86 mm[Hg] Asia Marielena [place] - [facility] 4 17:03:11 Social History Question Answer Notes LastModified by Organizat ion Details LastModified Time Tobacco Smoking Status Never Smoker Asia Marielena [place], [place] - [facility] 10/06/2021 16:56:26 Do You [...] Or The Highest Degree You Have Received? [id number] Information not available 10/06/2021 Have There Been Any Changes To Your Family Or Social Situation? No Information no t available 12/03/2021 What Is The Fluoride Status Of Your Home? Unknown Information not available 12/03/2021 How Many Years Have You Used Illicit Or Recreational Drugs? 0 Information not available 10/06/2021 Do You Have A Medical Power Of Sky Cap? No Information not available 12/03/2021 What Was [...] anxious, or unable to sleep at night)? [id number] Information not available 10/06/2021 Do you have difficulty concentrating, remembering or making decisions? No Information no t available 12/03/2021 Family History Relationship Description Onset Age of this Age Resolved Age Notes LastModified by Organization Details LastModified Time Mother Malignant tumor of colon cbuckler Not available 2021 16:56:25 Medical History Condition Response Kidney Stones Y Hernia Y Thyroid Problems Y Kidney or Bladder Problems Y Muscle, Joint, or Bone Problems Y Obesity Y Arthritis Y Insomnia Y Fracture Y Sleep Apnea Y Immunizations Vaccine Type [...] SNOMED-CT Code Diagnosis ICD10 Code Diagnosis Note [id number] Delmis Mills APRN [address] [address] 10/06/2021 16:41:45 10/06/2021 17:59:03 Morbid obesity 576076661 E66.01 Pt compliant with plan of careKasper reviewedme dication compliance discussedL ast uds: 10/06/21Con trol substance agreement on file Insomnia 080364542 G47.0 0 Gastroesop hageal reflux disease 940812348 K21.9 Low back pain 088185189 M54.50 fmla paperwork filled out [id number] Delmis Mills [address] [address] 12/03/2021 16:00:26 12/03/2021 16:32:25 Pain of right knee joint 3913863279 91085 M25.561 Obesity 591582885 E66.9 Pt compliant with plan of careKasper reviewedme dication compliance discussedL ast uds: 2Control substance agreement on file [id number] Delmis Mills [address] [address] 03/23/2022 15:42:22 03/23/2022 16:40:24 Increased frequency of urination 930690179 R35.0 Delay when starting to pass urine 4655993 R39.11 Obesity 703466446 E66.9 Pt compliant with plan of careKasper reviewedme dication compliance discussedL ast uds: 2Control substance agreement on file Thyroid nodule 301372578 E04.1 Edema of l ower extremity 111910414 R60.0 wait for labs if labs ok will send for echo [id number] Delmis Mills [address] [address] 05/21/2022 14:01:19 05/21/2022 16:01:35 Obesity 517689019 E66.9 Pt compliant with plan of careKasper reviewedme dication compliance discussedL ast uds: 2Control substance agreement on file Thyroid nodule 763539310 E04.1 Prediabetes 434737223 R7 3.03 talked with pt metformin is causing gi issues, nausea,carlie rrhea and he is unable to tolerated it. [id number] Delmis Mills APRN [address] [address] 06/29/2022 16:37:14 06/29/2022 17:01:59 Obesity 236346240 E66.9 Pt compliant with plan of careKasper reviewedme dication compliance discussedL ast uds: 2Control substance agreement on file Body mass index 40+ - severely obese 389206891 Z68.42 Morbid obesity 941592662 E66.01 Pt compliant with plan of careKasper reviewedme dication compliance discussedL ast uds: 10/06/21Con trol substance agreement on file Prediabetes 798972283 R7 3.03 talked with pt metformin is causing gi issues, nausea,carlie rrhea and he is unable to tolerated it. [id number] Delmis Mills APRN [address] [address] 08/05/2022 16:00:03 08/05/2022 16:59:15 Obesity 788087520 E66.9 Pt compliant with plan of careKasper reviewedme dication compliance discussedL ast uds: 2Control substance agreement on file Prediabetes 784057529 R7 3.03 talked with pt metformin is caused gi issues, nausea,carlie rrhea and he is unable to tolerated it. Body mass index 40+ - severely obese 331535197 Z68.42 Morbid obesity 547143869 E66.01 Pt compliant with plan of careKasper reviewedme dication compliance discussedL ast uds: 10/06/21Con trol substance agreement on file [id number] Angelanardatrey YOSHI Mills [address] [address] 09/24/2022 16:03:07 09/24/2022 17:02:07 Obesity 873352100 E66.9 Pt compliant with plan of careKasper reviewedme dication compliance discussedL ast uds: 2Control substance agreement on file Prediabetes 945725063 R7 3.03 talked with pt metformin is caused gi issues, nausea,carlie rrhea and he is unable to tolerated it. Body mass index 40+ - severely obese 608903011 Z68.42 Morbid obesity 974925380 E66.01 Pt compliant with plan of careKasper reviewedme dication compliance discussedL ast uds: 10/06/21Con trol substance agreement on file [id number] Delmis Mills [address] [address] 11/26/2022 09:22:47 11/26/2022 10:10:52 Obesity 448851043 E66.9 Pt compliant with plan of careKasper reviewedme dication compliance discussedL ast uds: 2Control substance agreement on file Prediabetes 783774194 R7 3.03 Body mass index 40+ - severely obese 345062989 Z68.42 46.2 Morbid obesity 108073419 E66.01 Pt compliant with plan of careKasper reviewedme dication compliance discussedL ast uds: 10/06/21Con trol substance agreement on file [id number] Delmis Mills [address] [address] 01/04/2023 18:12:41 01/11/2023 08:01:31 Obesity 372694275 E66.9 Pt compliant with plan of careKasper reviewedme dication compliance discussedL ast uds: 2Control substance agreement on file Prediabetes 115190700 R7 3.03 pt called unable to get ozempic 2 mg wants 1 mg sent Insomnia 148667579 G47.0 0 Gastroesop hageal reflux disease 875738243 K21.9 [id number] Delmis Mills [address] [address] 02/17/2023 15:47:13 02/17/2023 16:18:11 Obesity 272655378 E66.9 Pt compliant with plan of careKasper reviewedme dication compliance discussedL ast uds: 2Control substance agreement on file Prediabetes 466607351 R7 3.03 pt called unable to get ozempic 2 mg wants 1 mg sent [id number] Delmis Mills [address] [address] 04/01/2023 13:45:36 04/01/2023 14:35:45 Obesity 272985040 E66.9 Pt compliant with plan of careKasper reviewedme dication compliance discussedL ast uds: 2Control substance agreement on file [id number] Delmis Mills [address] [address] 08/26/2023 15:09:27 08/26/2023 16:15:35 History of total thyroidectomy 0722964204 48709 Z90.89 Patient presents with surgical incision cdi. Patient states no new issues, told to follow up if any swelling, redness, or unusual symptoms occur. Electrocar diogram abnormal 481365250 R94.31 Per last ekg patient has left ventricula r hypertroph y and some atrial enlargemen t. Patient referred to have a echocardio gram done. Morbid obesity 192284644 E66.01 Pt compliant with plan of careKasper reviewedme dication compliance discussedL ast uds: 10/06/21Con trol substance agreement on file Obesity 542722487 E66.9 47.1 [id number] Delmis Mills [address] [address] 12/02/2023 10:55:19 12/02/2023 11:55:17 Body mass index 40+ - severely obese 322583942 Z68.42 49.9med discussed with pt Prediabetes 437929301 R7 3.03 [id number] Delmis Mills [address] [address] 01/10/2024 16:42:24 01/10/2024 17:33:00 Obesity 547613433 E66.9 Pt compliant with plan of careKasper reviewedme dication compliance discussedL ast uds:Control substance agreement on file Body mass index 40+ - severely obese 952182985 Z68.42 49med discussed with pt Morbid obesity 290636930 E66.01 Pt compliant with plan of careKasper reviewedme dication compliance discussedL ast uds: 10/06/21Con trol substance agreement on file [id number] Angelamj Mills [employer] [address] [address] 06/22/2024 14:09:02 06/22/2024 15:03:07 Obesity 499579964 E66.9 Pt compliant with plan of careKasper reviewedme dication compliance discussedL ast uds:06/22/24 Control substance agreement on filediscus sed diet and exercise Long-term current use of drug therapy 321960257 Z79.899 Pain of le ft knee joint 1957151484 15505 M25.562 xray-mrior tho consult if needed [id number] Delmis Mills APRN [address] [address] 07/23/2024 16:38:01 07/23/2024 17:20:13 Obesity 198454019 E66.9 Pt compliant with plan of careKasper [...] Member ID Tovar Member ID Guarantor Name 08/21/2024 1 [facility] ([place]) [id number] Asif Enriquez [id number] Asif Enriquez Notes Date Note Type Note Provider Name and Address Organization Details Recorded Time 08/26/2023 text/html 53 yr old male presents for a post surgical thyroid removal. He had an abnormal ekg prior to surgery and would like a further work up. pt states he is not able to lose wt, would like to restart adipex Delmis Mills APRN [address], [place], [address], [place] - [facility] 08/26/2023 16:23:58 12/02/2023 text/html 53 year old male who presents to the office today for a follow up onweight loss. He wants to restart adipex and try another weight loss shot with it. He states hes gained a lot of weight back in a short time after hes had his thyroid removed. Delmis Mills, [employer] [address], [place], [address], [place] - [facility] 12/02/2023 13:10:25 01/10/2024 text/html 53 yr old male presents for a weight loss follow up. down 7 lbs. pt states he is doing well on adipex with diet and exercise. pt states he has plans to have gastric revision surgery when his insurance approves it. Delmis ParadaYOSHI nuñez [address], [place], [address], [place] - [facility] 01/10/2024 17:39:58 06/22/2024 text/html [...] while carrying a mattress on stairs. Delmis ParadaYOSHI nuñez [address], [place], [address], [place] - [facility] 06/22/2024 17:06:25 07/23/2024 text/html 54 year old male who presents to the office today for a follow up onweight lossat his last appt on 06-22-24 he weighed 383 lbstoday pt weighs 366 lbs. pt states doing well on meds Angelamj joaquin, [employer] [address], [place], [address], [place] - [facility] 07/23/2024 17:18:52
[2024-08-28 09:44] VITALS: BP 142/86; PULSE 89; RESP 18; O2SAT 100; BMI 47.7
[2024-08-28 10:12] VITALS: BP 145/90; PULSE 85; RESP 18; O2SAT 95
[2024-08-28] MEDS: BUPIVACAINE 0.25% 10ML INJ 25 MG IJ (10:12)
[2024-08-28] MEDS: LIDOCAINE 1% 5ML PF VIAL 5 ML (10:12)
[2024-08-28 10:15] VITALS: BP 145/90; PULSE 73; RESP 18; O2SAT 95
[2024-08-28 10:22] VITALS: BP 146/84; PULSE 76; RESP 18; O2SAT 98
--- NOTE | 2024-08-28 10:44 | EXP.PAIN.PRO ---
Procedure Date: 08/28/24 Time: 10:00 Anesthesiologist:: Graham Pickering CRNA Complications:: None Pre-procedure Diagnosis:: Degenerative disc lumbar spine multilevels. Lumbar radiculopathy. Lumbar spondylosis. Multilevel lumbar facet arthropathy. Post-procedure Diagnosis:: Same. Indications for Procedure:: Patient is a very pleasant 54-year-old male who comes our clinic today for ROUND ONE of lumbar medial branch blocks/facet injections at the L4-5 and L5-S1 level. This will be a diagnostic only injection. Patient describes low lumbar back pain off the midline bilaterally. Difficulty with lumbar flexion, extension, left and right rotation. He rates pain 7/10. Procedure Details:: Informed consent was obtained and the risk and benefits of the procedure was explained to the patient. Patient was taken to the procedure room where noninvasive monitors were placed, including noninvasive blood pressure cuff as well as pulse oximeter. The area over the lumbar spine was cleansed using chlorhexidine as a cleansing solution. I anesthetized the skin and subcutaneous tissues with 1% Lidocaine. I placed 22-gauge spinal needles into the facet joint/ medial branches of [L3-L4, L4-L5, and L5-S1] bilaterally. Needle placement was confirmed with fluoroscopy. After confirmation of needle placement, each site was injected with 1 mL of 1% lidocaine and 0.25 % Marcaine. Patient tolerated the procedure without difficulty. There were no complications. Plan and Disposition:: Patient was discharged without incident.
== END 2024-08-28 10:22 | disposition home or self-care (01) ==
PROVIDERS: PCP Nurse Practitioner Family; Visit Provider Nurse Anesthetist, Certified Registered
DX: M51.16 Intervertebral disc disorders with radiculopathy, lumbar region (principal); M47.26 Other spondylosis with radiculopathy, lumbar region; Z86.16 Personal history of COVID-19; E03.9 Hypothyroidism, unspecified; E66.9 Obesity, unspecified; G47.30 Sleep apnea, unspecified; Z79.890 Hormone replacement therapy; Z79.52 Long term (current) use of systemic steroids; Z79.899 Other long term (current) drug therapy
CPT/HCPCS: 64493; 64494; 64495; J0665; J2003

== ENCOUNTER 2024-09-10 13:35 | Outpatient (POV) | payer BC, SELFPAY ==
--- OUTSIDE RECORDS SUMMARY | 2024-09-10 13:38 | XMS_ITS | Encounter Summary ---
Author Organization [facility] Address [address] [place] [address] Care Team Providers Care Evening Or Night Nurse Supervisor Name Role Phone Elisabet Mills YOSHI Primary Care Provider [phone] Encounter Details Date Type Department Care Team ([facility] st Contact Info) Description 05/08/2024 Orders Only External Location [address] [place] [address] Provider, External Social History Tobacco Use Types [...] documented as of this encounter Care Teams Evening Or Night Nurse Supervisor Relationship Specialty Start Date End Date Elisabet Mills APRN [address] [place] [address] PCP - General 12/26/20 documented as of this encounter
--- OUTSIDE RECORDS SUMMARY | 2024-09-10 13:38 | XMS_ITS | Clinical Summary ---
Author Organization [facility] Address [address] [place] [address] Care Team Providers Care Tailings Dam Pumper Name Role Phone Elisabet Mills YOSHI Primary Care Provider [phone]- [phone] Allergies No known active allergies Medications omeprazole [...] MOUTH TWICE DAILY 4 Active HYDROcodone-lena taminophen (Hornbeak) 5-325 MG tablet TAKE ONE TABLET BY [...] - monitor/replete as needed - encourage nutrition Family History Medical History Relation Name Comments [...] 2020 UKY-Zoster Vaccines (1 of 2) 2020 BVW-GFVDL-39 Vaccine (3 - Moderna risk series) 12/30/2020 [...] this topic Medical Devices Implanted Type Area Category Manager Device Identifier Shelf Expiration Date Model / Serial / Lot Collar Ti With Grooves - [id number] Implanted:Qty : 8 on 12/27/2020 by Saad Griggs MD at [facility] Cap N/A: Spine Lumbar DePuy Spine Pinguo [id number] 498.011 / / Manjinder Hard Ti 6.0mm 200mm - [id number] Implanted:Qty : 2 on 12/27/2020 by Saad Griggs MD at [facility] Manjinder N/A: Spine Lumbar DePuy Spine Pinguo [id number] 498.108 / / Screw Uss Ti Dual Core 6.0mm X 40mm - [id number] Implanted:Qty : 4 on 12/27/2020 by Saad Griggs MD at [facility] Screw N/A: Spine Lumbar DePuy Spine Pinguo [id number] 04.602.64 0 / / Screw Uss Ti Dual Core 6.0mm X 35mm - [id number] Implanted:Qty : 3 on 12/27/2020 by Saad Griggs MD at [facility] Screw N/A: Spine Lumbar DePuy Spine Proteus [employer]5 04.602.63 5 / / Nut Ti 11mm Width Across Flats - [id number] Implanted:Qty : 8 on 12/27/2020 by Saad Griggs MD at [facility] Washer N/A: Spine Lumbar DePuy Spine [employer] 498.003 / / Putty Dbx 10cc - [id number] Implanted:Qty : 1 on 12/27/2020 by Saad Griggs MD at [facility] N/A: Spine Lumbar Musculoskeletal Transplant [facility]-[id number] 08/13/2022 [id number] / / [id number] Graft Vivigen 5cc - [id number] - [id number] Implanted:Qty : 1 on 12/27/2020 by Saad Griggs MD at [facility] N/A: Spine Lumbar [id number] 12/17/2021 BL-1500-0 02 / [id number] / [id number] Graft Vivigen 5c - [id number] - [id number] Implanted:Qty : 1 on 12/27/2020 by Saad Griggs MD at [facility] N/A: Spine Lumbar [id number] 12/17/2021 BL-1500-0 02 / [id number] / [id number] Chip Bone 20cc - [id number] - [id number] Implanted:Qty : 1 on 12/27/2020 by Saad Griggs MD at [facility] N/A: Spine Lumbar [facility]-[id number] 08/21/2025 PCAN1/4 / [id number] / [id number] [place] Yknot Pro Rc 2.8mm W/2 1.3mm Hifi Ribbon - [id number] Implanted:Qty : 1 on 04/16/2021 by Joe Mayfield MD at [facility] Right: [facility] Mobile System [id number] 10/30/2025 [id number] / / [id number] [place] Yknot Pro Rc 2.8mm W/2 1.3mm Hifi Ribbon - [id number] Implanted:Qty : 1 on 04/16/2021 by Joe Mayfield MD at [facility] Right: [facility] Mobile System [id number] 10/30/2025 [id number] / / [id number] [place] Yknot Pro Rc 2.8mm W/2 1.3mm Hifi Ribbon - [id number] Implanted:Qty : 1 on 04/16/2021 by Joe Mayfield MD at [facility] Right: Shoulder Mobile System [id number] 10/30/2025 [id number] / / [id number] [place] Yknot Pro Rc 2.8mm W/2 1.3mm Hifi Ribbon - [id number] Implanted:Qty : 1 on 04/16/2021 by Joe Mayfield MD at [facility] Right: Shoulder Mobile System [id number] 10/30/2025 [id number] / / [id number] Explanted Type Area Category Manager Device Identifier Shelf Expiration Date Model / Serial / Lot Collar Ti With Grooves - [id number] Explanted:Qty: 2 on 12/27/2020 at [facility] Cap N/A: Spine Lumbar DePuy Spine Pinguo [id number] 498.011 / / Screw Uss Ti Dual Core 6.0mm X 35mm - [id number] Explanted:Qty: 1 on 12/27/2020 at [facility] Screw N/A: Spine Lumbar DePuy Spine Pinguo [id number] 04.602.635 / / Procedures Procedure Name Priority Date/Time Associated Diagnosis Comments HEMOGLOBIN A1C STAT Add-on 12/26/2020 7:11 AM EDT from Last 3 Months or Most Recently Relevant to Health Maintenance Results * (ABNORMAL) Hemoglobin A1c (12/26/2020 7:11 AM EDT) Hemoglobin A1c 5.7(H) <5.7 % 12/26/2020 6:09 PM EDT [facility] Blood Venous blood specimen / Unknown [...] Adults <6.0% Children and Adolescents <7.5% Source: [place] [employer]. Standards of medical care in diabetes,2017. Diabetes Care.2017:40 (suppl 1):S1-S135. HbA1c assay performed by an ion-exchange chromatography method that is certified traceable to the DCCT. us Ronald Jarquin MD LAB BLOOD ORDERABLES Final R [facility] [address] [place] [address] from Last 3 Months or Most Recently Relevant to Health Maintenance Insurance ANTH Advance Directives * Full Code (Latest Code Status on File) Date Activated Date Inactivated Comments 12/26/2020 8:01 AM 01/01/2021 8:40 PM Question Answer Comments Patient has decision-making capacity? Yes Care Teams Tailings Dam Pumper Relationship Specialty Start Date End Date Elisabet Mills APRN [address] [place] [id number] PCP - General 12/26/20
--- OUTSIDE RECORDS SUMMARY | 2024-09-10 13:38 | XMS_ITS | Data Portability ---
Author Organization [facility] Address [address] [place] [address] Care Team Providers Care Commercial Management Accountant Name Role Phone DELMIS NUÑEZ Primary Care Provider [phone] Assessment Encounter Date Assessment Date Assessment LastModified [...] 14 drugs (detectimed ), urine 2024 025 [place] [facility], [address], [address], [place], [address], 5 18:06:59 drug screen, urine 2023 024 [facility], [address] [place] [address], [address], 4 11:55:12 HbA1c (hemoglobin A1c), blood 2023 024 [facility], [address] [place] [address], [address], 4 11:55:13 Referral cardiologis t referral 2023 024 ROMAIN Belle MD, [address] [place], [place] [id number] [address], [place], [address], 4 14:25:09 Procedures None recorded. Surgeries None recorded. Imaging XR, knee, 3 view 2024 025 [facility] (X-Ray), [address] [place], [place] [address]y [address], [place], [address], 5 18:05:03 US, echocardiog galen 2023 024 [facility] (Scheduling), [address] [place] [address] [address], [place], [address], 4 14:31:41 Medication Orders phentermine 37.5 mg tablet 2024 025 [facility], [address] [place] [address] [address] [place], [id number], 5 17:45:14 Wegovy 0.5 mg/0.5 mL subcutaneou s pen injector 2024 025 [facility], [address] [place] [address] [address] [place], [id number], 5 17:14:57 meloxicam 7.5 mg tablet 2024 025 [facility] [facility], [address] [place] [address] [address] [place], [id number], 5 17:46:57 phentermine 37.5 mg tablet 2024 025 [facility], [address] [place] [address] [address] [place], [id number], 5 17:46:57 phentermine 37.5 mg tablet 2023 [facility], [address] [place], [address], 4 17:38:07 Zepbound 2.5 mg/0.5 mL subcutaneou s pen injector 2023 [facility], [address] [place] [address], [address], 4 17:04:08 Adipex-P 37.5 mg tablet 2023 [facility], [address] [place] [address], [address], 11:55:13 phentermine 37.5 mg tablet 2023 [facility], [address] [place] [address], [address], 11:16:12 Patient TargetsNo targets recorded. Patient Instructions Encounter Date Encounter Id Patient Instructions Last Modified By Organization Details Last Modified Time 08/26/2023 [id number] body mass index: care instructions efryman Not available 08/26/2023 16:23:10 learning about healthy weight efryman Not available 08/26/2023 16:23:10 01/10/2024 [id number] body mass index: care instructions efryman Not available 01/10/2024 17:38:05 learning about healthy weight efryman Not available 01/10/2024 17:38:05 Reason for Referral Machine Cloth Trimmer Referral for El ectrocardiogram abnormal Referring Physician: Delmis Mills, Family Medicine, Encounter Date: 08/26/2023 Results Created Date Observation Date Name Description Value Unit Range Abnormal Flag Note LastModifiedBy Organization Detail LastModifiedTime 12/02/1912/02/2023 HbA1c (hemo globi n A1c), blood HbA1C 5.5 % Not Available [address], [address], 12/02/2023 11:49:47 12/02/1912/02/2023 drug scree n, urine THC negati ve Not Available [address], [address], 12/02/2023 11:44:20 12/02/1912/02/2023 drug scree n, urine TCA positi ve Not Available [address], [address], 12/02/2023 11:44:20 12/02/1912/02/2023 drug scree n, urine BAR negati ve Not Available [address], [address], 12/02/2023 11:44:20 12/02/1912/02/2023 drug scree n, urine BZO negati ve Not Available [address], [address], 12/02/2023 11:44:20 12/02/1912/02/2023 drug scree n, urine MTD negati ve Not Available [address], [address], 12/02/2023 11:44:20 12/02/1912/02/2023 drug scree n, urine AMP negati ve Not Available [address], [address], 12/02/2023 11:44:20 12/02/1912/02/2023 drug scree n, urine MOP negati ve Not Available [address], [address], 12/02/2023 11:44:20 12/02/19 24 12/02/2023 drug scree n, urine OXY negati ve Not Available [address], [address], 12/02/2023 11:44:20 12/02/19 24 12/02/2023 drug scree n, urine MDMA negati ve Not Available [address], [address], 12/02/2023 11:44:20 12/02/19 24 12/02/2023 drug scree n, urine LATRELL negati ve Not Available [address], [address], 12/02/2023 11:44:20 12/02/19 24 12/02/2023 drug scree n, urine PCP negati ve Not Available [address], [address], 12/02/2023 11:44:20 12/02/19 24 12/02/2023 drug scree n, urine MET negati ve Not Available [address], [address], 12/02/2023 11:44:20 06/23/19 25 07/01/2024 COMPL IANCE [...] kirsten consu ltati on, pleas e call [phone]. ===== ===== ===== ===== ===== ===== ===== ===== ===== ===== ===== ===== ===== === Not Available [facility] [address], [place], [address], 07/01/2024 18:06:59 06/23/19 25 07/01/2024 COMPL IANCE DRUG AUSTEN SIS, UR pdf . Not Available [facility] ([facility]) [address], [place], [address], 07/01/2024 18:06:59 08/14/19 24 08/14/2023 elect sonal haque am No observ ation record ed. [place] [id number], [place], [address], 08/16/2023 08:21:08 09/12/19 24 09/09/2023 , [facility] ardio gram No observ ation record ed. [facility] [address], [place], [address], 09/12/2023 14:57:41 05/09/19 25 05/08/2024 XR, lumba r spine No observ ation record ed. [facility] [address], [place], [address], 05/10/2024 15:52:30 05/09/19 25 05/08/2024 XR, cervi kirsten spine , 2 or 3 view No observ ation record ed. [facility] [address], [place], [address], 05/10/2024 15:25:06 06/27/19 25 06/26/2024 XR, knee, 3 view No observ [facility] [address], [place], [address], 07/02/2024 10:31:56 07/11/19 25 07/10/2024 MRI, knee, w/o contr ast No observ ation record ed. [facility] [address], [place], [address], 07/10/2024 18:24:51 Result Notes None recorded. Problems Name Problem SNOMED Code Status Onset Date Resolution Date Notes Provider Name and Address Organization Details Recorded Time Insomnia 912922593 Active 2021 Delmis Mills, [employer]NA[employer] [address] [address], [place], [address], [place] - [facility] 2 17:21:07 Gastroesophage al reflux disease 483313205 Active 2021 Delmis Mills, [employer]NA[employer] [address], [place], [address], [place] - [facility] 2 17:21:14 Low back pain 728947393 Active 2021 Delmis Mills, [employer] [address], [place], [address], [place] [facility] 2 16:38:56 Obesity 085420398 Active 2021 Delmis Mills, MA[employer] [address], [place], [address], [place] [facility] 2 16:39:11 Thyroid nodule 330636320 Active 2022 Delmis Mills, MANA[employer] [address], [place], [address], [place] [facility] 3 16:21:10 Prediabetes 945145272 Active 2022 Delmis Mills, MANA[employer] [address], [place], [address], [place] - [facility] 3 16:58:01 [...] 5 182.88 cm 18 /min 51.9 kg/m2 227547. 88 g 89 /min 97 % 97 % 118/70 mm[Hg] [facility] 5 14:30:35 Date Recorded Body height Respiratory rate Body mass index (BMI) Body weight Heart rate Oxygen saturation Oxygen saturation in Arterial blood by Pulse oximetry Body temperature Systolic And Diastolic Provider Name and Address Organization Details Last Updated DateTime 5 182.88 cm 18 /min 49.6 kg/m2 678870. 81 g 78 /min 97 % 97 % 97.9 [degF] 120/74 mm[Hg] Jennifer Miranda [place] - [facility] 5 16:52:21 Date Recorded Body height Body mass index (BMI) Body weight Body temperature Heart rate Oxygen saturation Oxygen saturation in Arterial blood by Pulse oximetry Respiratory rate Systolic And Diastolic Provider Name and Address Organization Details Last Updated DateTime 4 182.88 cm 47.1 kg/m2 426914. 55 g 97.1 [degF] 73 /min 97 % 97 % 20 /min 118/72 mm[Hg] Asia Peguero [place] - [facility] 4 15:31:34 Date Recorded Body height Respiratory rate Body mass index (BMI) Body weight Heart rate Oxygen saturation Oxygen saturation in Arterial blood by Pulse oximetry Systolic And Diastolic Provider Name and Address Organization Details Last Updated DateTime 4 182.88 cm 18 /min 49.9 kg/m2 932358. 99 g 70 /min 96 % 96 % 140/82 mm[Hg] Jennifer Grahamabdi [place] - [facility] 4 11:15:38 Date Recorded Body height Body mass index (BMI) Body weight Body temperature Heart rate Oxygen saturation Oxygen saturation in Arterial blood by Pulse oximetry Respiratory rate Systolic And Diastolic Provider Name and Address Organization Details Last Updated DateTime 4 182.88 cm 49 kg/m2 235141. 85 g 98.7 [degF] 87 /min 97 % 97 % 20 /min 128/86 mm[Hg] Asia Marielena [place] - [facility] 4 17:03:11 Social History Question Answer Notes LastModified by Organizat ion Details LastModified Time Tobacco Smoking Status Never Smoker Asia Marielena [place], [place] - [facility] 10/06/2021 16:56:26 Do You [...] Or The Highest Degree You Have Received? [id number] Information not available 10/06/2021 Have There Been Any Changes To Your Family Or Social Situation? No Information no t available 12/03/2021 What Is The Fluoride Status Of Your Home? Unknown Information not available 12/03/2021 How Many Years Have You Used Illicit Or Recreational Drugs? 0 Information not available 10/06/2021 Do You Have A Medical Power Of Traveling Missionary? No Information not available 12/03/2021 What Was [...] anxious, or unable to sleep at night)? [id number] Information not available 10/06/2021 Do you have [...] SNOMED-CT Code Diagnosis ICD10 Code Diagnosis Note [id number] Delmis Mills APRN [address] [address] 10/06/2021 16:41:45 10/06/2021 17:59:03 Morbid obesity 740957681 E66.01 Pt compliant with plan of careKasper reviewedme dication compliance discussedL ast uds: 10/06/21Con trol substance agreement on file Insomnia 470656291 G47.0 0 Gastroesop hageal reflux disease 593155899 K21.9 Low back pain 033879905 M54.50 fmla paperwork filled out [id number] Delmis Mills [address] [address] 12/03/2021 16:00:26 12/03/2021 16:32:25 Pain of right knee joint 4377643031 40169 M25.561 Obesity 452039396 E66.9 Pt compliant with plan of careKasper reviewedme dication compliance discussedL ast uds: 2Control substance agreement on file [id number] Delmis Mills [address] [address] 03/23/2022 15:42:22 03/23/2022 16:40:24 Increased frequency of urination 619784656 R35.0 Delay when starting to pass urine 0163315 R39.11 Obesity 102579352 E66.9 Pt compliant with plan of careKasper reviewedme dication compliance discussedL ast uds: 2Control substance agreement on file Thyroid nodule 317897229 E04.1 Edema of l ower extremity 157591809 R60.0 wait for labs if labs ok will send for echo [id number] Delmis Mills [address] [address] 05/21/2022 14:01:19 05/21/2022 16:01:35 Obesity 848787712 E66.9 Pt compliant with plan of careKasper reviewedme dication compliance discussedL ast uds: 2Control substance agreement on file Thyroid nodule 336198993 E04.1 Prediabetes 326026378 R7 3.03 talked with pt metformin is causing gi issues, nausea,carlie rrhea and he is unable to tolerated it. [id number] Delmis Mills APRN [address] [address] 06/29/2022 16:37:14 06/29/2022 17:01:59 Obesity 974747275 E66.9 Pt compliant with plan of careKasper reviewedme dication compliance discussedL ast uds: 2Control substance agreement on file Body mass index 40+ - severely obese 462226272 Z68.42 Morbid obesity 138567160 E66.01 Pt compliant with plan of careKasper reviewedme dication compliance discussedL ast uds: 10/06/21Con trol substance agreement on file Prediabetes 557675557 R7 3.03 talked with pt metformin is causing gi issues, nausea,carlie rrhea and he is unable to tolerated it. [id number] Delmis Mills APRN [address] [address] 08/05/2022 16:00:03 08/05/2022 16:59:15 Obesity 953946729 E66.9 Pt compliant with plan of careKasper reviewedme dication compliance discussedL ast uds: 2Control substance agreement on file Prediabetes 156392641 R7 3.03 talked with pt metformin is caused gi issues, nausea,carlie rrhea and he is unable to tolerated it. Body mass index 40+ - severely obese 894997106 Z68.42 Morbid obesity 567831685 E66.01 Pt compliant with plan of careKasper reviewedme dication compliance discussedL ast uds: 10/06/21Con trol substance agreement on file [id number] Angelanardatrey YOSHI Mills [address] [address] 09/24/2022 16:03:07 09/24/2022 17:02:07 Obesity 300621420 E66.9 Pt compliant with plan of careKasper reviewedme dication compliance discussedL ast uds: 2Control substance agreement on file Prediabetes 928855550 R7 3.03 talked with pt metformin is caused gi issues, nausea,carlie rrhea and he is unable to tolerated it. Body mass index 40+ - severely obese 988357486 Z68.42 Morbid obesity 576218322 E66.01 Pt compliant with plan of careKasper reviewedme dication compliance discussedL ast uds: 10/06/21Con trol substance agreement on file [id number] Delmis Mills [address] [address] 11/26/2022 09:22:47 11/26/2022 10:10:52 Obesity 014851314 E66.9 Pt compliant with plan of careKasper reviewedme dication compliance discussedL ast uds: 2Control substance agreement on file Prediabetes 643148885 R7 3.03 Body mass index 40+ - severely obese 420096807 Z68.42 46.2 Morbid obesity 828868480 E66.01 Pt compliant with plan of careKasper reviewedme dication compliance discussedL ast uds: 10/06/21Con trol substance agreement on file [id number] Delmis Mills [address] [address] 01/04/2023 18:12:41 01/11/2023 08:01:31 Obesity 671990532 E66.9 Pt compliant with plan of careKasper reviewedme dication compliance discussedL ast uds: 2Control substance agreement on file Prediabetes 632186394 R7 3.03 pt called unable to get ozempic 2 mg wants 1 mg sent Insomnia 307973846 G47.0 0 Gastroesop hageal reflux disease 338176824 K21.9 [id number] Delmis Mills [address] [address] 02/17/2023 15:47:13 02/17/2023 16:18:11 Obesity 997427479 E66.9 Pt compliant with plan of careKasper reviewedme dication compliance discussedL ast uds: 2Control substance agreement on file Prediabetes 924528231 R7 3.03 pt called unable to get ozempic 2 mg wants 1 mg sent [id number] Delmis Mills [address] [address] 04/01/2023 13:45:36 04/01/2023 14:35:45 Obesity 378558131 E66.9 Pt compliant with plan of careKasper reviewedme dication compliance discussedL ast uds: 2Control substance agreement on file [id number] Delmis Mills [address] [address] 08/26/2023 15:09:27 08/26/2023 16:15:35 History of total thyroidectomy 1462026654 11266 Z90.89 Patient presents with surgical incision cdi. Patient states no new issues, told to follow up if any swelling, redness, or unusual symptoms occur. Electrocar diogram abnormal 027438528 R94.31 Per last ekg patient has left ventricula r hypertroph y and some atrial enlargemen t. Patient referred to have a echocardio gram done. Morbid obesity 921742134 E66.01 Pt compliant with plan of careKasper reviewedme dication compliance discussedL ast uds: 10/06/21Con trol substance agreement on file Obesity 384531900 E66.9 47.1 [id number] Delmis Mills [address] [address] 12/02/2023 10:55:19 12/02/2023 11:55:17 Body mass index 40+ - severely obese 307351832 Z68.42 49.9med discussed with pt Prediabetes 685673209 R7 3.03 [id number] Delmis Mills [address] [address] 01/10/2024 16:42:24 01/10/2024 17:33:00 Obesity 990406154 E66.9 Pt compliant with plan of careKasper reviewedme dication compliance discussedL ast uds:Control substance agreement on file Body mass index 40+ - severely obese 829209446 Z68.42 49med discussed with pt Morbid obesity 166443179 E66.01 Pt compliant with plan of careKasper reviewedme dication compliance discussedL ast uds: 10/06/21Con trol substance agreement on file [id number] Angelamj Mills MANAGER [employer] [address] [address] 06/22/2024 14:09:02 06/22/2024 15:03:07 Obesity 475811932 E66.9 Pt compliant with plan of careKasper reviewedme dication compliance discussedL ast uds:06/22/24 Control substance agreement on filediscus sed diet and exercise Long-term current use of drug therapy 800488364 Z79.899 Pain of le ft knee joint 2973679728 37669 M25.562 xray-mrior tho consult if needed [id number] Delmis Mills APRN [address] [address] 07/23/2024 16:38:01 07/23/2024 17:20:13 Obesity 110275681 E66.9 Pt compliant with plan of careKasper [...] Tovar Member ID Guarantor Name 08/21/2024 1 [facility] ([facility]) [id number] Asif Enriquez [id number] Asif Enriquez Notes Date Note Type Note Provider Name and Address Organization Details Recorded Time 08/26/2023 text/html 53 yr old male presents for a post surgical thyroid removal. He had an abnormal ekg prior to surgery and would like a further work up. pt states he is not able to lose wt, would like to restart adipex Delmis Mills APRN [address], [place], [address], [place] - [facility] 08/26/2023 16:23:58 12/02/2023 text/html 53 year old male who presents to the office today for a follow up onweight loss. He wants to restart adipex and try another weight loss shot with it. He states hes gained a lot of weight back in a short time after hes had his thyroid removed. Delmis Mills, MANAGER [employer] [address], [place], [address], [place] - [facility] 12/02/2023 13:10:25 01/10/2024 text/html 53 yr old male presents for a weight loss follow up. down 7 lbs. pt states he is doing well on adipex with diet and exercise. pt states he has plans to have gastric revision surgery when his insurance approves it. Delmis ParadaYOSHI nuñez [address], [place], [address], [place] - [facility] 01/10/2024 17:39:58 06/22/2024 text/html [...] stairs. Delmis ParadaYOSHI nuñez [address], [place], [address], [place] - [facility] 06/22/2024 17:06:25 07/23/2024 text/html 54 year old male who presents to the office today for a follow up onweight lossat his last appt on 06-22-24 he weighed 383 lbstoday pt weighs 366 lbs. pt states doing well on meds Angelamj joaquin, MANAGER [employer] [address], [place], [address], [place] - [facility] 07/23/2024 17:18:52
--- OUTSIDE RECORDS SUMMARY | 2024-09-10 13:38 | XMS_ITS | Encounter Summary ---
Author Organization [facility] Address [address] [place] [address] Care Team Providers Care Tailoring Teacher Name Role Phone Elisabet Mills YOSHI Primary Care Provider [phone] Encounter Details Date Type Department Care Team ([facility] st Contact Info) Description 05/08/2024 Orders Only External Location [address] [place] [address] Provider, External Social History Tobacco Use Types [...] documented as of this encounter Care Teams Tailoring Teacher Relationship Specialty Start Date End Date Elisabet Mills APRN [address] [place] [address] PCP - General 12/26/20 documented as of this encounter
--- OUTSIDE RECORDS SUMMARY | 2024-09-10 13:38 | XMS_ITS | Clinical Summary ---
Author Organization [facility] Address [address] [place] [address] Care Team Providers Care Case Advocate Name Role Phone roElisabet augustine YOSHI Primary Care Provider + [phone] Allergies No known active allergies Medications hydrOXYzine pamoate (VISTARIL) 25 MG capsule TAKE 1 CAPSULE BY MOUTH EVERYDAY AT BEDTIME NEEDED 3 Active omeprazole (priLOSEC) 40 MG capsule Take 1 capsule by mouth Daily. 2 Active phentermine (ADIPEX-P) 37.5 MG tablet phentermine 37.5 mg tablet TAKE ONE TABLET BY MOUTH DAILY (30 MINUTES BEFORE OR 1-2 HOUR(S) AFTER BREAKFAST). Active predniSONE (DELTASONE) 20 MG tablet prednisone 20 mg tablet TAKE 1 TABLET BY MOUTH TWICE A DAY Active Semaglutide,0.2 5 or 0.5MG/DOS, (Ozempic, 0.25 or 0.5 MG/DOSE,) 2 MG/1.5ML solution pen-injector 0.25 mg. Active Active Problems Problem Noted Date Diagnosed Date SARATH (obstructive sleep apnea) 04/10/2022 Assessment & Plan (04/10/2022 6:50 PM EST): This is a 31 to 90-day SARATH follow-up after getting a new machine since his old one had a broken screen and he did not get a new one from the recall. Patient reports his airflow, mask, and machine are working well. He likes the new machine. He uses his a full facemask, 6 feet tubing, and [employer] is his DME. Benefiting from PAP therapy we will plan to continue. Essential hypertension 04/10/2022 Assessment & Plan (04/10/2022 6:51 PM EST): Treating SARATH will likely benefit blood pressure Family History Medical History Relation Name Comments COPD Father Colon cancer Mother Heart disease Mother HEART RPOBLEMS Relation Name Status Comments Father (Age 61) SUICIDE Mother Alive Sister X4 3 SISTERS LIVIN G1 SISTER - FROM [place] Social History Tobacco Use Types Packs/Day Years Used Date Smoking Tobacco: Never Abuse Screen Answer Date Recorded Unsafe at Home or Work/School Not on file Feels Threatened by Someone? Not on file Does Anyone Keep You from Co ntacting Others or Doint Things Outside the Home? Not on file 12/03/2022 Physical Sign of Abuse Present Not on file 1 Housing Stability Answer Date Recorded Current Living Arrangements Not on file 11/21 Potentially Unsafe Housing Conditions Not on anand e 12/03/2022 Family and Community Support Answer Jasper e Recorded Help with Day-to-Day Activities Not on file 12/03/2022 Lonely or Isolated Not on file 12/03/2022 Employment Answer Date Recorded Do you want help finding or keeping work or a dale b? Not on file 12/03/2022 Disabilities Answer Date Recorded Concentrating, Remembering, or Making Decisions Difficulty Not on file 12/03/2022 Doing Errands Independently Difficulty Not on fi le 12/03/2022 Education Answer Date Recorded Help with school or training? Not on file Preferred Language Not on file 12/03/2022 Sex and Gender Information Value Date Recorded Sex Assigned at Not on file Legal Sex Male 6:40 PM EST Gender Identity Not on file Sexual Orientation Not on file Occupation Industry Job Start Date Job End Date [employer] @ [employer] Not on file Not on file Not on file Last Filed Vital Signs Vital Sign Reading Time Taken Comments Blood Pressure 160/90 04/08/2022 3:39 PM EST Pulse 74 04/08/2022 3:39 PM EST Temperature - - Respiratory Rate - - Oxygen Saturation 96% 04/08/2022 3:39 PM EST Inhaled Oxygen Concentration - - Weight 173 kg (381 lb) 04/08/2022 3:39 PM EST Height 188 cm (6' 2 ) 04/08/2022 3:39 PM EST Body Mass Index 48.92 04/08/2022 3:39 PM EST Plan of Treatment Health Maintenance Due Date Last Done Comments TDAP/TD VACCINES (2 - Tdap) 04/28/2006 04/28/1996 COLOGUARD 2015 COLON CANCER SCREENING 5 YEAR SIGMOIDOSCOPY 2015 COLONOSCOPY [address] CANCER SCREENING 2015 CT COLONOGRAPHY 2015 FECAL OCCULT BLOOD TEST 2015 FIT Testing (1 year) 2015 Pneumococcal Vaccine 50+ (1 of 1 - PCV) 2020 ZOSTER VACCINE (1 of 2) 2020 ANNUAL PHYSICAL 03/31/2022 HEPATITIS C SCREENING 03/31/2022 COVID-19 Vaccine (1 - 2023- season) 2023 INFLUENZA VACCINE 11/21/2024 Insurance PPO Care Teams Case Advocate Relationship Specialty Start Date End Date Elisabet Mills APRN [address] [place] [address] [place] [address] PCP - General Family Medicine 04/08/22
--- OUTSIDE RECORDS SUMMARY | 2024-09-10 13:38 | XMS_ITS | Continuity of Care Document ---
Author Organization [place] [facility] Address [address] [place] [address] Care Team Providers Care Plastic Production Machine Setter Name Role Phone DELMIS JOSE Primary Care Provider [phone] Assessment No assessment recorded. Plan of Treatment Reminders Order Date Submit Date Provider Last Modified By Organization Details Last Modified Time Details Appointments MEDICAL WEIGHT LOSS FOLLOW UP 2024 01:40P ELIN Lind Not available Not available Not available Lab folate, serum 2024 025 ROMAIN [facility], [address], [address], [place], [address], 09/06/2024 18:36:06 prealbumi n, serum 2024 025 ROMAIN [facility], [address], [address], [place], [address], 09/06/2024 18:36:10 thiamine, QN, blood 2024 025 ROMAIN [facility], [address], [address], [place], [address], 09/06/2024 18:36:08 methylmal lashay, QN, serum or plasma 2024 025 ROMAIN [facility], [address], [address], [place], [address], 09/06/2024 18:36:09 CBC w/ auto diff 2024 025 ROMAIN [facility], [address], [address], [place], [address], 09/06/2024 18:36:02 CMP, serum or plasma 2024 025 ROMAIN [facility], [address], [address], [place], [address], 09/06/2024 18:36:03 HbA1c (hemoglob in A1c), blood 2024 025 ROMAIN [facility], [address], [address], [place], [address], 09/06/2024 18:36:06 iron + TIBC + ferritin, serum 2024 025 ROMAIN [facility], [address], [address], [place], [address], 09/06/2024 18:36:01 vitamin D, 25-hydrox y, total, serum 2024 025 ROMAIN [facility], [address], [address], [place], [address], 09/06/2024 18:36:08 vitamin E, serum 2024 025 ROMAIN [facility], [address], [address], [place], [address], 09/06/2024 18:36:05 vitamin A (retinol) , serum 2024 025 ROMAIN [facility], [address], [address], [place], [address], 09/06/2024 18:36:07 TSH + free T4, serum 2024 025 ROMAIN [facility], [address], [address], [place], [address], 09/06/2024 18:36:02 lipid panel, serum 2024 025 DENAIR [facility], [address], [address], [place], [address], 09/06/2024 18:36:04 Referral None recorded. Procedures None recorded. Surgeries None recorded. Imaging None recorded. Medication Orders Wegovy 1 mg/0.5 mL subcutane ous pen injector 2024 025 DENAIR [id number], [address] [facility], [place], [address], 08/31/2024 12:08:30 Patient TargetsNo targets recorded. Patient InstructionsNo instructions recorded. Reason for Referral None Reported. Problems Name Problem SNOMED Code Status Onset Date Resolution Date Notes Provider Name and Address Organization Details Recorded Time Gastroesophag eal reflux disease without esophagitis 876724534 Active 2023 ELIN Maria [address] , [place], [address] , [place] [facility] - [place] & [place] 4 13:33:47 Chronic low back pain 453124836 Active 2023 ELIN Maria [address] , [place], [address] , [place] [facility] [place] & [place] 4 13:34:02 Intentional weight loss 908360775 Active 2023 ELIN Maria [address] , [place], [address] , [place] - [facility] & [place] 4 13:34:18 Obesity 540323154 Active 2023 ELIN Maria [address] , [place], [address] , [place] [facility] [place] & [place] 4 13:46:35 Obstructive sleep apnea syndrome 71733972 Active 2024 ELIN Maria [address] , [place], [address] , [place] - [facility] - [place] & [place] 5 11:54:39 Problem Notes None recorded. Procedures Surgical History Date Name Laterality Status Provider Name and Address Organization Details Recorded Time 2020 Back Surgery completed Layla KOO - [facility] & [place] 3 12:17:39 2015 Colonoscopy completed Layla KOO - [facility] & [place] 3 14:14:11 Back Surgery completed Layla Whalenence HAYES - [facility] - [place] & [place] 3 14:14:11 laparoscopic sleeve gastrectomy completed Marleni KOO - [facility] & [place] 4 13:13:26 repair of hydrocele completed Rebec srinivas Guerra HAYES - [facility] & [place] 4 13:13:39 procedure on shoulder completed Ade ecca Guerra HAYES - [facility] & [place] 4 13:13:54 esophagogastroduodenoscopy completed Marleni KOO - [facility] & [place] 4 13:14:27 thyroidectomy completed Marleni KOO - [facility] & [place] 4 13:14:42 Imaging Results None recorded. Procedure [...] ONE TABLET BY MOUTH EVERY DAY NEEDED 08/31 completed Not Available Not Available Not Available [...] pack TAKE ACCORDING TO PACKAGE INSTRUCTI ONS 08/31 completed Not Available Not Available Not Available cefdinir 300 mg capsule TAKE 1 CAPSULE 3 TIMES A DAY 04/27 completed Not Available Not Available Not Available amoxicillin 875 mg-justin cesar clavulanate 125 mg tablet TAKE ONE TABLET BY MOUTH TWICE DAILY FOR FOURTEEN DAYS 08/31 completed Not Available Not Available Not Available [...] Not Available Not Available Not Available Wegovy 1 mg/0.5 mL subcutaneou s pen injector Inject 0.5 mL every week by subcutane ous route. 2024 active Not Available Not Available Not Avai lable Wegovy 0.5 mg/0.5 mL subcutaneou s pen [...] Details Last Updated DateTime 5 187.96 cm 98 [degF] 82 /min 46.4 kg/m2 730062. 2 g 148/93 mm[Hg] Marleni Roman [facility] & [place] 11:37:59 Social History Question Answer Notes LastModified by Organizat ion Details LastModified Time Tobacco Smoking Status Never Smoker HAYES Dobbins [facility] & [place] 04/19/2022 15:05:10 Do You Have An Advance Directive? No Information not available 06/16/2022 Are You Blind Or Do You Have Difficulty Seeing? No Information not available 06/16/2022 What Is Your Level Of Caffeine Consumption? Moderate [email or web address] Information not available 01/12/2024 Are You Passively [...] anxious, or unable to sleep at night)? [id number] Information not available 06/16/2022 Family History Nothing [...] influenza, unspecified formulation 11/08/2023 completed Yisel Rudolph [facility] [place] 01/12/2024 13:16:21 Past Encounters Encounter ID Performer Location Encounter Start Date Encounter Closed Date Diagnosis/Indication Diagnosis SNOMED-CT Code Diagnosis ICD10 Code Diagnosis Note [id number] ELIN Maria [facility] [address] [place] [address] 08/31/2024 11:12:15 08/31/2024 13:19:17 Gastroesophageal reflux disease without esophagitis 551208751 K21.9 Upper GI and upper endoscopy results were reviewed with patient again today.Taty ent is to continue daily omeprazole 40mg daily. He is to report any worsening reflux symptoms.D iscussed possible EGD Gómez if reflux disease is worsening. Expect reflux symptoms to improve with additional weight loss. Currently patient would like to focus on medical weight loss.Ultim ately patient may need revision to Warren-en-Y gastric bypass in order to resolve reflux disease. We discussed this at length today. Insurance is currently working to obtain approval for revisional surgery. Obstructiv e sleep apnea syndrome 51650552 G47.33 Intentiona l weight loss 241650684 R63.8 E66.813 Z68.42 Advised patient against use of phentermin e with Wegovy. We will increase Wegovy to 1 mg subcu weekly. Patient is still look for increased satiety and decreased hunger w/ increased dose. We will see patient back in 4 weeks to determine if additional increase in dose as needed.Kristine stevens is advised to stop phentermin e and voices understand ing to do so.Encoura ged patient to stay focused on bariatric basics. Advised frequent small meals with minimum 16-1800 calories 90 g of protein.Fo llow up 4 weeks History of gastrectomy 879630712 Z90.3 Advised qid intake 50% protein 16-1800 calories/d y less than 100 carbs/dyLo ng [...] to correct any vitamin deficienci es. [facility] of nutritional deficit 812398221 Z91.89 Health Concerns Section Related Observation LastModified by Organization Reena kelley LastModified Time None Recorded Concern Status LastModified by Organization Details LastModified Time None Recorded Payers Encounter Date Sequence Insurance Name Policy Number Policy Tovar Covered Member ID Tovar Member ID Guarantor Name 08/31/2024 1 [place] [id number] Asif Enriquez [id number] Asif Enriquez Notes Date Note Type Note Provider Name and Address Organization Details Recorded Time text/html ANGELI Dec 2023 status post sleeve gastrectomy [address] San. [id number] OSAInsurance has denied revision. Pt started on Wegovy April 2024 weight 373.6lbToday patient returns to clinic for follow-up. He reports he is now taking phentermine. He states Wegovy 0.5 mg weekly was not controlling his hunger well enough and he asked his family doctor to put him on phentermine.Patient is not tracking. He reports 3 meals daily and 1 protein bar. Since last office visit he is lost 12.5 lb. Current BMI is 46.3 with 46.3% body fat skeletal muscle mass 108.5 which is 132% predicted basal metabolic rate 2269Patient continues to have reflux but states this is adequately controlled with 40 mg omeprazole daily. He has seen no worsening reflux symptoms with starting Wegovy.Patient does take routine vitamin supplementation. Last bariatric vitamin panel December 2023 @04/27/24 OV - Patient returns to clinic today to discuss [...] EGD Findings: Moderate amount of retained gastric fundus.Mild irritation of the gastric mucosa in the pre antral space. H pylori biopsies neg 01/03/24 UGI FINDINGSScout: Preliminary marine radio installer and servicer view of the abdomen demonstrates a nonobstructivebowel [...] findings. No significant gastroesophageal reflux visualized. @01/12/24 OV Patient returns to clinic today to discuss [...] care patient. His is a patient of [employer]. He is new to our practice status post sleeve gastrectomy [address] Sna. He states preoperative weight was 478 lb. [...] rate [id number] ELIN Maria [address] , [place], [address], [facility] - [facility] - [place] & [place] 08/31/2024 12:16:48
--- OUTSIDE RECORDS SUMMARY | 2024-09-10 13:38 | XMS_ITS | Data Portability ---
Author Organization [place] - [facility] & [place] [facility] AD[facility] Address [address] [place] [id number] Care Team Providers Care Rn Labor Delivery Name Role Phone DELMIS JOSE Primary Care Provider [phone] Assessment Encounter Date Assessment Date Assessment LastModified [...] minutes was spent with the pt today. [email or web address] Not available 12/23/2023 14:31:27 Plan of Treatment Reminders Order Date Submit Date Provider Last Modified By Organization Details Last Modified Time Details Appointments MEDICAL WEIGHT LOSS FOLLOW UP 2024 01:40P ELIN Lind Not available Not available Not available Lab folate, serum 2024 025 [facility], [address], [address], [place], [address], 09/06/2024 18:36:06 prealbumi n, serum 2024 025 [facility], [address], [address], [place], [address], 09/06/2024 18:36:10 thiamine, QN, blood 2024 025 [facility], [address], [address], [place], [address], 09/06/2024 18:36:08 methylmal lashay, QN, serum or plasma 2024 025 [facility], [address], [address], [place], [address], 09/06/2024 18:36:09 CBC w/ auto diff 2024 025 [facility], [address], [address], [place], [address], 09/06/2024 18:36:02 CMP, serum or plasma 2024 025 [facility], [address], [address], [place], [address], 09/06/2024 18:36:03 HbA1c (hemoglob in A1c), blood 2024 025 [facility], [address], [address], [place], [address], 09/06/2024 18:36:06 iron + TIBC + ferritin, serum 2024 025 [facility], [address], [address], [place], [address], 09/06/2024 18:36:01 vitamin D, 25-hydrox y, total, serum 2024 025 [facility], [address], [address], [place], [address], 09/06/2024 18:36:08 vitamin E, serum 2024 025 ROMAIN [facility], [address], [address], [place], [address], 09/06/2024 18:36:05 vitamin A (retinol) , serum 2024 025 [facility], [address], [address], [place], [address], 09/06/2024 18:36:07 TSH + free T4, serum 2024 025 [facility], [address], [address], [place], [address], 09/06/2024 18:36:02 lipid panel, serum 2024 025 [facility], [address], [address], [place], [address], 09/06/2024 18:36:04 CBC w/ auto diff 2023 024 [facility], [address], [address], [place], [address], 01/01/2024 03:35:43 folate, serum 2023 024 [facility], [address], [address], [place], [address], 01/01/2024 03:35:46 prealbumi n, serum 2023 024 [facility], [address], [address], [place], [address], 01/01/2024 03:35:51 thiamine, QN, blood 2023 024 [facility], [address], [address], [place], [address], 01/01/2024 03:35:49 methylmal lashay, QN, serum or plasma 2023 024 [facility], [address], [address], [place], [address], 01/01/2024 03:35:50 CMP, serum or plasma 2023 024 [facility], [address], [address], [place], [address], 01/01/2024 03:35:44 iron + TIBC + ferritin, serum 2023 024 [facility], [address], [address], [place], [address], 01/01/2024 03:35:41 vitamin D, 25-hydrox y, total, serum 2023 024 [facility], [address], [address], [place], [address], 01/01/2024 03:35:48 vitamin E, serum 2023 024 [facility], [address], [address], [place], [address], 01/01/2024 03:35:45 vitamin A (retinol) , serum 2023 024 [facility], [address], [address], [place], [address], 01/01/2024 03:35:47 TSH + free T4, serum 2023 024 [facility], [address], [address], [place], [address], 01/01/2024 03:35:43 Referral None recorded. Procedures None recorded. Surgeries esophagog astroduod enoscopy (SURG) 2023 024 [email or web address] Cyndi Dunn MD, [address], [address], [place], [address], 02/10/2024 14:47:10 Imaging RF, upper gastroint estinal tract, w/ contrast PO 2023 024 [email or web address] [facility] (Centralized Scheduling), [address] , [place], [address], 02/10/2024 14:47:53 Medication Orders Wegovy 1 mg/0.5 mL subcutane ous pen injector 2024 025 [facility]acy #[id number], [address] [place], [address], 08/31/2024 12:08:30 Wegovy 0.5 mg/0.5 mL subcutane ous pen injector 2024 025 [facility] #[id number], [address] [place], [address], 04/27/2024 12:03:01 Patient TargetsNo targets recorded. Patient InstructionsNo instructions recorded. Reason for Referral None Reported. Results Created Date Observation Date Name Description Value Unit Range Abnormal Flag Note LastModifiedBy Organization Detail LastModifiedTime 12/23/1912/24/2023 FE+TI BC+FE R iron bind.cap.(TI BC) 269 ug/dL 250-45 0 normal Not Available [facility] ([facility]) [address] [place], [address], 01/01/2024 03:35:41 12/23/19 24 12/24/2023 FE+TI BC+FE R UIBC 143 ug/dL 111-34 3 normal Not Available [facility] ([facility]) [address] [place], [address], 01/01/2024 03:35:41 12/23/19 24 12/24/2023 FE+TI BC+FE R iron 126 ug/dL 38-169 normal Not Available [facility] ([facility]) [address] [place], [address], 01/01/2024 03:35:41 12/23/19 24 12/24/2023 FE+TI BC+FE R iron saturation 47 % 15-55 normal Not Available [facility] ([facility]) [address] [place], [address], 01/01/2024 03:35:41 12/23/19 24 12/24/2023 FE+TI BC+FE R ferritin 61 NG/mL 30-400 normal Not Available [facility] ([facility]) [address] [place], [address], 01/01/2024 03:35:41 12/23/19 24 12/24/2023 TSH+F REE T4 TSH 12.900 uIU/m L 0.450- 4.500 above high normal Not Available [facility] ([facility]) [address] [place], [address], 01/01/2024 03:35:42 12/23/19 24 12/24/2023 TSH+F REE T4 T4,free(dire ct) 1.40 NG/dL 0.82-1 .77 normal Not Available [facility] ([facility]) [address] [place], [address], 01/01/2024 03:35:42 12/23/19 24 12/24/2023 CBC WITH DIFFE RENTI AL/PL ATELE T WBC 4.7 x10e3 /uL 3.4-10 .8 normal Not Available [facility] ([facility]) [address] [place], [address], 01/01/2024 03:35:43 12/23/19 24 12/24/2023 CBC WITH DIFFE RENTI AL/PL ATELE T RBC 5.47 x10e6 /uL 4.14-5 .80 normal Not Available [facility] ([facility]) [address] [place], [address], 01/01/2024 03:35:43 12/23/19 24 12/24/2023 CBC WITH DIFFE RENTI AL/PL ATELE T hemoglobin 15.5 g/dL 13.0-1 7.7 normal Not Available [facility] ([facility]) [address] [place], [address], 01/01/2024 03:35:43 12/23/19 24 12/24/2023 CBC WITH DIFFE RENTI AL/PL ATELE T hematocrit 48.3 % 37.5-5 1.0 normal Not Available [facility] ([facility]) [address] [place], [address], 01/01/2024 03:35:43 12/23/19 24 12/24/2023 CBC WITH DIFFE RENTI AL/PL ATELE T MCV 88 fL 79-97 normal Not Available [facility] ([facility]) [address] [place], [address], 01/01/2024 03:35:43 12/23/19 24 12/24/2023 CBC WITH DIFFE RENTI AL/PL ATELE T MCH 28.3 pg 26.6-3 3.0 normal Not Available [facility] ([facility]) [address] [place], [address], 01/01/2024 03:35:43 12/23/19 24 12/24/2023 CBC WITH DIFFE RENTI AL/PL ATELE T MCHC 32.1 g/dL 31.5-3 5.7 normal Not Available [facility] ([facility]) [address] [place], [address], 01/01/2024 03:35:43 12/23/19 24 12/24/2023 CBC WITH DIFFE RENTI AL/PL ATELE T RDW 13.4 % 11.6-1 5.4 Not Available [facility] ([facility]) [address] [place], [address], 01/01/2024 03:35:43 12/23/19 24 12/24/2023 CBC WITH DIFFE RENTI AL/PL ATELE T platelets 291 x10e3 /uL 150-45 0 normal Not Available [facility] ([facility]) [address] [facility] [place], [place], [address], 01/01/2024 03:35:43 12/23/19 24 12/24/2023 CBC WITH DIFFE RENTI AL/PL ATELE T neutrophils 54 % not estab. normal Not Available [facility] ([facility]) [address] [facility] [place], [place], [address], 01/01/2024 03:35:43 12/23/19 24 12/24/2023 CBC WITH DIFFE RENTI AL/PL ATELE T lymphs 33 % not estab. normal Not Available [facility] ([facility]) [address] [facility] [place], [place], [address], 01/01/2024 03:35:43 12/23/19 24 12/24/2023 CBC WITH DIFFE RENTI AL/PL ATELE T monocytes 10 % not estab. normal Not Available [facility] ([facility]) [address] [facility] [place], [place], [address], 01/01/2024 03:35:43 12/23/19 24 12/24/2023 CBC WITH DIFFE RENTI AL/PL ATELE T eos 2 % not estab. normal Not Available [facility] ([facility]) [address] [facility] [place], [place], [address], 01/01/2024 03:35:43 12/23/19 24 12/24/2023 CBC WITH DIFFE RENTI AL/PL ATELE T basos 1 % not estab. normal Not Available [facility] ([facility]) [address] [facility] [place], [place], [address], 01/01/2024 03:35:43 12/23/19 24 12/24/2023 CBC WITH DIFFE RENTI AL/PL ATELE T immature cells [employer]ICE [employer]IVER Not Available [facility] ([facility]) [address] [place], [address], 01/01/2024 03:35:43 12/23/19 24 12/24/2023 CBC WITH DIFFE RENTI AL/PL ATELE T neutrophils (absolute) 2.6 x10e3 /uL 1.4-7. 0 normal Not Available [facility] ([facility]) [address] [place], [address], 01/01/2024 03:35:43 12/23/19 24 12/24/2023 CBC WITH DIFFE RENTI AL/PL ATELE T lymphs (absolute) 1.5 x10e3 /uL 0.7-3. 1 normal Not Available [facility] ([facility]) [address] [place], [address], 01/01/2024 03:35:43 12/23/19 24 12/24/2023 CBC WITH DIFFE RENTI AL/PL ATELE T monocytes(ab solute) 0.5 x10e3 /uL 0.1-0. 9 normal Not Available [facility] ([facility]) [address] [place], [address], 01/01/2024 03:35:43 12/23/19 24 12/24/2023 CBC WITH DIFFE RENTI AL/PL ATELE T eos (absolute) 0.1 x10e3 /uL 0.0-0. 4 normal Not Available [facility] ([facility]) [address] [place], [address], 01/01/2024 03:35:43 12/23/19 24 12/24/2023 CBC WITH DIFFE RENTI AL/PL ATELE T baso (absolute) 0.0 x10e3 /uL 0.0-0. 2 normal Not Available [facility] ([facility]) [address] [place], [address], 01/01/2024 03:35:43 12/23/19 24 12/24/2023 CBC WITH DIFFE RENTI AL/PL ATELE T immature granulocytes 0 % not estab. Not Available [facility] ([facility]) [address] [facility] [place], [place], [address], 01/01/2024 03:35:43 12/23/19 24 12/24/2023 CBC WITH DIFFE RENTI AL/PL ATELE T immature grans (abs) 0.0 x10e3 /uL 0.0-0. 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 METAB OLIC PANEL (14) glucose 94 mg/dL 70-99 normal Not Available [facility] ([facility]) [address] [facility] [place], [place], [address], 01/01/2024 03:35:44 12/23/19 24 12/24/2023 COMP. METAB OLIC PANEL (14) BUN 17 mg/dL 6-24 normal Not Available [facility] ([facility]) [address] [place], [address], 01/01/2024 03:35:44 12/23/19 24 12/24/2023 COMP. METAB OLIC PANEL (14) creatinine 1.20 mg/dL 0.76-1 .27 normal Not Available [facility] ([facility]) [address] [facility] [place], [place], [address], 01/01/2024 03:35:44 12/23/19 24 12/24/2023 COMP. METAB OLIC PANEL (14) eGFR 72 mL/mi n/1.7 3 >59 normal Not Available [facility] ([facility]) [address] [facility] [place], [place], [address], 01/01/2024 03:35:44 12/23/19 24 12/24/2023 COMP. METAB OLIC PANEL (14) BUN/creatini ne ratio 14 9-20 normal Not Available [facility] ([facility]) [address] [facility] [place], [place], [address], 01/01/2024 03:35:44 12/23/19 24 12/24/2023 COMP. METAB OLIC PANEL (14) sodium 139 mmol/ L 134-14 4 normal Not Available [facility] ([facility]) [address] [facility] [place], [place], [address], 01/01/2024 03:35:44 12/23/19 24 12/24/2023 COMP. METAB OLIC PANEL (14) potassium 4.9 mmol/ L 3.5-5. 2 normal Not Available [facility] ([facility]) [address] [facility] [place], [place], [address], 01/01/2024 03:35:44 12/23/19 24 12/24/2023 COMP. METAB OLIC PANEL (14) chloride 102 mmol/ L 96-106 normal Not Available [facility] ([facility]) [address] [facility] [place], [address], 01/01/2024 03:35:44 12/23/19 24 12/24/2023 COMP. METAB OLIC PANEL (14) carbon dioxide, total 24 mmol/ L 20-29 normal Not Available [facility] ([facility]) [address] [place], [address], 01/01/2024 03:35:44 12/23/19 24 12/24/2023 COMP. METAB OLIC PANEL (14) calcium 9.8 mg/dL 8.7-10 .2 normal Not Available [facility] ([facility]) [address] [place], [address], 01/01/2024 03:35:44 12/23/19 24 12/24/2023 COMP. METAB OLIC PANEL (14) protein, total 6.8 g/dL 6.0-8. 5 normal Not Available [facility] ([facility]) [address] [place], [address], 01/01/2024 03:35:44 12/23/19 24 12/24/2023 COMP. METAB OLIC PANEL (14) albumin 4.3 g/dL 3.8-4. 9 normal Not Available [facility] ([facility]) [address] [place], [address], 01/01/2024 03:35:44 12/23/19 24 12/24/2023 COMP. METAB OLIC PANEL (14) globulin, total 2.5 g/dL 1.5-4. 5 Not Available [facility] ([facility]) [address] [facility] [place], [address], 01/01/2024 03:35:44 12/23/19 24 12/24/2023 COMP. METAB OLIC PANEL (14) bilirubin, total 0.6 mg/dL 0.0-1. 2 normal Not Available [facility] ([facility]) [address] [facility] [place], [address], 01/01/2024 03:35:44 12/23/19 24 12/24/2023 COMP. METAB OLIC PANEL (14) alkaline phosphatase 73 IU/L 44-121 normal Not Available [facility]) [address] [facility] [place], [place], [address], 01/01/2024 03:35:44 12/23/19 24 12/24/2023 COMP. METAB OLIC PANEL (14) AST (SGOT) 19 IU/L 0-40 normal Not Available [facility] ([facility]) [address] [facility] [place], [address], 01/01/2024 03:35:44 12/23/19 24 12/24/2023 COMP. METAB OLIC PANEL (14) ALT (SGPT) 20 IU/L 0-44 normal Not Available [facility] ([facility]) [address] [facility] [place], [address], 01/01/2024 03:35:44 12/23/19 24 12/31/2023 VITAM IN E vitamin E(alpha tocopherol) 11.9 mg/L 7.0-25 .1 Not Available [facility] ([facility]) [address] [facility] [place], [place], [address], 01/01/2024 03:35:45 12/23/19 24 12/31/2023 VITAM IN [...] in E defic ient. Not Available [facility] ([facility]) [address] [facility] [place], [address], 01/01/2024 03:35:45 12/23/19 24 12/24/2023 FOLAT E (FOLI C ACID) , SERUM folate (folic acid), serum >20.0 NG/mL >3.0 A serum folat e jose ntrat ion of less than 3.1 ng/mL is consi dered to repre sent clini kirsten defic iency . Not Available [facility] ([facility]) [address] [facility] [place], [place], [address], 01/01/2024 03:35:46 12/23/19 24 12/31/2023 VITAM IN [...] Drug Admin istra tion. Not Available [facility] ([facility]) [address] [facility] [place], [place], [address], 01/01/2024 03:35:47 12/23/19 24 12/24/2023 VITAM IN [...] Endoc rine Socie ty went on to [facility] er defin e vitam in D insuf ficie ncy as a level betwe en 21 and 29 ng/mL (2). 1. IOM (Inst itute of Medic ine). 2010. Dieta ry refer ence intak es for calci um and D. Lesa bobby [place]: [facility] . 2. Noreen jorgensen MF, Gypsy tovar [place], Tosin off-F errar i KRAUSE, et al. Evalu ation , treat ment, and preve ntion of vitam in D defic iency : an Endoc rine Socie ty clini kirsten pract ice guide line. EM. 2010; 96(2) :1911 -30. Not Available [facility] ([facility]) [address] [facility] [place], [place], [address], 01/01/2024 03:35:48 12/23/19 24 12/27/2023 VITAM IN B1 (THIA MINE) , BLOOD vit. B1, whole blood 143.2 nmol/ L 66.5-2 00.0 Not Available [facility] ([facility]) [address] [facility] [place], [place], [address], 01/01/2024 03:35:49 12/23/19 24 12/28/2023 METHY LMALO MAG ACID, SERUM methylmaloni c acid, serum 201 nmol/ L 0-378 Not Available [facility] ([facility]) [address] [facility] [place], [place], [address], 01/01/2024 03:35:50 12/23/19 24 12/24/2023 PREAL BUMIN prealbumin 26 mg/dL 10- Not Available [facility] ([facility]) [address] [facility] [place], [place], [address], 01/01/2024 03:35:51 01/05/20 24 01/06/[address] (H PYLOR I AB QUAL) tracy test 20 min NEGATI VE negati ve Not Available [facility] ([facility]) [address] [facility], [place], [address], 01/06/2024 11:20:36 01/05/20 24 01/06/[address] (H PYLOR I AB QUAL) tracy test 1HR NEGATI VE negati ve Not Available [facility] ([facility]) [address] [facility], [place], [address], 01/06/2024 11:20:36 01/05/20 24 01/06/[address] (H PYLOR I AB QUAL) tarcy test 3 HR NEGATI VE negati ve Not Available [facility] ([facility]) [address] [facility], [place], [address], 01/06/2024 11:20:36 01/05/20 24 01/06/[address] (H PYLOR I AB QUAL) tracy test 24 HR NEGATI VE negati ve Not Available [facility] ([facility]) [address] [facility], [place], [address], 01/06/2024 11:20:36 01/05/20 24 01/06/[address] (H PYLOR I AB QUAL) tracy test kit lot# [id number] Not Available [facility] ([facility]) [address] [facility], [place], [address], 01/06/2024 11:20:36 01/05/20 24 01/06/[address] (H PYLOR I AB QUAL) tracy test kit exp date Not Available [facility] ([facility]) [address] [facility], [place], [address], 01/06/2024 11:20:36 01/03/2001/03/2024 [facility] [address] [place] [address] Phone: Fax: Name: LARISSA ENRIQUEZ Exam Date: 2023 : 971 Age 53 years Gender : M Access ion: [id number] Physic payton: JOSE DEAL Facili ty: [facility] Facili ty HSV: Outpat ient Exam: UGI WITH KUB PROCED URE: [place] UPPER GI SINGLE CONTRA ST CLINIC AL INDICA TION:G ERD. COMPAR SCOT: CT from 023 and prior upper GI from 07/26/19 23. TECHNI QUE: A prelim inary viscose cellar charge hand radiog raph of the abdome n was obtain ed. The esopha anabela, stomac h, and proxim al small bowel are evalua haven with single contra st techni que using real-t pablo fluoro scopy and acquis ition of multip le spot digita l radiog raphs. FINDIN GS: Hospital Technician: Prelim inary viscose cellar charge hand view of the abdome n demons trates [...] Thank you for referr LARISSA Maynard to [facility] al. Legall y authen ticate d by NINA HARMON 2023-02 08:19: 09 CC'ed Logic: Orderi ng Provid er: TOYIN HEATHE R Attend ing Provid er: PILE HEATHE R Referr ing Provid er: PILE HEATHE R Admitt ing Provid er: TOYIN gagnon [facility] - [facility] [address], [place], [address], 01/12/2024 13:24:07 Result Notes None recorded. Problems Name Problem SNOMED Code Status Onset Date Resolution Date Notes Provider Name and Address Organization Details Recorded Time Gastroesophag eal reflux disease without esophagitis 337421211 Active 2023 ELIN Maria [address], [place], [address] , [place] - [facility] [place] 4 13:33:47 Chronic low back pain 704115408 Active 2023 ELIN Maria [address], [place], [address] , [place] [facility] [place] 4 13:34:02 Intentional weight loss 993476706 Active 2023 ELIN Maria [address], [place], [address] , [place] [facility] [place] & [place] 4 13:34:18 Obesity 826720857 Active 2023 ELIN Maria [address], [place], [address] , [place] [facility] [place] 4 13:46:35 Obstructive sleep apnea syndrome 89601519 Active 2024 ELIN Maria [address], [place], [address] , [place] [facility] [place] 5 11:54:39 Problem Notes None recorded. Procedures Surgical History Date Name Laterality Status Provider Name and Address Organization Details Recorded Time 2020 Back Surgery completed Laylajuan Whalenence [place] - [facility] [place] & [place] 3 12:17:39 2015 Colonoscopy completed Laylajuan [place]alenence [place] - [facility] [place] 3 14:14:11 Back Surgery completed Laylajuan Whalenence [place] - [facility] [place] & [place] 3 14:14:11 laparoscopic sleeve gastrectomy completed Marleni PALMA [facility] & [place] 4 13:13:26 repair of hydrocele completed Joseph PALMA [facility] & [place] 4 13:13:39 procedure on shoulder completed Ade PALMA [facility] & [place] 4 13:13:54 esophagogastroduodenoscopy completed Marleni PALMA [facility] & [place] 4 13:14:27 thyroidectomy completed Marleni PALMA [facility] & [place] 4 13:14:42 Imaging Results None recorded. Procedure [...] cm 97.3 [degF] 96 /min 48 kg/m2 013587. 11 g 148/88 mm[Hg] Marleni KOO [facility] 5 11:26:48 Date Recorded Body height Body temperature Heart rate Body mass index (BMI) Body weight Systolic And Diastolic Provider Name and Address Organization Details Last Updated DateTime 5 187.96 cm 98 [degF] 82 /min 46.4 kg/m2 893811. 2 g 148/93 mm[Hg] Marleni KOO - NT [facility] & [place] 5 11:37:59 Date Recorded Body height Body mass index (BMI) Body weight Heart rate Body temperature Heart rate Systolic And Diastolic Provider Name and Address Organization Details Last Updated DateTime 187.96 cm 46.6 kg/m2 892101. 11 g 90 /min 97.1 [degF] 90 /min 127/81 mm[Hg] Marleni Guerra [facility] & [place] 13:20:49 Date Recorded Body height Body mass index (BMI) Body weight Provider Name and Address Organization Details Last Updated DateTime 01/12/2024 187.96 cm 46.1 kg/m2 981568.66 g Yisel Rudolph [facility] & [place] 01/12/2024 13:15:02 Social History Question Answer Notes LastModified by Organizat ion Details LastModified Time Tobacco Smoking Status [facility] [place] 04/19/2022 15:05:10 Do You Have An Advance Directive? No Information not available 06/16/2022 Are You Blind Or Do You Have Difficulty Seeing? No Information not available 06/16/2022 What Is Your Level Of Caffeine Consumption? Moderate Information not available 01/12/2024 Are You Passively [...] anxious, or unable to sleep at night)? [id number] Information not available 06/16/2022 Family History Nothing [...] influenza, unspecified formulation 11/08/2023 completed Yisel Rudolph [facility] & [place] 01/12/2024 13:16:21 Past Encounters Encounter ID Performer Location Encounter Start Date Encounter Closed Date Diagnosis/Indication Diagnosis SNOMED-CT Code Diagnosis ICD10 Code Diagnosis Note [id number] Abebe Pratt MD [facility] [address] [place] [address] 04/19/2022 14:48:38 04/19/2022 15:41:26 History of calculus of kidney 200735542 Z87.442 History of urinary tract infection 4794901432 107 Z87.440 Microscopic hematuria 19 6947777 R31.29 [id number] Elena Ferguson NP, S [facility] [address] [place] [address] 06/01/2022 15:16:24 06/01/2022 15:33:47 History of calculus of kidney 042281623 Z87.442 Cyst of kidney 065344527 N28.1 Microscopic hematuria [address] scan results reviewed and discussed with patient clinic today. Will schedule follow-up renal ultrasound in 6 months related to renal cyst. Return to clinic in 6 months for follow-up of renal ultrasound results. [id number] Aleyda Soler MD ENT Associate [facility] G -[phone] [facility] [address] [place] [address] 06/18/2022 13:58:27 06/18/2022 14:31:04 Thyroid nodule [id number] E04.1 Went over the patients most recent thyroid ultrasound and several of his previous ultrasound s. Compared them. Went over them in detail with the patient. Explained there hasn't been much growth in the larger nodules. Would not recommend repeat FNA at this time. We will continue to monitor with repeat ultrasound in 12 months. He would like to have this done at [facility] in [place] as this is drasticall y less expensive for him. [id number] ELIN Maria [facility] Bariatric s and Adv Surg [address] [facility] [address] [place] [address] 12/23/2023 13:06:13 12/23/2023 14:12:02 Gastroesophageal reflux disease without esophagitis [id number] K21.9 We discussed concerns of worsening gastroesop [...] cotine use Chronic low back pain 27 8747810 M54.50 History of gastrectomy [id number] Z90.3 Advised qid intake 50% protein 16-1700 [...] to correct any vitamin deficienci es. At count includes the [facility] risk of nutritional deficit [id number] Z91.89 Obesity 557442011 E66.9 Discuss revisional surgery with patient today. Optimal procedure to be determined after upper GI and upper endoscopy. Patient advised he will need cardiac clearance prior to revisional surgery. [id number] GRIFFIN RAMOS RD [facility] Bariatric s and Adv Surg [facility] [address] [place] [address] 12/23/2023 13:44:43 12/23/2023 14:37:19 Dietary management surveillance [id number] Z71.3 [id number] [facility] [address] [facility] [address] [place] [address] 01/12/2024 13:08:29 01/13/2024 11:38:08 Gastroesophageal reflux disease without esophagitis [id number] K21.9 Upper GI and upper endoscopy results were reviewed with patient today. Obesity 924890871 E66.9 Discussed BPD/duoden al switch versus Warren-en-Y gastric bypass. Patient wishes to pursue BPD/duoden al switch as he may need NSAIDs and steroids in the future for chronic back pain. We will have our insurance department reach out to patient to discuss insurance approval for revisional surgery. History of gastrectomy [id number] Z90.3 Advised patient continue focus on healthy high-prote in low-fat diet. [id number] [facility]IN [facility] [address] [facility] [address] [place] [address] 04/27/2024 11:12:39 04/27/2024 12:01:54 Gastroesophageal reflux disease without esophagitis 638145209 K21.9 Upper GI and upper endoscopy results [...] revisional surgery. Chronic low back pain 27 7814639 M54.50 Patient reports worsening back pain with weight gain. He has been advised to focus on additional weight loss Obesity 674653127 E66.9 Discussed medical weight loss options with [...] Body mass index 40+ - severely obese 721685236 Z68.42 Current BMI is 47.9. Patient has seen a 10.3 lb gain since December 2023 History of gastrectomy 204699227 Z90.3 Patient is to continue bariatric vitamin supplement ation. December labs were reviewed with patient again today. Recommend repeat vitamin panel at next office visit 2 months. [id number] ELIN Maria [facility] Bariatric s and Adv Surg [address] [facility] [address] [place] [address] 08/31/2024 11:12:15 08/31/2024 13:19:17 Gastroesophageal reflux disease without esophagitis 471102737 K21.9 Upper GI and upper endoscopy results [...] revisional surgery. Obstructiv e sleep apnea syndrome 59587065 G47.33 Intentiona l weight loss 707832993 R63.8 E66.813 Z68.42 Advised patient against use [...] llow up 4 weeks History of gastrectomy [id number] Z90.3 Advised qid intake 50% protein 16-1800 [...] to correct any vitamin deficienci es. At count includes the [facility] risk of nutritional deficit [id number] Z91.89 Health Concerns Section Related Observation LastModified by Organization Detai ls LastModified Time None Recorded Concern Status LastModified by Organization Details LastModified Time None Recorded Advance Directives Directive N: Payers Insurance Date Sequence Insurance Name Policy Number Policy Tovar Covered Member ID Tovar Member ID Guarantor Name 09/03/2024 1 [facility] ([place] [id number] Larissa Enriquez [id number] Larissa Enriquez Notes Date Note Type Note Provider Name and Address Organization Details Recorded Time 4 text/html 53-year-old male presents today as [...] basal metabolic rate 2289 ELIN Maria [address], [place], [address], [facility] - [place] & [place] 12/23/2023 13:48:03 4 text/html RDN met with patient for transfer of care and to complete initial nutrition assessment. He is new to our practice status post sleeve gastrectomy [address] 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 Interested in a revision but depends [...] diet sodaS - oatmeal cream pieD - [facility] - chicken critters, 2 baked potatoes, 2 [...] day Additional notes/comments: GRIFFIN RAMOS, RD [address] [facility], [place], [address], [facility] - [place] & [place] 12/23/2023 14:31:42 4 text/html Patient returns to clinic today to discuss recent upper GI and upper endoscopy findings. 01/05/24 EGD Findings: Moderate amount of retained gastric fundus. Mild irritation of the gastric mucosa in the pre antral space. H pylori biopsies neg 01/03/24 UGI FINDINGSScout: Preliminary viscose cellar charge hand view of the abdomen demonstrates a nonobstructivebowel [...] care patient. His is a patient of [facility]. He is new to our practice [...] with 46.1% body fat basal metabolic rate 0609 ELIN Maria [address], [place], [address], [facility] [place] 01/12/2024 13:32:30 5 text/html Patient returns to [...] pylori biopsies neg 01/03/24 UGI FINDINGSScout: Preliminary viscose cellar charge hand view of the abdomen demonstrates a nonobstructivebowel [...] basal metabolic rate 2289 ELIN Maria [address] , [place], [address], [facility] [place] 04/27/2024 12:17:33 5 text/html ANGELI Dec 2023 status post sleeve gastrectomy [address] San. [id number] OSAInsurance has denied [...] pylori biopsies neg 01/03/24 UGI FINDINGSScout: Preliminary viscose cellar charge hand view of the abdomen demonstrates a nonobstructivebowel [...] with 46.1% body fat basal metabolic rate 2836 ELIN Maria [address], [place], [address], [facility] - [place] 08/31/2024 12:16:48
--- NOTE | 2024-09-10 14:45 | EXP.PAIN.SOA ---
[facility] Disclaimer: The information contained in this section may have been updated after the patient was seen, as this information can be updated by other users. Medical History Lumbar compression fracture Hydrocele Kidney stone Sleep apnea History of COVID-19 History of gastroesophageal reflux (GERD) Multinodular goiter History of thyroid nodule Hypothyroidism Tinnitus of both ears Fracture of lumbar spine Cervical spine fracture Thyroid nodule Obesity Surgical History History of total thyroidectomy H/O thyroidectomy H/O gastric sleeve Hx of rotator cuff surgery right History of hernia surgery Family History Mother Colon cancer Sister Diabetes Social History Smoking Status: Never smoker alcohol intake: never substance use type: denies use current occupational status: employed Travel in the last 8 weeks?: None household members: spouse and family housing: house 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 Patient does state that he had pretty much immediate relief with the 100% improvement lasting 5 to 6 days. Patient is going back towards his baseline today and rates his pain a 6 out of 10. He denies any new falls or injuries. He does state the pain is still all across to his back and denies any radiating symptoms into his legs. Patient does state that he would like to proceed forward with the next step as it is interfering with his ability to perform activities of daily living such as cooking and cleaning. His Damon has been reviewed and is appropriate. Review of Systems: General: No recent weight changes, no fever, no sleep disturbances Respiratory: No cough, no shortness of air, no recurring pulmonary infections Cardiovascular/peripheral vascular: No chest pain, no palpitations, no edema, no shortness of breath Gastrointestinal: No new onset incontinence, normal bowel movements reported Genitourinary: No new onset incontinence Musculoskeletal: Low back pain Psychiatric: [Normal mood/affect] Neurological: [Denies weakness in extremities], [denies balance issues] Pain at rest (0-10 scale): 6 Objective Objective:: Physical Exam: General: Alert and oriented x3, no acute distress, pleasant and cooperative Lungs: Respirations even and unlabored, symmetrical chest expansion Eyes: PERRL Musculoskeletal: Flexion and extension of lumbar [spine] somewhat guarded secondary to pain, [antalgic gait noted] positive Kemps test Neurological: Speech clear, no gross sensory deficit Has patient had previous pain injection?: Yes Percent improvement in pain since last injection: 100% relief for 5 to 6 days Conservative treatment options previously tried: Home exercise plan Length of treatment: Longer than 12 weeks Meds Home Medications and Allergies Home Medications ?Medication ?Instructions ?Recorded ?Confirmed ?Type hydroxyzine pamoate 25 mg capsule 25 mg PO HS 08/16/23 08/28/24 History omeprazole 40 mg capsule,delayed 40 mg PO DAILY 08/16/23 08/28/24 History release calcium carbonate 500 mg PO BID #60 tabs 08/17/23 08/28/24 Rx phentermine 37.5 mg tablet 37.5 mg PO DAILY Weight loss 09/15/23 08/28/24 History levothyroxine 175 mcg tablet 175 mcg PO DAILY #60 tabs 01/09/24 08/28/24 Rx (Synthroid) amoxicillin 875 mg-potassium 1 tab PO BID Infection 14 days #28 08/14/24 08/28/24 Rx clavulanate 125 mg tablet tabs methylprednisolone 4 mg tablets in 4 mg PO PER PKG DIR #21 tabs 08/14/24 08/28/24 Rx a dose pack (Medrol (Balaji)) New Prescriptions to Start Prescriptions: Allergies Allergy/AdvReac Type Severity Reaction Status Date / Time No Known Allergies Allergy Verified 07/23/24 13:45 Assessment and Plan *Assessment and plan (1) Lumbar facet arthropathy: Status: Acute Category: Medical Code(s): M47.816 - Spondylosis without myelopathy or radiculopathy, lumbar region (2) Degenerative disc disease: Status: Acute Category: Medical Plan Patient has had a successful second lumbar medial branch block with 100% relief lasting 5 to 6 days. Patient did get 85% relief with his first lumbar medial branch block. Patient did have limited range of motion of his lumbar spine with a positive Kemps test today. I did review over with him that I do believe he would be a beneficial candidate of a lumbar RFA. Risk and benefits were discussed with the patient and he would like to proceed forward with this plan of care. Patient has continued conservative therapy including oral medication, heat and ice, topicals, at home stretching exercise for longer than 12 weeks. Patient has had chronic low back pain for longer than 6 months. Patient will be scheduled for a lumbar radiofrequency ablation bilaterally L4-L5 and L5-S1 under fluoroscopy. Patient agrees with this plan of care. Patient has been instructed to contact the clinic with any concerns before the next appointment. Dr. Miranda has reviewed this note and agrees with this plan of care. This note was dictated using voice recognition software and make contain errors or omissions. All injections are used with Lidocaine, Bupivacaine and dexamethasone. Occasionally urine drug screen is needed to verify patient's compliance with our office pain contract. This is ordered based off specific treatments related to chronic pain with the potential to abuse certain medications.
[2024-09-10 15:10] VITALS: BP 133/72; PULSE 98; RESP 14; O2SAT 98; BMI 45.9
== END 2024-09-10 23:59 | disposition home or self-care (01) ==
LOC: SC.PAIN 13:36
PROVIDERS: PCP Nurse Practitioner Family; Visit Provider Nurse Practitioner Family
DX: M47.816 Spondylosis without myelopathy or radiculopathy, lumbar region (principal)
CPT/HCPCS: 99212; G0463

== ENCOUNTER 2024-09-19 17:00 | Outpatient (RCR) | payer BC, SELFPAY | END 2024-09-19 23:59 | disposition home or self-care (01) | LOC: PT 17:00 | PROVIDERS: PCP Nurse Practitioner Family; Visit Provider Physician Assistant Medical | DX: M54.50 Low back pain, unspecified (principal); M41.30 Thoracogenic scoliosis, site unspecified; Z98.1 Arthrodesis status | CPT/HCPCS: 97110; 97164 ==

== ENCOUNTER 2024-09-26 17:00 | Outpatient (RCR) | payer BC, SELFPAY | END 2024-09-26 23:59 | disposition home or self-care (01) | LOC: PT 17:00 | PROVIDERS: PCP Nurse Practitioner Family; Visit Provider Physician Assistant Medical | DX: M54.50 Low back pain, unspecified (principal); M41.30 Thoracogenic scoliosis, site unspecified; Z98.1 Arthrodesis status | CPT/HCPCS: 97110 ==

== ENCOUNTER 2024-11-06 16:37 | Outpatient (CLI) | payer BC, SELFPAY ==
--- OUTSIDE RECORDS SUMMARY | 2024-11-06 16:39 | XMS_ITS | Clinical Summary ---
Author Organization [facility] Address [address] [place] [address] Care Team Providers Care Crop Specialist Name Role Phone Elisabet [place] YOSHI Primary Care Provider +1- [phone] Allergies No known active allergies Medications omeprazole [...] MOUTH TWICE DAILY 4 Active HYDROcodone-lena taminophen ([place]) 5-325 MG tablet TAKE ONE TABLET BY [...] [facility]-HIV Screening 1970 [facility]-Hepatitis C Screening 1970 [facility]-/Child/Adol SDOH Screenings 1970 [facility]- SDOH Screenings 1988 [...] 2020 [facility]-Zoster Vaccines (1 of 2) 2020 [facility]-NBKCM-50 Vaccine (3 - Moderna risk series) 12/30/2020 [...] this topic Medical Devices Implanted Type Area Sales Agent Device Identifier Shelf Expiration Date Model / Serial / Lot Collar Ti With Grooves - [id number] Implanted:Qty : 8 on 12/27/2020 by Saad Griggs MD at [facility] Cap N/A: Spine Lumbar DePuy Spine TellMi [id number] 498.011 / / Manjinder Hard Ti 6.0mm 200mm - [id number] Implanted:Qty : 2 on 12/27/2020 by Saad Griggs MD at [facility] Manjinder N/A: Spine Lumbar DePuy Spine TellMi [id number] 498.108 / / Screw Uss Ti Dual Core 6.0mm X 40mm - [id number] Implanted:Qty : 4 on 12/27/2020 by Saad Griggs MD at [facility] Screw N/A: Spine Lumbar DePuy Spine TellMi [id number] 04.602.64 0 / / Screw Uss Ti Dual Core 6.0mm X 35mm - [id number] Implanted:Qty : 3 on 12/27/2020 by Saad Griggs MD at [facility] Screw N/A: Spine Lumbar DePuy Spine [id number] 04.602.63 5 / / Nut Ti 11mm Width Across Flats - [id number] Implanted:Qty : 8 on 12/27/2020 by Saad Griggs MD at [facility] Washer N/A: Spine Lumbar DePuy Spine LogoGarden 498.003 / / Putty Dbx 10cc - [id number] Implanted:Qty : 1 on 12/27/2020 by Saad Griggs MD at [facility] N/A: Spine Lumbar Musculoskeletal Transplant [facility]-[id number] 08/13/2022 [id number] / / [id number] Graft Vivigen 5cc - [id number] - [id number] Implanted:Qty : 1 on 12/27/2020 by Saad Griggs MD at [facility] N/A: Spine Lumbar [id number] 12/17/2021 BL-1500-0 02 / [id number] / [id number] Graft Vivigen 5c - [id number] - [id number] Implanted:Qty : 1 on 12/27/2020 by Saad Griggs MD at [facility] N/A: Spine Lumbar [id number] 12/17/2021 BL-1500-0 02 / [id number] / [id number] Chip Bone 20cc - [id number] - [id number] Implanted:Qty : 1 on 12/27/2020 by Saad Griggs MD at [facility] N/A: Spine Lumbar [facility]-[id number] 08/21/2025 PCAN1/4 / [id number] / [id number] Animas Yknot Pro Rc 2.8mm W/2 1.3mm Hifi Ribbon - [id number] Implanted:Qty : 1 on 04/16/2021 by Joe Mayfield MD at [facility] Right: [facility] [employer]-[id number] 10/30/2025 [id number] / / [id number] Animas Yknot Pro Rc 2.8mm W/2 1.3mm Hifi Ribbon - [id number] Implanted:Qty : 1 on 04/16/2021 by Joe Mayfield MD at [facility] Right: [facility] [employer]-[id number] 10/30/2025 [id number] / / [id number] Animas Yknot Pro Rc 2.8mm W/2 1.3mm Hifi Ribbon - [id number] Implanted:Qty : 1 on 04/16/2021 by Joe Mayfield MD at [facility] Right: Shoulder [employer]-[id number] 10/30/2025 [id number] / / [id number] Animas Yknot Pro Rc 2.8mm W/2 1.3mm Hifi Ribbon - [id number] Implanted:Qty : 1 on 04/16/2021 by Joe Mayfield MD at [facility] Right: Shoulder [employer]-[id number] 10/30/2025 [id number] / / [id number] Explanted Type Area Sales Agent Device Identifier Shelf Expiration Date Model / Serial / Lot Collar Ti With Grooves - [id number] Explanted:Qty: 2 on 12/27/2020 at [facility] Cap N/A: Spine Lumbar DePuy Spine TellMi [id number] 498.011 / / Screw Uss Ti Dual Core 6.0mm X 35mm - [id number] Explanted:Qty: 1 on 12/27/2020 at [facility] Screw N/A: Spine Lumbar DePuy Spine TellMi [id number] 04.602.635 / / Procedures Procedure Name Priority Date/Time Associated Diagnosis Comments HEMOGLOBIN A1C STAT Add-on 12/26/2020 7:11 AM EDT from Last 3 Months or Most Recently Relevant to Health Maintenance Results * (ABNORMAL) Hemoglobin A1c (12/26/2020 7:11 AM EDT) Hemoglobin A1c 5.7(H) <5.7 % 12/26/2020 6:09 PM EDT [facility] Blood Venous blood specimen / Unknown [...] ORDERABLES Final R esult [facility] [address] [place] [address] from Last 3 Months or Most Recently Relevant to Health Maintenance Insurance ANTH Advance Directives * Full Code (Latest Code Status on File) Date Activated Date Inactivated Comments 12/26/2020 8:01 AM 01/01/2021 8:40 PM Question Answer Comments Patient has decision-making capacity? Yes Care Teams Crop Specialist Relationship Specialty Start Date End Date Elisabet [place] APRN [address] [place] [address] PCP - General 12/26/20
--- OUTSIDE RECORDS SUMMARY | 2024-11-06 16:39 | XMS_ITS | Encounter Summary ---
Author Organization [facility] Address [address] [place] [address] Care Team Providers Care Quantitative Consultant Name Role Phone Elisabet [place] YOSHI Primary Care Provider +1- [phone] Encounter Details Date Type Department Care Team ([facility] st Contact Info) Description 05/08/2024 Orders Only External Location [address] [place] [address] Provider, External Social History Tobacco Use Types [...] documented as of this encounter Care Teams Quantitative Consultant Relationship Specialty Start Date End Date Elisabet [place] APRN [address] [place] [address] PCP - General 12/26/20 documented as of this encounter
--- OUTSIDE RECORDS SUMMARY | 2024-11-06 16:39 | XMS_ITS | Encounter Summary ---
Author Organization [facility] Address [address] [place] [address] Care Team Providers Care Excellence Coach Name Role Phone Elisabet [place] YOSHI Primary Care Provider +1- [phone] Encounter Details Date Type Department Care Team ([facility] st Contact Info) Description 05/08/2024 Orders Only External Location [address] [place] [address] Provider, External Social History Tobacco Use Types [...] documented as of this encounter Care Teams Excellence Coach Relationship Specialty Start Date End Date Elisabet [place] APRN [address] [place] [address] PCP - General 12/26/20 documented as of this encounter
--- OUTSIDE RECORDS SUMMARY | 2024-11-06 16:39 | XMS_ITS | Clinical Summary ---
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
== END 2024-11-06 23:59 | disposition home or self-care (01) ==
LOC: RAD 16:38
PROVIDERS: PCP Nurse Practitioner Family; Visit Provider Nurse Practitioner Family
DX: M47.816 Spondylosis without myelopathy or radiculopathy, lumbar region (principal)
CPT/HCPCS: 72148

== ENCOUNTER 2024-11-21 14:19 | Outpatient (CLI) | payer BC, SELFPAY ==
--- OUTSIDE RECORDS SUMMARY | 2024-11-21 14:23 | XMS_ITS | Encounter Summary ---
Author Organization [facility] Address [address] [place] [address] Care Team Providers Care Neck Band Maker Name Role Phone Elisabet [place] YOSHI Primary Care Provider +1- [phone] Encounter Details Date Type Department Care Team ([facility] st Contact Info) Description 05/08/2024 Orders Only External Location [address] [place] [address] Provider, External Social History Tobacco Use Types [...] documented as of this encounter Care Teams Neck Band Maker Relationship Specialty Start Date End Date Elisabet [place] APRN [address] [place] [address] PCP - General 12/26/20 documented as of this encounter
--- OUTSIDE RECORDS SUMMARY | 2024-11-21 14:23 | XMS_ITS | Encounter Summary ---
Author Organization [facility] Address [address] [place] [address] Care Team Providers Care Swine Genetics Researcher Name Role Phone Elisabet [place] YOSHI Primary Care Provider +1- [phone] Encounter Details Date Type Department Care Team ([facility] st Contact Info) Description 05/08/2024 Orders Only External Location [address] [place] [address] Provider, External Social History Tobacco Use Types [...] documented as of this encounter Care Teams Swine Genetics Researcher Relationship Specialty Start Date End Date Elisabet [place] APRN [address] [place] [address] PCP - General 12/26/20 documented as of this encounter
--- OUTSIDE RECORDS SUMMARY | 2024-11-21 14:23 | XMS_ITS | Clinical Summary ---
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
--- OUTSIDE RECORDS SUMMARY | 2024-11-21 14:23 | XMS_ITS | Clinical Summary ---
Author Organization [facility] Address [address] [place] [address] Care Team Providers Care Panel Lay Up Worker Name Role Phone Elisabet Mills YOSHI Primary Care Provider [phone] Allergies No known active allergies Medications omeprazole [...] MOUTH TWICE DAILY 4 Active HYDROcodone-lena taminophen ([place]) 5-325 MG tablet TAKE ONE TABLET BY MOUTH EVERY 8 HOURS NEEDED FOR PAIN MAY CAUSE DROWSINESS 4 Active levothyroxine (Synthroid, Levoxyl) 175 MCG tablet Take 1 tablet by mouth daily. 5 Active cyclobenzaprine (Flexeril) 10 MG tablet Take 0.5 tablets by mouth 3 (three) times a day. 60 tablet 1 5 Active Active Problems Problem Noted Date Diagnosed Date Morbid obesity with body mass index (BMI) [...] Problem Noted Date Diagnosed Date Resolved Date S/P arthroscopy of right shoulder 06/16/2021 11/11/2024 Hyponatremia 12/28/2020 01/01/2021 Overview (12/28/2020): 134 on [...] Alive Paternal Grandmother Shai Enriquez Sister Colleen Moni Social History Tobacco Use Types Packs/Day Years [...] 2020 UKY-Zoster Vaccines (1 of 2) 2020 [id number]-BGIPT-27 Vaccine (3 - Moderna risk series) 12/30/2020 [...] this topic Medical Devices Implanted Type Area Ophthalmic Tech Device Identifier Shelf Expiration Date Model / Serial / Lot Collar Ti With Grooves - [id number] Implanted:Qty : 8 on 12/27/2020 by Saad Griggs MD at [facility] Cap N/A: Spine Lumbar DePuy Spine Powered Now -[id number] 498.011 / / Manjinder Hard Ti 6.0mm 200mm - [id number] Implanted:Qty : 2 on 12/27/2020 by Saad Griggs MD at [facility] Manjinder N/A: Spine Lumbar DePuy Spine Powered Now -[id number] 498.108 / / Screw Uss Ti Dual Core 6.0mm X 40mm - [id number] Implanted:Qty : 4 on 12/27/2020 by Saad Griggs MD at [facility] Screw N/A: Spine Lumbar DePuy Spine Powered Now -[id number] 04.602.64 0 / / Screw Uss Ti Dual Core 6.0mm X 35mm - [id number] Implanted:Qty : 3 on 12/27/2020 by Saad Griggs MD at [facility] Screw N/A: Spine Lumbar DePuy Spine Powered Now -[id number] 04.602.63 5 / / Nut Ti 11mm Width Across Flats - [id number] Implanted:Qty : 8 on 12/27/2020 by Saad Griggs MD at [facility] Washer N/A: Spine Lumbar DePuy Spine Powered Now -[id number] 498.003 / / Putty Dbx 10cc - [id number] Implanted:Qty : 1 on 12/27/2020 by Saad Griggs MD at [facility] N/A: Spine Lumbar Musculoskeletal Transplant [facility]-[id number] 08/13/2022 [id number] / / [id number] Graft Vivigen 5cc - [id number] - [id number] Implanted:Qty : 1 on 12/27/2020 by Saad Griggs MD at [facility] N/A: Spine Lumbar [facility]-[id number] 12/17/2021 BL-1500-0 02 / [id number] / [id number] Graft Vivigen 5cc - [id number] - [id number] Implanted:Qty : 1 on 12/27/2020 by Saad Griggs MD at [facility] N/A: Spine Lumbar [id number] 12/17/2021 BL-1500-0 86-8 074 / [id number] Chip Bone 20cc - [id number] - [id number] Implanted:Qty : 1 on 12/27/2020 by Saad Griggs MD at [facility] N/A: Spine Lumbar [id number] 08/21/2025 PCAN1/4 / [id number] / [id number] [place] Yknot Pro Rc 2.8mm W/2 1.3mm Hifi Ribbon - [id number] Implanted:Qty : 1 on 04/16/2021 by Joe Mayfield MD at [facility] Right: [facility] [id number] 10/30/2025 [id number] / / [id number] [place] Yknot Pro Rc 2.8mm W/2 1.3mm Hifi Ribbon - [id number] Implanted:Qty : 1 on 04/16/2021 by Joe Mayfield MD at [facility] Right: [facility] [employer]-[id number] 10/30/2025 [id number] / / [id number] [place] Yknot Pro Rc 2.8mm W/2 1.3mm Hifi Ribbon - [id number] Implanted:Qty : 1 on 04/16/2021 by Joe Mayfield MD at [facility] Right: Shoulder [employer]-[id number] 10/30/2025 [id number] / / [id number] [place] Yknot Pro Rc 2.8mm W/2 1.3mm Hifi Ribbon - [id number] Implanted:Qty : 1 on 04/16/2021 by Joe Mayfield MD at [facility] Right: Shoulder [employer]-[id number] 10/30/2025 [id number] / / [id number] Explanted Type Area Ophthalmic Tech Device Identifier Shelf Expiration Date Model / Serial / Lot Collar Ti With Grooves - [id number] Explanted:Qty: 2 on 12/27/2020 at [facility] Cap N/A: Spine Lumbar DePuy Spine Powered Now [id number] 498.011 / / Screw Uss Ti Dual Core 6.0mm X 35mm - [id number] Explanted:Qty: 1 on 12/27/2020 at [facility] Screw N/A: Spine Lumbar DePuy Spine [place]-[id number] 04.602.635 / / Procedures Procedure Name Priority Date/Time Associated Diagnosis Comments HEMOGLOBIN A1C STAT Add-on 12/26/2020 7:11 AM EDT from Last 3 Months or Most Recently Relevant to Health Maintenance Results * (ABNORMAL) Hemoglobin A1c (12/26/2020 7:11 AM EDT) Hemoglobin A1c 5.7(H) <5.7 % 12/26/2020 6:09 PM EDT [facility] Blood Venous blood specimen / Unknown [...] Adults <6.0% Children and Adolescents <7.5% Source: [place] [employer]. Standards of medical care in diabetes,2017. Diabetes Care.2017:40 (suppl 1):S1-S135. HbA1c assay performed by an ion-exchange chromatography method that is certified traceable to the DCCT. Ronald Jarquin MD LAB BLOOD ORDERABLES Final R esult [facility] [address] [place] [address] from Last 3 Months or Most Recently Relevant to Health Maintenance Insurance ANTHEM Advance Directives * Full Code (Latest Code Status on File) Date Activated Date Inactivated Comments 12/26/2020 8:01 AM 01/01/2021 8:40 PM Question Answer Comments Patient has decision-making capacity? Yes Care Teams Panel Lay Up Worker Relationship Specialty Start Date End Date Elisabet Mills APRN [address] [place] [address] PCP - General 12/26/20
[2024-11-21 16:19] LABS: Albumin Level 4.2 g/dl (3.5-5.0); Anion Gap 14.2 mEq/L (5-15); Blood Urea Nitrogen 16 mg/dl (9-20); Calcium 9.2 mg/dl (8.4-10.2); Carbon Dioxide 26 mmol/L (22.0-30.0); Chloride 104 mmol/L (98-107); Creatinine,Serum 1.10 mg/dl (0.66-1.25); Estimated Glomerular Filt Rate 70 ml/min (>60); GFR (African American) 84 ML/MIN (>60); Glucose 82 mg/dl (74-100); Phosphorous 3.8 mg/dl (2.5-4.5); Potassium 4.2 mmoL/L (3.5-5.1); Sodium 140 mmol/L (136-145)
[2024-11-21 16:37] LABS: Free T4 (Free Thyroxine) 1.42 ng/dl (0.78-2.19)
[2024-11-21 16:48] LABS: Thyroid Stimulating Hormone 0.80 uIU/mL (0.465-4.68)
== END 2024-11-21 23:59 | disposition home or self-care (01) ==
LOC: LAB 16:16
PROVIDERS: PCP Nurse Practitioner Family; Visit Provider Student in an Organized Health Care Education/Training Program
DX: E03.9 Hypothyroidism, unspecified (principal); E83.51 Hypocalcemia
CPT/HCPCS: 36415; 80069; 83970; 84439; 84443

== ENCOUNTER 2025-01-08 18:07 | Outpatient (CLI) | payer BC, SELFPAY ==
[2025-01-08 19:31] LABS: Albumin Level 4.5 g/dl (3.5-5.0); Chloride 105 mmol/L (98-107); Potassium 3.9 mmoL/L (3.5-5.1); Sodium 143 mmol/L (136-145)
[2025-01-08 19:34] LABS: Anion Gap 16.9 mEq/L (5-15); Blood Urea Nitrogen 14 mg/dl (9-20); Calcium 9.3 mg/dl (8.4-10.2); Carbon Dioxide 25 mmol/L (22.0-30.0); Creatinine,Serum 1.10 mg/dl (0.66-1.25); Estimated Glomerular Filt Rate 70 ml/min (>60); GFR (African American) 84 ML/MIN (>60); Glucose 88 mg/dl (74-100); Phosphorous 3.7 mg/dl (2.5-4.5)
[2025-01-08 19:50] LABS: 25-OH Vitamin D, Total 43.5 ng/mL (30-100)
[2025-01-10 16:13] LABS: Calcium, Ionized 5.0 mg/dL (4.5-5.6)
== END 2025-01-08 23:59 | disposition home or self-care (01) ==
LOC: LAB 18:08
PROVIDERS: PCP Nurse Practitioner Family; Visit Provider Student in an Organized Health Care Education/Training Program
DX: E83.51 Hypocalcemia (principal)
CPT/HCPCS: 36415; 80069; 82306; 82330